=== PATIENT | female | born 1955 | race Caucasian/White ===

== ENCOUNTER 2023-04-25 14:45 | Inpatient (IN) ==
--- NOTE | 2023-04-25 15:11 | Emergency Department Note ---
Impression & Plan Cellulitis of toe of right foot, Hypertensive urgency, Abnormal EKG, Skin necrosis ED Provider Note CHIEF COMPLAINT: Right great toe pain HISTORY OF PRESENTING ILLNESS: This 67-year-old female patient presents to the emergency department with her daughters for evaluation of right great toe pain. The patient states that she was wearing flip flops and hit her right great toenail on a picnic table and it split open a little bit in December 2022. It initially looked like an ingrown toenail and she was taking care of it at home. She states that she was cleaning the area and using antibiotic ointment and hydrogen peroxide on the area. The symptoms seemed to get better initially and she did not see anyone for the symptoms. However, 2-3 days ago she started having redness, swelling, and a lot of pain in the area. Clear discharge from the area. No fevers. She rates her discomfort as 10/10. She took 2 Advil with only minimal improvement of the symptoms. Having trouble walking because of the pain. Tetanus shot is not up to date. The patient has not seen her PCP since 2004. She knows she has a history of hypertension, but has not taken any medication for her hypertension since 2004. She does not know whether she is diabetic or not because she does not check her blood sugars. She is a smoker. REVIEW OF SYSTEMS: See HPI for pertinent positives and pertinent negatives. ALLERGIES: NKDA MEDICATIONS: None PAST MEDICAL HISTORY: HTN - has not seen a PCP since 2004 and has not been on medication for her blood pressure since that time PHYSICAL EXAM: VITALS: Vitals are noted on the nurse's note and reviewed by myself. GENERAL: Non toxic, no acute distress, non-diaphoretic. SKIN: The patient has erythema to the dorsal aspect of the right great toe extending around to the plantar aspect. There is a blackened discoloration under the right great toenail extending onto the toe pad. There is surrounding white discoloration of the skin as well as one small area of yellow purulence under the skin. The appearance is consistent with cellulitis, a small pocket of pus, ulceration, and necrosis. The patient also has onychomycosis of the right great toenail. There is no exposed bone. Capillary refill <2 sec. EYES: PERRLA. EOMI. Conjunctivae without injection, sclerae without icterus. NOSE: Patent without discharge. MOUTH: Mucous membranes moist. Uvula midline. Airway patent. NECK: Supple without nuchal rigidity. HEART: Regular rate and rhythm without murmurs gallops or rubs. LUNGS: Clear to auscultation bilaterally without wheezes, rales or rhonchi. No retractions or accessory muscle use. ABDOMEN: Positive bowel sounds x 4. Normal tympanic percussion. Soft, nontender. No masses or organomegaly. Rodriguez sign negative. No guarding or rebound tenderness. No focal RLQ or LLQ tenderness. MUSCULOSKELETAL: The patient has tenderness to palpation over the right great toe. Any movement of the right great toe causes increased pain, but she is able to move the right great toe fully. No tenderness to palpation of the remainder of the toes or the remainder of the foot. Peripheral pulses are difficult to palpate on the right side. NEURO: Patient was alert and oriented. The patient has decreased sensation of the right foot especially the right great toe. DIFFERENTIAL DIAGNOSIS: Differential diagnosis includes cellulitis, abscess, diabetic ulcer, necrosis, osteomyelitis, septic arthritis, necrotizing fasciitis, sepsis, bacteremia, vascular compromise, vascular occlusion, fracture, dislocation, DVT, diabetes, hypertension, or other etiologies. ED COURSE AND MEDICAL DECISION MAKING: HISTORY FROM INDEPENDENT HISTORIAN: Additional history was obtained from the patient's daughters. MONITOR: Continuous oncologist: Order was placed for continuous oncologist. Patient was placed on the oncologist and continuous pulse ox. Patient was noted to be in normal sinus rhythm at an initial rate of 96 bpm per my interpretation. EKG: EKG was interpreted by myself as normal sinus rhythm at 93 bpm with T wave inversions in the inferior and anterior lateral leads which are new compared to her previous EKG. MEDICATIONS GIVEN: 1.5 L of normal saline solution bolus. Toradol 10 mg IV, morphine 4 mg IV, and Zofran 4 mg IV. Tetanus booster. Cefepime 2 g IV, metronidazole 500 mg IV, vancomycin 1250 mg IV. INTERPRETATION OF LABS: I interpreted the labs with full lab results as below in the lab section of this note. White blood cell count elevated at 10.95. Hemoglobin normal at 15.9. Platelet count normal at 335. Coags were normal. Glucose 236, but CMP otherwise normal. CRP elevated at 1.94, but ESR normal at 30. High-sensitivity troponin normal. Procalcitonin normal. Lactate initially elevated at 3.2, but improved to 1.0 after IV fluids. Wound culture and blood cultures are pending. INTERPRETATION OF IMAGING: Imaging studies were interpreted by myself and read by radiology as per the imaging section of this note. Chest x-ray showed mild cardiomegaly with no acute cardiopulmonary etiology. X-rays of the right foot showed no acute fracture, dislocation, or osseous abnormality. 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 The right deep femoral artery demonstrates markedly elevated velocity which is consistent with a 75 to 99% stenosis. Monophasic flow and decreased velocities beyond the right superficial femoral artery occlusion as expected. CONSULTATIONS: ED pharmacist. Dr. Henderson of orthopedics. On-call hospitalist. CRITICAL CARE: I have personally spent 45 minutes of critical care time in the direct management of this patient. This includes bedside care, interpretation of diagnostic studies, and testing, discussion with consultants, patient, and family members, and other required patient management activities. This 45 minutes is in excess of all separately billable procedures. MDM SUMMARY: I examined the patient. The patient was initially tachycardic at 111 with a blood pressure of 252/95. The patient has a cellulitic and necrotic appearing right great toe after an injury in December 2022. However, she states the redness, swelling, and pain did not start until 2 to 3 days ago. An IV lock was placed and labs were drawn. The patient's initial lactate was elevated at 3.2, but improved to 1.0 after 1.5 L of normal saline solution bolus based on actual body weight. I spoke with the ED pharmacist who recommended IV cefepime, metronidazole, and vancomycin for treatment in the ER. Blood cultures are pending. There was an area of fluctuance that was able to be expressed from the wound with pressure and a wound culture is pending. Remainder of the laboratory studies as above. X-rays of the right foot were negative for acute abnormalities. The patient's blood pressure is significantly elevated. She states she has a history of hypertension, but has not seen a family doctor and has not been on any treatment for her hypertension since 2004. The patient also has EKG changes, but a normal troponin. This will need to be evaluated further. The patient's blood pressure did improve, but was still elevated after pain medication administration. I had a meaningful discussion about this patient with Dr. Gotti who agrees with my assessment and the treatment plan. Dr. Gotti recommended deferring treatment of her blood pressure to the admitting hospitalist. The patient has no known diagnosis of diabetes, but she has not been evaluated for diabetes since 2004. Based on the patient's exam and laboratory findings, there is concern that the patient does have diabetes as well as possible diabetic neuropathy. This could be further evaluated during admission as well. I spoke with Dr. Henderson the of orthopedics who presented to the emergency department and evaluated the patient. He does not feel that there is any surgical intervention needed at this time. He recommended wound care consult as well as vascular consult. He also recommended the patient follow-up with podiatry as an outpatient for management of her nails and her feet. I advised the patient that I recommended admission. Initially the patient was hesitant about being admitted, but after all of the testing was received and after discussion with her daughters, the patient was agreeable to admission. I spoke with the on-call hospitalist who agreed to admit the patient for further inpatient management. Please refer to their dictation for further details. The patient's care was transferred in stable condition. The patient has difficult to palpate peripheral pulses on the right side with necrosis of the right great toe. Arterial ultrasound was ordered, but was still pending at the time of admission. The radiologist from [facility] contacted me about the abnormal results as above. I contacted the on-call hospitalist to assure they received the results of the ultrasound as well. A vascular consult had already been placed. DIAGNOSIS: Cellulitis and necrosis of the right great toe Hypertensive urgency Abnormal EKG Past Med/Surg History Medical History (Updated 04/25/23 @ 23:02 by Susan Rushing PA-C) Tobacco abuse HTN (hypertension) Family History Other Diabetes Social History Smoking Status: Current every day smoker Cigarettes Per Day: 1-2 ppd; Hx Alcohol Use: No Hx Substance Use: No Preferred Language: Egyptian Feels Safe at Home: Yes Allergies Allergies Allergy/AdvReac Type Severity Reaction Status Date / Time No Known Allergies Allergy Verified 04/25/23 15:32 Home Meds Home Medications Medication Instructions Recorded Confirmed ibuprofen 200 mg tablet (Advil) 200 mg PO Q6H PRN Pain 04/25/23 04/25/23 Results & Data (ED) Vital Signs Vital Signs - 24 hr 04/25/23 15:02 04/25/23 16:30 04/25/23 16:45 Temperature 36.9 C Temperature Source Temporal Artery Scan Pulse Rate 111 H 93 H Pulse Rate [Apical] 90 Pulse Rate from SpO2 Sensor 90 Respiratory Rate 19 20 25 H Respiratory Effort / Characteristics Non-Labored Spontaneous Non-Labored Spontaneous Respiratory Depth Normal Normal Blood Pressure 252/95 H Blood Pressure [Left Arm] 235/93 H Blood Pressure Mean 147 Blood Pressure Mean [Left Arm] 140 Pulse Oximetry 94 97 97 Oxygen Delivery Method Room Air Room Air Sepsis Recent Fever Within 48 Hours No Sepsis New/Unexplained Change in Mental Status N/A Sepsis Action Taken by Nursing No Action Required 04/25/23 16:50 04/25/23 17:00 04/25/23 17:00 Temperature Temperature Source Pulse Rate 89 96 H Pulse Rate [Apical] Pulse Rate from SpO2 Sensor 89 96 H Respiratory Rate 18 14 Respiratory Effort / Characteristics Respiratory Depth Blood Pressure 239/89 H Blood Pressure [Left Arm] Blood Pressure Mean 142 Blood Pressure Mean [Left Arm] Pulse Oximetry 97 96 Oxygen Delivery Method Sepsis Recent Fever Within 48 Hours Sepsis New/Unexplained Change in Mental Status Sepsis Action Taken by Nursing 04/25/23 17:02 04/25/23 17:39 04/25/23 17:40 Temperature Temperature Source Pulse Rate 91 H 88 89 Pulse Rate [Apical] Pulse Rate from SpO2 Sensor 88 89 Respiratory Rate 25 H 16 Respiratory Effort / Characteristics Respiratory Depth Blood Pressure Blood Pressure [Left Arm] Blood Pressure Mean Blood Pressure Mean [Left Arm] Pulse Oximetry 94 93 Oxygen Delivery Method Sepsis Recent Fever Within 48 Hours Sepsis New/Unexplained Change in Mental Status Sepsis Action Taken by Nursing 04/25/23 17:46 04/25/23 17:46 04/25/23 17:50 Temperature Temperature Source Pulse Rate 86 86 Pulse Rate [Apical] Pulse Rate from SpO2 Sensor 86 87 Respiratory Rate 23 20 Respiratory Effort / Characteristics Respiratory Depth Blood Pressure 212/72 H Blood Pressure [Left Arm] Blood Pressure Mean 149 Blood Pressure Mean [Left Arm] Pulse Oximetry 96 96 Oxygen Delivery Method Sepsis Recent Fever Within 48 Hours Sepsis New/Unexplained Change in Mental Status Sepsis Action Taken by Nursing 04/25/23 18:00 04/25/23 18:00 04/25/23 18:10 Temperature Temperature Source Pulse Rate 87 92 H Pulse Rate [Apical] Pulse Rate from SpO2 Sensor 88 91 H Respiratory Rate 23 23 Respiratory Effort / Characteristics Respiratory Depth Blood Pressure 228/90 H Blood Pressure [Left Arm] Blood Pressure Mean 185 Blood Pressure Mean [Left Arm] Pulse Oximetry 97 95 Oxygen Delivery Method Sepsis Recent Fever Within 48 Hours Sepsis New/Unexplained Change in Mental Status Sepsis Action Taken by Nursing 04/25/23 18:15 04/25/23 18:15 04/25/23 18:20 Temperature Temperature Source Pulse Rate 93 H 89 Pulse Rate [Apical] Pulse Rate from SpO2 Sensor 93 H 90 Respiratory Rate 20 28 H Respiratory Effort / Characteristics Respiratory Depth Blood Pressure 217/105 H Blood Pressure [Left Arm] Blood Pressure Mean 154 Blood Pressure Mean [Left Arm] Pulse Oximetry 96 95 Oxygen Delivery Method Sepsis Recent Fever Within 48 Hours Sepsis New/Unexplained Change in Mental Status Sepsis Action Taken by Nursing Laboratory Data 04/25/23 15:47 04/25/23 15:47 Lab Results 04/25/23 04/25/23 04/25/23 Range/Units 15:47 15:49 17:46 WBC 10.95 H (4.8-10.8) K/ul RBC 5.62 H (4.20-5.40) M/uL Hgb 15.9 (12.0-16.0) g/dl Hct 48.0 H (37.0-47.0) % MCV 85.4 (80.0-100.0) fL MCH 28.3 (25.0-34.0) pg MCHC 33.1 (32.0-36.0) g/dL RDW Std Deviation 44.9 (36.4-46.3) fL RDW Coeff of María 14.6 H (11.5-14.5) % Plt Count 335 (130-400) K/uL MPV 10.1 (9.4-12.4) fL Immature Gran % (Auto) 0.5 % Neut % (Auto) 66.7 % Lymph % (Auto) 18.3 % Bibb % (Auto) 11.1 % Eos % (Auto) 2.4 % Baso % (Auto) 1.0 % Neut # (Auto) 7.31 H (1.40-6.50) K/uL Lymph # (Auto) 2.00 (1.20-3.40) K/uL Bibb # (Auto) 1.21 H (0.11-0.59) K/uL Eos # (Auto) 0.26 (0.00-0.50) K/uL Baso # (Auto) 0.11 (0.00-0.20) K/uL Immature Gran # (Auto) 0.06 (0.01-0.20) K/uL ESR 30 (0-30) mm/hr PT 10.3 (9.0-12.0) Seconds INR 0.9 (0.9-1.1) APTT 30.1 (21.0-31.0) Seconds PTT Ratio 1.1 Sodium 137 (136-145) mmol/L Potassium 4.4 (3.5-5.1) mmol/L Chloride 100 (98-107) mmol/L Carbon Dioxide 30 (21-32) mmol/L Anion Gap 7 (3-11) BUN 15 (6-23) mg/dl Creatinine 0.80 (0.6-1.2) mg/dl Est Cr Clr Drug Dosing 47.8 ml/min Est GFR ( Amer) 89.7 ml/min Est GFR (Non-Af Amer) 77.4 ml/min BUN/Creatinine Ratio 18.8 (10-20) Glucose 236 H (70-99(Fasting)) mg/dl Lactate 3.2 H* 1.0 (0.4-2.0) mmol/L Uric Acid 3.1 (2.6-7.2) mg/dl Calcium 9.8 (8.6-10.3) mg/dl Total Bilirubin 0.4 (0.2-1.0) mg/dl AST 12 L (13-39) U/L ALT 11 (7-52) U/L Alkaline Phosphatase 97 (34-104) U/L Troponin I High Sens 11.6 (0-14) pg/ml C-Reactive Protein 1.94 H (0-0.5) mg/dl Total Protein 7.6 (6.0-8.3) gm/dl Albumin 4.3 (3.4-5.0) gm/dl Globulin 3.3 (2.5-4.0) gm/dl Albumin/Globulin Ratio 1.3 (0.9-2) Procalcitonin < 0.05 (0-0.5) ng/ml Administered Medications Morphine Sulfate (Morphine Sulfate 2 Mg/Ml Carp) 2 mg IV Q6H PRN PRN Reason: Severe Pain (Scale 7, 8, 9,10) Stop: 05/09/23 20:53 Last Admin: 04/25/23 21:32 Dose: 2 mg Documented By: SHIMON Discontinued Medications Diphtheria/Pertussis/Tetanus Vacc (Diphtheria/Tetanus/Pertussis Vaccine (Tdap, Age 7+Yrs) 0.5ml Syr/Vl) 0.5 ml IM .ONCE ONE Stop: 04/25/23 15:38 Last Admin: 04/25/23 18:26 Dose: Not Given Documented By: BILLY Diphtheria/Pertussis/Tetanus Vacc (Diphtheria/Tetanus/Pertussis Vaccine (Tdap, Age 7+Yrs) 0.5ml Syr/Vl) 0.5 ml IM .ONCE ONE Stop: 04/25/23 19:01 Last Admin: 04/25/23 20:27 Dose: 0.5 ml Documented By: SHIMON Hydralazine HCl (Hydralazine Hcl 20 Mg/Ml Vial) 10 mg IV NOW STA Stop: 04/25/23 18:26 Last Admin: 04/25/23 19:51 Dose: 10 mg Documented By: SHIMON Sodium Chloride (Nss) 1,000 mls @ 999 mls/hr IV .Q1H1M ONE Stop: 04/25/23 16:32 Last Infusion: 04/25/23 16:57 Dose: Infused Documented By: Admin: 04/25/23 15:56 Dose: 999 mls/hr Documented By: FRANSISCO Cefepime HCl (Maxipime) 2,000 mg in 20 mls @ 5 mls/min IV NOW STA; Protocol Stop: 04/25/23 16:13 Last Admin: 04/25/23 16:19 Dose: 5 mls/min Documented By: FRANSISCO Metronidazole (Flagyl) 500 mg in 100 mls @ 100 mls/hr IV NOW STA; Protocol Stop: 04/25/23 17:09 Last Infusion: 04/25/23 17:39 Dose: Infused Documented By: Admin: 04/25/23 16:39 Dose: 100 mls/hr Documented By: FRANSISCO Vancomycin HCl 1,250 mg/ (Sodium Chloride) 525 mls @ 200 mls/hr IV NOW ONE Stop: 04/25/23 18:47 Last Admin: 04/25/23 17:57 Dose: 200 mls/hr Documented By: BILLY Sodium Chloride (Nss) 500 mls @ 999 mls/hr IV .Q31M ONE Stop: 04/25/23 16:41 Last Infusion: 04/25/23 17:49 Dose: Infused Documented By: Admin: 04/25/23 17:16 Dose: 999 mls/hr Documented By: Ketorolac Tromethamine (Ketorolac Tromethamine 15 Mg/Ml Vial) 10 mg IV NOW ONE Stop: 04/25/23 15:35 Last Admin: 04/25/23 15:54 Dose: 10 mg Documented By: Losartan Potassium (Losartan Potassium 50 Mg Tab) 50 mg PO ONE ONE Stop: 04/25/23 18:26 Last Admin: 04/25/23 19:50 Dose: 50 mg Documented By: SHIMON Morphine Sulfate (Morphine Sulfate 4 Mg/Ml 1 Ml Carp\Vial) 4 mg IV NOW STA Stop: 04/25/23 16:40 Last Admin: 04/25/23 16:54 Dose: 4 mg Documented By: Ondansetron HCl (Ondansetron Inj 2 Mg/Ml 2 Ml Vial) 4 mg IV NOW STA Stop: 04/25/23 16:40 Last Admin: 04/25/23 16:54 Dose: 4 mg Documented By: Oxycodone HCl (Oxycodone Hcl Ir 5 Mg Tab (Immediate Release)) 5 mg PO NOW STA Stop: 04/25/23 18:26 Last Admin: 04/25/23 19:50 Dose: 5 mg Documented By: [facility] Imaging Data Radiologist's Impression: Chest X-Ray 04/25/23 15:32 SINGLE VIEW CHEST CLINICAL HISTORY: Hypertension. Unspecified infection. FINDINGS: An AP, portable, upright chest radiograph is obtained. No prior studies are available for comparison at the time of dictation. The heart is mildly enlarged noting atherosclerotic calcification of the thoracic aorta. The pulmonary vasculature is noncongested. Nonspecific interstitial thickening is likely chronic. No airspace consolidation or large pleural effusion is identified. There are scattered calcified granulomas. Scarring/atelectasis is noted at the lung bases. No airspace consolidation or large pleural effusion is identified. No pneumothorax is seen. The skeletal structures are osteopenic. The bony thorax is grossly intact. IMPRESSION: Mild cardiomegaly with no acute cardiopulmonary abnormality. ACT 112: Negative or not required by law. Electronically signed by: Koby Mcclain M.D. 04/25/2023 4:45 PM Foot X-Ray 04/25/23 15:32 XR foot RT min 3V routine HISTORY: 67 years-old Female Attn left great toe - eval infect/fxr COMPARISON: None TECHNIQUE: 3 views of the right foot FINDINGS: Demineralized appearance of the bones. Mild to moderate osteoarthritis. No acute fracture, dislocation, osseous erosion or opaque foreign body. Mild diffuse soft tissue swelling. Spurring of the calcaneus. IMPRESSION: No acute osseous abnormality. ACT 112: Negative or not required by law. The above report was generated using voice recognition software. It may contain grammatical, syntax or spelling errors. Electronically signed by: Fabrizio Herrera M.D. 04/25/2023 4:47 PM Duplex Scan Lower Extremity Artery 04/25/23 17:24 CR Exam(s): US ARTERIAL RIGHT LOWER EXTREMITY EXAM: US Duplex Right Lower Extremity Arteries CLINICAL HISTORY: Reason for exam: necrosis of right great toe, eval vascular status. TECHNIQUE: Real-time duplex ultrasound scan of the right lower extremity arteries integrating B-mode two-dimensional vascular structure, Doppler spectral analysis and color flow Doppler imaging. COMPARISON: No relevant prior studies available. FINDINGS: Right common femoral artery: The right common femoral artery is patent with abnormal monophasic flow, 116 cm/s. Right deep femoral artery: The right deep femoral artery demonstrates markedly elevated velocity of 402 cm/s. Right superficial femoral artery: The right superficial femoral artery is occluded throughout the proximal and midportion. There is distal reconstitution with monophasic flow, 53 cm/s. Right popliteal artery: The right popliteal artery demonstrates abnormal monophasic flow and decreased velocities 26 and 23 cm/s. Right calf/foot arteries: Right posterior tibial artery demonstrates an abnormal monophasic waveform and decreased velocities of 20 and 27 cm/s. The right peroneal artery demonstrates monophasic flow and decreased velocity, 16 cm/s. The right anterior tibial artery demonstrates abnormal monophasic flow and decreased velocity of 13 cm/s. The right dorsalis pedis artery demonstrates abnormal monophasic flow and decreased velocity of 12 cm/s. Soft tissues: Unremarkable. IMPRESSION: 1. The right superficial femoral artery is occluded throughout the proximal and midportion. There is distal reconstitution with monophasic flow, 53 cm/s. 2. The right deep femoral artery demonstrates markedly elevated velocity of 402 cm/s. This is consistent with 75-99% stenosis. 3. Monophasic flow and decreased velocities beyond the right superficial femoral artery occlusion, as expected. Communications: Call Doctor Above results Electronically signed by: Mikel Ram MD 04/25/23 20:05 PM Discharge Plan Visit Data Chief Complaint: Toe Injury/Pain Stated Complaint: R BIG TOE PAIN ED Provider: Lionel Gotti ED Midlevel Provider: Susan Rushing Discharge Problem: Cellulitis of toe of right foot, Hypertensive urgency, Abnormal EKG, Skin necrosis Patient Disposition: Admitted As Inpatient Condition: Good Discharge Instructions Interventions: ED Discharge Assessment Last Done: 04/25/23 20:54
[2023-04-25] MEDS ORDERED: SODIUM CHLORIDE 0.9% 1,000 ML IV ONE (15:32)
[2023-04-25] MEDS ORDERED: KETOROLAC TROMETHAMINE 15 MG/ML VIAL IV ONE (15:34)
[2023-04-25] MEDS ORDERED: DIPHTHERIA/TETANUS/PERTUSSIS Vaccine (Tdap, Age 7+yrs) 0.5mL SYR/VL IM ONE ×2 (15:37→19:00)
[2023-04-25 16:07] LABS: Basophils # (auto) 0.11 K/uL (0.00-0.20); Eosinophils # (auto) 0.26 K/uL (0.00-0.50); Eosinophils % (auto) 2.4 %; Hemoglobin 15.9 g/dl (12.0-16.0); Immature Granulocytes # (auto) 0.06 K/uL (0.01-0.20); Immature Granulocytes % (auto) 0.5 %; Lymphocytes % (auto) 18.3 %; Mean Corpuscular Hemoglobin 28.3 pg (25.0-34.0); Mean Corpuscular Hgb Conc 33.1 g/dL (32.0-36.0); Mean Corpuscular Volume 85.4 fL (80.0-100.0); Mean Platelet Volume 10.1 fL (9.4-12.4); Monocytes # (auto) 1.21 K/uL (0.11-0.59); Monocytes % (auto) 11.1 %; Neutrophils # (auto) 7.31 K/uL (1.40-6.50); Neutrophils % (auto) 66.7 %; Platelet Count 335 K/uL (130-400); RDW Coefficient of Variation 14.6 % (11.5-14.5); RDW Standard Deviation 44.9 fL (36.4-46.3); Red Blood Count 5.62 M/uL (4.20-5.40); White Blood Count 10.95 K/ul (4.8-10.8)
[2023-04-25] MEDS ORDERED: VANCOMYCIN HCL 1,250 MG in SODIUM CHLORIDE 0.9% 500 ML IV ONE (16:10)
[2023-04-25] MEDS ORDERED: metroNIDAZOLE 500 MG/100 ML BAG IV STA (16:10)
[2023-04-25] MEDS ORDERED: VANCOMYCIN CONSULT ACTIVE PRN ×2 (16:10→20:54)
[2023-04-25] MEDS ORDERED: CEFEPIME 2,000 MG/20 ML VIAL IV STA (16:10)
[2023-04-25] MEDS ORDERED: SODIUM CHLORIDE 0.9% 500 ML IV ONE (16:11)
[2023-04-25 16:29] LABS: Albumin Globulin Ratio 1.3 (0.9-2); Albumin Level 4.3 gm/dl (3.4-5.0); BUN Creatinine Ratio 18.8 (10-20); Bilirubin,Total 0.4 mg/dl (0.2-1.0); C Reactive Protein 1.94 mg/dl (0-0.5); Calcium 9.8 mg/dl (8.6-10.3); Creatinine Clr Calc Pharmacy 47.8 ml/min; Est GFR (African American) 89.7 ml/min; Est GFR (Non-African American) 77.4 ml/min; Globulin 3.3 gm/dl (2.5-4.0); Potassium 4.4 mmol/L (3.5-5.1); Total Protein 7.6 gm/dl (6.0-8.3); Uric Acid 3.1 mg/dl (2.6-7.2)
[2023-04-25 16:35] LABS: Troponin I High Sensitivity 11.6 pg/ml (0-14)
--- NOTE | 2023-04-25 16:38 | Emergency Department Note ---
ED Visit Note The patient was seen and examined with indira. I agree with the history, physical and findings. Please see the note for disposition and details. .
[2023-04-25] MEDS ORDERED: MoRPHine SULFATE 4 MG/ML 1 ML CARP\\VIAL IV STA (16:39)
[2023-04-25] MEDS ORDERED: ONDANSETRON INJ 2 MG/ML 2 ML VIAL IV STA (16:39)
[2023-04-25 16:41] LABS: INR 0.9 (0.9-1.1); Partial Thromboplastin Ratio 1.1; Partial Thromboplastin Time 30.1 Seconds (21.0-31.0); Prothrombin Time 10.3 Seconds (9.0-12.0)
--- NOTE | 2023-04-25 16:47 | XRay Report ---
SINGLE VIEW CHEST CLINICAL HISTORY: Hypertension. Unspecified infection. FINDINGS: An AP, portable, upright chest radiograph is obtained. No prior studies are available for c omparison at the time of dictation. The heart is mildly enlarged noting atherosclerotic calcification of the thoracic aorta. The pulmonary vasculature is noncongested. Nonspecific interstitial thickenin g is likely chronic. No airspace consolidation or large pleural effusion is identified. There are sca ttered calcified granulomas. Scarring/atelectasis is noted at the lung bases. No airspace consolidati on or large pleural effusion is identified. No pneumothorax is seen. The skeletal structures are oste openic. The bony thorax is grossly intact. IMPRESSION: Mild cardiomegaly with no acute cardiopulmonary abnormality. ACT 112: Negative or not required by law. Electronically signed by: Koby Mcclain M.D. 04/25/2023 4:45 PM
--- NOTE | 2023-04-25 16:48 | XRay Report ---
XR foot RT min 3V routine HISTORY: 67 years-old Female Attn left great toe - eval infect/fxr COMPARISON: None TECHNIQUE: 3 views of the right foot FINDINGS: Demineralized appearance of the bones. Mild to moderate osteoarthritis. No acute fracture, dislocatio n, osseous erosion or opaque foreign body. Mild diffuse soft tissue swelling. Spurring of the calcane us. IMPRESSION: No acute osseous abnormality. ACT 112: Negative or not required by law. The above report was generated using voice recognition software. It may contain grammatical, syntax o r spelling errors. Electronically signed by: Fabrizio Herrera M.D. 04/25/2023 4:47 PM
--- NOTE | 2023-04-25 17:36 | Orthopedic Consultation ---
Date of Consultation April 25, 2023 Assessment & Plan (1) Wound of foot: Radiographs of the toe are negative. There is no fracture dislocation or evidence of osteomyelitis. She has some cellulitis present. I do not see any evidence of bone infection. I do not feel or see a abscess in need of draining. I would recommend podiatry for her nail care. A vascular consultation could be considered due to what appears to be poor circulation which may be contributing to the wound. She is not known to be a diabetic but her blood sugars are reported to be elevated and she has not had medical care for many years. I do not see any need for operative intervention at this present time. I would recommend wound care and hopefully things can get healed up that way. She may have poor circulation. She will likely need antibiotics either as an inpatient or outpatient. I would be happy to follow-up with her in my office if she is admitted. History of Present Illness History of Present Illness Alexandra is 67. A few weeks ago she bumped her big toe. She had a cut on it. She treated it with peroxide. Things got worse a few days ago where she noted some increased redness and swelling and came to the ER. Allergies Allergy/AdvReac Type Severity Reaction Status Date / Time No Known Allergies Allergy Verified 04/25/23 15:32 Home Medications Medication Instructions Recorded Confirmed Type ibuprofen 200 mg tablet (Advil) 200 mg PO Q6H PRN Pain 04/25/23 04/25/23 History Patient History Social History Smoking Status: Current every day smoker Preferred Language: Pashto Feels Safe at Home: Yes Review of Systems Review of Systems: She smokes Physical Exam Physical Exam: Pedal pulses are nonpalpable. There is a 1-1/2 cm diameter area on the lateral distal border of the big toe where there is superficial necrosis. Blackened discoloration like a eschar. Leathery in appearance. There is no surrounding fluctuance present. Tenderness is mild. Her nail is overgrown. She can flex and extend the big toe has good range of motion of her ankle. There is no exposed bone there is mild erythema on the dorsum of the toe with positive skin wrinkles and a trace bit of erythema going onto the top of the foot. Swelling is minimal. Results & Data Vital Signs (Past 12 Hours) Vital Signs Temp Pulse Pulse Resp BP BP Pulse Ox 04/25/23 17:02 91 H 04/25/23 16:30 90 20 235/93 H 97 04/25/23 15:02 36.9 C 111 H 19 252/95 H 94 O2 Del Method 04/25/23 17:02 04/25/23 16:30 Room Air 04/25/23 15:02 Room Air Laboratory Results Her labs are noted.
--- NOTE | 2023-04-25 17:59 | History & Physical Report ---
Date of Service April 25, 2023 Assessment & Plan (1) Wound of foot: (2) Cellulitis of toe of right foot: Plan: Patient is 67 year old female with PMH HTN presented to ER with c/o right great toe pain and wound after bumping toe in 12/2022. Denies fever/chills In ER afebrile, WBC: 10.9. Lactate: 3.2-->1.0 Foot Xray: No acute osseous abnormality In ER given 1500ml NSS, cefepime, vancomycin, flagyl, Tdap Wound culture, blood culture pending Arterial Doppler pending Zosyn, vancomycin Ortho consult, evaluated patient in ER and no need surgical intervention Podiatry consult Wound consult Vascular surgery consult CBC, BMP in am (3) Hypertensive urgency: Plan: History HTN. Not on medication for 20 years In ER BPs 235/93 Denies CP, SOB, PATRICIA, dizziness Start losartan Hydralazine prn (4) Abnormal EKG: Plan: EKG: sinus rhythm, rate 96. ST depression inferior, anterior lateral leads per my interpretation. Compared to EKG 08/18/[address] depression inferior, anterior and lateral leads also HS troponin negative Denies SOB, CP EKG in am Echo (5) Hyperglycemia: Plan: Random glucose: 236 A1c in am Novolog sliding scale per protocol (6) Tobacco abuse: Plan: 1-2ppd Denies nicotine patch No intention of smoking cessation DVT Prophylaxis Lovenox SQ Full Code as per discussion with pt Does not Follows with PCP for routine care Pt was seen and care coordinated with Dr Palomares. See addendum History of Present Illness Chief Complaint: Right great toe pain Primary Care Provider: NO PCP Patient is 67 year old female with PMH HTN presented to ER with c/o right great toe pain. Patient states in 12/2022 she bumped her right great toe and her toenail chipped. She states felt also like she had ingrown toenail and tried to self remove. Admits toenails are long. She has been soaking toe and applying peroxide and triple antibiotic cream to area. Has been having pain to toe and reports some clear drainage to toe. She noticed callused area and blackened area to side of toe as well. Patient states past couple of days with increased pain to toe. Hasn't been seen by physician in nearly 20 years. States previously was on BP med but self stopped. Denies fever/chills, diaphoresis, N/V/D/C, PATRICIA, dizziness, CP, SOB, palpitations, cough, sore throat, rhinorrhea, abdominal pain, paresthesias, extremity weakness, extremity edema, rashes, urinary symptoms. Allergies Allergy/AdvReac Type Severity Reaction Status Date / Time No Known Allergies Allergy Verified 04/25/23 15:32 Home Medications Medication Instructions Recorded Confirmed Type ibuprofen 200 mg tablet (Advil) 200 mg PO Q6H PRN Pain 04/25/23 04/25/23 History Past Med/Surg History Medical History (Updated 04/25/23 @ 18:56 by Nanette Sequeira PA-C) Tobacco abuse HTN (hypertension) Family History Other Diabetes Social History Smoking Status: Current every day smoker Cigarettes Per Day: 1-2 ppd; Hx Alcohol Use: No Hx Substance Use: No Preferred Language: Telugu Feels Safe at Home: Yes Review of Systems Review of Systems: All systems reviewed & are unremarkable except as noted in HPI & below Physical Exam Physical Exam: General: no distress, WDWN Head: normocephalic, atraumatic Eyes: conjunctiva non-injected, anicteric ENT: normal inspection external ears, nose, mucous membranes moist Neck: supple, trachea midline Lungs: clear, no respiratory distress, no wheezing/rhonchi/rales CV: RRR, no murmur, no pretibial edema Abd: normal BS, soft, non-tender Ext: Right foot: Right great toe with eschar, faint erythema toe, +mild tenderness palpation lateral toe. +long toenails. no red streaking up foot. unable to palpate distal pulses.no cyanosis, no calf tenderness; remaining extremities non-tender ROM intact Neuro: A&O x 3, no focal deficits noted, normal affect Skin: warm, dry Results & Data Results & Data Vital Signs (Past 12 Hours) Vital Signs Temp Pulse Pulse Resp BP BP Pulse Ox 04/25/23 17:02 91 H 04/25/23 16:30 90 20 235/93 H 97 04/25/23 15:02 36.9 C 111 H 19 252/95 H 94 O2 Del Method 04/25/23 17:02 04/25/23 16:30 Room Air 04/25/23 15:02 Room Air Laboratory Results Short CBC 04/25/23 Range/Units 15:47 WBC 10.95 H (4.8-10.8) K/ul Hgb 15.9 (12.0-16.0) g/dl Hct 48.0 H (37.0-47.0) % Plt Count 335 (130-400) K/uL BMP 04/25/23 15:47 Sodium 137 Potassium 4.4 Chloride 100 Carbon Dioxide 30 BUN 15 Creatinine 0.80 Glucose 236 H Calcium 9.8 Liver Function 04/25/23 Range/Units 15:47 Total Bilirubin 0.4 (0.2-1.0) mg/dl AST 12 L (13-39) U/L ALT 11 (7-52) U/L Alkaline Phosphatase 97 (34-104) U/L Albumin 4.3 (3.4-5.0) gm/dl Diagnostic Findings Chest X-Ray 04/25/23 15:32 SINGLE VIEW CHEST CLINICAL HISTORY: Hypertension. Unspecified infection. FINDINGS: An AP, portable, upright chest radiograph is obtained. No prior studies are available for comparison at the time of dictation. The heart is mildly enlarged noting atherosclerotic calcification of the thoracic aorta. The pulmonary vasculature is noncongested. Nonspecific interstitial thickening is likely chronic. No airspace consolidation or large pleural effusion is identified. There are scattered calcified granulomas. Scarring/atelectasis is noted at the lung bases. No airspace consolidation or large pleural effusion is identified. No pneumothorax is seen. The skeletal structures are osteopenic. The bony thorax is grossly intact. IMPRESSION: Mild cardiomegaly with no acute cardiopulmonary abnormality. ACT 112: Negative or not required by law. Electronically signed by: Koby Mcclain M.D. 04/25/2023 4:45 PM Foot X-Ray 04/25/23 15:32 XR foot RT min 3V routine HISTORY: 67 years-old Female Attn left great toe - eval infect/fxr COMPARISON: None TECHNIQUE: 3 views of the right foot FINDINGS: Demineralized appearance of the bones. Mild to moderate osteoarthritis. No acute fracture, dislocation, osseous erosion or opaque foreign body. Mild diffuse soft tissue swelling. Spurring of the calcaneus. IMPRESSION: No acute osseous abnormality. ACT 112: Negative or not required by law. The above report was generated using voice recognition software. It may contain grammatical, syntax or spelling errors. Electronically signed by: Fabrizio Herrera M.D. 04/25/2023 4:47 PM Supervising Physician Co-Signing Physician Notes Patient is a 67-year-old female with history of hypertension, tobacco use disorder and no other significant past medical history presents with history of right great toe pain associated with some drainage resulting from trauma in December 2022. She also admits to have ingrowing toenail. She denies any fever, chills. She admits to have significant pain which worsens with ambulation. She has not been seen by physician for more than 20 years. Please review HPI for complete details of presentation. I personally reviewed blood work and imaging studies, EKG available at the time of admission. Lactic acidosis resolved with IV fluids. Blood pressure elevated while in ED but patient denies any headache, dizziness, change in vision. Arterial Doppler currently pending. On exam patient is moderately built and nourished, no apparent distress, normocephalic atraumatic, EOMI, normal breath sounds, clear to auscultation, S1-S2,+ murmur, abdomen soft, nontender, normal bowel sounds, alert, awake, oriented, grossly no focal deficits. Right great toe eschar, mild erythema, tenderness noted. Patient is admitted for management of right foot cellulitis/right great toe wound. Started on broad-spectrum IV antibiotics. Blood, wound cultures pending. Suspected peripheral artery disease. Arterial Doppler pending. Consulted vascular surgery. We will check lipid panel. Hyperglycemia noted. Will check HbA1c. Abnormal EKG with nonspecific ST-T wave changes. Will check echo and consider cardiology evaluation if needed. Hypertensive urgency likely situational in addition to uncontrolled chronic hypertension. Started on losartan. IV hydralazine as needed. Will consider starting on aspirin, Lipitor if concerns for peripheral artery disease on Doppler. Lipid panel ordered as well. I personally reviewed the record. Patient is interviewed and examined at bedside. Patient's care is coordinated with Nanette Sequeira PA-C. Please refer to the documentation above for details of patient's presentation and for discussion of other issues.
[2023-04-25] MEDS ORDERED: LOSARTAN POTASSIUM 50 MG TAB PO ONE (18:25)
[2023-04-25] MEDS ORDERED: hydrALAZINE HCL 20 MG/ML VIAL IV STA (18:25)
[2023-04-25] MEDS ORDERED: oxyCODONE HCL IR 5 MG TAB (IMMEDIATE RELEASE) PO STA (18:25)
--- NOTE | 2023-04-25 20:06 | Ultrasound Report ---
Exam(s): US ARTERIAL RIGHT LOWER EXTREMITY EXAM: US Duplex Right Lower Extremity Arteries CLINICAL HISTORY: Reason for exam: necrosis of right great toe, eval vascular status. TECHNIQUE: Real-time duplex ultrasound scan of the right lower extremity arteries integrating B-mode two-dimensional vascular structure, Doppler spectral analysis and color flow Doppler imaging. COMPARISON: No relevant prior studies available. FINDINGS: Right common femoral artery: The right common femoral artery is patent with abnormal monophasic flow, 116 cm/s. Right deep femoral artery: The right deep femoral artery demonstrates markedly elevated velocity of 402 cm/s. Right superficial femoral artery: The right superficial femoral artery is occluded throughout the proximal and midportion. There is distal reconstitution with monophasic flow, 53 cm/s. Right popliteal artery: The right popliteal artery demonstrates abnormal monophasic flow and decreased velocities 26 and 23 cm/s. Right calf/foot arteries: Right posterior tibial artery demonstrates an abnormal monophasic waveform and decreased velocities of 20 and 27 cm/s. The right peroneal artery demonstrates monophasic flow and decreased velocity, 16 cm/s. The right anterior tibial artery demonstrates abnormal monophasic flow and decreased velocity of 13 cm/s. The right dorsalis pedis artery demonstrates abnormal monophasic flow and decreased velocity of 12 cm/s. Soft tissues: Unremarkable. IMPRESSION: 1. The right superficial femoral artery is occluded throughout the proximal and midportion. There is distal reconstitution with monophasic flow, 53 cm/s. 2. The right deep femoral artery demonstrates markedly elevated velocity of 402 cm/s. This is consistent with 75-99% stenosis. 3. Monophasic flow and decreased velocities beyond the right superficial femoral artery occlusion, as expected. Communications: Call Doctor Above results Electronically signed by: Mikel Ram MD 04/25/23 20:05 PM
[2023-04-25] MEDS ORDERED: POLYETHYLENE (MIRALAX) 17 GM PACK PO PRN (20:54)
[2023-04-25] MEDS ORDERED: CARBOHYDRATES FOR HYPOGLYCEMIA PO PRN (20:54)
[2023-04-25] MEDS ORDERED: GLUCOSE 40% GEL 15 GM TUBE PO PRN (20:54)
[2023-04-25] MEDS ORDERED: DEXTROSE 50% 50 ML SYRINGE IV PRN (20:54)
[2023-04-25] MEDS ORDERED: GLUCAGON FOR INJ 1 MG VIAL SQ PRN (20:54)
[2023-04-25] MEDS ORDERED: VANCOMYCIN HCL 750 MG in SODIUM CHLORIDE 0.9% 500 ML IV SCH (20:54)
[2023-04-25] MEDS ORDERED: ONDANSETRON INJ 2 MG/ML 2 ML VIAL IV PRN (20:54)
[2023-04-25] MEDS ORDERED: GLUCOSE 10 TAB/TUBE PO PRN (20:54)
[2023-04-25] MEDS ORDERED: PIPERACILLIN/TAZOBACTAM 4.5 GM in DEXTROSE 5% MINI-B 100 ML IV ONE (21:15)
[2023-04-25] MEDS: MoRPHine SULFATE 2 MG/ML CARP IV PRN (21:32)
[2023-04-25] MEDS: INSULIN ASPART PER UNIT CHARGE SC SCH (23:36)
[2023-04-25] MEDS: ACETAMINOPHEN 500 MG TAB PO SCH (23:47)
[2023-04-25] MEDS: ENOXAPARIN INJ 40 MG/0.4 ML SYR SQ SCH (23:47)
[2023-04-26] MEDS: oxyCODONE HCL IR 5 MG TAB (IMMEDIATE RELEASE) PO PRN ×3 (01:39→19:07)
[2023-04-26 03:58] LABS: Eosinophils # (auto) 0.29 K/uL (0.00-0.50); Eosinophils % (auto) 2.8 %; Hematocrit (blood only) 42.6 % (37.0-47.0); Hemoglobin 13.9 g/dl (12.0-16.0); Immature Granulocytes # (auto) 0.05 K/uL (0.01-0.20); Immature Granulocytes % (auto) 0.5 %; Lymphocytes # (auto) 1.66 K/uL (1.20-3.40); Lymphocytes % (auto) 16.1 %; Mean Corpuscular Hemoglobin 28.1 pg (25.0-34.0); Mean Corpuscular Hgb Conc 32.6 g/dL (32.0-36.0); Mean Corpuscular Volume 86.2 fL (80.0-100.0); Monocytes # (auto) 1.36 K/uL (0.11-0.59); Monocytes % (auto) 13.2 %; Neutrophils # (auto) 6.82 K/uL (1.40-6.50); Neutrophils % (auto) 66.4 %; Platelet Count 268 K/uL (130-400); RDW Coefficient of Variation 14.8 % (11.5-14.5); RDW Standard Deviation 46.9 fL (36.4-46.3); Red Blood Count 4.94 M/uL (4.20-5.40); White Blood Count 10.28 K/ul (4.8-10.8)
[2023-04-26 04:12] LABS: BUN Creatinine Ratio 15.1 (10-20); Calcium 8.4 mg/dl (8.6-10.3); Chol HDL Ratio 3.3 (0-5); Creatinine Clr Calc Pharmacy 44.5 ml/min; Est GFR (African American) 82.2 ml/min; Est GFR (Non-African American) 70.9 ml/min; Potassium 4.3 mmol/L (3.5-5.1)
[2023-04-26] MEDS: PIPERACILLIN/TAZOBACTAM 4.5 GM in DEXTROSE 5% MINI-B 100 ML IV SCH ×4 (04:30→20:17)
[2023-04-26] MEDS: ACETAMINOPHEN 500 MG TAB PO SCH ×3 (05:48→20:12)
[2023-04-26] MEDS: MoRPHine SULFATE 2 MG/ML CARP IV PRN ×2 (06:36→12:42)
[2023-04-26 07:06] LABS: Estimated Average Glucose 140 mg/dl; Hemoglobin A1C 6.5 % (4.5-5.6)
[2023-04-26] MEDS: VANCOMYCIN HCL 1,250 MG in SODIUM CHLORIDE 0.9% 250 ML IV SCH (08:02)
[2023-04-26] MEDS ORDERED: PIPERACILLIN/TAZOBACTAM 4.5 GM/100ML D5W IV ONE (08:58)
[2023-04-26] MEDS: LOSARTAN POTASSIUM 50 MG TAB PO SCH (09:01)
[2023-04-26] MEDS: INSULIN ASPART PER UNIT CHARGE SC SCH ×4 (09:11→20:38)
--- NOTE | 2023-04-26 11:01 | Pharmacy Report ---
Pharmacy PK ABX Note - Date of Service April 26, 2023 - Assessment and Plan Assessment 67 year old F receiving vancomycin/zosyn for treatment of cellulitis. Pertinent microbiologic data includes: blood cultures, toe culture pending. Mild leukocytosis improved. No evidence of osteo. Tmax 37.6 C. Plan Vancomycin * Loading dose: 1250 mg IV x 1 * Maintenance dose: 1250 mg IV every 24 hours * Regimen is predicted to achieve target AUC/TERESO of 400-625 mg/L.hr * Random ordered for 04/27 @ 1912 Pharmacy will continue to follow and will adjust dose/frequency as necessary. Thank you. Pharmacy has transitioned to AUC monitoring for vancomycin. AUC/TERESO is the preferred PK/PD target and is associated with decreased risk of nephrotoxicity compared to traditional trough targets.
--- NOTE | 2023-04-26 11:05 | Ultrasound Report ---
US ankle/brachial index ltd HISTORY: 67 years-old Female toe wound patient presents with chronic ulcer of the right toe COMPARISON: None TECHNIQUE: Segmental pressures of the lower extremities were obtained FINDINGS: IV catheter noted within the right upper extremity, therefore the right brachial pressure was unable to be obtained. Right dorsalis pedis: 7 (0.04); posterior tibial-50 (0.31) Left: Brachial-159; dorsalis pedis-59 (0.37); posterior tibial-69 (0.43). IMPRESSION: Severely decreased ABIs, right greater than left. ACT 112: Negative or not required by law. The above report was generated using voice recognition software. It may contain grammatical, syntax o r spelling errors. Electronically signed by: Fabrizio Herrera M.D. 04/26/2023 11:04 AM
--- NOTE | 2023-04-26 13:06 | Hospitalist Progress Note ---
Date of Service April 26, 2023 Assessment & Plan (1) Cellulitis of toe of right foot: Plan Patient is 67 year old female with PMH HTN presented to ER with c/o right great toe pain and wound after bumping toe in 12/2022. Denies fever/chills at presentation. She is being managed for the following: Wound of foot: Cellulitis of toe of right foot: Increase blood lactic acid level: Resolved At admission, febrile and WBC 10.9 K with lactate 2.2. No sepsis POA. Admitting imagings: CXR with no acute findings, x-ray right foot with no acute finding. US arterial right lower extremity: Occlusions, monophasic flow and decreased velocity noted. Abnormal. [place]: Severely decreased ABIs, right greater than left. Of note, patient has not seen any doctors since 2004 per her. Patient presented with nonhealing right great toe ulcer. Patient is a started on Zosyn and vancomycin 04/25, continue same. Await blood culture and toe culture 04/25. Podiatry, vascular, wound consult in place. Await recommendations. Labs in AM. Hypertensive urgency: History of hypertension, not on medication for 20 years, Denies chest pain or shortness of breath or headache or dizziness at presentation. Started losartan and amlodipine, continue to titrate blood pressure medication. Will follow. Follow-up echo. Diabetes mellitus, new diagnosis: Admitting glucose level elevated, A1c 6.5. Patient denies prior history of diabetes. diabetic educator consult, counselled regarding lifestyle modification and need to follow-up with PCP closely for long-term monitoring of diabetes. Patient voiced understanding but does not seem to be greatly interested. Tobacco abuse: Since age 15-16, smokes 1.5 to 2 packs a day, denies nicotine patches, counseling done regarding smoking cessation, reports she would cut down on smoking but states she will not quit. DVT Prophylaxis: Lovenox SQ Full Code Does not Follows with PCP for routine care Admission and Anticipated Discharge Date Admission Date: April 25, 2023 Subjective Patient was seen and examined at bedside. Patient was sitting up in bed, on room air, NAD, reports no new acute events overnight. Patient denies any febrile illness or sore throat or cough or chills or chest pain or abdominal pain. Patient denies any pain or burning with passing urine, any issues with her bowel habits. Of note, patient is not on any home medication and has not visited any doctors since 2004 per her. Also she has been smoking since age 17 or 18, smokes 1.5 to 2 packs a day. Physical Exam Physical Exam: GENERAL: Alert and oriented x3. NAD, on RA. HEENT: No pallor, no icterus. Pupils equal, round and reactive to light. Oral mucosa moist. NECK: No JVD, no neck masses. HEART: S1 and S2 heard. Regular rate and rhythm. No murmur, no gallop. RESPIRATORY SYSTEM: Normal AP diameter. No accessory muscle use. No wheezing, no crackles. ABDOMEN: Soft, bowel sounds present, nontender, no distention. CENTRAL NERVOUS SYSTEM: No facial droop. Speech is clear. Obeys simple commands. Moves extremities. EXTREMITIES: No edema, no erythema seen. Rt great toe tip ulcer, eschar +, minimal surrounding erythema, overgrown nail, no drainage, non tender. other toes looks healthy color. Results & Data Results & Data Vital Signs (Past 12 Hours) Vital Signs Pulse Pulse Resp BP BP Pulse Ox O2 Del Method 04/26/23 11:22 81 20 153/103 H 95 Room Air 04/26/23 07:30 81 22 159/88 H 93 Room Air 04/26/23 07:14 85 04/26/23 06:00 84 24 04/26/23 05:00 97 H 24 04/26/23 04:29 95 04/26/23 04:29 150/117 H 04/26/23 03:05 81 L
--- NOTE | 2023-04-26 13:58 | Electrocardiogram Report ---
Test Reason : Blood Pressure : / mmHG Vent. Rate : 093 BPM Atrial Rate : 093 BPM P-R Int : 128 ms QRS Dur : 092 ms QT Int : 342 ms P-R-T Axes : 058 056 166 degrees QTc Int : 425 ms Normal sinus rhythm Abnormal ECG When compared with ECG of 18-AUG-2004 17:47, T wave inversion now evident in Inferior leads T wave inversion more evident in Anterolateral leads Confirmed by Hakeem Arcos ([id number]) on 04/26/2023 1:58:08 PM Referred By: REFERRED SELF Confirmed By:Primo Arcos
--- NOTE | 2023-04-26 16:53 | Podiatry Consultation ---
Date of Consultation April 26, 2023 Assessment & Plan (1) Skin necrosis: (2) Tobacco abuse: (3) Cellulitis of toe of right foot: (4) Wound of foot: Plan - Patient was examined and evaluated in the emergency department. -We discussed at length etiology and treatment of her right hallux necrosis. -With no significant surrounding infectious changes, she would benefit from local wound care rather than an urgent incision and drainage or surgical debridement. -Instead, with this fibrous eschar, she would likely benefit from Santyl collagenase ointment until she is more stable from a vascular standpoint. -For now, any surgical debridement would likely cause more harm given her lack of vascular inflow. -Will await further input from vascular surgery and wound care for any further recommendations. -Of note, we can continue to see her from an outpatient perspective for her nail care moving forward. Ideally, that can help prevent future concerns such as this. -We look forward to providing her with excellent care as long as she remains inpatient. History of Present Illness Reason for Consultation: Right hallux infection Attending Physician: Claudia Melvin MD History of Present Illness This patient is a 67-year-old female who presented to the emergency department yesterday with worsening pain and ulceration to the right great toe. She states that this initially developed after slight trauma in December and she has been taking care of it on her own since that time. She states that it has recently become more painful which prompted her to seek further treatment. She attempted self debridement which did not improve the quality of the callus. She states that she has had a callus there on and off for as long as she can remember. She also states that she has been unable to take care of her own toenails due to their lengthening and thickening. She denies any systemic signs of infection at this time though has been feeling slightly under the weather recently. She does feel better since beginning antibiotics on this admissiShe does admit to being a longstanding tobacco user which she still continues to this day. Allergies Allergy/AdvReac Type Severity Reaction Status Date / Time No Known Allergies Allergy Verified 04/25/23 15:32 Home Medications Medication Instructions Recorded Confirmed Type ibuprofen 200 mg tablet (Advil) 200 mg PO Q6H PRN Pain 04/25/23 04/25/23 History Patient History Medical History Tobacco abuse HTN (hypertension) Family History Other Diabetes Social History Smoking Status: Current every day smoker Tobacco Type: Cigarettes Cigarettes Per Day: 1-2 ppd; Hx Alcohol Use: No Hx Substance Use: No Preferred Language: Yi Communication Ability: Effective Veterans' Coordinator Required: No Beliefs That Will Affect Care: None Current Living Situation: Alone Current Living Situation Comment: mobile home by herself with a dog, family nearby Feels Safe at Home: Yes Safety Concerns: Feels Safe At This Time Assistive Devices: None Review of Systems Review of Systems: All systems reviewed & are unremarkable except as noted in HPI & below Constitutional: no fever, no chills, no body aches and no fatigue Eyes: no problem reported Ear, Nose, Mouth, Throat: no problem reported Respiratory: + cough and + wheezing Cardiovascular: no problem reported Gastrointestinal: no problem reported Genitourinary: no problem reported Musculoskeletal: no problem reported Integumentary: + skin ulcer, + wounds and + nail change s Neurologic: + loss of sensation and + paresthesia Psychiatric: no problem reported Endocrine: no problem reported Hematologic / Lymphatic: no problem reported Allergy / Immunological: no problem reported Physical Exam Physical Exam: DP/PT pulses 0/4 bilaterally. Advanced atrophic skin changes are noted to the bilateral lower extremity with thinning of the skin and no hair growth distal to the malleoli. The limbs are cool to cold proximal to distal. This right hallux ulceration does appear to be a dry eschar, consistent with possible local dry gangrene. There is no purulent drainage noted and no undermining of the edges or deep probing noted. This overlying eschar is firm and stable. No palpable underlying abscess formation is appreciated. CFT is brisk to the remaining digits otherwise. Nails 1 through 5 bilaterally are length and and thickened, consistent with underlying onychomycosis and advanced aging. Pain is out of proportion to palpation of the right hallux with otherwise sensation diminished overall. No abnormal reflexes are appreciated. Constitutional: + ill appearing; no acute distress and n o altered mental status Eyes: PERRL, conjunctivae normal, anicteric sclerae ENMT: Ears: no hearing impairment Nose: no external nose abnormality Mouth: + poor dentition Neck: trachea midline, no thyromegaly Respiratory: normal respiratory effort, + cough and + audible wheezes; no respiratory distress Cardiovascular: RRR, no murmur, no edema Vessels: + abnormal peripheral pulses, + posterior tibial pulses abnormal and + dorsalis pedis pulses abnormal Extremities: normal capillary refill; no edema Chest (Breasts): Chest: normal inspection of chest Gastrointestinal (Abdomen): normal bowel sounds, soft, nontender, no hepatosplenomegaly Inspection/Auscultation: abdomen normal to inspection Percussion/Palpation: abdomen nontender Musculoskeletal: Head/Neck/Chest: + head abnormal to inspection and normocephalic Extremities: + limited ROM of extremities, strength 5/5 throughout, + cyanosis and + clubbing Skin: + skin atrophy, + dry skin and + eschar; no ecchymosis, no erythema and no fluctulance Neurologic: moves all extremities; + abnormal sensation to monofilament and no focal motor deficits Psychiatric: A+Ox3, euthymic affect Results & Data Vital Signs (Past 12 Hours) Vital Signs Pulse Pulse Resp BP Pulse Ox O2 Del Method 04/26/23 16:42 63 18 177/71 H 93 Room Air 04/26/23 15:58 65 04/26/23 14:46 67 22 171/63 H 93 Room Air 04/26/23 11:22 81 20 153/103 H 95 Room Air 04/26/23 07:30 81 22 159/88 H 93 Room Air 04/26/23 07:14 85 04/26/23 06:00 84 24 04/26/23 05:00 97 H 24 Diagnostic Findings [place]/arterial ultrasound reveal advanced arterial insufficiency to the lower extremity. This does clinically correlate with her physical exam findings. Radiographs do not reveal any underlying bone involvement or soft tissue edema, which is again consistent with clinical exam.
[2023-04-26] MEDS ORDERED: COLLAGENASE OINT 30 GM TUBE EXT PRN (17:03)
[2023-04-26] MEDS: hydrALAZINE HCL 20 MG/ML VIAL IV PRN (17:56)
[2023-04-26] MEDS: ENOXAPARIN INJ 40 MG/0.4 ML SYR SQ SCH (20:12)
[2023-04-26] MEDS ORDERED: amLODIPine BESYLATE 5 MG TAB PO SCH (21:00)
[2023-04-27] MEDS: oxyCODONE HCL IR 5 MG TAB (IMMEDIATE RELEASE) PO PRN ×2 (02:57→10:02)
[2023-04-27] MEDS: hydrALAZINE HCL 20 MG/ML VIAL IV PRN (03:49)
[2023-04-27] MEDS: PIPERACILLIN/TAZOBACTAM 4.5 GM in DEXTROSE 5% MINI-B 100 ML IV SCH ×2 (03:57→11:12)
[2023-04-27] MEDS: MoRPHine SULFATE 2 MG/ML CARP IV PRN (04:25)
[2023-04-27] MEDS ORDERED: VANCOMYCIN LEVEL ONE (04:44)
[2023-04-27 05:19] LABS: Hematocrit (blood only) 41.4 % (37.0-47.0); Mean Corpuscular Hemoglobin 28.4 pg (25.0-34.0); Mean Corpuscular Hgb Conc 33.8 g/dL (32.0-36.0); Mean Platelet Volume 10.5 fL (9.4-12.4); Platelet Count 273 K/uL (130-400); RDW Coefficient of Variation 14.8 % (11.5-14.5); RDW Standard Deviation 45.1 fL (36.4-46.3); Red Blood Count 4.93 M/uL (4.20-5.40); White Blood Count 11.42 K/ul (4.8-10.8)
[2023-04-27 05:37] LABS: BUN Creatinine Ratio 14.7 (10-20); Calcium 8.8 mg/dl (8.6-10.3); Est GFR (African American) 96.9 ml/min; Est GFR (Non-African American) 83.6 ml/min; Magnesium 2.1 mg/dl (1.7-2.4); Phosphorus 2.6 mg/dl (2.5-4.9); Potassium 3.8 mmol/L (3.5-5.1)
[2023-04-27] MEDS: ACETAMINOPHEN 500 MG TAB PO SCH (05:52)
[2023-04-27] MEDS ORDERED: Nursing to Pharmacy Communication SCH (07:30)
[2023-04-27] MEDS ORDERED: LABETALOL HCL IV 5 MG/ML 20ML IV PRN (07:33)
[2023-04-27] MEDS: LOSARTAN POTASSIUM 50 MG TAB PO SCH (08:09)
[2023-04-27] MEDS: VANCOMYCIN HCL 1,250 MG in SODIUM CHLORIDE 0.9% 250 ML IV SCH (08:09)
--- NOTE | 2023-04-27 08:45 | Pharmacy Report ---
Pharmacy PK ABX Note - Date of Service April 27, 2023 - Assessment and Plan Assessment 67 year old F receiving vancomycin/zosyn for treatment of cellulitis. Pertinent microbiologic data includes: blood cultures, toe culture NGTD. Mild leukocytosis improved. No evidence of osteo. Plan Vancomycin * Maintenance dose: 1250 mg IV every 24 hours. Random level this morning of 7.6 indicates regimen will produce AUC/TERESO < 400. * Increase to 750 mg IV q12 hours * Regimen is predicted to achieve target AUC/TERESO of 400-625 mg/L.hr * Random ordered for 04/29 @ 9325 Pharmacy will continue to follow and will adjust dose/frequency as necessary. Thank you. Pharmacy has transitioned to AUC monitoring for vancomycin. AUC/TERESO is the preferred PK/PD target and is associated with decreased risk of nephrotoxicity compared to traditional trough targets.
[2023-04-27] MEDS: INSULIN ASPART PER UNIT CHARGE SC SCH (09:10)
[2023-04-27] MEDS ORDERED: hydroCHLOROthiazide 25 MG TAB PO SCH (09:55)
--- NOTE | 2023-04-27 12:08 | Consultation ---
Date of Consultation April 27, 2023 Assessment & Plan (1) Peripheral arterial disease: Pt with wet gangrene of R great toe and significant PAD of BLE. No rest pain. Pt discussed with Dr Amor, recommends pt undergo RLE angio with intervention on Sunday, 05/01. Procedure, risks, benefits, and alternatives discussed with pt and her daughter by myself at Dr Amor's request. Pt expresses understanding and agreement. If pt is discharged prior to then, can come in as outpt for procedure. She will need to arrive at 0600 and be NPO after midnight the night before. Advised pt and her daughter of these instructions. History of Present Illness Reason for Consultation: PAD, R toe wound Attending Physician: Claudia Melvin MD History of Present Illness 67 yo f without significant medical hx, admitted with gangrene of R great toe, seen in consultation today for PAD. Pt has not seen a physician in many years. She is a long time smoker. She states she injured her R great toe in December 2022, and there appeared to be a bruise to the area for quite a while. States she noted redness and pain about 1-2 weeks ago, which progressed after she attempted to treat an ingrown toenail at home herself. Upon questioning, pt states she does get calf cramps when ambulating. Denies Chandra, fever, chest pain, SOB, abd pain, N/V, rest pain, prior nonhealing wounds, other complaints. Arterial US of RLE demonstrates a long occlusion of her SFA with distal reconstitution, and a severe stenosis of her profunda. [place] RLE 0.3, LLE 0.4. 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 Beliefs That Will Affect Care: None Current Living Situation: Alone Current Living Situation Comment: mobile home by herself with a dog, family nearby Feels Safe at Home: Yes Safety Concerns: Feels Safe At This Time Assistive Devices: None Review of Systems Review of Systems: All systems reviewed & are unremarkable except as noted in HPI & below Physical Exam Constitutional: WD/WN, vitals as above cooperative and comfortable; not in distress Neck: trachea midline Respiratory: normal respiratory effort Auscultation: + diminished lung sounds and + wheezes Cardiovascular: Rate/Rhythm: regular rate and regular rhythm Vessels: femoral pulses present (+3), posterior tibial pulses present (nonpalpable), dorsalis pedis pulses present (nonpalpable) and radial pulses present; + abnormal peripheral pulses Extremities: + edema (R great toe); + abnormal capillary refill Gastrointestinal (Abdomen): Inspection/Auscultation: abdomen normal to inspection and normal bowel sounds Percussion/Palpation: abdomen soft; abdomen nontender Musculoskeletal: Extremities: strength 5/5 throughout Skin: + eschar (wet necrosis of R distal great toe, moderate erythema of toe and local foot) Neurologic: moves all extremities and awake; no focal motor deficits and not confused Psychiatric: A+Ox3, euthymic affect Results & Data Vital Signs (Past 12 Hours) Vital Signs Temp Pulse Pulse Resp BP BP Pulse Ox 04/27/23 11:00 79 186/64 H 04/27/23 10:00 65 156/66 H 04/27/23 09:59 65 156/66 H 04/27/23 09:10 73 191/70 H 04/27/23 08:07 36.7 C 86 16 174/69 H 93 04/27/23 07:31 04/27/23 07:28 74 04/27/23 05:55 90 18 194/69 H 04/27/23 03:40 36.6 C 72 18 218/77 H 95 O2 Del Method 04/27/23 11:00 04/27/23 10:00 04/27/23 09:59 04/27/23 09:10 04/27/23 08:07 Room Air 04/27/23 07:31 Room Air 04/27/23 07:28 04/27/23 05:55 Room Air 04/27/23 03:40 Room Air
--- NOTE | 2023-04-27 13:27 | Discharge Summary ---
Date of Service April 27, 2023 Admission HPI Per Admitting Provider Patient is 67 year old female with PMH HTN presented to ER with c/o right great toe pain. Patient states in 12/2022 she bumped her right great toe and her toenail chipped. She states felt also like she had ingrown toenail and tried to self remove. Admits toenails are long. She has been soaking toe and applying peroxide and triple antibiotic cream to area. Has been having pain to toe and reports some clear drainage to toe. She noticed callused area and blackened area to side of toe as well. Patient states past couple of days with increased pain to toe. Hasn't been seen by physician in nearly 20 years. States previously was on BP med but self stopped. Denies fever/chills, diaphoresis, N/V/D/C, [place], dizziness, CP, SOB, palpitations, cough, sore throat, rhinorrhea, abdominal pain, paresthesias, extremity weakness, extremity edema, rashes, urinary symptoms. Admission Exam Per Admitting Provider General: no distress, WDWN Head: normocephalic, atraumatic Eyes: conjunctiva non-injected, anicteric ENT: normal inspection external ears, nose, mucous membranes moist Neck: supple, trachea midline Lungs: clear, no respiratory distress, no wheezing/rhonchi/rales CV: RRR, no murmur, no pretibial edema Abd: normal BS, soft, non-tender Ext: Right foot: Right great toe with eschar, faint erythema toe, +mild tenderness palpation lateral toe. +long toenails. no red streaking up foot. unable to palpate distal pulses.no cyanosis, no calf tenderness; remaining extremities non-tender ROM intact Neuro: A&O x 3, no focal deficits noted, normal affect Skin: warm, dry Principal Diagnosis Right great toe wound/cellulitis Peripheral artery disease BLE Hypertensive urgency Discharge Exam GENERAL: Alert and oriented x3. NAD, on RA. HEENT: No pallor, no icterus. Pupils equal, round and reactive to light. Oral mucosa moist. NECK: No JVD, no neck masses. HEART: S1 and S2 heard. Regular rate and rhythm. No murmur, no gallop. RESPIRATORY SYSTEM: Normal AP diameter. No accessory muscle use. No wheezing, no crackles. ABDOMEN: Soft, bowel sounds present, nontender, no distention. CENTRAL NERVOUS SYSTEM: No facial droop. Speech is clear. Obeys simple commands. Moves extremities. EXTREMITIES: No edema, no erythema seen. Rt great toe tip ulcer, eschar +, minimal surrounding erythema, overgrown nail, no drainage, non tender. other toes looks healthy color. Discharge Data Allergies Allergy/AdvReac Type Severity Reaction Status Date / Time No Known Allergies Allergy Verified 04/25/23 15:32 Consultations 04/25/23 17:49 ED Decision to Admit Stat 04/25/23 20:54 Consult Podiatry Routine Consult Vascular Surgery Routine Procedures Performed Operation Date: 05/01/23 08:50 <No data on this case meets the specified criteria> Ordered Studies 04/25/23 17:24 US arterial duplex LE RT Stat 04/26/23 08:19 US ankle/brachial index ltd Routine Hospital Course (1) Cellulitis of toe of right foot: Plan Patient is 67 year old female with PMH HTN presented to ER with c/o right great toe pain and wound after bumping toe in 12/2022. Denies fever/chills at presentation. She was managed for the following: Wound of foot: Cellulitis of toe of right foot: Increase blood lactic acid level: Resolved At admission, febrile and WBC 10.9 K with lactate 2.2. No sepsis POA. Admitting imagings: CXR with no acute findings, x-ray right foot with no acute finding. US arterial right lower extremity: Occlusions, monophasic flow and decreased velocity noted. Abnormal. [place]: Severely decreased ABIs, right greater than left. Of note, patient has not seen any doctors since 2004 per her. Patient presented with nonhealing right great toe ulcer. Patient is a started on Zosyn and vancomycin 04/25, continue same. Await blood culture and toe culture 04/25. Podiatry, vascular, wound consult in place. Await recommendations. Labs in AM. Hypertensive urgency: History of hypertension, not on medication for 20 years, Denies chest pain or shortness of breath or headache or dizziness at presentation. Started losartan and amlodipine, continue to titrate blood pressure medication. Will follow. Follow-up echo. Diabetes mellitus, new diagnosis: Admitting glucose level elevated, A1c 6.5. Patient denies prior history of diabetes. cosmetology educator consult, counselled regarding lifestyle modification and need to follow-up with PCP closely for long-term monitoring of diabetes. Patient voiced understanding but does not seem to be greatly interested. Tobacco abuse: Since age 15-18, smokes 1.5 to 2 packs a day, denies nicotine patches, counseling done regarding smoking cessation, reports she would cut down on smoking but states she will not quit. DVT Prophylaxis: Lovenox SQ Full Code Does not Follows with PCP for routine care As above as of yesterday. Today at bedside, patient insisted on going home. Patient advised to stay as she has very high blood pressure and her blood pressure medications are being uptitrated and she will need to stay until her blood pressure becomes stable. She was made aware that it would be unsafe for her to go home with this high of blood pressure as it can lead to heart attack o r stroke including , she voiced understanding and wanted to leave anyway. Communicated with RN to have her sign AMA papers before leaving. Very important medications including antibiotics [cultures not finalized yet] for her RLE great toe wound and blood pressure medications [it still needs titration] are being sent to her pharmacy and patient advised to pick the medications up. Patient ad vised to establish with PCP and follow-up within a week time, patient is going to follow-up with vascular surgery as an outpatient that she stated to me. Also for her new diagnosis of diabetes, she was advised to follow-up with her PCP office for close monitoring. Also she was advised on lifestyle modifications. Home Health Attestation I certify that this patient is under my care and that I, or a physicians client services assistant working with me, had a face to-face encounter that meets the home health [id number] encounter requirements with this patient. The encounter with the patient was in whole, or in part, for the following medical condition, which is the primary reason for home health care (list medical condition): I certify that, based on my findings, the following services are medically necessary home health services: My clinical findings support the need for the above services because: Further, I certify that my clinical findings support that this patient is homebound (i.e. absences from home require considerable and taxing effort and are for medical reasons or sikh services or infrequently or of short duration when for other reasons) because: Certification for Home Health Services: Based on the above findings, I certify that this patient is confined to the home and needs intermittent snf care, physical therapy and/or speech therapy or continues to need occupational therapy. The patient is under my care, and I have initiated the establishment of the plan of care. This patient will be followed by a physician who will periodically review the plan of care. Total Time Total Time Spent Total Time Spent (In Minutes): 45 Discharge Plan Discharge Items Patient Disposition: Against Medical Advice Reason For Visit: TOE WOUND Condition on Discharge: Good Activity: Resume your previous activity Non-emergency contact: Primary Care Provider Follow-up/Referrals: Janna Soto MD [Physician] - PCP,NO [Primary Care Provider] - Pending Studies at Discharge: Yes Stand-Alone Forms: [employer], Smoking Cessation Medications and DC Order Prescriptions: New amlodipine [Norvasc] 5 mg Tablet 5 mg PO HS Qty: 30 0RF losartan 50 mg Tablet 50 mg PO QAM Qty: 30 0RF hydrochlorothiazide 25 mg Tablet 12.5 mg PO QAM Qty: 15 0RF cefdinir 300 mg capsule 300 mg PO BID 8 Days Qty: 16 0RF Probiotic 3 billion cell capsule 3,000 mmu cells PO DAILY 14 Days Qty: 14 0RF Rx Instructions: administer with a meal doxycycline hyclate 100 mg tablet 100 mg PO BID 8 Days Qty: 16 0RF Continued ibuprofen [Advil] 200 mg Tablet 200 mg PO Q6H PRN (Reason: Pain) Discharge Orders: Left Against Medical Advice (Routine); Ordered 04/27/23 Ordered By: Claudia Melvin Admission Data Admit Date/Time: 04/25/23 18:36 Attending Provider: Claudia Melvin Admit Provider: Charles Palomares Primary Care Provider: PCP,NO Other Providers: Mikel Brown; Paul Amor; Charles Palomares
--- NOTE | 2023-04-27 18:03 | Electrocardiogram Report ---
Test Reason : Blood Pressure : / mmHG Vent. Rate : 086 BPM Atrial Rate : 086 BPM P-R Int : 124 ms QRS Dur : 092 ms QT Int : 386 ms P-R-T Axes : 042 054 071 degrees QTc Int : 461 ms Sinus rhythm with sinus arrhythmia with occasional Premature ventricular complexes Left ventricular hypertrophy with repolarization abnormality Abnormal ECG When compared with ECG of 25-APR-2023 16:10, Premature ventricular complexes are now Present Confirmed by Hakeem Arcos ([id number]) on 04/27/2023 6:02:44 PM Referred By: REFERRED SELF Confirmed By:Primo Arcos
[2023-04-27] MEDS ORDERED: VANCOMYCIN HCL 750 MG in SODIUM CHLORIDE 0.9% 250 ML IV SCH (20:00)
== END 2023-04-27 13:52 | disposition left against medical advice (07) | DRG 603 ==
LOC: ED 14:45 → EDINP 18:36 → SUATTDRO 18:36 → 2W 20:54

== ENCOUNTER 2023-05-01 05:51 | Inpatient (IN) ==
[2023-05-01] MEDS ORDERED: SODIUM CHLORIDE 0.9% 1,000 ML IV SCH (06:00)
[2023-05-01] MEDS ORDERED: CEFAZOLIN 2,000 MG/15 ML SYR IV SCH (06:00)
[2023-05-01 07:03] LABS: Creatinine Clr Calc Pharmacy 56.2 ml/min; Est GFR (African American) 95.4 ml/min; Est GFR (Non-African American) 82.3 ml/min
[2023-05-01] MEDS ORDERED: oxyCODONE/ACETAMINOPHEN 5mg/325mg TAB PO STA (07:22)
[2023-05-01] MEDS ORDERED: LOSARTAN POTASSIUM 50 MG TAB PO STA (07:22)
[2023-05-01] MEDS ORDERED: hydroCHLOROthiazide 25 MG TAB PO STA ×2 (07:22→07:24)
--- NOTE | 2023-05-01 07:35 | History & Physical Report ---
Date of Service May 01, 2023 History of Present Illness Primary Care Provider: NO PCP April 27, 2023 Assessment & Plan (1) Peripheral arterial disease: Pt with wet gangrene of R great toe and significant PAD of BLE. No rest pain. Pt discussed with Dr Amor, recommends pt undergo RLE angio with intervention on Sunday, 05/01. Procedure, risks, benefits, and alternatives discussed with pt and her daughter by myself at Dr Amor's request. Pt expresses understanding and agreement. If pt is discharged prior to then, can come in as outpt for procedure. She will need to arrive at 0600 and be NPO after midnight the night before. Advised pt and her daughter of these instructions. History of Present Illness Reason for Consultation: PAD, R toe wound Attending Physician: Claudia Melvin MD History of Present Illness 67 yo f without significant medical hx, admitted with gangrene of R great toe, seen in consultation today for PAD. Pt has not seen a physician in many years. She is a long time smoker. She states she injured her R great toe in December 2022, and there appeared to be a bruise to the area for quite a while. States she noted redness and pain about 1-2 weeks ago, which progressed after she attempted to treat an ingrown toenail at home herself. Upon questioning, pt states she does get calf cramps when ambulating. Denies Chandra, fever, chest pain, SOB, abd pain, N/V, rest pain, prior nonhealing wounds, other complaints. Arterial US of RLE demonstrates a long occlusion of her SFA with distal reconstitution, and a severe stenosis of her profunda. [place] RLE 0.3, LLE 0.4. Allergies Allergy/AdvReac Type Severity Reaction Status Date / Time No Known Allergies Allergy Verified 04/25/23 15:32 Home Medications Medication Instructions Recorded Confirmed Type ibuprofen 200 mg tablet (Advil) 200 mg PO Q6H PRN Pain 04/25/23 04/25/23 History Patient History Medical History Tobacco abuse HTN (hypertension) Family History Other Diabetes Social History Smoking Status: Current every day smoker Tobacco Type: Cigarettes Cigarettes Per Day: 1-2 ppd; Hx Alcohol Use: No Hx Substance Use: No Preferred Language: Liberian Communication Ability: Effective Float Operator Required: No Beliefs That Will Affect Care: None Current Living Situation: Alone Current Living Situation Comment: mobile home by herself with a dog, family nearby Feels Safe at Home: Yes Safety Concerns: Feels Safe At This Time Assistive Devices: None Review of Systems Review of Systems: All systems reviewed & are unremarkable except as noted in HPI & below Physical Exam Constitutional: WD/WN, vitals as above cooperative and comfortable; not in distress Neck: trachea midline Respiratory: normal respiratory effort Auscultation: + diminished lung sounds and + wheezes Cardiovascular: Rate/Rhythm: regular rate and regular rhythm Vessels: femoral pulses present (+3), posterior tibial pulses present (nonpalpable), dorsalis pedis pulses present (nonpalpable) and radial pulses present; + abnormal peripheral pulses Extremities: + edema (R great toe); + abnormal capillary refill Gastrointestinal (Abdomen): Inspection/Auscultation: abdomen normal to inspection and normal bowel sounds Percussion/Palpation: abdomen soft; abdomen nontender Musculoskeletal: Extremities: strength 5/5 throughout Skin: + eschar (wet necrosis of R distal great toe, moderate erythema of toe and local foot) Neurologic: moves all extremities and awake; no focal motor deficits and not confused Psychiatric: A+Ox3, euthymic affect Results & Data Vital Signs (Past 12 Hours) Vital Signs Temp Pulse Pulse Resp BP BP Pulse Ox 04/27/23 11:00 79 186/64 H 04/27/23 10:00 65 156/66 H 04/27/23 09:59 65 156/66 H 04/27/23 09:10 73 191/70 H 04/27/23 08:07 36.7 C 86 16 174/69 H 93 04/27/23 07:31 04/27/23 07:28 74 04/27/23 05:55 90 18 194/69 H 04/27/23 03:40 36.6 C 72 18 218/77 H 95 O2 Del Method 04/27/23 11:00 04/27/23 10:00 04/27/23 09:59 04/27/23 09:10 04/27/23 08:07 Room Air 04/27/23 07:31 Room Air 04/27/23 07:28 04/27/23 05:55 Room Air 04/27/23 03:40 Room Air Signed By: <Electronically signed by Monika Shah PA-C> 04/27/23 1208 <Electronically signed by Paul Amor MD> 04/30/23 1228 Created: 04/27/23 1157 The status of this report is Signed. Draft = Not yet reviewed or approved by Medical Physician. Signed = Reviewed and approved by Medical Physician. Allergies Allergy/AdvReac Type Severity Reaction Status Date / Time No Known Allergies Allergy Verified 05/01/23 06:38 Home Medications Medication Instructions Recorded Confirmed Type ibuprofen 200 mg tablet (Advil) 200 mg PO Q6H PRN Pain 04/25/23 04/25/23 History amlodipine 5 mg tablet (Norvasc) 5 mg PO HS #30 tabs 04/27/23 Rx cefdinir 300 mg capsule 300 mg PO BID 8 days #16 caps 04/27/23 Rx doxycycline hyclate 100 mg tablet 100 mg PO BID 8 days #16 tabs 04/27/23 Rx hydrochlorothiazide 25 mg tablet 12.5 mg (1/2 x 25 mg) PO QAM #15 04/27/23 Rx tabs lactobacillus combination no.4 3 3,000 mmu cells PO DAILY 2 weeks 04/27/23 Rx billion cell capsule (Probiotic) #14 caps losartan 50 mg tablet 50 mg PO QAM #30 tabs 04/27/23 Rx acetaminophen 325 mg tablet 650 mg PO Q6 PRN Pain 05/01/23 05/01/23 History (Tylenol) Past Med/Surg History Medical History Tobacco abuse HTN (hypertension) Family History Other Diabetes Social History Smoking Status: Current every day smoker Tobacco Type: Cigarettes Cigarettes Per Day: 10; Second Hand Exposure: Yes; Do You Dip or Chew Tobacco: No; Hx Alcohol Use: No Hx Substance Use: No Preferred Language: Liberian Communication Ability: Effective Float Operator Required: No Beliefs That Will Affect Care: None Current Living Situation: Alone Current Living Situation Comment: mobile home by herself with a dog, family nearby Other Information That Helps Us Care for You: No Feels Safe at Home: Yes Safety Concerns: Feels Safe At This Time Assistive Devices: None Results & Data Vital Signs (Past 12 Hours) Vital Signs Temp Pulse Resp BP BP Pulse Ox O2 Del Method 05/01/23 06:43 36.7 C 83 20 227/76 H 248/100 H 99 Room Air
--- NOTE | 2023-05-01 07:36 | History & Physical Bridge Note ---
Date of Service May 01, 2023 History & Physical Bridge Note Patient for arteriography and possible intervention today. I have discussed the risks options and benefits of the procedure with the patient. The patient understands the risks options and benefits and agrees to the procedure. I have examined the patient, reviewed the History & Physical and in the interval since the performance of the History & Physical I have noted the following changes of clinical significance: no changes noted
[2023-05-01] MEDS ORDERED: LIDOCAINE 1% LOCAL 20 ML VIAL ONE ×2 (10:35→14:18)
--- NOTE | 2023-05-01 10:46 | Pre Anesthesia Assessment ---
Date of Service May 01, 2023 Pre Sedation Assessment Vital Signs Temp Pulse Resp BP BP Pulse Ox O2 Del Method 05/01/23 09:30 72 177/90 H 05/01/23 08:30 77 20 196/75 H 94 Room Air 05/01/23 07:39 82 183/82 H 05/01/23 07:10 80 209/81 H 05/01/23 06:43 36.7 C 83 20 227/76 H 248/100 H 99 Room Air Cardiovascular RRR, no murmur, no edema Respiratory normal respiratory effort, lungs clear to auscultation Pre-Sedation Airway Assessment Smoking Status: Current every day smoker Hx Sleep Apnea: No Short, Thick Neck: No Thyromental Distance: > or= 3.5 Finger Breadths Oral Cavity: + Dentures Mallampati Class: III ASA: ASA3 NPO Status Date of Last Intake of Fluids: 04/30/23 Time of Last Intake of Fluids: 22:00 Date of Last Intake of Solid Food: 04/30/23 Time of Last Intake of Solid Foods: 21:00 Procedure Planning Contraindications for Sedation: none Current Medications Reviewed: Yes Notes The planned sedation has been discussed with the patient. Informed Consent was obtained. I have identified the patient, determined the appropriateness of sedation and have assessed the patient immediately prior to the procedure. All medicine(s) and interventions are by my order.
[2023-05-01] MEDS ORDERED: MIDAZOLAM HCL 1 MG/ML 2ML VIAL ONE ×3 (10:51→14:24)
[2023-05-01] MEDS ORDERED: fentaNYL citrate PF 100 MCG/2 ML VIAL ONE ×3 (10:52→14:24)
[2023-05-01] MEDS ORDERED: HEPARIN SOD (PORCINE) 1000 UNIT/ML ONE ×3 (10:53→16:51)
[2023-05-01] MEDS ORDERED: hydrALAZINE HCL 20 MG/ML VIAL ONE (11:03)
[2023-05-01] MEDS ORDERED: HEPARIN 25000 UNIT/500 ML D5W IV ONE (12:59)
[2023-05-01] MEDS ORDERED: Nursing to Pharmacy Communication SCH (13:00)
[2023-05-01] MEDS ORDERED: ALTEPLASE, RECOMBINANT 20 MG in 0.9 % SODIUM CHLORIDE 80 ML INTRVAS ONE (13:01)
[2023-05-01] MEDS ORDERED: ALTEPLASE IV STA (13:23)
[2023-05-01] MEDS ORDERED: RECOMBINANT IV STA (13:23)
[2023-05-01] MEDS ORDERED: SODIUM CHLORIDE 0.9% IV STA (13:23)
[2023-05-01] MEDS ORDERED: HEPARIN SODIUM/DEXTROSE 25,000 UNIT/500 ML BAG IV SCH ×2 (13:30→13:45)
[2023-05-01] MEDS ORDERED: ALTEPLASE, RECOMBINANT 10 MG in SYRINGE 0 ML INSTIL ONE (13:30)
--- NOTE | 2023-05-01 13:38 | Operative Report ---
Post Operative Report Pre & Post Diagnosis Operation Date: 05/01/23 08:50 Preoperative Diagnosis: Right lower extremity critical limb ischemia Right great toe gangrene Postoperative Diagnosis: Right lower extremity critical limb ischemia Right great toe gangrene Right superficial femoral artery/popliteal artery occlusion with above-knee popliteal artery reconstitution I identified the patient and participated in the time-out.: Yes Procedure Operation Date: 05/01/23 08:50 1)Ultrasound guided access of left common femoral artery 2)Right lower extremity selective angiogram 3)Balloon angioplasty of right superficial femoral/popliteal artery with 4x80mm, [id number] [place] balloons 4)Stenting of right above-knee popliteal artery with [id number] Viabahn stent 5)Stenting of right superficial femoral artery with [id number], 6x50mm Viabahn stents 6)In-stent balloon angioplasty of superficial femoral/popliteal artery with [id number], 6x40mm [place] balloons 7) Right lower extremity completion angiogram 8) tPA lysis from right common femoral artery to peroneal artery through [id number] [place] catheter Surgeon Paul Amor MD Interpretive Naturalist Connie Pierce MD Estimated Blood Loss 10 Findings See Below 1) Long segment occlusion of right superficial femoral artery with above-knee popliteal artery reconstitution. Right AT and PT were the main runoff vessels to the foot. 2) Multiple areas of common femoral artery, superficial femoral/popliteal artery and tibial artery vessel thrombus. Fluids 700cc crystalloid Specimens None Drains Lysis catheter from right SFA to peroneal artery (through left common femoral artery sheath) Anesthesia Type RN Sedation Complications None immediately evident Disposition Accompanied Patient To Recovery: Yes Disposition: Surgical ICU Indications Right lower extremity critical limb ischemia Long-segment occlusion of right superficial femoral/proximal popliteal artery Right great toe gangrene Description of Procedure The patient was brought to the operating room and placed in supine position. The abdomen and lower extremities were prepped and draped in sterile fashion. The left common femoral artery was punctured percutaneously under direct ultrasound visualization and a micropuncture sheath was introduced using a modified Seldinger technique. A short 5F sheath was initially placed. A rim catheter was then used to go up and over the aortic bifurcation with a floppy angled G lidewire. The rim catheter was exchanged for an 0.035" [place] catheter. A selective right lower extremity angiogram was performed. There was a long- segment occlusion of the right superficial femoral artery with reconstitution of the above knee popliteal artery. AT and PT were the main runoff vessels to the foot. The wire was exchanged for a stiff angled Glidewire and we were able to cross the occlusion and get back into the true lumen. She was given 3,000 units of IV heparin. Our short 5F sheath was exchanged for a 6F x 45cm Destination sheath. We then performed balloon angioplasty of the superficial femoral artery with a [id number] [place] balloon. We were unable to pass the balloon down to the popliteal artery. We then performed balloon angioplasty of the popliteal artery with a 4x80mm [place] balloon. We then ballooned the entire superficial femoral and popliteal artery again with the 4x80mm [place] balloon. We stented the right above-knee popliteal artery with a [id number] Viabahn stent. We then stented the right superficial femoral artery with a [id number] Viabahn stent, followed by a more proximal 6x50mm stent after confirming the takeoff of the profunda artery. We performed in-stent balloon angioplasty throughout the superficial femoral and above-knee popliteal artery with a [id number] [place] balloon and then ballooned the more proximal superficial femoral artery and common femoral artery with a 6x40mm [place] balloon. We then performed a completion angiogram of the right lower extremity and the patient had significant thrombus from the right common femoral artery down to the tibials with intermittent flow visualized inside the stents and in the tibial vessels. An additional 3,000 units of IV heparin were given. We placed a [id number] [place] lysis catheter to infuse tPA from the right common femoral artery down to the right peroneal artery. The catheter flushed easily and was connected to a continuous tPA infusion at 2mg/hr. The sheath flushed easily and was connected to a continuous heparin drip infusion at 400u/hr. The left groin common femoral artery sheath and catheter were placed inside a sterile towel and secured to the thigh using Tegaderm dressings. Fluoroscopy time was 28.3 minutes, radiation dose was 125mGy and 150cc of contrast were used throughout the case. Patient had a left PT signal at the end of the case. There were no signals on the right foot at the end of the case. Upon arrival to the ICU, patient had awaken more from anesthesia and was unable to move her right foot. She also had significant sensory deficits of the right foot. Denied pain o f the right foot. The decision was made to return to the operating room for thrombectomy and possible femoral to tibial bypass. Please see separate report. Dr. Amor was present and scrubbed for the entire procedure. I attest to the content of the Intraoperative Record and any orders documented therein. Any exceptions are noted below.
[2023-05-01] MEDS ORDERED: VISIPAQUE IV PRN (13:40)
--- NOTE | 2023-05-01 14:15 | Communication Note ---
Date of Service: May 01, 2023 Patient not able to move foot. Will need operative intervention now. This was discussed with patient and son. I have discussed the risks options and benefits of the procedure with the patient and son. They understand the risks options and benefits and agrees to the procedure.
--- NOTE | 2023-05-01 14:17 | Anesthesiology Consultation ---
Date of Service May 01, 2023 Assessment & Plan (1) Encounter for pre-operative examination: Chart Review Chart Review: Patient NOT seen in Pre Admission Testing emergent Consults Requested none History Surgery Operation Date: 05/01/23 08:50 Proposed Procedures p Right Lower Extremity Angiogram with Intervention - Paul Amor MD Operation Date: 05/01/23 11:35 Proposed Procedures p Right Femoral Popliteal Bypass Graft - Paul Amro MD Operation Date: 05/02/23 14:00 Proposed Procedures p Recheck of TPA - Paul Amor MD Height/Weight Height: 4 ft 11 in Weight: 55.8 kg Allergies Allergy/AdvReac Type Severity Reaction Status Date / Time No Known Allergies Allergy Verified 05/01/23 06:38 Medications Home Medications Medication Instructions Recorded Confirmed Last Taken ibuprofen 200 mg tablet (Advil) 200 mg PO Q6H PRN Pain 04/25/23 05/01/23 04/25/23 amlodipine 5 mg tablet (Norvasc) 5 mg PO HS #30 tabs 04/27/23 05/01/23 04/30/23 22:30 cefdinir 300 mg capsule 300 mg PO BID 8 days #16 caps 04/27/23 05/01/23 04/30/23 22:30 doxycycline hyclate 100 mg tablet 100 mg PO BID 8 days #16 tabs 04/27/23 05/01/23 04/30/23 22:30 hydrochlorothiazide 25 mg tablet 12.5 mg (1/2 x 25 mg) PO QAM #15 04/27/23 05/01/23 04/30/23 10:00 tabs lactobacillus combination no.4 3 3,000 mmu cells PO DAILY 2 weeks 04/27/23 05/01/23 04/30/23 10:00 billion cell capsule (Probiotic) #14 caps losartan 50 mg tablet 50 mg PO QAM #30 tabs 04/27/23 05/01/23 04/30/23 10:00 acetaminophen 325 mg tablet 650 mg PO Q6 PRN Pain 05/01/23 05/01/23 05/01/23 05:30 (Tylenol) Active Medications Generic Name Dose Route Start Last Admin Trade Name Freq PRN Reason Stop Dose Admin Sodium Chloride 1,000 mls @ 100 mls/hr 05/01/23 06:00 05/01/23 06:30 Nss IV 05/01/23 15:59 100 mls/hr .Q10H TEDDY Administration Cefazolin Sodium 2,000 mg in 15 mls @ 3.75 mls/min 05/01/23 06:00 05/01/23 10:40 Ancef 2000mg IV 05/01/23 18:00 3.75 mls/min PREOP TEDDY Administration Protocol Iodixanol 150 ml 05/01/23 13:40 05/01/23 13:41 Visipaque IV 05/05/23 13:39 150 ml UD PRN Administration Interaction Checking NPO Date Last Intake of Fluids: 04/30/23 Time Last Intake of Fluids: 22:30 Last Intake of Fluids Comment: sip with tylenol at 529 Date Last Intake of Solids: 04/30/23 Last Intake of Solids Comment: 2199 Past Medical History Medical History Tobacco abuse HTN (hypertension) Past Family History Family History Other Diabetes Social History Smoking Status: Current every day smoker Smoking cigarettes per day: 10 Do You Dip or Chew Tobacco: No Hx Alcohol Use: No Hx Substance Use: No Physical Exam Vital Signs Last Vital Signs Temp 98.1 F 05/01/23 06:43 Pulse 74 05/01/23 13:41 Resp 18 05/01/23 13:41 BP 158/87 H 05/01/23 13:41 Pulse Ox 97 05/01/23 13:41 O2 Del Method Oxymask 05/01/23 13:41 O2 Flow Rate 4 05/01/23 13:41 Testing Laboratory Results 05/01/23 06:29
[2023-05-01] MEDS ORDERED: HEPARIN (PORCINE) 1000 UNIT/ML 10 ML (CATH LAB USE ONLY) ONE (14:18)
[2023-05-01] MEDS ORDERED: BUPIVACAINE/EPINEPHRINE 0.5% MPF 1:200,000 30 ML VIAL ONE (14:18)
[2023-05-01] MEDS ORDERED: PAPAVERINE HCL INJ 30 MG/ML 2 ML VIAL ONE (14:18)
[2023-05-01] MEDS ORDERED: ceFAZolin 330 MG/ML 1 GM VIAL ONE ×2 (14:19→15:05)
[2023-05-01] MEDS ORDERED: GELATIN SPONGE SZ 100 ONE (14:19)
[2023-05-01] MEDS ORDERED: THROMBIN FOR SOLN 20000 UNIT KIT ONE (14:19)
[2023-05-01] MEDS ORDERED: ROCURONIUM BROMIDE 10 MG/ML 5 ML VIAL IV ONE ×2 (14:24→16:14)
[2023-05-01] MEDS ORDERED: DEXAMETHASONE SOD INJ 4 MG/ML VIAL ONE (14:24)
[2023-05-01] MEDS ORDERED: LIDOCAINE 2% 2 ML VIAL/AMP(20MG/ML) INFIL ONE (14:24)
[2023-05-01] MEDS ORDERED: PROPOFOL IV EMULSION 10 MG/ML 20 ML VIAL IV ONE (14:24)
[2023-05-01] MEDS ORDERED: ONDANSETRON INJ 2 MG/ML 2 ML VIAL ONE (14:24)
[2023-05-01] MEDS ORDERED: VASOPRESSIN 20 UNIT/ML VIAL ONE (15:29)
[2023-05-01] MEDS ORDERED: ePHEDrine sulfate 50 MG/ML AMP ONE (15:29)
[2023-05-01] MEDS ORDERED: PHENYLEPHRINE HCL 10 MG/ML VIAL ONE (15:29)
--- NOTE | 2023-05-01 15:30 | Critical Care Consultation ---
Date of Consultation May 01, 2023 History of Present Illness Reason for Consultation: Ischemic limb Attending Physician: Paul Amor MD History of Present Illness 67-year-old female with a past medical history of hypertension, peripheral artery disease, tobacco abuse and diabetes mellitus who presented as an elective procedure for chronic right lower extremity ischemia. She underwent balloon angioplasty of the right superficial femoral/popliteal artery, stenting of the popliteal artery, stenting of the superficial femoral artery, balloon angioplasty of the superficial femoral-popliteal artery, right lower extremity angiogram and tPA lysis of the right common femoral artery to peroneal artery. Patient was complaining of inability to move her right lower extremity and was taken back to the OR by the vascular surgical team. Allergies Allergy/AdvReac Type Severity Reaction Status Date / Time No Known Allergies Allergy Verified 05/01/23 06:38 Home Medications Medication Instructions Recorded Confirmed Type ibuprofen 200 mg tablet (Advil) 200 mg PO Q6H PRN Pain 04/25/23 05/01/23 History amlodipine 5 mg tablet (Norvasc) 5 mg PO HS #30 tabs 04/27/23 05/01/23 Rx cefdinir 300 mg capsule 300 mg PO BID 8 days #16 caps 04/27/23 05/01/23 Rx doxycycline hyclate 100 mg tablet 100 mg PO BID 8 days #16 tabs 04/27/23 05/01/23 Rx hydrochlorothiazide 25 mg tablet 12.5 mg (1/2 x 25 mg) PO QAM #15 04/27/23 05/01/23 Rx tabs lactobacillus combination no.4 3 3,000 mmu cells PO DAILY 2 weeks 04/27/23 05/01/23 Rx billion cell capsule (Probiotic) #14 caps losartan 50 mg tablet 50 mg PO QAM #30 tabs 04/27/23 05/01/23 Rx acetaminophen 325 mg tablet 650 mg PO Q6 PRN Pain 05/01/23 05/01/23 History (Tylenol) Patient History Medical History Tobacco abuse HTN (hypertension) Family History Other Diabetes Social History Smoking Status: Current every day smoker Tobacco Type: Cigarettes Cigarettes Per Day: 10; Second Hand Exposure: Yes; Do You Dip or Chew Tobacco: No; Hx Alcohol Use: No Hx Substance Use: No Preferred Language: Sri Lankan Communication Ability: Effective Retail Manager In Training Required: No Beliefs That Will Affect Care: None Current Living Situation: Alone Current Living Situation Comment: mobile home by herself with a dog, family nearby Other Information That Helps Us Care for You: No Feels Safe at Home: Yes Safety Concerns: Feels Safe At This Time Assistive Devices: None Review of Systems Review of Systems: All systems reviewed & are unremarkable except as noted in HPI & below Results & Data Results & Data Vital Signs (Past 12 Hours) Vital Signs Temp Pulse Pulse Resp BP BP Pulse Ox 05/01/23 14:35 70 18 165/57 H 92 05/01/23 14:30 79 18 154/69 H 92 05/01/23 14:25 77 16 152/55 H 93 05/01/23 14:20 36.5 C 75 18 147/87 H 92 05/01/23 14:15 70 16 134/48 L 93 05/01/23 14:10 73 16 157/65 H 92 05/01/23 14:05 72 16 155/52 H 91 05/01/23 14:00 75 18 152/50 H 90 05/01/23 13:41 74 18 158/87 H 97 05/01/23 13:20 74 18 190/80 H 97 05/01/23 13:15 74 18 180/82 H 97 05/01/23 13:10 74 18 187/60 H 97 05/01/23 13:05 74 18 182/68 H 97 05/01/23 13:00 74 18 179/62 H 97 05/01/23 12:55 74 18 185/62 H 97 05/01/23 12:50 74 18 150/94 H 97 05/01/23 12:45 74 18 161/67 H 97 05/01/23 12:40 74 18 190/75 H 97 05/01/23 12:35 76 18 160/83 H 97 05/01/23 12:30 64 18 177/70 H 97 05/01/23 12:25 64 18 177/68 H 97 05/01/23 12:20 64 18 166/68 H 97 05/01/23 12:15 66 18 178/68 H 97 05/01/23 12:10 70 18 190/86 H 97 05/01/23 12:05 72 18 170/70 H 97 05/01/23 12:00 80 18 185/75 H 97 05/01/23 11:55 88 18 187/82 H 97 05/01/23 11:50 78 18 198/82 H 97 05/01/23 11:45 88 18 182/70 H 97 05/01/23 11:40 88 18 191/72 H 97 05/01/23 11:35 88 18 192/76 H 97 05/01/23 11:30 88 18 198/66 H 97 05/01/23 11:25 88 18 180/90 H 97 05/01/23 11:20 88 18 178/69 H 97 05/01/23 11:15 88 18 187/64 H 97 05/01/23 11:10 88 18 227/82 H 97 05/01/23 11:05 88 18 200/88 H 97 05/01/23 11:00 88 18 235/90 H 97 05/01/23 10:55 88 18 231/90 H 97 05/01/23 10:50 88 18 232/90 H 97 05/01/23 10:45 88 18 230/90 H 97 05/01/23 09:30 72 177/90 H 05/01/23 08:30 77 20 196/75 H 94 05/01/23 07:39 82 183/82 H 05/01/23 07:10 80 209/81 H 05/01/23 06:43 36.7 C 83 20 227/76 H 248/100 H 99 O2 Del Method O2 Flow Rate 05/01/23 14:35 Room Air 05/01/23 14:30 Room Air 05/01/23 14:25 Room Air 05/01/23 14:20 Room Air 05/01/23 14:15 Room Air 05/01/23 14:10 Room Air 05/01/23 14:05 Room Air 05/01/23 14:00 Room Air 05/01/23 13:41 Oxymask 4 05/01/23 13:20 Oxymask 4 05/01/23 13:15 Oxymask 4 05/01/23 13:10 Oxymask 4 05/01/23 13:05 Oxymask 4 05/01/23 13:00 Oxymask 4 05/01/23 12:55 Oxymask 4 05/01/23 12:50 Oxymask 4 05/01/23 12:45 Oxymask 4 05/01/23 12:40 Oxymask 4 05/01/23 12:35 Oxymask 4 05/01/23 12:30 Oxymask 4 05/01/23 12:25 Oxymask 4 05/01/23 12:20 Oxymask 4 05/01/23 12:15 Oxymask 4 05/01/23 12:10 Oxymask 4 05/01/23 12:05 Oxymask 4 05/01/23 12:00 Oxymask 4 05/01/23 11:55 Oxymask 4 05/01/23 11:50 Oxymask 4 05/01/23 11:45 Oxymask 4 05/01/23 11:40 Oxymask 4 05/01/23 11:35 Oxymask 4 05/01/23 11:30 Oxymask 4 05/01/23 11:25 Oxymask 4 05/01/23 11:20 Oxymask 4 05/01/23 11:15 Oxymask 4 05/01/23 11:10 Oxymask 4 05/01/23 11:05 Oxymask 4 05/01/23 11:00 Oxymask 4 05/01/23 10:55 Oxymask 4 05/01/23 10:50 Oxymask 4 05/01/23 10:45 Oxymask 4 05/01/23 09:30 05/01/23 08:30 Room Air 05/01/23 07:39 05/01/23 07:10 05/01/23 06:43 Room Air Coding
[2023-05-01] MEDS ORDERED: SURGICEL ABSORB HEMOSTAT 2IN X 14IN TOP ONE (15:39)
[2023-05-01] MEDS ORDERED: ceFAZolin 2000MG 2,000 MG/15 ML SYR IV ONE (15:40)
[2023-05-01 16:25] LABS: Appearance Urine Clear (Clear); Bilirubin Urine Negative (Negative); Blood Urine Negative (Negative); Color Urine Yellow; Glucose Urine UA Negative (Negative); Ketones Urine Negative (Negative); Leukocyte Esterase Urine Negative (Negative); Nitrite Urine Negative (Negative); Protein Urine Negative (Negative); Specific Gravity Urine 1.018 (1.000-1.030); Urobilinogen Urine Negative (Negative); pH Urine 6.5 (4.5-7.5)
[2023-05-01] MEDS ORDERED: VISIPAQUE IV ONE (16:41)
[2023-05-01] MEDS ORDERED: SUGAMMADEX SODIUM 200 MG/2 ML VIAL IV ONE (16:44)
--- NOTE | 2023-05-01 18:09 | Communication Note ---
Date of Service: May 01, 2023 ICU consult was placed by vascular surgery for postop monitoring. When I went to see the patient, she was being taken back to the OR for revision of her prior vascular procedure. Patient was not seen at the time of this note. ICU will follow-up after she is back from the OR. Coding Level of Care Code None
[2023-05-01] MEDS ORDERED: FLOSEAL HEMOSTATIC MATRIX 5ML TOP ONE (19:00)
[2023-05-01] MEDS ORDERED: LABETALOL HCL IV 5 MG/ML 20ML IV ONE (19:34)
--- NOTE | 2023-05-01 19:36 | Post Operative Brief Note ---
Immediate Post Op Note v1 Date of Surgery May 01, 2023 Pre & Post Diagnosis Preoperative Diagnosis: Acute on chronic limb ischemia, right lower extremity Postoperative Diagnosis: Unchanged I identified the patient and participated in the time-out.: Yes Procedure Right lower extremity angiogram Right femoral artery endarterectomy with bovine pericardial patch Right lower extremity open thrombectomy with #3, #4 Ed[place] catheters through femoral and below-knee popliteal artery cutdowns and with #2 and #3 Edna catheters through posterior tibial and dorsalis pedis artery cutdowns. Surgeon Paul Amor MD Extruding Press Adjuster Connie Pierce MD Estimated Blood Loss 100 Findings See Below Patient with anterior tibial (AT) artery as single vessel runoff to mid-calf with no flow to the foot. After open thrombectomy, patient had AT artery flow to the level of the ankle, proximal dorsum of the foot. There was also filling of some PT collaterals. Fluids please see anesthesia record Drains Muro Catheter (from inpatient floor, clear yellow urine noted, anesthesia to monitor urine output during surgery) Anesthesia Type General Complications None Disposition Accompanied Patient To Recovery: Yes Disposition: Surgical ICU
--- NOTE | 2023-05-01 19:48 | Operative Report ---
Post Operative Report Pre & Post Diagnosis Preoperative Diagnosis: Acute on chronic limb ischemia, right lower extremity Postoperative Diagnosis: Unchanged I identified the patient and participated in the time-out.: Yes Procedure 1. Right common femoral artery (FIRE EQUIPMENT INSPECTOR) cutdown and open thrombectomy of FIRE EQUIPMENT INSPECTOR, superficial femoral, profunda, popliteal arteries with #4 and #5 Edna catheters 2. Right common femoral/superficial femoral artery endarterectomy with bovine pericardial patch 3. Right lower extremity diagnostic angiogram 4. Right below-the knee popliteal artery cutdown and open thrombectomy of popliteal, anterior tibial, tibioperoneal trunk with #2 and #3 Edna catheters 5. Right posterior tibial artery and dorsalis pedis artery cutdowns and open thrombectomy with #2 and #3 Edna catheters 6. Removal of left common femoral artery 6F destination sheath (previously placed for lysis catheter -see separate op report) Surgeon Paul Amor MD Sign Manufacturer Connie Pierce MD Estimated Blood Loss 100 Findings See Below After open embolectomy from femoral cutdown, patient had single vessel flow from anterior tibial artery to the leg just above the ankle. After embolectomy from popliteal artery, dorsalis pedis and posterior tibial artery cutdowns, patient had flow from anterior tibial artery to the level of the ankle/just proximal dorsal part of the foot as well as posterior tibial artery collaterals. Fluids 1L crystalloid Specimens None Drains None Anesthesia Type General Complications None immediately evident. Disposition Accompanied Patient To Recovery: Yes Disposition: Surgical ICU Indications Right lower extremity acute on chronic limb ischemia Motor and sensory loss of right foot after Description of Procedure The patient was brought back to the operating room after she was found to have motor and sensory loss of the right foot (please see prior operative report). She was placed in supine position and the lysis catheter was removed from the left common femoral artery. We kept the sheath in place as the tPA infusion had just been turned off and she was also on a heparin drip infusion. The right lower extremity was prepped and draped in the usual sterile fashion. A longitudinal skin incision was made over the femoral pulse with a #10 blade and extended about 1/3 above the inguinal ligament and 2/3 below it. Using a combination of electrocautery and blunt dissection, the femoral fascia jignesh was opened along the medial margin of the sartorius muscle and the incision extended proximally to the level of the inguinal ligament. The sartorius muscle was retracted laterally and the underlying femoral sheath was exposed. Electrocautery was used to control any crossing bleeding veins. Care was taken to preserve the femoral vein and nerve. The profunda artery origin was identified and vessel loops were used to obtain circumferential control of the common femoral (FIRE EQUIPMENT INSPECTOR), superficial femoral (SFA) and profunda arteries. The patient was given 5,000 units of IV heparin. Heparin was redosed throughout the case to maintain the patient therapeutic. The FIRE EQUIPMENT INSPECTOR and profunda arteries were clamped. A longitudinal arteriotomy was made in the FIRE EQUIPMENT INSPECTOR and a significant amount of plaque was removed. The patient had excellent proximal inflow after this. A #5 Edna catheter was passed down the SFA down to the popliteal artery and there was some return of fresh thrombus. The Edna catheter was also passed proximally into the external iliac artery. The arteriotomy was repaired with a bovine pericardial patch using a 6-0 Prolene running suture. An interrupted 6-0 prolene stitch was used to repair an arterial defect on the lateral aspect, to prevent narrowing of the patch. There was backbleeding and a strong palpable pulse before the last stitch was placed. A single 6-0 prolene U-stitch was pre- placed over the top of the patch. A micropuncture needle was used and a modified Seldinger technique to perform an angiogram of the right lower extremity. This showed that the FIRE EQUIPMENT INSPECTOR, SFA and popliteal arteries were open, the stents were patent and there was single vessel runoff of the anterior tibial (AT) artery to just above the ankle. The decision was made to make a below-knee popliteal artery cutdown. The leg was externally rotated and flexed at the knee. A supporting roll was placed under the leg above the knee. An incision was made 2cm behind the posterior border of the tibia just below the knee joint and extended distally about 7cm. The incision was deepened through the subcutaneous tissue, taking care to avoid injury to the saphenous vein. The deep fascia was incised, exposing the fibers of the medial head of the gastrocnemius muscle. Posterior retraction of the gastrocnemius muscle exposed the distal popliteal vessels. The fibers of the soleus muscle were partially divided to expose the origin of the anterior tibial (AT) artery and to better visualize the tibioperoneal (TP) trunk. A 1-2cm transverse arteriotomy was made on the below-knee popliteal artery above the bifurcation of AT and TP trunk. #2 and #3 Edna catheters were passed down to the TP trunk and AT arteries with some return of fresh thrombus. We were still unable to find Doppler signals distally below the ankle. We could only find an AT signal above the ankle. At this point, we decided to do a posterior tibial (PT) artery cutdown. The PT was exposed in the distal third of the calf through a vertical incision medial to the calcaneus tendon. The neurovascular bundle was exposed by incising the crural fascia and a fascial layer the deep and superficial posterior muscle compartments. The PT was found just anterior to the tibial nerve. The PT had significant thrombus and was also very redundant. Initially, we performed an arteriotomy and passed a #2 and #3 Edna catheter both antegrade and retrograde, with some return of clot. The PT artery was heavily calcified and given that it was redundant and the wall appeared unhealthy, we resected part of the redundant vessel. We again performed open thrombectomy with #2 and #3 Edna catheters proximally and distally. We then performed an end-to-end repair of the PT artery using a running 6-0 Prolene suture. We additionally exposed the dorsalis pedis (DP) artery at this point. A vertical incision was made on the dorsal foot just lateral to the location of the DP artery. The dorsal branch of the superficial peroneal nerve was retracted laterally. The neurovascular bundle was exposed by retracting the extensor hallucis longus and brevis muscles apart. An arteriotomy was again performed and #2 and #3 Edna catheters passed proximally into the AT with some return of fresh clot. A repeat right lower extremity angiogram was performed from the common femoral artery and it showed single vessel runoff of the AT artery to the level of the ankle/to the proximal dorsum of the foot. There were also some collaterals to the PT artery visualized. At this point, we pulled the micropuncture sheath from the femoral patch and closed our pre-placed suture. We obtained hemostasis of all four cutdown sites. The groin was copiously irrigated with antibiotic irrigation and was hemostatic. The femoral sheath was re- approximated with interrupted 2-0 Vicryl sutures. The overlying soft tissue was closed with running 3-0 Vicryl in multiple layers. The below-knee popliteal, PT and DP exposures were approximated with interrupted 2-0 Vicryl sutures. The skin overlying all cutdown sites was closed with augustin. Dry, sterile dressings were placed over the right lower extremity incisions. The left groin sheath was removed and manual pressure was held for about 20 minutes. All sponge and needle counts were correct at the end of the case. The patient tolerated the procedure well. She was extubated in the operating room and taken back to the ICU in stable condition. She had an AT signal on the right foot in the ICU. Dr. Amor was present and participated in all critical portions of the case. I attest to the content of the Intraoperative Record and any orders documented therein. Any exceptions are noted below.
[2023-05-01] MEDS ORDERED: D5W AND 1/2NSS 1,000 ML IV SCH (20:54)
--- NOTE | 2023-05-01 21:15 | Anesthesiology Progress Note ---
Date of Service May 01, 2023 Anesthesia Post Procedure Vital Signs Vital Signs: Temp Pulse Pulse Resp BP BP BP 05/01/23 20:20 36.9 C 66 24 163/61 H 05/01/23 20:15 36.7 C 54 L 22 149/48 H 05/01/23 20:05 36.3 C L 55 L 20 141/48 H 05/01/23 15:00 05/01/23 14:35 70 18 165/57 H 05/01/23 14:30 79 18 154/69 H 05/01/23 14:25 77 16 152/55 H 05/01/23 14:20 36.5 C 75 18 147/87 H 05/01/23 14:15 70 16 134/48 L 05/01/23 14:10 73 16 157/65 H 05/01/23 14:05 72 16 155/52 H 05/01/23 14:00 75 18 152/50 H 05/01/23 13:41 74 18 158/87 H 05/01/23 13:20 74 18 190/80 H 05/01/23 13:15 74 18 180/82 H 05/01/23 13:10 74 18 187/60 H 05/01/23 13:05 74 18 182/68 H 05/01/23 13:00 74 18 179/62 H 05/01/23 12:55 74 18 185/62 H 05/01/23 12:50 74 18 150/94 H 05/01/23 12:45 74 18 161/67 H 05/01/23 12:40 74 18 190/75 H 05/01/23 12:35 76 18 160/83 H 05/01/23 12:30 64 18 177/70 H 05/01/23 12:25 64 18 177/68 H 05/01/23 12:20 64 18 166/68 H 05/01/23 12:15 66 18 178/68 H 05/01/23 12:10 70 18 190/86 H 05/01/23 12:05 72 18 170/70 H 05/01/23 12:00 80 18 185/75 H 05/01/23 11:55 88 18 187/82 H 05/01/23 11:50 78 18 198/82 H 05/01/23 11:45 88 18 182/70 H 05/01/23 11:40 88 18 191/72 H 05/01/23 11:35 88 18 192/76 H 05/01/23 11:30 88 18 198/66 H 05/01/23 11:25 88 18 180/90 H 05/01/23 11:20 88 18 178/69 H 05/01/23 11:15 88 18 187/64 H 05/01/23 11:10 88 18 227/82 H 05/01/23 11:05 88 18 200/88 H 05/01/23 11:00 88 18 235/90 H 05/01/23 10:55 88 18 231/90 H 05/01/23 10:50 88 18 232/90 H 05/01/23 10:45 88 18 230/90 H 05/01/23 09:30 72 177/90 H 05/01/23 08:30 77 20 196/75 H 05/01/23 07:39 82 183/82 H 05/01/23 07:10 80 209/81 H 05/01/23 06:43 36.7 C 83 20 227/76 H 248/100 H Pulse Ox O2 Del Method O2 Flow Rate 05/01/23 20:20 94 Room Air 05/01/23 20:15 96 Oxymask 3 05/01/23 20:05 97 Oxymask 6 05/01/23 15:00 Room Air 05/01/23 14:35 92 Room Air 05/01/23 14:30 92 Room Air 05/01/23 14:25 93 Room Air 05/01/23 14:20 92 Room Air 05/01/23 14:15 93 Room Air 05/01/23 14:10 92 Room Air 05/01/23 14:05 91 Room Air 05/01/23 14:00 90 Room Air 05/01/23 13:41 97 Oxymask 4 05/01/23 13:20 97 Oxymask 4 05/01/23 13:15 97 Oxymask 4 05/01/23 13:10 97 Oxymask 4 05/01/23 13:05 97 Oxymask 4 05/01/23 13:00 97 Oxymask 4 05/01/23 12:55 97 Oxymask 4 05/01/23 12:50 97 Oxymask 4 05/01/23 12:45 97 Oxymask 4 05/01/23 12:40 97 Oxymask 4 05/01/23 12:35 97 Oxymask 4 05/01/23 12:30 97 Oxymask 4 05/01/23 12:25 97 Oxymask 4 05/01/23 12:20 97 Oxymask 4 05/01/23 12:15 97 Oxymask 4 05/01/23 12:10 97 Oxymask 4 05/01/23 12:05 97 Oxymask 4 05/01/23 12:00 97 Oxymask 4 05/01/23 11:55 97 Oxymask 4 05/01/23 11:50 97 Oxymask 4 05/01/23 11:45 97 Oxymask 4 05/01/23 11:40 97 Oxymask 4 05/01/23 11:35 97 Oxymask 4 05/01/23 11:30 97 Oxymask 4 05/01/23 11:25 97 Oxymask 4 05/01/23 11:20 97 Oxymask 4 05/01/23 11:15 97 Oxymask 4 05/01/23 11:10 97 Oxymask 4 05/01/23 11:05 97 Oxymask 4 05/01/23 11:00 97 Oxymask 4 05/01/23 10:55 97 Oxymask 4 05/01/23 10:50 97 Oxymask 4 05/01/23 10:45 97 Oxymask 4 05/01/23 09:30 05/01/23 08:30 94 Room Air 05/01/23 07:39 05/01/23 07:10 05/01/23 06:43 99 Room Air Pain Intensity Right Foot: Pain Intensity: 10 Transfer of Care Handoff Completed per policy Notes Mental Status: alert / awake / arousable and participated in evaluation Patient Amnestic to Procedure: Yes Nausea / Vomiting: adequately controlled Pain: adequately controlled Airway Patency, RR, SpO2: stable & adequate BP & HR: stable & adequate Hydration State: stable & adequate Anesthetic Complications: no major complications apparent
[2023-05-01] MEDS: MoRPHine SULFATE 4 MG/ML 1 ML CARP\\VIAL IV PRN ×2 (21:25→23:54)
[2023-05-01] MEDS: DOXYCYCLINE HYCLATE 100 MG CAP PO SCH (21:27)
[2023-05-01] MEDS: amLODIPine BESYLATE 5 MG TAB PO SCH (21:28)
[2023-05-01] MEDS: CEFDINIR 300 MG CAP PO SCH (21:28)
[2023-05-01] MEDS ORDERED: PIPERACILLIN/TAZOBACTAM 4.5 GM in DEXTROSE 5% MINI-B 100 ML IV SCH (21:30)
--- NOTE | 2023-05-01 21:45 | Critical Care Consultation ---
Date of Consultation May 01, 2023 Assessment & Plan (1) Ischemia of right lower extremity: Impression: 67-year-old female with gangrene of the right lower extremity and delayed wound healing due to peripheral artery disease initially presented to the ICU following balloon angioplasty of right femoral/popliteal artery with stenting, and was taken back to the OR after developing worsening ischemia/loss of sensation to the right foot. Underwent right lower extremity open thrombectomy with cutdowns through femoral and below-knee popliteal artery. Now presents to the ICU post Neuro - [facility] ICU: Negative Cardiac - PAD/critical ischemia right lower extremitystatus post open embolectomy from femoral cutdown and below the knee popliteal cutdown. Management per vascular surgery -Heparin drip -Frequent Doppler of lower extremity pulses -Morphine as needed for pain -Monitor in ICU HTNcontinue home medications Respiratory - No history of pulmonary disease. Currently maintaining oxygen saturation on 2 L nasal cannula. Patient does have history of tobacco abuse and refused smoking cessation on last admission. Continuous monitoring on pulse ox GI - Heart healthy diet RENAL/LYTES - Creatinine within normal limits, monitor routine BMPs and replete electrolytes as indicated - Strict I's and O's ENDO - Prediabetesnew diagnosis the hemoglobin A1c 6.5 currently diet controlled. ICU hyperglycemic protocol HEME - H&H stable. EBL reported to be at 100 mL. Monitor routine CBC ID - Right lower extremity gangreneno evidence of systemic infection. Currently afebrile. Wound cultures no growth to date from 04/26 -Continue cefdinir and doxycycline p.o. LINES/IV ACCESS - Peripheral IV DVT PROPHYLAXIS - SCDs, heparin drip Thank you for allowing us to participate in the care of this patient. Please refer to my attending physician's documentation for any further recommendations. (2) Peripheral arterial disease: (3) HTN (hypertension): (4) Prediabetes: (5) Tobacco abuse: History of Present Illness Attending Physician: Paul Amor MD History of Present Illness 67-year-old female with past medical history of HTN, tobacco abuse presented to the ICU earlier this afternoon following elective balloon angioplasty and stenting of femoral and popliteal artery following development of right great toe gangrene due to femoral and popliteal artery occlusion. Following procedure patient developed right lower extremity ischemia and went back to the OR emergently for right femoral artery cutdown and open thrombectomy, femoral endar terectomy, right popliteal artery cutdown and open thrombectomy, and removal of left common femoral artery sheath. Postprocedure, patient was noted to have flow to anterior tibial artery to the level of the ankle/just proximal dorsal part of the foot as well as posterior tibial artery collaterals. On arrival to the ICU the patient is alert and oriented. Both lower extremities noted to be cool to touch. She does have sensation bilaterally in her feet, however is not currently able to wiggle her toes. She denies headache, dizziness, syncope, chest pain or palpitations, sore throat, shortness of breath, abdominal pain, nausea vomiting or diarrhea. Patient to remain in ICU for for now for further management and monitoring following vascular procedure. Allergies Allergy/AdvReac Type Severity Reaction Status Date / Time No Known Allergies Allergy Verified 05/01/23 06:38 Home Medications Medication Instructions Recorded Confirmed Type ibuprofen 200 mg tablet (Advil) 200 mg PO Q6H PRN Pain 04/25/23 05/01/23 History amlodipine 5 mg tablet (Norvasc) 5 mg PO HS #30 tabs 04/27/23 05/01/23 Rx cefdinir 300 mg capsule 300 mg PO BID 8 days #16 caps 04/27/23 05/01/23 Rx doxycycline hyclate 100 mg tablet 100 mg PO BID 8 days #16 tabs 04/27/23 05/01/23 Rx hydrochlorothiazide 25 mg tablet 12.5 mg (1/2 x 25 mg) PO QAM #15 04/27/23 05/01/23 Rx tabs lactobacillus combination no.4 3 3,000 mmu cells PO DAILY 2 weeks 04/27/23 05/01/23 Rx billion cell capsule (Probiotic) #14 caps losartan 50 mg tablet 50 mg PO QAM #30 tabs 04/27/23 05/01/23 Rx acetaminophen 325 mg tablet 650 mg PO Q6 PRN Pain 05/01/23 05/01/23 History (Tylenol) Patient History Medical History Tobacco abuse HTN (hypertension) Family History Other Diabetes Social History Smoking Status: Current every day smoker Tobacco Type: Cigarettes Cigarettes Per Day: 10; Second Hand Exposure: Yes; Do You Dip or Chew Tobacco: No; Hx Alcohol Use: No Hx Substance Use: No Preferred Language: Macedonian Communication Ability: 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 Beliefs That Will Affect Care: None Current Living Situation: Alone Current Living Situation Comment: mobile home by herself with a dog, family nearby Other Information That Helps Us Care for You: No Feels Safe at Home: Yes Safety Concerns: Feels Safe At This Time Assistive Devices: None Review of Systems Review of Systems: All systems reviewed & are unremarkable except as noted in HPI & below Physical Exam Constitutional: cooperative and comfortable Eyes: PERRL, conjunctivae normal, anicteric sclerae ENMT: external ear and nose normal, oropharynx normal Neck: trachea midline, no thyromegaly Respiratory: normal respiratory effort, lungs clear to auscultation Cardiovascular: RRR, no murmur, no edema Heart Sounds: normal S1 and normal S2; no murmur Extremities: no edema Gastrointestinal (Abdomen): normal bowel sounds, soft, nontender, no hepatosplenomegaly Musculoskeletal: Limited range of motion bilaterally in the lower extremities Skin: no rashes, warm and dry Neurologic: PERRL, EOMI, accommodation nl, no face palsy, no dysarthria Psychiatric: A+Ox3, euthymic affect Results & Data Results & Data Vital Signs (Past 12 Hours) Vital Signs Temp Pulse Pulse Resp BP BP BP 05/01/23 20:20 36.9 C 66 24 163/61 H 05/01/23 20:15 36.7 C 54 L 22 149/48 H 05/01/23 20:05 36.3 C L 55 L 20 141/48 H 05/01/23 15:00 05/01/23 14:35 70 18 165/57 H 05/01/23 14:30 79 18 154/69 H 05/01/23 14:25 77 16 152/55 H 05/01/23 14:20 36.5 C 75 18 147/87 H 05/01/23 14:15 70 16 134/48 L 05/01/23 14:10 73 16 157/65 H 05/01/23 14:05 72 16 155/52 H 05/01/23 14:00 75 18 152/50 H 05/01/23 13:41 74 18 158/87 H 05/01/23 13:20 74 18 190/80 H 05/01/23 13:15 74 18 180/82 H 05/01/23 13:10 74 18 187/60 H 05/01/23 13:05 74 18 182/68 H 05/01/23 13:00 74 18 179/62 H 05/01/23 12:55 74 18 185/62 H 05/01/23 12:50 74 18 150/94 H 05/01/23 12:45 74 18 161/67 H 05/01/23 12:40 74 18 190/75 H 05/01/23 12:35 76 18 160/83 H 05/01/23 12:30 64 18 177/70 H 05/01/23 12:25 64 18 177/68 H 05/01/23 12:20 64 18 166/68 H 05/01/23 12:15 66 18 178/68 H 05/01/23 12:10 70 18 190/86 H 05/01/23 12:05 72 18 170/70 H 05/01/23 12:00 80 18 185/75 H 05/01/23 11:55 88 18 187/82 H 05/01/23 11:50 78 18 198/82 H 05/01/23 11:45 88 18 182/70 H 05/01/23 11:40 88 18 191/72 H 05/01/23 11:35 88 18 192/76 H 05/01/23 11:30 88 18 198/66 H 05/01/23 11:25 88 18 180/90 H 05/01/23 11:20 88 18 178/69 H 05/01/23 11:15 88 18 187/64 H 05/01/23 11:10 88 18 227/82 H 05/01/23 11:05 88 18 200/88 H 05/01/23 11:00 88 18 235/90 H 05/01/23 10:55 88 18 231/90 H 05/01/23 10:50 88 18 232/90 H 05/01/23 10:45 88 18 230/90 H 05/01/23 09:30 72 177/90 H Pulse Ox O2 Del Method O2 Flow Rate 05/01/23 20:20 94 Room Air 05/01/23 20:15 96 Oxymask 3 05/01/23 20:05 97 Oxymask 6 05/01/23 15:00 Room Air 05/01/23 14:35 92 Room Air 05/01/23 14:30 92 Room Air 05/01/23 14:25 93 Room Air 05/01/23 14:20 92 Room Air 05/01/23 14:15 93 Room Air 05/01/23 14:10 92 Room Air 05/01/23 14:05 91 Room Air 05/01/23 14:00 90 Room Air 05/01/23 13:41 97 Oxymask 4 05/01/23 13:20 97 Oxymask 4 05/01/23 13:15 97 Oxymask 4 05/01/23 13:10 97 Oxymask 4 05/01/23 13:05 97 Oxymask 4 05/01/23 13:00 97 Oxymask 4 05/01/23 12:55 97 Oxymask 4 05/01/23 12:50 97 Oxymask 4 05/01/23 12:45 97 Oxymask 4 05/01/23 12:40 97 Oxymask 4 05/01/23 12:35 97 Oxymask 4 05/01/23 12:30 97 Oxymask 4 05/01/23 12:25 97 Oxymask 4 05/01/23 12:20 97 Oxymask 4 05/01/23 12:15 97 Oxymask 4 05/01/23 12:10 97 Oxymask 4 05/01/23 12:05 97 Oxymask 4 05/01/23 12:00 97 Oxymask 4 05/01/23 11:55 97 Oxymask 4 05/01/23 11:50 97 Oxymask 4 05/01/23 11:45 97 Oxymask 4 05/01/23 11:40 97 Oxymask 4 05/01/23 11:35 97 Oxymask 4 05/01/23 11:30 97 Oxymask 4 05/01/23 11:25 97 Oxymask 4 05/01/23 11:20 97 Oxymask 4 05/01/23 11:15 97 Oxymask 4 05/01/23 11:10 97 Oxymask 4 05/01/23 11:05 97 Oxymask 4 05/01/23 11:00 97 Oxymask 4 05/01/23 10:55 97 Oxymask 4 05/01/23 10:50 97 Oxymask 4 05/01/23 10:45 97 Oxymask 4 05/01/23 09:30 Coding Level of Care Code 41704 IN/OBS CONSULT LVL 3,45M Diagnoses Ischemia of right lower extremity I99.8 Peripheral arterial disease I73.9 HTN (hypertension) I10 Prediabetes R73.03 Tobacco abuse Z72.0 Time Spent (min) 48
[2023-05-01] MEDS: PLASMA-LYTE A 1,000 ML IV SCH (21:51)
[2023-05-01 22:13] LABS: Basophils # (auto) 0.13 K/uL (0.00-0.20); Basophils % (auto) 0.7 %; Eosinophils # (auto) 0.01 K/uL (0.00-0.50); Eosinophils % (auto) 0.1 %; Hematocrit (blood only) 36.3 % (37.0-47.0); Hemoglobin 12.1 g/dl (12.0-16.0); Immature Granulocytes # (auto) 0.18 K/uL (0.01-0.20); Lymphocytes # (auto) 0.92 K/uL (1.20-3.40); Lymphocytes % (auto) 5.1 %; Mean Corpuscular Hemoglobin 28.3 pg (25.0-34.0); Mean Corpuscular Hgb Conc 33.3 g/dL (32.0-36.0); Mean Corpuscular Volume 84.8 fL (80.0-100.0); Mean Platelet Volume 10.4 fL (9.4-12.4); Monocytes # (auto) 1.04 K/uL (0.11-0.59); Monocytes % (auto) 5.8 %; Neutrophils # (auto) 15.74 K/uL (1.40-6.50); Neutrophils % (auto) 87.3 %; Platelet Count 279 K/uL (130-400); RDW Coefficient of Variation 14.9 % (11.5-14.5); RDW Standard Deviation 45.6 fL (36.4-46.3); Red Blood Count 4.28 M/uL (4.20-5.40); White Blood Count 18.02 K/ul (4.8-10.8)
[2023-05-01 22:17] LABS: BUN Creatinine Ratio 19.6 (10-20); Calcium 8.4 mg/dl (8.6-10.3); Creatinine Clr Calc Pharmacy 41.9 ml/min; Est GFR (African American) 66.8 ml/min; Est GFR (Non-African American) 57.7 ml/min; Potassium 3.9 mmol/L (3.5-5.1)
[2023-05-01] MEDS: ceFAZolin 2000MG 2,000 MG/15 ML SYR IV SCH (22:33)
[2023-05-02] MEDS: HEPARIN SODIUM/DEXTROSE 25,000 UNITS/500 ML BAG IV SCH
[2023-05-02] MEDS ORDERED: Heparin IV Adult Wt-Based Standard *NO* INITIAL Bolus Protocol IV SCH
[2023-05-02 00:14] LABS: INR 1.1 (0.9-1.1); Partial Thromboplastin Ratio > 4.9; Prothrombin Time 11.5 Seconds (9.0-12.0)
[2023-05-02 00:18] LABS: Partial Thromboplastin Time > 139 Seconds (21-31)
[2023-05-02] MEDS ORDERED: SODIUM CHLORIDE 0.9% IV SCH (01:00)
[2023-05-02] MEDS ORDERED: RECOMBINANT IV SCH (01:00)
[2023-05-02] MEDS ORDERED: ALTEPLASE IV SCH (01:00)
[2023-05-02] MEDS: MoRPHine SULFATE 4 MG/ML 1 ML CARP\\VIAL IV PRN ×4 (02:19→17:16)
[2023-05-02 02:31] LABS: Basophils # (auto) 0.07 K/uL (0.00-0.20); Basophils % (auto) 0.4 %; Hematocrit (blood only) 35.7 % (37.0-47.0); Hemoglobin 11.5 g/dl (12.0-16.0); Immature Granulocytes # (auto) 0.15 K/uL (0.01-0.20); Immature Granulocytes % (auto) 0.8 %; Lymphocytes # (auto) 1.14 K/uL (1.20-3.40); Lymphocytes % (auto) 6.4 %; Mean Corpuscular Hgb Conc 32.2 g/dL (32.0-36.0); Mean Corpuscular Volume 87.1 fL (80.0-100.0); Mean Platelet Volume 10.1 fL (9.4-12.4); Monocytes # (auto) 2.02 K/uL (0.11-0.59); Monocytes % (auto) 11.3 %; Neutrophils # (auto) 14.47 K/uL (1.40-6.50); Neutrophils % (auto) 81.1 %; Platelet Count 269 K/uL (130-400); RDW Coefficient of Variation 15.2 % (11.5-14.5); RDW Standard Deviation 48.7 fL (36.4-46.3); White Blood Count 17.85 K/ul (4.8-10.8)
[2023-05-02 02:48] LABS: BUN Creatinine Ratio 20.2 (10-20); Calcium 8.4 mg/dl (8.6-10.3); Creatinine Clr Calc Pharmacy 45.4 ml/min; Est GFR (African American) 73.8 ml/min; Est GFR (Non-African American) 63.7 ml/min; Potassium 3.6 mmol/L (3.5-5.1)
[2023-05-02 03:44] LABS: Partial Thromboplastin Ratio > 4.9
[2023-05-02 03:45] LABS: Partial Thromboplastin Time > 139 Seconds (21-31)
[2023-05-02 06:04] LABS: ANTI-Xa, UFH(UnfractionatedHep 0.24 IU/ML (0.3-0.7)
[2023-05-02] MEDS: ceFAZolin 2000MG 2,000 MG/15 ML SYR IV SCH (06:10)
[2023-05-02] MEDS: PLASMA-LYTE A 1,000 ML IV SCH ×2 (06:10→14:28)
[2023-05-02] MEDS ORDERED: POTASSIUM CHLORIDE CRTAB 20 MEQ TABCR PO STA (06:38)
[2023-05-02] MEDS: DOXYCYCLINE HYCLATE 100 MG CAP PO SCH ×2 (08:38→19:31)
[2023-05-02] MEDS: CEFDINIR 300 MG CAP PO SCH (08:38)
[2023-05-02] MEDS: ADVANCED PROBIOTIC 1250 MG CAPSULE PO SCH (08:39)
[2023-05-02] MEDS: hydroCHLOROthiazide 25 MG TAB PO SCH (08:39)
[2023-05-02] MEDS: LOSARTAN POTASSIUM 50 MG TAB PO SCH (08:39)
[2023-05-02] MEDS: oxyCODONE/ACETAMINOPHEN 5mg/325mg TAB PO PRN ×2 (08:42→15:25)
[2023-05-02 09:18] LABS: ANTI-Xa, UFH(UnfractionatedHep > 1.50 IU/ml (0.3-0.7)
--- NOTE | 2023-05-02 11:10 | Neurology Consultation ---
Date of Consultation May 02, 2023 Assessment & Plan (1) Flaccid paralysis of legs: (2) Peripheral arterial disease: Plan Acute onset flaccid paralysis of both lower extremities following second revascularization surgery of the right lower extremity to address peripheral vas cular disease. My immediate concern is for a lower spinal cord ischemic infarct which can present with flaccid weakness, before evolution of upper motor neuron findings on examination. Another possibility is bilateral acute femoral and sciatic neuropathies due to progressive ischemic injury. It is notable that only the right lower extremity was recently addressed surgically. Another consideration is postsurgical Guillain-Ryan syndrome although I think this diagnosis is probably less likely. Her examination does not appear to be consistent with a stroke involving the cerebrum or brainstem. I discussed her case with Dr. Ortiz and Dr. Amor. Would recommend CT of the abdomen, pelvis, and lumbar spine with and without contrast. Continue with heparin drip. Follow-up with results of above CT examination. Would also recommend transfer to a tertiary center given the acuity and severity of her bilateral lower extremity weakness in the context of her critical illness. (MRI of the thoracic, lumbar spine, and pelvis when able.) History of Present Illness Reason for Consultation: Lower extremity paralysis Requesting Physician: Zuleyma Attending Physician: Paul Amor MD History of Present Illness The patient is a 67-year-old female with a history of peripheral arterial disease, coronary artery disease, prediabetes, hypertension, tobacco abuse who h ad presented to the emergency department on April 25, 2023 with right great toe pain and numbness of the right foot concerning for cellulitis and necrosis. She was seen by orthopedics, x-rays were negative for osteomyelitis. She was seen by vascular surgery on April 27 and diagnosed with gangrene of the right great toe with significant peripheral arterial disease affecting both lower extremities. She had no motor deficits on examination at that time. Patient underwent a right lower extremity angiogram and balloon angioplasty of the right superficial femoral/popliteal artery with stent placement and tPA lysis from the right common femoral artery to the peroneal artery on May 01, 2023. Patient was unable to move her foot after this procedure. She underwent a repeat surgery for acute on chronic limb ischemia of the right lower extremity on May 01 including right common femoral artery cutdown and open thrombectomy, right common femoral/superficial femoral artery endarterectomy with Bovie and patch, right below the knee popliteal artery cutdown and open thrombectomy and right posterior tibial artery and dorsalis pedis artery cutdown and open thrombectomy. Patient now appears to have a flaccid paralysis of both lower extremities affecting proximal and distal musculature. She reports relatively intact sensation. She endorses some postsurgical pain affecting the right lower extremity. She denies significant low back pain or sciatica. She has a Muro catheter in place. She denies any numbness or pain along the spine or trunk. She denies any motor or sensory symptoms affecting the upper extremities. Allergies Allergy/AdvReac Type Severity Reaction Status Date / Time No Known Allergies Allergy Verified 05/01/23 06:38 Home Medications Medication Instructions Recorded Confirmed Type ibuprofen 200 mg tablet (Advil) 200 mg PO Q6H PRN Pain 04/25/23 05/01/23 History amlodipine 5 mg tablet (Norvasc) 5 mg PO HS #30 tabs 04/27/23 05/01/23 Rx cefdinir 300 mg capsule 300 mg PO BID 8 days #16 caps 04/27/23 05/01/23 Rx doxycycline hyclate 100 mg tablet 100 mg PO BID 8 days #16 tabs 04/27/23 05/01/23 Rx hydrochlorothiazide 25 mg tablet 12.5 mg (1/2 x 25 mg) PO QAM #15 04/27/23 05/01/23 Rx tabs lactobacillus combination no.4 3 3,000 mmu cells PO DAILY 2 weeks 04/27/23 05/01/23 Rx billion cell capsule (Probiotic) #14 caps losartan 50 mg tablet 50 mg PO QAM #30 tabs 04/27/23 05/01/23 Rx acetaminophen 325 mg tablet 650 mg PO Q6 PRN Pain 05/01/23 05/01/23 History (Tylenol) Patient History Medical History Tobacco abuse HTN (hypertension) Family History Other Diabetes Social History Smoking Status: Current every day smoker Tobacco Type: Cigarettes Cigarettes Per Day: 10; Second Hand Exposure: Yes; Do You Dip or Chew Tobacco: No; Hx Alcohol Use: No Hx Substance Use: No Preferred Language: Wolof Communication Ability: Effective Patrol Mother Required: No Beliefs That Will Affect Care: None Current Living Situation: Alone Current Living Situation Comment: mobile home by herself with a dog, family nearby Other Information That Helps Us Care for You: No Feels Safe at Home: Yes Safety Concerns: Feels Safe At This Time Assistive Devices: None Review of Systems Constitutional: no fever and no chills Eyes: no blind spots and no diplopia Ear, Nose, Mouth, Throat: no hearing loss Respiratory: no cough and no dyspnea Cardiovascular: no chest pain and no palpitations Gastrointestinal: no nausea and no vomiting Genitourinary: no dysuria and no urinary incontinence (has Muro) Musculoskeletal: + back pain (mild); no neck pain and no myalgia Integumentary: as per Subjective / HPI, + wounds (right great toe) and + change in skin color; no rash Neurologic: as per Subjective / HPI, + localized weakness and + loss of s ensation Psychiatric: no depression and no anxiety Hematologic / Lymphatic: no easy bleeding and no easy bruising Exam (Neuro) Constitutional: well developed; no acute distress Eyes: normal visual portillo by confrontation, PERRL and EOM intact bilaterally; no nystagmus Neurologic: Oriented to:: Person, Place and Time Memory: Short Term Intact and Remote Intact Attention: Span Intact and Concentration Intact Speech Fluency: negative Dysarthria or Dysfluency Speech Aphasia: negative Aphasia Fund of Knowledge: Current Events, Past History and Vocabulary Cranial Nerves: Normal II, III, IV, , V, VII, VIII, IX, X, XI and XII Motor Strength: Normal Upper Extremities; negative Normal Lower Extremities Motor Tone: Normal Upper Extremities Flaccidity: Legs (bilateral) Muscle Bulk/Involuntary Movements: No Involuntary Movements; negative Muscle Atrophy Sensation: Pain/Temperature Intact; negative Light Touch Intact (right foot) or Proprioception Intact (right foot) Coordination: Heel-Adame Abnormal (bilateral due to flaccid weakness); negative Dysdiadochokinesia or Finger-Nose Abnormal Deep Tendon Reflexes: Rt Triceps: 2+, Lt Triceps: 2+, Rt Biceps: 2+, Lt Biceps: 2+, Rt Brachioradialis: 2+, Lt Brachioradialis: 2+, Rt Patellar: 0, Lt Patellar: 0, Rt Ankle: 0 and Lt Ankle: 0 Special Tests: negative Babinski Present Details: Both lower extremities are cool to the touch, right greater than left, right foot has a dusky appearance. She has flaccid weakness of both lower extremities distally and proximally, 0 out of 5 hip flexors, extensors, abductors, add uctors, quadriceps, hamstrings, foot and ankle dorsal and plantar flexors, inverters, everters, and the toes. Results & Data Vital Signs (Past 12 Hours) Vital Signs Temp Pulse Pulse Resp BP BP Pulse Ox 05/02/23 06:00 69 19 139/52 L 92 05/02/23 05:00 84 19 140/47 L 95 05/02/23 04:00 76 20 152/48 H 96 05/02/23 03:00 37.1 C 72 21 152/48 H 96 05/02/23 03:00 64 23 160/62 H 96 05/02/23 02:00 66 20 161/56 H 95 05/02/23 01:00 36.6 C 66 17 141/51 H 95 05/02/23 00:03 36.4 C L 69 20 129/50 L 94 05/02/23 00:00 56 L 05/01/23 23:00 36.9 C 59 L 20 132/49 L 97 O2 Del Method O2 Flow Rate 05/02/23 06:00 Room Air 05/02/23 05:00 Room Air 05/02/23 04:00 Room Air 05/02/23 03:00 Room Air 05/02/23 03:00 Room Air 05/02/23 02:00 Room Air 05/02/23 01:00 Room Air 05/02/23 00:03 Room Air 05/02/23 00:00 05/01/23 23:00 Nasal Cannula 2 Laboratory Results WBC 17.85, hemoglobin 11.5, hematocrit 35.7, platelet count 269, sodium 137, potassium 3.6, BUN 19, creatinine 0.94, glucose 178, calcium 8.4. Hemoglobin A1c from April 26, 2023 was 6.5. A lipid panel from April 26 was reviewed. Triglycerides 136, cholesterol 156, LDL 82, HDL 47. An ESR from April 25, 2023 was 30. A CRP at that time was 1.94. Diagnostic Findings Ankle-brachial index, lower extremity ultrasound completed April 26, 2023 revealed severely decreased ABIs, right greater than left. A right lower extremity arterial duplex completed April 25, 2023 revealed right superficial femoral artery occlusion throughout the proximal and midportion with distal reconstitution with monophasic flow. The deep femoral artery revealed markedly elevated velocity consistent with 75 to 99% stenosis. An echocardiogram completed April 26, 2023 revealed normal left ventricular systolic function, EF 54%, moderate concentric LVH, grade 2 diastolic dysfunction, no regional wall motion abnormalities, aortic valve stenosis, left atrial size normal, no ASD. Coding Level of Care Code 09165 INT INP/OBS CARE 75MIN Diagnoses Flaccid paralysis of legs G82.20 Peripheral arterial disease I73.9 Time Spent (min) 80
--- NOTE | 2023-05-02 11:23 | Surgery Progress Note ---
Date of Service May 02, 2023 Assessment & Plan (1) Ischemia of right lower extremity: Plan: At this point she is stable from a revascularization standpoint. She still has decreased flow in both lower extremities however she does have Doppler signals in both feet. (2) Paralysis: Plan: Patient has developed bilateral lower extremity paralysis in the feet and weakness in lower extremities since surgery. Will consult neurology for further input. Admission and Anticipated Discharge Date Admission Date: May 01, 2023 Subjective Patient is awake and alert. She is not complaining of pain in her lower extremities other than the groin but she is complaining of inability to move both feet. She also complains of weakness in both lower extremities. She does claim that her right great toe does feel somewhat better. Physical Exam Constitutional: WD/WN, vitals as above Respiratory: normal respiratory effort and + respiratory distress Auscultation: lungs clear to auscultation bilaterally Cardiovascular: Rate/Rhythm: regular rate and regular rhythm Extremities: normal capillary refill (Capillary refill is decreased on the right.) She does have dopplerable pedal pulses. Skin: + incision (Dressings are all intact) Neurologic: CN's II-XI intact bilaterally and normal sensation to monofilament; + does not move all extremities (Inability to move both feet.) Psychiatric: Orientation: alert and oriented x 3 Results & Data Vital Signs (Past 12 Hours) Vital Signs Temp Pulse Pulse Resp BP BP Pulse Ox 05/02/23 06:00 69 19 139/52 L 92 05/02/23 05:00 84 19 140/47 L 95 05/02/23 04:00 76 20 152/48 H 96 05/02/23 03:00 37.1 C 72 21 152/48 H 96 05/02/23 03:00 64 23 160/62 H 96 05/02/23 02:00 66 20 161/56 H 95 05/02/23 01:00 36.6 C 66 17 141/51 H 95 05/02/23 00:03 36.4 C L 69 20 129/50 L 94 05/02/23 00:00 56 L O2 Del Method 05/02/23 06:00 Room Air 05/02/23 05:00 Room Air 05/02/23 04:00 Room Air 05/02/23 03:00 Room Air 05/02/23 03:00 Room Air 05/02/23 02:00 Room Air 05/02/23 01:00 Room Air 05/02/23 00:03 Room Air 05/02/23 00:00
[2023-05-02] MEDS ORDERED: OPTIRAY 320 125ml IV ONE (11:42)
--- NOTE | 2023-05-02 12:13 | CT Scan Report ---
CT lumbar spine wo/w con CLINICAL HISTORY: ischemia to spine? TECHNIQUE: Multidetector row helical CT of the lumbar spine was performed without and with administra tion of intravenous contrast. Coronal and sagittal reformations were obtained. Automated dose lowerin g techniques and/or adjustment according to patient size were utilized for this exam. Comparison: None available at the time of this dictation. FINDINGS: For counting purposes, the last complete intervertebral disc space is considered L5-S1. No acute fractures are identified. Vertebral body heights and disk spaces are well maintained. Verteb ral body alignment is within normal limits. Atherosclerotic changes are seen in the aorta. Soft tissu e swelling is partially seen in the dependent portion of the buttocks, no drainable fluid collection is seen. IMPRESSION: No acute abnormalities and in particular no evidence of drainable fluid collection or bony erosion. ACT 112: Negative or not required by law. Electronically signed by: Marino Muir M.D. 05/02/2023 12:11 PM
--- NOTE | 2023-05-02 12:27 | CT Scan Report ---
CT OF THE CHEST COMBO CLINICAL HISTORY: Spinal ischemia. COMPARISON STUDY: Chest x-ray dated 04/25/2023. TECHNIQUE: Before and following the IV administration of 115 cc of Optiray 320, CT scan of the chest was performed from the thoracic inlet to the upper abdomen. Images are reviewed in the axial, sagitta l, and coronal planes. IV contrast was administered without complication. A dose lowering technique was utilized adhering to the principles of ALARA. FINDINGS: Thyroid: Mildly enlarged and heterogeneous. Thoracic aorta: No intramural hematoma is seen on the unenhanced series. There is advanced atheroscle rotic calcification of the thoracic aorta, which is normal in caliber and demonstrates standard 3-ves dilshad arch anatomy. No dissection is clearly seen within thoracic aorta. The arch vessels are patent no ting advanced atherosclerotic plaque and irregularity. Pulmonary vasculature: The pulmonary trunk is mildly dilated, measuring over 3 cm diameter. This sugg ests pulmonary artery hypertension. There are no central filling defects identified in the pulmonary vessels to suggest pulmonary embolus. Note that this examination was not protocoled to assess for pul monary emboli. Heart: The heart is enlarged and without pericardial effusion. There is diminished attenuation of the cardiac blood pool is compared to the myocardium suggesting anemia. The coronary arteries are densel y calcified. Lungs and pleural spaces: There is [id number] emphysematous change. There is no lobar consolida tion. Foci of probable scarring are seen throughout both lungs. Trace pleural effusions are observed. Minimal secretions are noted in the trachea. There are scattered calcified granulomas. There is a 1. 1 x 1.4 x 1.0 cm irregular pulmonary nodule in the anterior left upper lobe seen on image #58. This m ay contain a tiny focus of cavitation. 3 over the right upper lobe pulmonary nodule is seen on image #79, and a 4 mm right middle lobe nodule is seen on image #108. Mediastinum: There is no mediastinal lymphadenopathy. Tennille: Clear. Axillae: There is no axillary lymphadenopathy. Upper abdomen: Dissection is partially visualized involving the upper abdominal aorta on image #203. Partially visualized upper abdominal viscera is otherwise within normal limits. Skeletal structures: The skeletal structures are osteopenic. No lytic or blastic bony lesions are see n. IMPRESSION: 1. Cardiomegaly and emphysema. 2. Trace pleural effusions. 3. There is no lobar consolidation. 4. A 1.4 cm irregular pulmonary nodule is seen in the anterior left upper lobe. This is pathologicall y indeterminant, and although this could potentially be inflammatory the appearance is more suspiciou s for a pulmonary neoplasm. Follow-up in 4-6 weeks with a repeat chest CT or possibly PET/CT is recom mended for reassessment. 5. There are at least 2 additional subcentimeter pulmonary nodules as above. The skull to be reassess ed at follow-up. 6. Advanced atherosclerotic plaque with no dissection clearly identified in the thoracic aorta. Disse ction is identified in the partially visualized upper abdominal aorta. See abdominal CT angiogram rep ort for detailed findings. 7. Additional findings as above. ACT 112: Negative or not required by law. Electronically signed by: Koby Mcclain M.D. 05/02/2023 12:26 PM
--- NOTE | 2023-05-02 12:34 | CT Scan Report ---
CT angio abdomen pelvis w con CT DOSE: 2896.61 mGy.cm CLINICAL HISTORY: ischemia to lumbral-sacral region . Lower abdominal pain. TECHNIQUE: Multiaxial CT images of the abdomen and pelvis were performed following the intravenous ad ministration of 115 cc of Optiray 320 to evaluate the major arterial structures. 3-D/maximum intensit y projection images in the sagittal and coronal planes were also obtained. A dose lowering technique was utilized adhering to the principles of ALARA. COMPARISON STUDY: None. FINDINGS: The lung bases will be reported on the same day chest CTA. No pneumoperitoneum. No pneumato sis. No portal venous gas identified. No acute fractures identified. Skin augustin with underlying sub cutaneous gas and fat stranding within the right inguinal region suggestive of recent intervention pa rtially visualized right superficial femoral arterial graft. There appears to be a focal short segmen t dissection within the right common femoral artery best seen on image 279 which demonstrates up to 5 0% focal narrowing. Moderate to severe atherosclerotic plaque within the iliac artery resulting in mu ltifocal mild narrowing of the bilateral common iliac arteries. There are focal dissections within th e bilateral internal iliac arteries resulting in mild multifocal stenoses. There is a right external iliac artery is patent. There is diffuse atherosclerotic plaque within the left external iliac artery resulting in up to 80% focal narrowing on image 264. There is severe stenosis throughout the visuali zed proximal left superficial femoral artery of up to 90% best seen on image 341. A long segment diss ection throughout the majority of the abdominal aorta resulting in mild stenosis at the mid abdominal aorta. The junction of the descending thoracic/abdominal aorta demonstrates mild aneurysmal dilatati on of 3.2 cm. The celiac and superior mesenteric arteries are widely patent. The origin of the inferi or mesenteric artery is likely occluded. However, there is immediate reconstitution of flow into the proximal inferior mesenteric artery due to collaterals from the superior mesenteric artery. The mid t o distal inferior mesenteric artery appears patent. Severe right and moderate left renal artery steno sis at the origins due to the calcified plaque. No evidence for retroperitoneal hematoma. Vicarious excretion of contrast seen within the gallbladder . The liver, spleen, adrenal glands, and pancreas are unremarkable. No hydronephrosis. A few hypodens e lesions within the kidneys favor cysts. No retroperitoneal lymphadenopathy. The bladder is decompre ssed by Muro catheter. This likely accounts for the gas within the bladder lumen. The uterus and adn exa are unremarkable. Irregular thickening and mucosal hyperenhancement seen within the rectosigmoid junction measure approximately 7.3 cm in length. This is suspicious for a colonic mass. No pelvic lym phadenopathy or pelvic free fluid. Colonic diverticulosis. No evidence for acute diverticulitis. No e vidence for bowel obstruction. Normal appendix. IMPRESSION: 1. Long segment dissection seen throughout the majority of the abdominal aorta resulting in mild sten osis at the mid abdominal aorta. 2. Additional short segment dissections seen within the right common femoral artery and bilateral int ernal iliac arteries as described above. 3. Multifocal stenoses as described above including focal occlusion at the origin of the inferior mes enteric artery. However, this demonstrates immediate reconstitution due to the collateral from the leary perior mesenteric artery. 4. Bilateral proximal renal artery stenosis. 5. Irregular thickening and mucosal hyperenhancement within the rectosigmoid junction measuring appro ximate 7.3 cm in length. This is highly suspicious for a colonic mass. A nonspecific colitis could al so have a similar appearance but is considered less likely. Follow-up endoscopy recommended for [facility] evaluation. 6. Additional findings as described above. ACT 112: Negative or not required by law. Electronically signed by: Roman Rios M.D. 05/02/2023 12:32 PM
[2023-05-02 12:53] LABS: ANTI-Xa, UFH(UnfractionatedHep 0.43 IU/ml (0.3-0.7)
--- NOTE | 2023-05-02 14:00 | Critical Care Progress Note ---
Date of Service May 02, 2023 Assessment & Plan (1) Ischemia of right lower extremity: Plan: Impression: 67-year-old female with gangrene of the right lower extremity and delayed wound healing due to peripheral artery disease initially presented to the ICU following balloon angioplasty of right femoral/popliteal artery with stenting, and was taken back to the OR after developing worsening ischemia/loss of sensation to the right foot. Underwent right lower extremity open thrombectomy with cutdowns through femoral and below-knee popliteal artery. Neuro - Flaccid paralysis in the lower extremities bilaterally. Unclear etiology. CT chest, abdomen and lumbar spine noted. No overt signs of ischemia. Discussed with vascular surgery and neurology. Cardiac - PAD/critical ischemia right lower extremitystatus post open embolectomy from femoral cutdown and below the knee popliteal cutdown. Management per vascular surgery -Heparin drip -Frequent Doppler of lower extremity pulses -Morphine as needed for pain -Monitor in ICU -Abdominal aortic dissection noted. Vascular surgery informed and will evaluate the patient. Hemodynamically stable. -Possible transfer to tertiary center for higher level of care for vascular surgery. HTNcontinue home medications Respiratory - No history of pulmonary disease. Currently maintaining oxygen saturation on 2 L nasal cannula. Patient does have history of tobacco abuse and refused smoking cessation on last admission. Continuous monitoring on pulse ox GI - Heart healthy diet RENAL/LYTES - Creatinine within normal limits, monitor routine BMPs and replete electrolytes as indicated - Strict I's and O's ENDO - Prediabetesnew diagnosis the hemoglobin A1c 6.5 currently diet controlled. ICU hyperglycemic protocol HEME - H&H stable. EBL reported to be at 100 mL. Monitor routine CBC ID - Right lower extremity gangreneno evidence of systemic infection. Currently afebrile. Wound cultures no growth to date from 04/26 -Continue cefdinir and doxycycline p.o. LINES/IV ACCESS - Peripheral IV DVT PROPHYLAXIS - SCDs, heparin drip (2) Peripheral arterial disease: (3) HTN (hypertension): (4) Prediabetes: (5) Tobacco abuse: (6) Paralysis of both lower limbs: Admission and Anticipated Discharge Date Admission Date: May 01, 2023 Subjective Patient seen and examined. She denies any complaints. She has had flaccid paralysis of the lower extremities bilaterally since yesterday. Discussed with neurology and vascular surgery. Patient is hungry and noting that she would like a diet started. She denies any pain. She is irritable. Review of Systems Review of Systems: All systems reviewed & are unremarkable except as noted in HPI & below Results & Data Results & Data Vital Signs (Past 12 Hours) Vital Signs Temp Pulse Pulse Resp BP BP Pulse Ox 05/02/23 12:02 150/49 H 05/02/23 12:02 88 21 86 L 05/02/23 12:00 82 18 98 05/02/23 11:00 171/87 H 05/02/23 11:00 73 17 95 05/02/23 10:00 145/41 H 05/02/23 10:00 75 19 94 05/02/23 09:00 135/55 L 05/02/23 09:00 73 22 95 05/02/23 09:00 92 H 05/02/23 08:35 65 21 94 05/02/23 08:35 140/53 L 05/02/23 08:33 134/61 05/02/23 08:33 77 05/02/23 08:25 156/45 H 05/02/23 08:25 80 26 H 96 05/02/23 08:00 71 18 94 05/02/23 07:00 138/44 L 05/02/23 07:00 63 20 91 05/02/23 07:00 93 H 24 05/02/23 06:00 69 19 139/52 L 92 05/02/23 05:00 84 19 140/47 L 95 05/02/23 04:00 76 20 152/48 H 96 05/02/23 03:00 37.1 C 72 21 152/48 H 96 05/02/23 03:00 64 23 160/62 H 96 05/02/23 02:00 66 20 161/56 H 95 O2 Del Method 05/02/23 12:02 05/02/23 12:02 05/02/23 12:00 05/02/23 11:00 05/02/23 11:00 05/02/23 10:00 05/02/23 10:00 05/02/23 09:00 05/02/23 09:00 05/02/23 09:00 05/02/23 08:35 05/02/23 08:35 05/02/23 08:33 05/02/23 08:33 05/02/23 08:25 05/02/23 08:25 05/02/23 08:00 05/02/23 07:00 05/02/23 07:00 05/02/23 07:00 05/02/23 06:00 Room Air 05/02/23 05:00 Room Air 05/02/23 04:00 Room Air 05/02/23 03:00 Room Air 05/02/23 03:00 Room Air 05/02/23 02:00 Room Air Coding Level of Care Code 57377 SUB INP/OBS CARE 3/50MIN Diagnoses Ischemia of right lower extremity I99.8 Peripheral arterial disease I73.9 HTN (hypertension) I10 Prediabetes R73.03 Tobacco abuse Z72.0 Paralysis of both lower limbs G82.20
--- NOTE | 2023-05-02 14:25 | Communication Note ---
Date of Service: May 02, 2023 CTA showed an abdominal aortic dissection which appears to start at T10 -T12 area and extends to the iliacs. This may be the cause of her paralysis due to spinal cord ischemia. Neuro recommended transfer to tertiary care center for evaluation. Discussed with family. If there is something a tertiary care center can add to her care we can transfer there.
[2023-05-02] MEDS: amLODIPine BESYLATE 5 MG TAB PO SCH (19:31)
[2023-05-03] MEDS: MoRPHine SULFATE 4 MG/ML 1 ML CARP\\VIAL IV PRN ×4 (00:32→18:39)
[2023-05-03] MEDS: ACETAMINOPHEN 325 MG TAB PO PRN (02:05)
[2023-05-03 04:19] LABS: ANTI-Xa, UFH(UnfractionatedHep 0.27 IU/ml (0.3-0.7)
[2023-05-03] MEDS: HEPARIN SODIUM/DEXTROSE 25,000 UNITS/500 ML BAG IV SCH (06:18)
[2023-05-03] MEDS: oxyCODONE/ACETAMINOPHEN 5mg/325mg TAB PO PRN ×2 (07:31→19:54)
--- NOTE | 2023-05-03 08:41 | Critical Care Progress Note ---
Date of Service May 03, 2023 Assessment & Plan (1) Ischemia of right lower extremity: Plan: Impression: 67-year-old female with gangrene of the right lower extremity and delayed wound healing due to peripheral artery disease initially presented to the ICU following balloon angioplasty of right femoral/popliteal artery with stenting, and was taken back to the OR after developing worsening ischemia/loss of sensation to the right foot. Underwent right lower extremity open thrombectomy with cutdowns through femoral and below-knee popliteal artery. Neuro - Flaccid paralysis in the lower extremities bilaterally. 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 CT chest, abdomen and lumbar spine noted. Discussed with vascular surgery and neurology. Cardiac - PAD/critical ischemia right lower extremitystatus post open embolectomy from femoral cutdown and below the knee popliteal cutdown. Management per vascular surgery -Heparin drip -Frequent Doppler of lower extremity pulses -Morphine as needed for pain -Abdominal aortic dissection noted. Vascular surgery informed and will evaluate the patient. Hemodynamically stable. -Patient not felt to require transfer for higher level of care at this point. HTNcontinue home medications Respiratory - No history of pulmonary disease. Currently maintaining oxygen saturation on 2 L nasal cannula. Patient does have history of tobacco abuse and refused smoking cessation on last admission. Continuous monitoring on pulse ox. Bronchospastic on exam today. Declines inhalers. TOLU Pulmonary nodule noted likely requiring follow-up imaging in 6 weeks in the outpatient setting. GI - Heart healthy diet Suspicious 7.3 cm irregular thickening and mucosal hyperenhancement within the rectosigmoid junction suspicious for colonic mass. Will require further workup as she has never undergone colonoscopy in the past. RENAL/LYTES - Creatinine within normal limits, monitor routine BMPs and replete electrolytes as indicated - Strict I's and O's ENDO - Prediabetesnew diagnosis the hemoglobin A1c 6.5 currently diet controlled. ICU hyperglycemic protocol HEME - H&H stable. EBL reported to be at 100 mL. Monitor routine CBC ID - Right lower extremity gangreneno evidence of systemic infection. Currently afebrile. Wound cultures no growth to date from 04/26 -Continue cefdinir and doxycycline p.o. LINES/IV ACCESS - Peripheral IV DVT PROPHYLAXIS - SCDs, heparin drip Thank you for allowing us to participate in the care of this patient. Patient stable for downgrade from the ICU at this point. (2) Peripheral arterial disease: (3) HTN (hypertension): (4) Prediabetes: (5) Tobacco abuse: (6) Paralysis of both lower limbs: Admission and Anticipated Discharge Date Admission Date: May 01, 2023 Subjective Patient seen and evaluated at bedside. She reports discomfort at the surgical incision sites. She is reports still no movement of the lower extremities bilaterally. She states that she continues to smoke. She did have some trouble with wheezing last night, but denies the need for any inhalers at this time. Review of Systems Review of Systems: A complete 10 point review of systems was reviewed with the patient with pertinent positives and negatives as per history of present illness. All else were negative. Physical Exam Physical Exam: VITAL SIGNS - Vital signs and nursing notes were reviewed. GENERAL - 67-year-old female appearing her stated age who is in no acute distress. Communicates well with provider and answers questions appropriately. SKIN - RLE dressings clean, dry, and intact. LUNGS - Expiratory wheezing noted in the upper lung portillo. CARDIAC - RRR with S1/S2. No murmur, rubs, or gallops appreciated. ABDOMEN - Abdominal contour obese without pulsations or visible masses. BS normoactive all four quadrants. No tenderness, palpable masses, hepatosplenomegaly, or ascites noted. EXTREMITIES - No ROM of the lower extremities. Sensation intact. NEUROLOGIC - Cranial nerves II through XII grossly intact. PSYCH - A&Ox3 and cooperates fully with examiner. Pt is very pleasant and interacts well with examiner. Results & Data Results & Data Vital Signs (Past 12 Hours) Vital Signs Temp Pulse Resp BP Pulse Ox O2 Del Method O2 Flow Rate 05/03/23 06:00 37.6 C H 67 21 147/58 H 94 Nasal Cannula 2 05/03/23 05:00 82 20 150/65 H 93 Nasal Cannula 2 05/03/23 04:00 37.3 C 68 19 135/83 94 Nasal Cannula 2 05/03/23 03:00 37.7 C H 84 18 147/63 H 94 Nasal Cannula 2 05/03/23 02:02 38 C H 75 19 173/83 H 94 Nasal Cannula 2 05/03/23 01:00 37.7 C H 87 18 174/59 H 93 Nasal Cannula 2 05/03/23 00:00 37.3 C 85 24 156/53 H 90 Room Air 05/02/23 23:41 83 05/02/23 23:00 87 18 92 05/02/23 22:58 36.8 C 85 19 156/49 H 91 05/02/23 22:00 36.9 C 86 20 173/70 H 91 05/02/23 21:00 37.3 C 83 19 139/51 L 91 Room Air Coding Level of Care Code 75669 SUB INP/OBS CARE 2/35MIN Diagnoses Ischemia of right lower extremity I99.8 Peripheral arterial disease I73.9 HTN (hypertension) I10 Prediabetes R73.03 Tobacco abuse Z72.0 Paralysis of both lower limbs G82.20
[2023-05-03] MEDS: ADVANCED PROBIOTIC 1250 MG CAPSULE PO SCH (09:14)
[2023-05-03] MEDS: LOSARTAN POTASSIUM 50 MG TAB PO SCH (09:14)
[2023-05-03] MEDS: DOXYCYCLINE HYCLATE 100 MG CAP PO SCH ×2 (09:15→20:01)
[2023-05-03] MEDS: hydroCHLOROthiazide 25 MG TAB PO SCH (09:15)
--- NOTE | 2023-05-03 10:30 | Neurology Progress Note ---
Date of Service May 03, 2023 Assessment & Plan (1) Flaccid paralysis of legs: (2) Spinal cord infarction: Plan Probable lower spinal cord infarct in the context of a long segment abdominal aortic dissection with additional short segment dissections within the right common femoral artery and bilateral internal iliac arteries. Patient continues to exhibit profound flaccid paralysis of both lower limbs. Sensory function is relatively preserved. Prognosis for recovery of neurologic function seems very poor. She will need ongoing vascular monitoring of her aortic dissection. PT/OT evaluations. Continue supportive medical care. Consider obtaining an MRI of the thoracic spine to further assess for probable spinal cord infarct when able. No further immediate neurologic recommendations. Admission and Anticipated Discharge Date Admission Date: May 01, 2023 Subjective Follow-up regarding flaccid paralysis of the legs The patient continues to report inability to move either lower extremity, she reports that her sensation or feeling for the lower limbs seems to be intact. She denies significant pain. CTA of the abdomen and pelvis completed yesterday revealed a long segment dissection seen throughout the majority of abdominal aorta with additional short segment dissections within the right common femoral artery and bilateral internal iliac arteries. CT of the lumbar spine revealed no significant abnormality of the spinal column. I did independently review these images. Patient has been informed of her diagnosis of aortic dissection likely resulting in ischemic damage to the spinal cord. Additional counseling given to the patient regarding the nature of her neurologic injury and likelihood of significant residual weakness of the lower limbs. I have discussed her case with Dr. Hanna and Dr. Amor as well. Her case had been discussed with as well, for possible transfer. However, it was felt that nothing further could be done to address her condition. She has otherwise been hemodynamically stable and has remained in the ICU for ongoing monitoring of her status. Review of Systems Constitutional: no fever and no chills Eyes: no blind spots and no diplopia Neurologic: as per Subjective / HPI Results & Data Vital Signs (Past 12 Hours) Vital Signs Temp Pulse Resp BP Pulse Ox O2 Del Method O2 Flow Rate 05/03/23 06:00 37.6 C H 67 21 147/58 H 94 Nasal Cannula 2 05/03/23 05:00 82 20 150/65 H 93 Nasal Cannula 2 05/03/23 04:00 37.3 C 68 19 135/83 94 Nasal Cannula 2 05/03/23 03:00 37.7 C H 84 18 147/63 H 94 Nasal Cannula 2 05/03/23 02:02 38 C H 75 19 173/83 H 94 Nasal Cannula 2 05/03/23 01:00 37.7 C H 87 18 174/59 H 93 Nasal Cannula 2 05/03/23 00:00 37.3 C 85 24 156/53 H 90 Room Air 05/02/23 23:41 83 05/02/23 23:00 87 18 92 05/02/23 22:58 36.8 C 85 19 156/49 H 91 Exam (Neuro) Neurologic: Oriented to:: Person, Place and Time Memory: Short Term Intact and Remote Intact Attention: Span Intact and Concentration Intact Speech Fluency: negative Dysarthria or Dysfluency Speech Aphasia: negative Aphasia Fund of Knowledge: Current Events, Past History and Vocabulary Cranial Nerves: Normal II, III, IV, , V, VII, VIII, IX, X, XI and XII Motor Strength: Normal Upper Extremities; negative Normal Lower Extremities Flaccidity: Legs Muscle Bulk/Involuntary Movements: No Involuntary Movements; negative Muscle Atrophy Sensation: Light Touch Intact, Pain/Temperature Intact, Vibration Intact and Proprioception Intact Coordination: negative Dysdiadochokinesia or Finger-Nose Abnormal Deep Tendon Reflexes: Rt Triceps: 2+, Lt Triceps: 2+, Rt Biceps: 2+, Lt Biceps: 2+, Rt Brachioradialis: 1+, Lt Brachioradialis: 1+, Rt Patellar: 0, Lt Patellar: 0, Rt Ankle: 0 and Lt Ankle: 0 Details: Patient continues to exhibit flaccid weakness for both lower limbs, there is perhaps trace movement of the toes to command. Sensory function seems relatively intact although there is a mild proprioceptive deficit for the right foot, notably the right great toe. Coding Level of Care Code 47812 SUB INP/OBS CARE 3/50MIN Diagnoses Flaccid paralysis of legs G82.20 Spinal cord infarction G95.11 Time Spent (min) 60
[2023-05-03 11:21] LABS: ANTI-Xa, UFH(UnfractionatedHep 0.34 IU/ml (0.3-0.7)
[2023-05-03] MEDS: amLODIPine BESYLATE 5 MG TAB PO SCH (14:14)
--- NOTE | 2023-05-03 16:28 | Surgery Progress Note ---
Date of Service May 03, 2023 Assessment & Plan (1) Spinal cord infarction: Plan: She apparently has symptoms of a spinal cord infarct post dissection of abdominal aorta. She will start PT OT at this point. Will obtain an MRI of the spine in the near future. (2) Ischemia of right lower extremity: Plan: Both lower extremities are viable at this point. Will continue to treat conservatively. We would recommend placing her on oral anticoagulation. Admission and Anticipated Discharge Date Admission Date: May 01, 2023 Subjective This patient today is awake and alert. She is in good spirits however she still cannot move either lower extremity. She denies any pain in the lower extremities. She still says she could feel but she cannot move them. Physical Exam Constitutional: WD/WN, vitals as above Respiratory: normal respiratory effort; no respiratory distress Cardiovascular: Rate/Rhythm: regular rate and regular rhythm Extremities: + abnormal capillary refill (Slightly decreased in both lower extremities) She does have Doppler flow in both lower extremities. Gastrointestinal (Abdomen): Percussion/Palpation: abdomen soft; abdomen nontender Neurologic: Flaccid paralysis of both lower extremities still present Psychiatric: Orientation: alert and oriented x 3 Results & Data Vital Signs (Past 12 Hours) Vital Signs Temp Pulse Resp BP Pulse Ox O2 Del Method O2 Flow Rate 05/03/23 15:00 176/83 H 05/03/23 15:00 74 24 05/03/23 14:00 190/61 H 05/03/23 14:00 84 22 05/03/23 13:49 197/64 H 05/03/23 13:49 88 23 05/03/23 13:00 89 23 94 05/03/23 12:00 81 23 93 05/03/23 11:39 206/90 H 05/03/23 11:00 185/69 H 05/03/23 11:00 83 27 H 05/03/23 10:00 176/57 H 05/03/23 10:00 79 21 90 05/03/23 09:00 184/80 H 05/03/23 09:00 83 24 92 05/03/23 08:00 73 23 92 05/03/23 08:00 155/61 H 05/03/23 08:00 Room Air 05/03/23 08:00 67 05/03/23 07:00 154/62 H 05/03/23 07:00 69 22 94 Room Air 05/03/23 06:00 37.6 C H 67 21 147/58 H 94 Nasal Cannula 2 05/03/23 05:00 82 20 150/65 H 93 Nasal Cannula 2
[2023-05-04] MEDS: MoRPHine SULFATE 4 MG/ML 1 ML CARP\\VIAL IV PRN ×5 (02:51→23:17)
[2023-05-04] MEDS ORDERED: LABETALOL HCL IV 5 MG/ML 20ML IV STA (05:22)
[2023-05-04 05:52] LABS: Basophils # (auto) 0.09 K/uL (0.00-0.20); Basophils % (auto) 0.7 %; Eosinophils # (auto) 0.25 K/uL (0.00-0.50); Eosinophils % (auto) 2.1 %; Hematocrit (blood only) 29.4 % (37.0-47.0); Hemoglobin 9.8 g/dl (12.0-16.0); Immature Granulocytes % (auto) 1.6 %; Lymphocytes # (auto) 1.88 K/uL (1.20-3.40); Lymphocytes % (auto) 15.4 %; Mean Corpuscular Hemoglobin 28.1 pg (25.0-34.0); Mean Corpuscular Hgb Conc 33.3 g/dL (32.0-36.0); Mean Corpuscular Volume 84.2 fL (80.0-100.0); Mean Platelet Volume 10.4 fL (9.4-12.4); Monocytes % (auto) 14.8 %; Neutrophils # (auto) 7.96 K/uL (1.40-6.50); Neutrophils % (auto) 65.4 %; Platelet Count 222 K/uL (130-400); RDW Coefficient of Variation 15.1 % (11.5-14.5); RDW Standard Deviation 46.3 fL (36.4-46.3); Red Blood Count 3.49 M/uL (4.20-5.40); White Blood Count 12.18 K/ul (4.8-10.8)
[2023-05-04] MEDS: HEPARIN SODIUM/DEXTROSE 25,000 UNITS/500 ML BAG IV SCH (07:15)
[2023-05-04] MEDS: DOXYCYCLINE HYCLATE 100 MG CAP PO SCH ×2 (08:50→20:53)
[2023-05-04] MEDS: ADVANCED PROBIOTIC 1250 MG CAPSULE PO SCH (08:50)
[2023-05-04] MEDS: oxyCODONE/ACETAMINOPHEN 5mg/325mg TAB PO PRN ×2 (08:52→18:06)
[2023-05-04] MEDS ORDERED: hydroCHLOROthiazide 25 MG TAB PO SCH ×2 (09:00)
[2023-05-04] MEDS ORDERED: LOSARTAN POTASSIUM 50 MG TAB PO SCH (09:00)
--- NOTE | 2023-05-04 09:04 | Consultation ---
Date of Consultation May 04, 2023 Assessment & Plan (1) Paralysis of both lower limbs: 67-year-old female with past med significant for hypertension, tobacco abuse was initially admitted on April 25 for right foot infection was treated with IV antibiotics and Lower extremity arterial ultrasound showed severe peripheral vascular disease but patient signed out AMA on April 27, 2023. During that hospitalization also found to have high blood pressure. Patient seems not following with doctors for several years. She was discharged on blood pressure medications amlodipine ,losartan, hydrochlorothiazide and antibiotics cefdinir. Patient followed-up with vascular surgery and because of delayed wound healing in the right lower extremity patient had balloon angioplasty of right femoral/popliteal artery with stenting and was again emergently taken back to the OR after developing worsening ischemia and loss of sensation right foot and underwent right lower extremity open thrombectomy with cutdowns through femoral and below-knee popliteal artery. But patient developed bilateral lower extremity weakness and neurology was consulted. Neurology thought most likely spinal cord ischemic infarct; CTA of abdomen pelvis and lumbar spine done which showed long segment dissection seen throughout the majority of the abdominal aorta resulting in mild stenosis in the mid abdominal aorta. Additional short segment dissection seen within the right common femoral artery and bilateral int ernal iliac arteries. Bilateral proximal renal artery stenosis seen. Also suspicious colonic mass 7. 3 cm in length seen at rectosigmoid junction. Plan to get MRIs spine when able. Patient currently on IV heparin. Last night Patient blood pressure was running high so we will call for consultation and improved with IV labetalol. Paralysis of both lower EXTR limbs Possible splenic infarction Abdominal aortic dissection seen on the CAT scan Plan for MRI spine when stable Currently on IV heparin Neurology on board PT OT Close monitor Hypertension Continue home medications of amlodipine , losartan and hydrochlorothiazide Placed on IV labetalol as needed Close monitor. Needs follow-up after discharge Peripheral vascular disease S/p open thrombectomy with cutdowns through femoral and below knee popliteal artery of the right lower extremity Management as per vascular surgery Tobacco abuse Needs counseling Colonic mass Needs workup when patient is stable DVT prophylaxis On IV heparin History of Present Illness Reason for Consultation: Ischemia of right lower extremity s/p procedure. Hypertension Attending Physician: Paul Amor MD History of Present Illness 67-year-old female with past med significant for hypertension, tobacco abuse was initially admitted on April 25 for right foot infection was treated with IV antibiotics and Lower extremity arterial ultrasound showed severe peripheral vascular disease but patient signed out AMA on April 27, 2023. During that hospitalization also found to have high blood pressure. Patient seems not following with doctors for several years. She was discharged on blood pressure medications amlodipine ,losartan, hydrochlorothiazide and antibiotics cefdinir. Patient followed-up with vascular surgery and because of delayed wo und healing in the right lower extremity patient had balloon angioplasty of right femoral/popliteal artery with stenting and was again emergently taken back to the OR after developing worsening ischemia and loss of sensation right foot and underwent right lower extremity open thrombectomy with cutdowns through femoral and below-knee popliteal artery. But patient developed bilateral lower extremity weakness and neurology was consulted. Neurology thought most likely spinal cord ischemic infarct; CTA of abdomen pelvis and lumbar spine done which showed long segment dissection seen throughout the majority of the abdominal aorta resulting in mild stenosis in the mid abdominal aorta. Additional short segment dissection seen within the right common femoral artery and bilateral internal iliac arteries. Bilateral proximal renal artery stenosis seen. Also suspicious colonic mass 7. 3 cm in length seen at rectosigmoid junction. Plan to get MRIs spine when able. Patient currently on IV heparin. Last night Patient blood pressure was running high so we will call for consultation and improved with IV labetalol. Patient resting comfortably. Denies any chest pain or shortness of breath. No headache. No blurred visions or double visions. No runny nose. Has chronic cough. No nausea. No abdominal pain. Normal bowel movements. States she cannot move her legs. But sensations are intact. Past medical history. As mentioned above Past surgical history. As mentioned above Social history. Smokes 1 to 2 packs a day. No alcohol use. No drug use. As per records Family history significant for diabetes Allergies Allergy/AdvReac Type Severity Reaction Status Date / Time No Known Allergies Allergy Verified 05/01/23 06:38 Home Medications Medication Instructions Recorded Confirmed Type ibuprofen 200 mg tablet (Advil) 200 mg PO Q6H PRN Pain 04/25/23 05/01/23 History amlodipine 5 mg tablet (Norvasc) 5 mg PO HS #30 tabs 04/27/23 05/01/23 Rx cefdinir 300 mg capsule 300 mg PO BID 8 days #16 caps 04/27/23 05/01/23 Rx doxycycline hyclate 100 mg tablet 100 mg PO BID 8 days #16 tabs 04/27/23 05/01/23 Rx hydrochlorothiazide 25 mg tablet 12.5 mg (1/2 x 25 mg) PO QAM #15 04/27/23 05/01/23 Rx tabs lactobacillus combination no.4 3 3,000 mmu cells PO DAILY 2 weeks 04/27/23 05/01/23 Rx billion cell capsule (Probiotic) #14 caps losartan 50 mg tablet 50 mg PO QAM #30 tabs 04/27/23 05/01/23 Rx acetaminophen 325 mg tablet 650 mg PO Q6 PRN Pain 05/01/23 05/01/23 History (Tylenol) Patient History Medical History (Updated 05/03/23 @ 10:23 by Trace Lowe MD) Paralysis of both lower limbs Tobacco abuse HTN (hypertension) Family History Other Diabetes Social History Smoking Status: Current every day smoker Tobacco Type: Cigarettes Cigarettes Per Day: 10; Second Hand Exposure: Yes; Do You Dip or Chew Tobacco: No; Hx Alcohol Use: No Hx Substance Use: No Preferred Language: Andorran Communication Ability: Effective Photo Checker Required: No Beliefs That Will Affect Care: None Current Living Situation: Alone Current Living Situation Comment: mobile home by herself with a dog, family nearby Other Information That Helps Us Care for You: No Feels Safe at Home: Yes Safety Concerns: Feels Safe At This Time Assistive Devices: None Review of Systems Review of Systems: All systems reviewed & are unremarkable except as noted in HPI & below Physical Exam Physical Exam: General- Not in distress Head- atraumatic ENT- oropharynx clear Neck- supple, no JVD. Lungs- clear to auscultation, n wheezing or crackles. Heart- regular rhythm; no murmur, no gallop. Abdomen- normal bowel sounds, soft, nontender, no distension. Extremities- Right lower extremity dressing seen. no drainage seen. Neuro- alert, oriented x 3; no facial palsy; no dysarthria; b/l lower extremity flaccid paralysis. sensations intact. Results & Data Vital Signs (Past 12 Hours) Vital Signs Temp Pulse Pulse Pulse Resp BP BP 05/04/23 05:51 67 154/66 H 05/04/23 05:36 79 204/65 H 05/04/23 05:31 79 05/04/23 03:42 05/04/23 03:16 05/04/23 03:00 36.8 C 73 18 05/04/23 00:40 05/03/23 22:56 37.0 C 98 H 18 05/03/23 21:51 69 05/03/23 20:56 87 175/54 H 05/03/23 20:20 37.1 C 89 18 05/03/23 19:36 88 BP Pulse Ox O2 Del Method 05/04/23 05:51 05/04/23 05:36 05/04/23 05:31 204/65 H 05/04/23 03:42 197/62 H 05/04/23 03:16 197/43 H 05/04/23 03:00 202/64 H 94 Room Air 05/04/23 00:40 Room Air 05/03/23 22:56 163/56 H 94 Room Air 05/03/23 21:51 05/03/23 20:56 05/03/23 20:20 192/45 H 92 Room Air 05/03/23 19:36
--- NOTE | 2023-05-04 10:21 | Surgery Progress Note ---
Date of Service May 04, 2023 Assessment & Plan (1) Spinal cord infarction: Plan: She has symptoms of a spinal cord infarct post dissection of abdominal aorta. She will continue PT/OT, with expectation that she will need rehab and/or home services at d/c. Will obtain an MRI of the spine in the near future. (2) Ischemia of right lower extremity: Plan: Both lower extremities are viable at this point. Will continue to treat conservatively. We would recommend placing her on oral anticoagulation. Admission and Anticipated Discharge Date Admission Date: May 01, 2023 Subjective 67 yo f POD #3 after RLE revasc surgery, seen in f/u today. Found to have aorti c dissection and spinal cord infarct POD #1. Pt states no pain other than in incisions. States she can feel her legs and feet, but still cannot move them. Review of Systems Review of Systems: All systems reviewed & are unremarkable except as noted in HPI & below Physical Exam Constitutional: WD/WN, vitals as above Respiratory: normal respiratory effort, lungs clear to auscultation normal respiratory effort; no respiratory distress Auscultation: lungs clear to auscultation bilaterally Cardiovascular: RRR, no murmur, no edema Rate/Rhythm: regular rate and regular rhythm Extremities: + abnormal capillary refill (Slightly decreased in both lower extremities) Gastrointestinal (Abdomen): Percussion/Palpation: abdomen soft; abdomen nontender Skin: + incision (C/D/I with augustin, minimal serous/bloody drainage from ankle incision. ) Neurologic: CN's II-XI intact bilaterally and normal sensation to monofilament; + does not move all extremities (Inability to move both feet.) Psychiatric: Orientation: alert and oriented x 3 Results & Data Vital Signs (Past 12 Hours) Vital Signs Temp Pulse Pulse Pulse Resp BP BP 05/04/23 08:03 37.1 C 70 18 159/50 H 05/04/23 07:24 05/04/23 07:20 63 05/04/23 05:51 67 154/66 H 05/04/23 05:36 79 204/65 H 05/04/23 05:31 79 204/65 H 05/04/23 03:42 197/62 H 05/04/23 03:16 197/43 H 05/04/23 03:00 36.8 C 73 18 202/64 H 05/04/23 00:40 05/03/23 22:56 37.0 C 98 H 18 163/56 H Pulse Ox O2 Del Method 05/04/23 08:03 91 Room Air 05/04/23 07:24 Room Air 05/04/23 07:20 05/04/23 05:51 05/04/23 05:36 05/04/23 05:31 05/04/23 03:42 05/04/23 03:16 05/04/23 03:00 94 Room Air 05/04/23 00:40 Room Air 05/03/23 22:56 94 Room Air
[2023-05-04] MEDS: LABETALOL HCL IV 5 MG/ML 20ML IV PRN ×3 (12:21→20:20)
[2023-05-04 13:03] LABS: ANTI-Xa, UFH(UnfractionatedHep 0.15 IU/ml (0.3-0.7)
--- NOTE | 2023-05-04 13:43 | Communication Note ---
Date of Service: May 04, 2023 Hospitalist consulted for hypertension Medication adjustment made; Coreg 6.25 twice daily added. Increase the dose of losartan to 100 mg once daily Continue on amlodipine 5 mg, hydrochlorothiazide 12.5 Can titrate amlodipine to 10 mg and hydrochlorothiazide to 25 mg if blood pressure continues to be elevated Labetalol as needed if SBP is greater than 160 mm Hg. Monitor blood pressure. Rest per primary.
[2023-05-04] MEDS ORDERED: POTASSIUM CHLORIDE CRTAB 20 MEQ TABCR PO STA (13:54)
[2023-05-04] MEDS: MAGNESIUM SULFATE / D5W 1 GM/100 ML BAG IV SCH ×2 (14:33→16:35)
[2023-05-04] MEDS ORDERED: HEPARIN SOD (PORCINE) 1000 UNIT/ML IV ONE (15:15)
[2023-05-04] MEDS ORDERED: carvediloL 6.25 MG TAB PO SCH (17:00)
--- NOTE | 2023-05-04 19:13 | Communication Note ---
Date of Service: May 04, 2023 Informed by RN that patient's blood pressure is still elevated after labetalol 10mg iv. Coreg increased to 12.5 mg twice daily, hctz increased to 25mg. Also, informed by RN that patient's son Brain wanted to speak with a physician. I asked RN to contact the primary attending. I also spoke with Trace on the phone. He wanted the images to be sent to [facility]. I asked the radiology department to transfer the images upon his request. He also wanted medical records. I spoke with charge nurse. I was informed that it has to be done through HIM department and wont be possible currently. I asked him follow up tomorrow.
[2023-05-04] MEDS: carvediloL 12.5 MG TAB PO SCH (19:52)
[2023-05-04] MEDS: amLODIPine BESYLATE 5 MG TAB PO SCH (20:52)
[2023-05-04 22:01] LABS: ANTI-Xa, UFH(UnfractionatedHep 0.23 IU/ml (0.3-0.7)
[2023-05-05] MEDS: HEPARIN SODIUM/DEXTROSE 25,000 UNITS/500 ML BAG IV SCH ×2 (00:25→19:04)
[2023-05-05] MEDS: oxyCODONE/ACETAMINOPHEN 5mg/325mg TAB PO PRN ×5 (00:54→20:38)
[2023-05-05] MEDS: MoRPHine SULFATE 4 MG/ML 1 ML CARP\\VIAL IV PRN (04:06)
[2023-05-05 04:54] LABS: ANTI-Xa, UFH(UnfractionatedHep 0.21 IU/ml (0.3-0.7)
[2023-05-05] MEDS: DOXYCYCLINE HYCLATE 100 MG CAP PO SCH ×2 (08:48→19:44)
[2023-05-05] MEDS: ADVANCED PROBIOTIC 1250 MG CAPSULE PO SCH (08:48)
[2023-05-05] MEDS: LOSARTAN POTASSIUM 50 MG TAB PO SCH (08:49)
[2023-05-05] MEDS: carvediloL 12.5 MG TAB PO SCH ×2 (08:49→16:07)
[2023-05-05] MEDS ORDERED: hydroCHLOROthiazide 25 MG TAB PO SCH (09:00)
[2023-05-05 11:38] LABS: ANTI-Xa, UFH(UnfractionatedHep 0.24 IU/ml (0.3-0.7)
--- NOTE | 2023-05-05 12:06 | Hospitalist Progress Note ---
Date of Service May 05, 2023 Assessment & Plan (1) Hypertensive urgency: Plan: Patient is a 67-year-old female with history of hypertension and peripheral vascular disease admitted to the hospital for right lower extremity critical limb ischemia and right great toe gangrene. She underwent vascular surgery on May 01. See operative report for further information. On the same day, patient underwent another vascular surgery. See operative report for further information. Patient was then admitted to ICU in postoperative for close monitoring. Neurology was consulted due to acute onset flaccid paralysis of both lower extremity. 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 Patient was then transferred to telemetry floors. Hospitalist service is consulted for management of hypertension. Patient currently on amlodipine 5 mg at bedtime, Coreg 12.5 mg twice daily, hydrochlorothiazide 25 mg once daily, losartan 100 mg once a day. Noted to have isolated systolic blood pressure. She is also on labetalol 10 mg as needed every 4 hours CTA abdomen shows bilateral renal artery stenosis. Will change amlodipine to nifedipine 90 mg once a day. Continue Coreg, hydrochlorothiazide and losartan Obtain BMP tomorrow a.m. Blood pressure is still on not under control on current regimen; will recommend cardiology consultation for management of resistant hypertension Abnormal CT abdomen/pelvis finding: Irregular thickening and mucosal hyperenhancement within rectosigmoid junction measuring 7.3 cm. Suspicious for colonic mass Will require further workup as per GI. Will let primary decide the timing of the evaluation. Discussed with patient's son Obey over the phone regarding the CT abdomen/pelvis finding. she will need further workup once acute issues have resolved with evaluation by GI. Pulmonary nodule: 1.4 cm irregular pulmonary nodule seen in anterior left upper lobe. Will need follow-up CT in 4 to 6 weeks. Updated son Obey about the finding. Type 2 diabetes mellitus: HbA1c of 6.5% Diet controlled for now Can consider oral hypoglycemic agents if patient is willing to try. Right lower extremity ischemia/right great toe gangrene Status post surgery by vascular surgery On heparin drip. Management per primary Abdominal aortic dissection Bilateral lower extremity weakness Blood pressure management as above Rest per primary Discussed with patient's primary attending (Dr. Amor) over the phone. Patient and patient family want to speak with him and have few questions. I provided phone numbers for Jim(renate) to him. I updated Obye over the phone. Answered questions/queries. Time spent evaluating patient, direct bedside care, chart review, placing orders , interpretation of diagnostic studies, discussion with consultants, patient, and family members, as well as other required patient management activities is 75 minutes Please note the above document was generated using voice recognition software. It may contain grammatical, syntax or spelling errors. Any formal questions or concerns about the content, text or information contained within the body of this dictation should be directly addressed to the provider for clarification Admission and Anticipated Discharge Date Admission Date: May 01, 2023 Subjective Patient seen and examined at bedside. She is sitting up on the bed; not in any distress. Patient reports that she is unable to move her bilateral lower extremity Review of Systems Review of Systems: All systems reviewed & are unremarkable except as noted in Subjective Physical Exam Physical Exam: Constitutional: Awake alert oriented x 3; not in distress. Respiratory: normal respiratory effort, lungs clear to auscultation, no wheeze, rales, rhonchi. Normal insp/exp effort, no accessory muscle use Cardiovascular: RRR, no murmur, no edema Vessels: no JVD or carotid bruit Chest: normal inspection of chest Abdomen: Soft, nontender. Musculoskeletal: no cyanosis or clubbing, extremities motor strength 5/5 Skin: no rashes, warm and dry normal turgor Neurologic: PERRL, EOMI, accommodation nl, no face palsy, no dysarthria CN's II-XI intact Flaccid weakness of both lower extremity Sensation intact Psychiatric: A+Ox3, euthymic affect Results & Data Results & Data Vital Signs (Past 12 Hours) Vital Signs Temp Pulse Pulse Resp BP Pulse Ox O2 Del Method 05/05/23 08:00 56 L 05/05/23 08:00 36.7 C 79 18 189/61 H 91 Room Air 05/05/23 02:36 36.9 C 61 20 172/50 H 93 Room Air Laboratory Results Laboratory Results WBC 12.18 K/ul (4.8-10.8) H 05/04/23 05:22 RBC 3.49 M/uL (4.20-5.40) L 05/04/23 05:22 Hgb 9.8 g/dl (12.0-16.0) L 05/04/23 05:22 Hct 29.4 % (37.0-47.0) L 05/04/23 05:22 MCV 84.2 fL (80.0-100.0) 05/04/23 05:22 MCH 28.1 pg (25.0-34.0) 05/04/23 05:22 MCHC 33.3 g/dL (32.0-36.0) 05/04/23 05:22 RDW Std Deviation 46.3 fL (36.4-46.3) 05/04/23 05:22 RDW Coeff of María 15.1 % (11.5-14.5) H 05/04/23 05:22 Plt Count 222 K/uL (130-400) 05/04/23 05:22 MPV 10.4 fL (9.4-12.4) 05/04/23 05:22 Immature Gran % (Auto) 1.6 % 05/04/23 05:22 Neut % (Auto) 65.4 % 05/04/23 05:22 Lymph % (Auto) 15.4 % 05/04/23 05:22 Grand % (Auto) 14.8 % 05/04/23 05:22 Eos % (Auto) 2.1 % 05/04/23 05:22 Baso % (Auto) 0.7 % 05/04/23 05:22 Neut # (Auto) 7.96 K/uL (1.40-6.50) H 05/04/23 05:22 Lymph # (Auto) 1.88 K/uL (1.20-3.40) 05/04/23 05:22 Grand # (Auto) 1.80 K/uL (0.11-0.59) H 05/04/23 05:22 Eos # (Auto) 0.25 K/uL (0.00-0.50) 05/04/23 05:22 Baso # (Auto) 0.09 K/uL (0.00-0.20) 05/04/23 05:22 Immature Gran # (Auto) 0.20 K/uL (0.01-0.20) 05/04/23 05:22 PT 11.5 Seconds (9.0-12.0) 05/01/23 23:25 INR 1.1 (0.9-1.1) 05/01/23 23:25 APTT > 139 Seconds (21-31) H* 05/02/23 02:00 PTT Ratio > 4.9 05/02/23 02:00 Heparin Anti-Xa, Unfract 0.24 IU/ml (0.3-0.7) L 05/05/23 10:57 Sodium 137 mmol/L (136-145) 05/02/23 02:00 Potassium 3.6 mmol/L (3.5-5.1) 05/02/23 02:00 Chloride 102 mmol/L (98-107) 05/02/23 02:00 Carbon Dioxide 25 mmol/L (21-32) 05/02/23 02:00 Anion Gap 10 (3-11) 05/02/23 02:00 BUN 19 mg/dl (6-23) 05/02/23 02:00 Creatinine 0.94 mg/dl (0.6-1.2) 05/02/23 02:00 Est Cr Clr Drug Dosing 45.4 ml/min 05/02/23 02:00 Est GFR ( Amer) 73.8 ml/min 05/02/23 02:00 Est GFR (Non-Af Amer) 63.7 ml/min 05/02/23 02:00 BUN/Creatinine Ratio 20.2 (10-20) H 05/02/23 02:00 Glucose 178 mg/dl (70-99(Fasting)) H 05/02/23 02:00 POC Glucose 138 mg/dl (70-99) H 05/02/23 20:25 Calcium 8.4 mg/dl (8.6-10.3) L 05/02/23 02:00 Urine Color Yellow 05/01/23 14:30 Urine Appearance Clear (Clear) 05/01/23 14:30 Urine pH 6.5 (4.5-7.5) 05/01/23 14:30 Ur Specific Dixie 1.018 (1.000-1.030) 05/01/23 14:30 Urine Protein Negative (Negative) 05/01/23 14:30 Urine Glucose (UA) Negative (Negative) 05/01/23 14:30 Urine Ketones Negative (Negative) 05/01/23 14:30 Urine Blood Negative (Negative) 05/01/23 14:30 Urine Nitrite Negative (Negative) 05/01/23 14:30 Urine Bilirubin Negative (Negative) 05/01/23 14:30 Urine Urobilinogen Negative (Negative) 05/01/23 14:30 Ur Leukocyte Esterase Negative (Negative) 05/01/23 14:30 Nasal Screen MRSA (PCR) Negative (Negative) 05/01/23 14:30 Impressions Abdomen/Pelvis CTA 05/02/23 11:13 CT angio abdomen pelvis w con CT DOSE: 2896.61 mGy.cm CLINICAL HISTORY: ischemia to lumbral-sacral region . Lower abdominal pain. TECHNIQUE: Multiaxial CT images of the abdomen and pelvis were performed following the intravenous administration of 115 cc of Optiray 320 to evaluate the major arterial structures. 3-D/maximum intensity projection images in the sagittal and coronal planes were also obtained. A dose lowering technique was utilized adhering to the principles of ALARA. COMPARISON STUDY: None. FINDINGS: The lung bases will be reported on the same day chest CTA. No pneumoperitoneum. No pneumatosis. No portal venous gas identified. No acute fractures identified. Skin augustin with underlying subcutaneous gas and fat stranding within the right inguinal region suggestive of recent intervention partially visualized right superficial femoral arterial graft. There appears to be a focal short segment dissection within the right common femoral artery best seen on image 279 which demonstrates up to 50% focal narrowing. Moderate to severe atherosclerotic plaque within the iliac artery resulting in multifocal mild narrowing of the bilateral common iliac arteries. There are focal dissections within the bilateral internal iliac arteries resulting in mild multifocal stenoses. There is a right external iliac artery is patent. There is diffuse atherosclerotic plaque within the left external iliac artery resulting in up to 80% focal narrowing on image 264. There is severe stenosis throughout the visualized proximal left superficial femoral artery of up to 90% best seen on image 341. A long segment dissection throughout the majority of the abdominal aorta resulting in mild stenosis at the mid abdominal aorta. 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 The celiac and superior mesenteric arteries are widely patent. The origin of the inferior mesenteric artery is likely occluded. However, there is immediate reconstitution of flow into the proximal inferior mesenteric artery due to collaterals from the superior mesenteric artery. The mid to distal inferior mesenteric artery appears patent. Severe right and moderate left renal artery stenosis at the origins due to the calcified plaque. No evidence for retroperitoneal hematoma. Vicarious excretion of contrast seen within the gallbladder. The liver, spleen, adrenal glands, and pancreas are unremarkable. No hydronephrosis. A few hypodense lesions within the kidneys favor cysts. No retroperitoneal lymphadenopathy. The bladder is decompressed by Muro catheter. This likely accounts for the gas within the bladder lumen. The uterus and adnexa are unremarkable. Irregular thickening and mucosal hyperenhancement seen within the rectosigmoid junction measure approximately 7.3 cm in length. This is suspicious for a colonic mass. No pelvic lymphadenopathy or pelvic free fluid. Colonic diverticulosis. No evidence for acute diverticulitis. No evidence for bowel obstruction. Normal appendix. IMPRESSION: 1. Long segment dissection seen throughout the majority of the abdominal aorta resulting in mild stenosis at the mid abdominal aorta. 2. Additional short segment dissections seen within the right common femoral artery and bilateral internal iliac arteries as described above. 3. Multifocal stenoses as described above including focal occlusion at the origin of the inferior mesenteric artery. However, this demonstrates immediate reconstitution due to the collateral from the superior mesenteric artery. 4. Bilateral proximal renal artery stenosis. 5. Irregular thickening and mucosal hyperenhancement within the rectosigmoid junction measuring approximate 7.3 cm in length. This is highly suspicious for a colonic mass. A nonspecific colitis could also have a similar appearance but is considered less likely. Follow-up endoscopy recommended for further evaluation. 6. Additional findings as described above. ACT 112: Negative or not required by law. Electronically signed by: Roman Rios M.D. 05/02/2023 12:[address] 05/02/23 11:13 CT lumbar spine wo/w con CLINICAL HISTORY: ischemia to spine? TECHNIQUE: Multidetector row helical CT of the lumbar spine was performed without and with administration of intravenous contrast. Coronal and sagittal reformations were obtained. Automated dose lowering techniques and/or adjustment according to patient size were utilized for this exam. Comparison: None available at the time of this dictation. FINDINGS: For counting purposes, the last complete intervertebral disc space is considered L5-S1. No acute fractures are identified. Vertebral body heights and disk spaces are well maintained. Vertebral body alignment is within normal limits. Atherosclerotic changes are seen in the aorta. Soft tissue swelling is partially seen in the dependent portion of the buttocks, no drainable fluid collection is seen. IMPRESSION: No acute abnormalities and in particular no evidence of drainable fluid collection or bony erosion. ACT 112: Negative or not required by law. Electronically signed by: Marino Muir M.D. 05/02/2023 12:[address] 05/02/23 11:32 CT OF THE CHEST COMBO CLINICAL HISTORY: Spinal ischemia. COMPARISON STUDY: Chest x-ray dated 04/25/2023. TECHNIQUE: Before and following the IV administration of 115 cc of Optiray 320, CT scan of the chest was performed from the thoracic inlet to the upper abdomen. Images are reviewed in the axial, sagittal, and coronal planes. IV contrast was administered without complication. A dose lowering technique was utilized adhering to the principles of ALARA. FINDINGS: Thyroid: Mildly enlarged and heterogeneous. Thoracic aorta: No intramural hematoma is seen on the unenhanced series. There is advanced atherosclerotic calcification of the thoracic aorta, which is normal in caliber and demonstrates standard 3-vessel arch anatomy. No dissection is clearly seen within thoracic aorta. The arch vessels are patent noting advanced atherosclerotic plaque and irregularity. Pulmonary vasculature: The pulmonary trunk is mildly dilated, measuring over 3 cm diameter. This suggests pulmonary artery hypertension. There are no central filling defects identified in the pulmonary vessels to suggest pulmonary embolus. Note that this examination was not protocoled to assess for pulmonary emboli. Heart: The heart is enlarged and without pericardial effusion. There is diminished attenuation of the cardiac blood pool is compared to the myocardium suggesting anemia. The coronary arteries are densely calcified. Lungs and pleural spaces: There is [id number] emphysematous change. There is no lobar consolidation. Foci of probable scarring are seen throughout both lungs. Trace pleural effusions are observed. Minimal secretions are noted in the trachea. There are scattered calcified granulomas. There is a 1.1 x 1.4 x 1.0 cm irregular pulmonary nodule in the anterior left upper lobe seen on image #58. This may contain a tiny focus of cavitation. 3 over the right upper lobe pulmonary nodule is seen on image #79, and a 4 mm right middle lobe nodule is seen on image #108. Mediastinum: There is no mediastinal lymphadenopathy. [place]: Clear. Axillae: There is no axillary lymphadenopathy. Upper abdomen: Dissection is partially visualized involving the upper abdominal aorta on image #203. Partially visualized upper abdominal viscera is otherwise within normal limits. Skeletal structures: The skeletal structures are osteopenic. No lytic or blastic bony lesions are seen. IMPRESSION: 1. Cardiomegaly and emphysema. 2. Trace pleural effusions. 3. There is no lobar consolidation. 4. A 1.4 cm irregular pulmonary nodule is seen in the anterior left upper lobe. This is pathologically indeterminant, and although this could potentially be inflammatory the appearance is more suspicious for a pulmonary neoplasm. Follow- up in 4-6 weeks with a repeat chest CT or possibly PET/CT is recommended for reassessment. 5. There are at least 2 additional subcentimeter pulmonary nodules as above. The skull to be reassessed at follow-up. 6. Advanced atherosclerotic plaque with no dissection clearly identified in the thoracic aorta. Dissection is identified in the partially visualized upper abdominal aorta. See abdominal CT angiogram report for detailed findings. 7. Additional findings as above. ACT 112: Negative or not required by law. Electronically signed by: Koby Mcclain M.D. 05/02/2023 12:26 PM
[2023-05-05] MEDS ORDERED: MAGNESIUM HYDROXIDE SUSP 30 ML UDC PO ONE (12:39)
[2023-05-05] MEDS: POLYETHYLENE (MIRALAX) 17 GM PACK PO PRN (13:05)
[2023-05-05 18:54] LABS: ANTI-Xa, UFH(UnfractionatedHep 0.25 IU/ml (0.3-0.7)
[2023-05-05] MEDS ORDERED: hydrALAZINE HCL 20 MG/ML VIAL IV STA ×2 (19:29)
[2023-05-05] MEDS: ACETAMINOPHEN 325 MG TAB PO PRN (19:42)
[2023-05-05] MEDS: NIFEdipine EXTENDED REL 30 MG TABCR PO SCH (19:43)
[2023-05-06] MEDS ORDERED: hydrALAZINE HCL 20 MG/ML VIAL IV STA (00:21)
[2023-05-06] MEDS: MoRPHine SULFATE 4 MG/ML 1 ML CARP\\VIAL IV PRN ×3 (00:53→15:43)
[2023-05-06] MEDS ORDERED: LABETALOL HCL IV 5 MG/ML 20ML IV STA (04:09)
[2023-05-06] MEDS: ONDANSETRON INJ 2 MG/ML 2 ML VIAL IV PRN ×3 (04:17→20:31)
[2023-05-06] MEDS: oxyCODONE/ACETAMINOPHEN 5mg/325mg TAB PO PRN ×2 (07:06→13:17)
[2023-05-06 07:30] LABS: Calcium 9.4 mg/dl (8.6-10.3); Creatinine Clr Calc Pharmacy 72.7 ml/min; Est GFR (African American) 110.9 ml/min; Est GFR (Non-African American) 95.7 ml/min; Potassium 3.9 mmol/L (3.5-5.1)
[2023-05-06 07:59] LABS: ANTI-Xa, UFH(UnfractionatedHep 0.29 IU/ml (0.3-0.7)
[2023-05-06] MEDS: carvediloL 12.5 MG TAB PO SCH ×2 (08:01→17:05)
[2023-05-06] MEDS: LOSARTAN POTASSIUM 50 MG TAB PO SCH (08:01)
[2023-05-06] MEDS: ADVANCED PROBIOTIC 1250 MG CAPSULE PO SCH (08:01)
[2023-05-06] MEDS: POLYETHYLENE (MIRALAX) 17 GM PACK PO PRN ×2 (08:06→13:17)
[2023-05-06] MEDS: ATORVASTATIN 40 MG TAB PO SCH (08:30)
--- NOTE | 2023-05-06 09:59 | Hospitalist Progress Note ---
Date of Service May 06, 2023 Assessment & Plan (1) Hypertensive urgency: Plan: Patient is a 67-year-old female with history of hypertension and peripheral vascular disease admitted to the hospital for right lower extremity critical limb ischemia and right great toe gangrene. She underwent vascular surgery on May 01. See operative report for further information. On the same day, patient underwent another vascular surgery. See operative report for further information. Patient was then admitted to ICU in postoperative for close monitoring. Neurology was consulted due to acute onset flaccid paralysis of both lower extremity. 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 Patient was then transferred to telemetry floors. Hospitalist service is consulted for management of hypertension. Patient currently on nifedipine 90 mg at bedtime, Coreg 12.5 mg twice daily, hydrochlorothiazide 25 mg once daily, losartan 100 mg once a day. Noted to have isolated systolic blood pressure. She is also on labetalol 10 mg as needed every 4 hours CTA abdomen shows bilateral renal artery stenosis. BMP reviewed; sodium is 131. Will discontinue hydrochlorothiazide. Continue on Coreg, losartan and nifedipine. Cardiology consultation for management of resistant hypertension Abnormal CT abdomen/pelvis finding: Irregular thickening and mucosal hyperenhancement within rectosigmoid junction measuring 7.3 cm. Suspicious for colonic mass Will require further workup as per GI. Will let primary decide the timing of the evaluation. Discussed with patient's son Obey over the phone regarding the CT abdomen/pelvis finding on May 05, 2023. she will need further workup once acute issues have resolved with evaluation by GI. Discussed with patient as well at bedside on May 06, 2023. Pulmonary nodule: 1.4 cm irregular pulmonary nodule seen in anterior left upper lobe. Will need follow-up CT in 4 to 6 weeks. Updated son Obey about the finding. Type 2 diabetes mellitus: HbA1c of 6.5% Diet controlled for now Can consider oral hypoglycemic agents if patient is willing to try. Right lower extremity ischemia/right great toe gangrene Status post surgery by vascular surgery On heparin drip. Management per primary Abdominal aortic dissection Bilateral lower extremity weakness Blood pressure management as above Rest per primary Please note the above document was generated using voice recognition software. It may contain grammatical, syntax or spelling errors. Any formal questions or c oncerns about the content, text or information contained within the body of this dictation should be directly addressed to the provider for clarification Admission and Anticipated Discharge Date Admission Date: May 01, 2023 Subjective Patient seen and examined at bedside. She is sitting up on the bed; not in distress. Her blood pressure continues to be high despite up titration of the medication. She denies chest pain or shortness of breath. Review of Systems Review of Systems: All systems reviewed & are unremarkable except as noted in Subjective Physical Exam Physical Exam: Constitutional: Awake alert oriented x 3; not in distress. Respiratory: normal respiratory effort, lungs clear to auscultation, no wheeze, rales, rhonchi. Normal insp/exp effort, no accessory muscle use Cardiovascular: RRR, no murmur, no edema Vessels: no JVD or carotid bruit Chest: normal inspection of chest Abdomen: Soft, nontender. Musculoskeletal: no cyanosis or clubbing, extremities motor strength 5/5 Skin: no rashes, warm and dry normal turgor Neurologic: PERRL, EOMI, accommodation nl, no face palsy, no dysarthria CN's II-XI intact Flaccid weakness of both lower extremity. Sensation intact Psychiatric: A+Ox3, euthymic affect Results & Data Results & Data Vital Signs (Past 12 Hours) Vital Signs Temp Pulse Pulse Pulse Resp BP BP 05/06/23 08:00 05/06/23 08:00 68 05/06/23 07:48 36.8 C 72 18 178/66 H 05/06/23 04:54 63 176/81 H 05/06/23 04:19 67 211/67 H 05/06/23 04:00 36.5 C 67 18 211/67 H 05/06/23 01:42 62 159/63 H 05/06/23 00:00 36.6 C 70 16 185/49 H 05/05/23 23:00 55 L Pulse Ox O2 Del Method 05/06/23 08:00 Room Air 05/06/23 08:00 05/06/23 07:48 91 Room Air 05/06/23 04:54 05/06/23 04:19 05/06/23 04:00 95 Room Air 05/06/23 01:42 05/06/23 00:00 90 Room Air 05/05/23 23:00 Laboratory Results Laboratory Results WBC 12.18 K/ul (4.8-10.8) H 05/04/23 05:22 RBC 3.49 M/uL (4.20-5.40) L 05/04/23 05:22 Hgb 9.8 g/dl (12.0-16.0) L 05/04/23 05:22 Hct 29.4 % (37.0-47.0) L 05/04/23 05:22 MCV 84.2 fL (80.0-100.0) 05/04/23 05:22 MCH 28.1 pg (25.0-34.0) 05/04/23 05:22 MCHC 33.3 g/dL (32.0-36.0) 05/04/23 05:22 RDW Std Deviation 46.3 fL (36.4-46.3) 05/04/23 05:22 RDW Coeff of María 15.1 % (11.5-14.5) H 05/04/23 05:22 Plt Count 222 K/uL (130-400) 05/04/23 05:22 MPV 10.4 fL (9.4-12.4) 05/04/23 05:22 Immature Gran % (Auto) 1.6 % 05/04/23 05:22 Neut % (Auto) 65.4 % 05/04/23 05:22 Lymph % (Auto) 15.4 % 05/04/23 05:22 [place] % (Auto) 14.8 % 05/04/23 05:22 Eos % (Auto) 2.1 % 05/04/23 05:22 Baso % (Auto) 0.7 % 05/04/23 05:22 Neut # (Auto) 7.96 K/uL (1.40-6.50) H 05/04/23 05:22 Lymph # (Auto) 1.88 K/uL (1.20-3.40) 05/04/23 05:22 [place] # (Auto) 1.80 K/uL (0.11-0.59) H 05/04/23 05:22 Eos # (Auto) 0.25 K/uL (0.00-0.50) 05/04/23 05:22 Baso # (Auto) 0.09 K/uL (0.00-0.20) 05/04/23 05:22 Immature Gran # (Auto) 0.20 K/uL (0.01-0.20) 05/04/23 05:22 PT 11.5 Seconds (9.0-12.0) 05/01/23 23:25 INR 1.1 (0.9-1.1) 05/01/23 23:25 APTT > 139 Seconds (21-31) H* 05/02/23 02:00 PTT Ratio > 4.9 05/02/23 02:00 Heparin Anti-Xa, Unfract 0.29 IU/ml (0.3-0.7) L 05/06/23 06:01 Sodium 131 mmol/L (136-145) L 05/06/23 06:01 Potassium 3.9 mmol/L (3.5-5.1) 05/06/23 06:01 Chloride 93 mmol/L (98-107) L 05/06/23 06:01 Carbon Dioxide 29 mmol/L (21-32) 05/06/23 06:01 Anion Gap 9 (3-11) 05/06/23 06:01 BUN 18 mg/dl (6-23) 05/06/23 06:01 Creatinine 0.60 mg/dl (0.6-1.2) 05/06/23 06:01 Est Cr Clr Drug Dosing 72.7 ml/min 05/06/23 06:01 Est GFR ( Amer) 110.9 ml/min 05/06/23 06:01 Est GFR (Non-Af Amer) 95.7 ml/min 05/06/23 06:01 BUN/Creatinine Ratio 30.0 (10-20) H 05/06/23 06:01 Glucose 144 mg/dl (70-99(Fasting)) H 05/06/23 06:01 POC Glucose 138 mg/dl (70-99) H 05/02/23 20:25 Calcium 9.4 mg/dl (8.6-10.3) 05/06/23 06:01 Urine Color Yellow 05/01/23 14:30 Urine Appearance Clear (Clear) 05/01/23 14:30 Urine pH 6.5 (4.5-7.5) 05/01/23 14:30 Ur Specific [place] 1.018 (1.000-1.030) 05/01/23 14:30 Urine Protein Negative (Negative) 05/01/23 14:30 Urine Glucose (UA) Negative (Negative) 05/01/23 14:30 Urine Ketones Negative (Negative) 05/01/23 14:30 Urine Blood Negative (Negative) 05/01/23 14:30 Urine Nitrite Negative (Negative) 05/01/23 14:30 Urine Bilirubin Negative (Negative) 05/01/23 14:30 Urine Urobilinogen Negative (Negative) 05/01/23 14:30 Ur Leukocyte Esterase Negative (Negative) 05/01/23 14:30 Nasal Screen MRSA (PCR) Negative (Negative) 05/01/23 14:30 Impressions Abdomen/Pelvis CTA 05/02/23 11:13 CT angio abdomen pelvis w con CT DOSE: 2896.61 mGy.cm CLINICAL HISTORY: ischemia to lumbral-sacral region . Lower abdominal pain. TECHNIQUE: Multiaxial CT images of the abdomen and pelvis were performed following the intravenous administration of 115 cc of Optiray 320 to evaluate the major arterial structures. 3-D/maximum intensity projection images in the sagittal and coronal planes were also obtained. A dose lowering technique was utilized adhering to the principles of ALARA. COMPARISON STUDY: None. FINDINGS: The lung bases will be reported on the same day chest CTA. No pneumoperitoneum. No pneumatosis. No portal venous gas identified. No acute fractures identified. Skin augustin with underlying subcutaneous gas and fat stranding within the right inguinal region suggestive of recent intervention partially visualized right superficial femoral arterial graft. There appears to be a focal short segment dissection within the right common femoral artery best seen on image 279 which demonstrates up to 50% focal narrowing. Moderate to severe atherosclerotic plaque within the iliac artery resulting in multifocal mild narrowing of the bilateral common iliac arteries. There are focal d issections within the bilateral internal iliac arteries resulting in mild multifocal stenoses. There is a right external iliac artery is patent. There is diffuse atherosclerotic plaque within the left external iliac artery resulting in up to 80% focal narrowing on image 264. There is severe stenosis throughout the visualized proximal left superficial femoral artery of up to 90% best seen on image 341. A long segment dissection throughout the majority of the abdominal aorta resulting in mild stenosis at the mid abdominal aorta. 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 The celiac and superior mesenteric arteries are widely patent. The origin of the inferior mesenteric artery is likely occluded. However, there is immediate reconstitution of flow into the proximal inferior mesenteric artery due to collaterals from the superior mesenteric artery. The mid to distal inferior mesenteric artery appears patent. Severe right and moderate left renal artery stenosis at the origins due to the calcified plaque. No evidence for retroperitoneal hematoma. Vicarious excretion of contrast seen within the gallbladder. The liver, spleen, adrenal glands, and pancreas are unremarkable. No hydronephrosis. A few hypodense lesions within the kidneys favor cysts. No retroperitoneal lymphadenopathy. The bladder is decompressed by Muro catheter. This likely accounts for the gas within the bladder lumen. The uterus and adnexa are unremarkable. Irregular thickening and mucosal hyperenhancement seen within the rectosigmoid junction measure approximately 7.3 cm in length. This is suspicious for a colonic mass. No pelvic lymphadenopathy or pelvic free fluid. Colonic diverticulosis. No evidence for acute diverticulitis. No evidence for bowel obstruction. Normal appendix. IMPRESSION: 1. Long segment dissection seen throughout the majority of the abdominal aorta resulting in mild stenosis at the mid abdominal aorta. 2. Additional short segment dissections seen within the right common femoral artery and bilateral internal iliac arteries as described above. 3. Multifocal stenoses as described above including focal occlusion at the origin of the inferior mesenteric artery. However, this demonstrates immediate reconstitution due to the collateral from the superior mesenteric artery. 4. Bilateral proximal renal artery stenosis. 5. Irregular thickening and mucosal hyperenhancement within the rectosigmoid junction measuring approximate 7.3 cm in length. This is highly suspicious for a colonic mass. A nonspecific colitis could also have a similar appearance but is considered less likely. Follow-up endoscopy recommended for further evaluation. 6. Additional findings as described above. ACT 112: Negative or not required by law. Electronically signed by: Roman Rios M.D. 05/02/2023 12:[address] 05/02/23 11:13 CT lumbar spine wo/w con CLINICAL HISTORY: ischemia to spine? TECHNIQUE: Multidetector row helical CT of the lumbar spine was performed without and with administration of intravenous contrast. Coronal and sagittal reformations were obtained. Automated dose lowering techniques and/or adjustment according to patient size were utilized for this exam. Comparison: None available at the time of this dictation. FINDINGS: For counting purposes, the last complete intervertebral disc space is considered L5-S1. No acute fractures are identified. Vertebral body heights and disk spaces are well maintained. Vertebral body alignment is within normal limits. Atherosclerotic changes are seen in the aorta. Soft tissue swelling is partially seen in the dependent portion of the buttocks, no drainable fluid collection is seen. IMPRESSION: No acute abnormalities and in particular no evidence of drainable fluid collection or bony erosion. ACT 112: Negative or not required by law. Electronically signed by: Marino Muir M.D. 05/02/2023 12:[address] 05/02/23 11:32 CT OF THE CHEST COMBO CLINICAL HISTORY: Spinal ischemia. COMPARISON STUDY: Chest x-ray dated 04/25/2023. TECHNIQUE: Before and following the IV administration of 115 cc of Optiray 320, CT scan of the chest was performed from the thoracic inlet to the upper abdomen. Images are reviewed in the axial, sagittal, and coronal planes. IV contrast was administered without complication. A dose lowering technique was utilized adhering to the principles of ALARA. FINDINGS: Thyroid: Mildly enlarged and heterogeneous. Thoracic aorta: No intramural hematoma is seen on the unenhanced series. There is advanced atherosclerotic calcification of the thoracic aorta, which is normal in caliber and demonstrates standard 3-vessel arch anatomy. No dissection is clearly seen within thoracic aorta. The arch vessels are patent noting advanced atherosclerotic plaque and irregularity. Pulmonary vasculature: The pulmonary trunk is mildly dilated, measuring over 3 cm diameter. This suggests pulmonary artery hypertension. There are no central filling defects identified in the pulmonary vessels to suggest pulmonary embolus. Note that this examination was not protocoled to assess for pulmonary emboli. Heart: The heart is enlarged and without pericardial effusion. There is diminished attenuation of the cardiac blood pool is compared to the myocardium suggesting anemia. The coronary arteries are densely calcified. Lungs and pleural spaces: There is [id number] emphysematous change. There is no lobar consolidation. Foci of probable scarring are seen throughout both lungs. Trace pleural effusions are observed. Minimal secretions are noted in the trachea. There are scattered calcified granulomas. There is a 1.1 x 1.4 x 1.0 cm irregular pulmonary nodule in the anterior left upper lobe seen on image #58. This may contain a tiny focus of cavitation. 3 over the right upper lobe pulmonary nodule is seen on image #79, and a 4 mm right middle lobe nodule is seen on image #108. Mediastinum: There is no mediastinal lymphadenopathy. [place]: Clear. Axillae: There is no axillary lymphadenopathy. Upper abdomen: Dissection is partially visualized involving the upper abdominal aorta on image #203. Partially visualized upper abdominal viscera is otherwise within normal limits. Skeletal structures: The skeletal structures are osteopenic. No lytic or blastic bony lesions are seen. IMPRESSION: 1. Cardiomegaly and emphysema. 2. Trace pleural effusions. 3. There is no lobar consolidation. 4. A 1.4 cm irregular pulmonary nodule is seen in the anterior left upper lobe. This is pathologically indeterminant, and although this could potentially be inflammatory the appearance is more suspicious for a pulmonary neoplasm. Follow- up in 4-6 weeks with a repeat chest CT or possibly PET/CT is recommended for reassessment. 5. There are at least 2 additional subcentimeter pulmonary nodules as above. The skull to be reassessed at follow-up. 6. Advanced atherosclerotic plaque with no dissection clearly identified in the thoracic aorta. Dissection is identified in the partially visualized upper abdominal aorta. See abdominal CT angiogram report for detailed findings. 7. Additional findings as above. ACT 112: Negative or not required by law. Electronically signed by: Koby Mcclain M.D. 05/02/2023 12:26 PM
--- NOTE | 2023-05-06 11:14 | Surgery Progress Note ---
Date of Service May 06, 2023 Assessment & Plan (1) Spinal cord infarction: Plan: She is having slight movement of her feet. Her son wants a second opinion from [facility]. Discussed this with [facility]. The neuro clinic will call her son Sunday to discuss her case. They said they do have access to her records and will have her films sent to them. Continue PT/OT (2) Ischemia of right lower extremity: Plan: Both lower extremities are viable. Continue present tx. Admission and Anticipated Discharge Date Admission Date: May 01, 2023 Subjective Patient awake. She has no complaints. Says she can move her feet very slightly. Physical Exam Constitutional: WD/WN, vitals as above Respiratory: normal respiratory effort; no respiratory distress Cardiovascular: Rate/Rhythm: regular rate and regular rhythm Extremities: normal capillary refill Gastrointestinal (Abdomen): Inspection/Auscultation: abdomen normal to inspection and + abdomen distended Percussion/Palpation: abdomen soft; abdomen nontender Skin: + incision (incisions dry and clean) Neurologic: CN's II-XI intact bilaterally, moves all extremities (has some minimal motion of feet ) and awake Motor/Sensory: no sensory deficit Psychiatric: Orientation: alert and oriented x 3 Results & Data Vital Signs (Past 12 Hours) Vital Signs Temp Pulse Pulse Pulse Resp BP BP 05/06/23 08:00 05/06/23 08:00 68 05/06/23 07:48 36.8 C 72 18 178/66 H 05/06/23 04:54 63 176/81 H 05/06/23 04:19 67 211/67 H 05/06/23 04:00 36.5 C 67 18 211/67 H 05/06/23 01:42 62 159/63 H 05/06/23 00:00 36.6 C 70 16 185/49 H Pulse Ox O2 Del Method 05/06/23 08:00 Room Air 05/06/23 08:00 05/06/23 07:48 91 Room Air 05/06/23 04:54 05/06/23 04:19 05/06/23 04:00 95 Room Air 05/06/23 01:42 05/06/23 00:00 90 Room Air
[2023-05-06] MEDS ORDERED: MAGNESIUM HYDROXIDE SUSP 30 ML UDC PO ONE (13:04)
[2023-05-06] MEDS: HEPARIN SODIUM/DEXTROSE 25,000 UNITS/500 ML BAG IV SCH (13:26)
--- NOTE | 2023-05-06 14:16 | Cardiology Consultation ---
Date of Consultation May 06, 2023 Assessment & Plan (1) HTN (hypertension): (2) Spinal cord infarction: (3) Aortic stenosis: Plan -Patient has undergone complex revascularization procedure of the right lower leg for critical limb ischemia. -Post procedure noted to have bilateral lower extremity paralysis. Reportedly has been able to move her toes a little bit per the patient's description today, but not able to demonstrate this for me this afternoon. -CT of the abdomen and pelvis performed several days ago revealed a long segment of dissection of the aorta and bilateral renal artery stenosis. -Patient with longstanding history of hypertension and has been off medications for quite some time. -At present carvedilol has been titrated to 12.5 mg twice daily, she is on losartan 100 mg daily, and nifedipine 90 mg daily. Hydrochlorothiazide on hold due to hyponatremia. -Rates are in the 60s and I do not think there is room to titrate her carvedilol to add clonidine. -Add hydralazine 10 mg by mouth three times per day. Of course risks of adding a peripheral vasodilator, but I think at this point, it is indicated. -Images of her CT of the chest abdomen pelvis were reviewed with diffuse atherosclerotic vascular disease throughout the thoracic and abdominal aorta. As noted she has bilateral renal artery stenosis, but is not a candidate for revascularization present given the other circumstances and I do not think she would be a candidate for percutaneous intervention to the renal arteries in the future given high risk of complications. -She has a history of recently diagnosed moderate to borderline severe aortic stenosis diagnosed earlier this month. Ongoing observation recommended. Volume status stable. Case discussed with Dr. Schmidt for the purpose of nation of care. History of Present Illness Attending Physician: Pual Amor MD History of Present Illness Alexandra Rodriguez is a 67-year-old female seen in cardiology consultation per the request of Dr. Schmidt for the evaluation of refractory hypertension. The patient's recent medical history dates back to March, when she presented with gangrene of the right great toe and was found to have significant bilateral lower extremity peripheral arterial disease and critical right lower extremity limb ischemia. The patient underwent a complex vascular surgery procedure subsequently found to have paralysis of her lower extremities and a spinal cord infarction and a dissection of the abdominal aorta. She has been treated with a heparin infusion. Blood pressures have been elevated persistently with most recent measurement today of 206/70, and looking back throughout her recent hospital stays, her presenting blood pressure on 04/25/2023 was 252/95. Patient describes longstanding history of hypertension that dates back to when she delivered her children. She notes that she had been on blood pressure medication but it stopped that and around 2004. Allergies Allergy/AdvReac Type Severity Reaction Status Date / Time No Known Allergies Allergy Verified 05/01/23 06:38 Home Medications Medication Instructions Recorded Confirmed Type ibuprofen 200 mg tablet (Advil) 200 mg PO Q6H PRN Pain 04/25/23 05/01/23 History amlodipine 5 mg tablet (Norvasc) 5 mg PO HS #30 tabs 04/27/23 05/01/23 Rx cefdinir 300 mg capsule 300 mg PO BID 8 days #16 caps 04/27/23 05/01/23 Rx doxycycline hyclate 100 mg tablet 100 mg PO BID 8 days #16 tabs 04/27/23 05/01/23 Rx hydrochlorothiazide 25 mg tablet 12.5 mg (1/2 x 25 mg) PO QAM #15 04/27/23 05/01/23 Rx tabs lactobacillus combination no.4 3 3,000 mmu cells PO DAILY 2 weeks 04/27/23 05/01/23 Rx billion cell capsule (Probiotic) #14 caps losartan 50 mg tablet 50 mg PO QAM #30 tabs 04/27/23 05/01/23 Rx acetaminophen 325 mg tablet 650 mg PO Q6 PRN Pain 05/01/23 05/01/23 History (Tylenol) Patient History Medical History Paralysis of both lower limbs Tobacco abuse HTN (hypertension) Family History Other Diabetes Social History Smoking Status: Current every day smoker Tobacco Type: Cigarettes Cigarettes Per Day: 10; Second Hand Exposure: Yes; Do You Dip or Chew Tobacco: No; Hx Alcohol Use: No Hx Substance Use: No Preferred Language: [place] Communication Ability: Effective Purchase Analyst Required: No Beliefs That Will Affect Care: None Current Living Situation: Alone Current Living Situation Comment: mobile home by herself with a dog, family nearby Other Information That Helps Us Care for You: No Feels Safe at Home: Yes Safety Concerns: Feels Safe At This Time Assistive Devices: None Review of Systems Review of Systems: All systems reviewed & are unremarkable except as noted in HPI & below Physical Exam Constitutional: WD/WN, vitals as above Respiratory: normal respiratory effort, lungs clear to auscultation Cardiovascular: Rate/Rhythm: regular rate and regular rhythm Heart Sounds: + murmur (II/ systolic murmur heard best at right sternal border) Extremities: no edema Gastrointestinal (Abdomen): normal bowel sounds, soft, nontender, no hepatosplenomegaly Neurologic: Patient to the lower extremities intact, bilateral lower extremities cool to the touch. Results & Data Vital Signs (Past 12 Hours) Vital Signs Temp Pulse Pulse Pulse Resp BP BP 05/06/23 13:53 59 L 206/70 H 05/06/23 12:20 73 18 195/64 H 05/06/23 08:00 05/06/23 08:00 68 05/06/23 07:48 36.8 C 72 18 05/06/23 04:54 63 176/81 H 05/06/23 04:19 67 211/67 H 05/06/23 04:00 36.5 C 67 18 BP Pulse Ox O2 Del Method 05/06/23 13:53 05/06/23 12:20 91 Room Air 05/06/23 08:00 Room Air 05/06/23 08:00 05/06/23 07:48 178/66 H 91 Room Air 05/06/23 04:54 05/06/23 04:19 05/06/23 04:00 211/67 H 95 Room Air Laboratory Results Comprehensive Metabolic Panel 05/06/23 Range/Units 06:01 Sodium 131 L (136-145) mmol/L Potassium 3.9 (3.5-5.1) mmol/L Chloride 93 L (98-107) mmol/L Carbon Dioxide 29 (21-32) mmol/L BUN 18 (6-23) mg/dl Creatinine 0.60 (0.6-1.2) mg/dl Glucose 144 H (70-99(Fasting)) mg/dl Calcium 9.4 (8.6-10.3) mg/dl Diagnostic Findings EKG performed 04/27/2023 revealed sinus rhythm at 86 bpm with occasional PVCs. Transthoracic echocardiogram performed 04/26/2023: Moderate concentric left ventricular hypertrophy Grade II diastolic dysfunction No left ventricular regional wall motion abnormalities Moderate aortic valve stenosis, aortic valve area calculated 1.1 cm by continuity equation, dimensionless index 0.35 Mild mitral regurgitation Mild tricuspid regurgitation Pulmonary systolic pressure mildly elevated, 46 mmHg (1) HTN (hypertension) Hypertension type: resistant hypertension Qualified Code(s): I1A.0 - Resistant hypertension (3) Aortic stenosis Cardiac valve disease etiology: nonrheumatic Qualified Code(s): I35.0 - Nonrheumatic aortic (valve) stenosis
[2023-05-06 15:24] LABS: ANTI-Xa, UFH(UnfractionatedHep 0.33 IU/ml (0.3-0.7)
[2023-05-06] MEDS: ACETAMINOPHEN 325 MG TAB PO PRN (20:31)
[2023-05-06] MEDS: DOCUSATE SODIUM 100 MG CAP PO SCH (20:32)
[2023-05-06] MEDS: hydrALAZINE 10 MG TAB PO SCH (20:32)
[2023-05-06] MEDS: NIFEdipine EXTENDED REL 30 MG TABCR PO SCH (20:32)
[2023-05-06] MEDS: NITROGLYCERIN 2% OINTMENT 30GM TUBE EXT SCH (23:32)
[2023-05-07] MEDS: NITROGLYCERIN 2% OINTMENT 30GM TUBE EXT SCH ×3 (05:58→17:04)
[2023-05-07] MEDS ORDERED: ALUMINUM/MAGNESIUM/SIMETH (MAALOX MAX) 30 ML UDC PO PRN (06:32)
[2023-05-07 06:46] LABS: Calcium 9.3 mg/dl (8.6-10.3); Creatinine Clr Calc Pharmacy 63.5 ml/min; Est GFR (African American) 106.4 ml/min; Est GFR (Non-African American) 91.8 ml/min; Potassium 4.3 mmol/L (3.5-5.1)
[2023-05-07] MEDS: HEPARIN SODIUM/DEXTROSE 25,000 UNITS/500 ML BAG IV SCH ×2 (07:04→07:21)
[2023-05-07 07:19] LABS: ANTI-Xa, UFH(UnfractionatedHep 0.38 IU/ml (0.3-0.7)
[2023-05-07] MEDS: ACETAMINOPHEN 325 MG TAB PO PRN (07:23)
--- NOTE | 2023-05-07 07:55 | Cardiology Progress Note ---
Date of Service May 07, 2023 Assessment & Plan (1) HTN (hypertension): (2) Spinal cord infarction: (3) Aortic stenosis: Admission and Anticipated Discharge Date Admission Date: May 01, 2023 Supervising Physician Co-Signing Physician Notes 67 yo woman Consultation for HTN management * S/P complex revascularization procedure of the right lower leg for critical limb ischemia. * Post procedure noted to have bilateral lower extremity paralysis. * CT of the abdomen and pelvis performed several days ago revealed a long segment of dissection of the aorta and bilateral renal artery stenosis * LVEF 45%; LION 1.1 cm2 C/W Moderate * HTN - longstanding * BP 105/43 * Continue Carvedilol 12.5 mg BID po BID - HR 52 - no further escalation * Continue Losartan 100 mg po per daily, and nifedipine 90 mg daily. Hydrochlorothiazide on hold due to hyponatremia. * On Procardia 90 mg po per day * STOP HCTZ 25 mg po per day * Start Chlorthalindone 25 mg po per day * Start Aldactone 25 mg po per day * STOP Hydralazine started at 10 mg po TID * Avoiding JESSICA/ARB/ARNI given bilateral KAYDEN * LDL 82 - extensive PAD * STOP Lipitor 40 mg po per day * Start Crestor 40 mg po per day * Start Zetia 10 mg po per day * Check Lipoprotein (a) + Apolipoprotein B * Check TSH * Smoking cessation Ike Roach Subjective ID: 67 yo woman Complex vascular disease Consultation for HTN + PVD + Bilateral KAYDEN Events overnight: None reported Subjective: no complaints Review of Systems Review of Systems: All systems reviewed & are unremarkable except as noted in HPI & below Physical Exam Physical Exam: JVP 12 cmH20 S1S2 2/6 systolic mumur at base left and apex CTA B No Abdominal Wall edema Mild swelling - RLE; augustin in place Results & Data Vital Signs (Past 12 Hours) Vital Signs Temp Pulse Pulse Pulse Resp BP Pulse Ox 05/07/23 07:32 36.8 C 62 18 159/54 H 92 05/07/23 02:38 36.6 C 56 L 20 161/56 H 93 05/06/23 22:55 36.4 C L 55 L 18 188/52 H 90 05/06/23 22:00 56 L 05/06/23 20:35 05/06/23 19:55 36.3 C L 58 L 16 188/65 H 92 O2 Del Method 05/07/23 07:32 Room Air 05/07/23 02:38 Room Air 05/06/23 22:55 Room Air 05/06/23 22:00 05/06/23 20:35 Room Air 05/06/23 19:55 Room Air Laboratory Results Comprehensive Metabolic Panel 05/07/23 Range/Units 05:48 Sodium 128 L (136-145) mmol/L Potassium 4.3 (3.5-5.1) mmol/L Chloride 89 L (98-107) mmol/L Carbon Dioxide 32 (21-32) mmol/L BUN 17 (6-23) mg/dl Creatinine 0.68 (0.6-1.2) mg/dl Glucose 118 H (70-99(Fasting)) mg/dl Calcium 9.3 (8.6-10.3) mg/dl Intake and Output 05/06/23 05/07/23 05/07/23 22:59 06:59 14:59 Intake Total 305.25 / 1106.167 250 / 1106.167 328.50 / 328.50 Output Total 425 2114 550 / 2115 Balance -119.75 / -1008.833 -300 / -1008.833 328.50 / 328.50 Intake: IV 155.25 / 466.167 328.50 / 328.50 Heparin Sodium/Dextrose 25,000 155.25 / 466.167 328.50 / 328.50 units In 500 ml @ 1,350 UNITS/ HR 27 mls/hr IV .[id number] [facility] Rx #:[id number] Oral 150 / 640 250 / 640 Output: Urine Amount (Catheter) 425 / 5 550 / 2115 Muro/Indwelling 425 / 5 550 / 2115 Other: Weight 57.1 kg Weight Measurement Method Built in [facility] Medications Administered Current Inpatient Medications Acetaminophen (Acetaminophen 325 Mg Tab) 650 mg PO Q6 PRN PRN Reason: Pain Stop: 05/31/23 13:36 Last Admin: 05/07/23 07:23 Dose: 650 mg Al Hydrox/Mg Hydrox/Simethicone (Aluminum/Magnesium/Simeth (Maalox Max) 30 Ml Udc) 30 ml PO Q6H PRN PRN Reason: Heartburn Stop: 06/06/23 06:31 Atorvastatin Calcium (Atorvastatin 40 Mg Tab) 40 mg PO QAM [facility] Stop: 06/05/23 08:59 Last Admin: 05/06/23 08:30 Dose: 40 mg Carvedilol (Carvedilol 12.5 Mg Tab) 12.5 mg PO BIDM [facility] Stop: 06/03/23 17:59 Last Admin: 05/06/23 17:05 Dose: 12.5 mg Docusate Sodium (Docusate Sodium 100 Mg Cap) 100 mg PO BID [facility] Stop: 06/05/23 20:59 Last Admin: 05/06/23 20:32 Dose: 100 mg Hydralazine HCl (Hydralazine 10 Mg Tab) 10 mg PO TID [facility] Stop: 06/05/23 20:59 Last Admin: 05/06/23 20:32 Dose: 10 mg Hydrochlorothiazide (Hydrochlorothiazide 25 Mg Tab) 25 mg PO QAM [facility] Stop: 06/04/23 08:59 Last Admin: 05/05/23 08:49 Dose: 25 mg Heparin Sodium/Dextrose (Heparin Sodium/Dextrose) 25,000 units in 500 mls @ 27 mls/hr IV .[id number] [facility]; Protocol Stop: 06/01/23 00:00 Last Admin: 05/07/23 07:21 Dose: 1,350 units/hr, 27 mls/hr Labetalol HCl (Labetalol Hcl Iv 5 Mg/Ml 20ml) 10 mg IV Q4H PRN PRN Reason: Hypertension Stop: 06/03/23 06:44 Last Admin: 05/04/23 20:20 Dose: 10 mg Lactobacillus Acidophilus (Advanced Probiotic 1250 Mg Capsule) 2 cap PO DAILY [facility] Stop: 06/01/23 08:59 Last Admin: 05/06/23 08:01 Dose: 2 cap Losartan Potassium (Losartan Potassium 50 Mg Tab) 100 mg PO DAILY [facility] Stop: 06/03/23 08:59 Last Admin: 05/06/23 08:01 Dose: 100 mg Morphine Sulfate (Morphine Sulfate 4 Mg/Ml 1 Ml Carp\Vial) 1 - 4 mg IV Q2H PRN PRN Reason: Pain Stop: 05/15/23 13:22 Last Admin: 05/06/23 15:43 Dose: 4 mg Nifedipine (Nifedipine Extended Rel 30 Mg Tabcr) 90 mg PO HS [facility] Stop: 06/04/23 20:59 Last Admin: 05/06/23 20:32 Dose: 90 mg Nitroglycerin (Nitroglycerin 2% Ointment 30gm Tube) 0.5 inch EXT Q6 TEDDY Stop: 06/05/23 23:14 Last Admin: 05/07/23 05:58 Dose: 0.5 inch Ondansetron HCl (Ondansetron Inj 2 Mg/Ml 2 Ml Vial) 4 mg IV Q6H PRN PRN Reason: Nausea And Vomiting Stop: 05/31/23 13:22 Last Admin: 05/06/23 20:31 Dose: 4 mg Oxycodone/Acetaminophen (Oxycodone/Acetaminophen 5mg/325mg Tab) 1 - 2 tab PO Q4H PRN PRN Reason: Pain (Scale 3,4,5,6) Stop: 05/15/23 20:53 Last Admin: 05/06/23 13:17 Dose: 2 tab Polyethylene Glycol (Polyethylene (Miralax) 17 Gm Pack) 17 gm PO DAILY PRN PRN Reason: Constipation Stop: 06/04/23 12:38 Last Admin: 05/06/23 13:17 Dose: 17 gm (1) HTN (hypertension) Hypertension type: resistant hypertension Qualified Code(s): I1A.0 - Resistant hypertension (3) Aortic stenosis Cardiac valve disease etiology: nonrheumatic Qualified Code(s): I35.0 - Nonrheumatic aortic (valve) stenosis
[2023-05-07] MEDS: ADVANCED PROBIOTIC 1250 MG CAPSULE PO SCH (08:18)
[2023-05-07] MEDS: carvediloL 12.5 MG TAB PO SCH ×2 (08:18→16:25)
[2023-05-07] MEDS: hydrALAZINE 10 MG TAB PO SCH ×2 (08:18→13:35)
[2023-05-07] MEDS: DOCUSATE SODIUM 100 MG CAP PO SCH ×2 (08:18→20:23)
[2023-05-07] MEDS: ATORVASTATIN 40 MG TAB PO SCH (08:18)
[2023-05-07] MEDS: LOSARTAN POTASSIUM 50 MG TAB PO SCH (08:19)
[2023-05-07] MEDS: MoRPHine SULFATE 4 MG/ML 1 ML CARP\\VIAL IV PRN (09:21)
[2023-05-07 09:29] LABS: Urine Chloride < 15 mmol/L; Urine Potassium 19.3 mmol/L; Urine Sodium 11 mmol/L
[2023-05-07] MEDS ORDERED: bisacodyL 10 MG SUPP PR STA (09:39)
[2023-05-07] MEDS: SODIUM CHLORIDE 0.9% 500 ML IV SCH ×2 (10:49→17:04)
--- NOTE | 2023-05-07 11:20 | Surgery Progress Note ---
Date of Service May 07, 2023 Assessment & Plan (1) Spinal cord infarction: Plan: She is having slight movement of her feet. Encouraged to participate in transfers and therapy. Continue PT/OT. Likely d/c to rehab when consistent HTN control. (2) Ischemia of right lower extremity: Plan: Both lower extremities are viable. Continue present tx. Admission and Anticipated Discharge Date Admission Date: May 01, 2023 Subjective 67 yo f POD #5 after RLE revascularization, now with spinal cord ischemia d/t aortic dissection, seen in f/u today. Pt states mild low back pain and incisional itching and discomfort. Continues to be able to feel her toes, but has minimal movement. No other complaints. Per staff, has not had a BM since admission. Pt denies feeling a need to use bathroom. Review of Systems Review of Systems: All systems reviewed & are unremarkable except as noted in HPI & below Physical Exam Constitutional: WD/WN, vitals as above Respiratory: normal respiratory effort, lungs clear to auscultation no respiratory distress Cardiovascular: Rate/Rhythm: regular rate and regular rhythm Vessels: posterior tibial pulses present (RLE faintly palpable) and dorsalis pedis pulses present (RLE faintly palpable) Extremities: normal capillary refill (R great toe no refill, 2nd toe mildly red and slow cap refills. ) Remaining RLE toes normal in appearance and good cap refill. Gastrointestinal (Abdomen): Percussion/Palpation: abdomen soft; abdomen nontender Skin: + incision (C/D/I with augustin, minimal serous/bloody drainage from ankle incision. ) Neurologic: CN's II-XI intact bilaterally and normal sensation to monofilament; + does not move all extremities (Inability to move both feet.) Psychiatric: Orientation: alert and oriented x 3 Results & Data Vital Signs (Past 12 Hours) Vital Signs Temp Pulse Pulse Pulse Resp BP Pulse Ox 05/07/23 07:54 60 05/07/23 07:32 36.8 C 62 18 159/54 H 92 05/07/23 02:38 36.6 C 56 L 20 161/56 H 93 O2 Del Method 05/07/23 07:54 05/07/23 07:32 Room Air 05/07/23 02:38 Room Air
--- NOTE | 2023-05-07 12:34 | Hospitalist Progress Note ---
Date of Service May 07, 2023 Assessment & Plan (1) Hypertensive urgency: Plan: Patient is a 67-year-old female with history of hypertension and peripheral vascular disease admitted to the hospital for right lower extremity critical limb ischemia and right great toe gangrene. She underwent vascular surgery on May 01. See operative report for further information. On the same day, patient underwent another vascular surgery. See operative report for further information. Patient was then admitted to ICU in postoperative for close monitoring. Neurology was consulted due to acute onset flaccid paralysis of both lower extremity. 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 Patient was then transferred to telemetry floors. Hospitalist service is consulted for management of hypertension. Patient currently on nifedipine 90 mg at bedtime, Coreg 12.5 mg twice daily, losartan 100 mg once a day. Noted to have isolated systolic blood pressure. She is also on labetalol 10 mg as needed every 4 hours CTA abdomen shows bilateral renal artery stenosis. Cardiology consulted for resistant hypertension. Recommend hydralazine 3 times daily. She was also started on nitro patch overnight. Blood pressure overall acceptable. Hyponatremia Serum sodium down trended while on hydrochlorothiazide. Serum sodium of 128 Urine osmolarity and urine electrolytes suggest hypovolemic hyponatremia Will start on normal saline at 80 cc/h. Repeat BMP tomorrow a.m. Abnormal CT abdomen/pelvis finding: Irregular thickening and mucosal hyperenhancement within rectosigmoid junction measuring 7.3 cm. Suspicious for colonic mass Will require further workup as per GI. Will let primary decide the timing of the evaluation. Discussed with patient's son Obey over the phone regarding the CT abdomen/pelvis finding on May 05, 2023. she will need further workup once acute issues have resolved with evaluation by GI. Discussed with patient as well at bedside on May 06, 2023 and on May 07, 2023. She does not want any evaluation at the moment. She reports that she will follow-up after resolution of acute medical issues. Pulmonary nodule: 1.4 cm irregular pulmonary nodule seen in anterior left upper lobe. Will need follow-up CT in 4 to 6 weeks. Updated son Obey about the finding. Type 2 diabetes mellitus: HbA1c of 6.5% Diet controlled for now Can consider oral hypoglycemic agents if patient is willing to try. Right lower extremity ischemia/right great toe gangrene Status post surgery by vascular surgery On heparin drip. Management per primary Abdominal aortic dissection Bilateral lower extremity weakness Blood pressure management as above Rest per primary Please note the above document was generated using voice recognition software. It may contain grammatical, syntax or spelling errors. Any formal questions or concerns about the content, text or information contained within the body of this dictation should be directly addressed to the provider for clarification Admission and Anticipated Discharge Date Admission Date: May 01, 2023 Subjective Patient seen and examined at bedside. She is sitting up on the bed; not in distress. Review of Systems Review of Systems: All systems reviewed & are unremarkable except as noted in Subjective Physical Exam Physical Exam: Constitutional: Awake alert oriented x 3; not in distress. Respiratory: normal respiratory effort, lungs clear to auscultation, no wheeze, rales, rhonchi. Normal insp/exp effort, no accessory muscle use Cardiovascular: RRR, no murmur, no edema Vessels: no JVD or carotid bruit Chest: normal inspection of chest Abdomen: Soft, nontender. Musculoskeletal: no cyanosis or clubbing, extremities motor strength 5/5 Skin: no rashes, warm and dry normal turgor Neurologic: PERRL, EOMI, accommodation nl, no face palsy, no dysarthria CN's II-XI intact Flaccid weakness of both lower extremity. Sensation intact Psychiatric: A+Ox3, euthymic affect Results & Data Results & Data Vital Signs (Past 12 Hours) Vital Signs Temp Pulse Pulse Pulse Resp BP Pulse Ox 05/07/23 12:02 36.4 C L 65 18 103/46 L 90 05/07/23 07:54 60 05/07/23 07:32 36.8 C 62 18 159/54 H 92 05/07/23 02:38 36.6 C 56 L 20 161/56 H 93 O2 Del Method O2 Flow Rate 05/07/23 12:02 Nasal Cannula 4 05/07/23 07:54 05/07/23 07:32 Room Air 05/07/23 02:38 Room Air Laboratory Results Laboratory Results WBC 12.18 K/ul (4.8-10.8) H 05/04/23 05:22 RBC 3.49 M/uL (4.20-5.40) L 05/04/23 05:22 Hgb 9.8 g/dl (12.0-16.0) L 05/04/23 05:22 Hct 29.4 % (37.0-47.0) L 05/04/23 05:22 MCV 84.2 fL (80.0-100.0) 05/04/23 05:22 MCH 28.1 pg (25.0-34.0) 05/04/23 05:22 MCHC 33.3 g/dL (32.0-36.0) 05/04/23 05:22 RDW Std Deviation 46.3 fL (36.4-46.3) 05/04/23 05:22 RDW Coeff of María 15.1 % (11.5-14.5) H 05/04/23 05:22 Plt Count 222 K/uL (130-400) 05/04/23 05:22 MPV 10.4 fL (9.4-12.4) 05/04/23 05:22 Immature Gran % (Auto) 1.6 % 05/04/23 05:22 Neut % (Auto) 65.4 % 05/04/23 05:22 Lymph % (Auto) 15.4 % 05/04/23 05:22 [place] % (Auto) 14.8 % 05/04/23 05:22 Eos % (Auto) 2.1 % 05/04/23 05:22 Baso % (Auto) 0.7 % 05/04/23 05:22 Neut # (Auto) 7.96 K/uL (1.40-6.50) H 05/04/23 05:22 Lymph # (Auto) 1.88 K/uL (1.20-3.40) 05/04/23 05:22 [place] # (Auto) 1.80 K/uL (0.11-0.59) H 05/04/23 05:22 Eos # (Auto) 0.25 K/uL (0.00-0.50) 05/04/23 05:22 Baso # (Auto) 0.09 K/uL (0.00-0.20) 05/04/23 05:22 Immature Gran # (Auto) 0.20 K/uL (0.01-0.20) 05/04/23 05:22 PT 11.5 Seconds (9.0-12.0) 05/01/23 23:25 INR 1.1 (0.9-1.1) 05/01/23 23:25 APTT > 139 Seconds (21-31) H* 05/02/23 02:00 PTT Ratio > 4.9 05/02/23 02:00 Heparin Anti-Xa, Unfract 0.38 IU/ml (0.3-0.7) 05/07/23 05:48 Sodium 128 mmol/L (136-145) L 05/07/23 05:48 Potassium 4.3 mmol/L (3.5-5.1) 05/07/23 05:48 Chloride 89 mmol/L (98-107) L 05/07/23 05:48 Carbon Dioxide 32 mmol/L (21-32) 05/07/23 05:48 Anion Gap 7 (3-11) 05/07/23 05:48 BUN 17 mg/dl (6-23) 05/07/23 05:48 Creatinine 0.68 mg/dl (0.6-1.2) 05/07/23 05:48 Est Cr Clr Drug Dosing 63.5 ml/min 05/07/23 05:48 Est GFR ( Amer) 106.4 ml/min 05/07/23 05:48 Est GFR (Non-Af Amer) 91.8 ml/min 05/07/23 05:48 BUN/Creatinine Ratio 25.0 (10-20) H 05/07/23 05:48 Glucose 118 mg/dl (70-99(Fasting)) H 05/07/23 05:48 POC Glucose 138 mg/dl (70-99) H 05/02/23 20:25 Calcium 9.3 mg/dl (8.6-10.3) 05/07/23 05:48 Urine Color Yellow 05/01/23 14:30 Urine Appearance Clear (Clear) 05/01/23 14:30 Urine pH 6.5 (4.5-7.5) 05/01/23 14:30 Ur Specific [place] 1.018 (1.000-1.030) 05/01/23 14:30 Urine Protein Negative (Negative) 05/01/23 14:30 Urine Glucose (UA) Negative (Negative) 05/01/23 14:30 Urine Ketones Negative (Negative) 05/01/23 14:30 Urine Blood Negative (Negative) 05/01/23 14:30 Urine Nitrite Negative (Negative) 05/01/23 14:30 Urine Bilirubin Negative (Negative) 05/01/23 14:30 Urine Urobilinogen Negative (Negative) 05/01/23 14:30 Ur Leukocyte Esterase Negative (Negative) 05/01/23 14:30 Urine Osmolality 296 mOsm/kg (500-800) L 05/07/23 09:00 Urine Sodium 11 mmol/L 05/07/23 09:00 Urine Potassium 19.3 mmol/L 05/07/23 09:00 Urine Chloride < 15 mmol/L 05/07/23 09:00 Nasal Screen MRSA (PCR) Negative (Negative) 05/01/23 14:30 Impressions Abdomen/Pelvis CTA 05/02/23 11:13 CT angio abdomen pelvis w con CT DOSE: 2896.61 mGy.cm CLINICAL HISTORY: ischemia to lumbral-sacral region . Lower abdominal pain. TECHNIQUE: Multiaxial CT images of the abdomen and pelvis were performed following the intravenous administration of 115 cc of Optiray 320 to evaluate the major arterial structures. 3-D/maximum intensity projection images in the sagittal and coronal planes were also obtained. A dose lowering technique was utilized adhering to the principles of ALARA. COMPARISON STUDY: None. FINDINGS: The lung bases will be reported on the same day chest CTA. No pneumoperitoneum. No pneumatosis. No portal venous gas identified. No acute fractures identified. Skin augustin with underlying subcutaneous gas and fat stranding within the right inguinal region suggestive of recent intervention partially visualized right superficial femoral arterial graft. There appears to be a focal short segment dissection within the right common femoral artery best seen on image 279 which demonstrates up to 50% focal narrowing. Moderate to severe atherosclerotic plaque within the iliac artery resulting in multifocal mild narrowing of the bilateral common iliac arteries. There are focal dis sections within the bilateral internal iliac arteries resulting in mild multifocal stenoses. There is a right external iliac artery is patent. There is diffuse atherosclerotic plaque within the left external iliac artery resulting in up to 80% focal narrowing on image 264. There is severe stenosis throughout the visualized proximal left superficial femoral artery of up to 90% best seen on image 341. A long segment dissection throughout the majority of the abdominal aorta resulting in mild stenosis at the mid abdominal aorta. 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 The celiac and superior mesenteric arteries are widely patent. The origin of the inferior mesenteric artery is likely occluded. However, there is immediate reconstitution of flow into the proximal inferior mesenteric artery due to collaterals from the superior mesenteric artery. The mid to distal inferior mesenteric artery appears patent. Severe right and moderate left renal artery stenosis at the origins due to the calcified plaque. No evidence for retroperitoneal hematoma. Vicarious excretion of contrast seen within the gallbladder. The liver, spleen, adrenal glands, and pancreas are unremarkable. No hydronephrosis. A few hypodense lesions within the kidneys favor cysts. No retroperitoneal lymphadenopathy. The bladder is decompressed by Muro catheter. This likely accounts for the gas within the bladder lumen. The uterus and adnexa are unremarkable. Irregular thickening and mucosal hyperenhancement seen within the rectosigmoid junction measure approximately 7.3 cm in length. This is suspicious for a colonic mass. No pelvic lymphadenopathy or pelvic free fluid. Colonic diverticulosis. No evidence for acute diverticulitis. No evidence for bowel obstruction. Normal appendix. IMPRESSION: 1. Long segment dissection seen throughout the majority of the abdominal aorta resulting in mild stenosis at the mid abdominal aorta. 2. Additional short segment dissections seen within the right common femoral artery and bilateral internal iliac arteries as described above. 3. Multifocal stenoses as described above including focal occlusion at the origin of the inferior mesenteric artery. However, this demonstrates immediate reconstitution due to the collateral from the superior mesenteric artery. 4. Bilateral proximal renal artery stenosis. 5. Irregular thickening and mucosal hyperenhancement within the rectosigmoid junction measuring approximate 7.3 cm in length. This is highly suspicious for a colonic mass. A nonspecific colitis could also have a similar appearance but is considered less likely. Follow-up endoscopy recommended for further evaluation. 6. Additional findings as described above. ACT 112: Negative or not required by law. Electronically signed by: Roman Rios M.D. 05/02/2023 12:[address] 05/02/23 11:13 CT lumbar spine wo/w con CLINICAL HISTORY: ischemia to spine? TECHNIQUE: Multidetector row helical CT of the lumbar spine was performed without and with administration of intravenous contrast. Coronal and sagittal reformations were obtained. Automated dose lowering techniques and/or adjustment according to patient size were utilized for this exam. Comparison: None available at the time of this dictation. FINDINGS: For counting purposes, the last complete intervertebral disc space is considered L5-S1. No acute fractures are identified. Vertebral body heights and disk spaces are well maintained. Vertebral body alignment is within normal limits. Atherosclerotic changes are seen in the aorta. Soft tissue swelling is partially seen in the dependent portion of the buttocks, no drainable fluid collection is seen. IMPRESSION: No acute abnormalities and in particular no evidence of drainable fluid collection or bony erosion. ACT 112: Negative or not required by law. Electronically signed by: Marino Muir M.D. 05/02/2023 12:[address] 05/02/23 11:32 CT OF THE CHEST COMBO CLINICAL HISTORY: Spinal ischemia. COMPARISON STUDY: Chest x-ray dated 04/25/2023. TECHNIQUE: Before and following the IV administration of 115 cc of Optiray 320, CT scan of the chest was performed from the thoracic inlet to the upper abdomen. Images are reviewed in the axial, sagittal, and coronal planes. IV contrast was administered without complication. A dose lowering technique was utilized adhering to the principles of ALARA. FINDINGS: Thyroid: Mildly enlarged and heterogeneous. Thoracic aorta: No intramural hematoma is seen on the unenhanced series. There is advanced atherosclerotic calcification of the thoracic aorta, which is normal in caliber and demonstrates standard 3-vessel arch anatomy. No dissection is clearly seen within thoracic aorta. The arch vessels are patent noting advanced atherosclerotic plaque and irregularity. Pulmonary vasculature: The pulmonary trunk is mildly dilated, measuring over 3 cm diameter. This suggests pulmonary artery hypertension. There are no central filling defects identified in the pulmonary vessels to suggest pulmonary embolus. Note that this examination was not protocoled to assess for pulmonary emboli. Heart: The heart is enlarged and without pericardial effusion. There is diminished attenuation of the cardiac blood pool is compared to the myocardium suggesting anemia. The coronary arteries are densely calcified. Lungs and pleural spaces: There is [id number] emphysematous change. There is no lobar consolidation. Foci of probable scarring are seen throughout both lungs. Trace pleural effusions are observed. Minimal secretions are noted in the trachea. There are scattered calcified granulomas. There is a 1.1 x 1.4 x 1.0 cm irregular pulmonary nodule in the anterior left upper lobe seen on image #58. This may contain a tiny focus of cavitation. 3 over the right upper lobe pulmonary nodule is seen on image #79, and a 4 mm right middle lobe nodule is seen on image #108. Mediastinum: There is no mediastinal lymphadenopathy. [place]: Clear. Axillae: There is no axillary lymphadenopathy. Upper abdomen: Dissection is partially visualized involving the upper abdominal aorta on image #203. Partially visualized upper abdominal viscera is otherwise within normal limits. Skeletal structures: The skeletal structures are osteopenic. No lytic or blastic bony lesions are seen. IMPRESSION: 1. Cardiomegaly and emphysema. 2. Trace pleural effusions. 3. There is no lobar consolidation. 4. A 1.4 cm irregular pulmonary nodule is seen in the anterior left upper lobe. This is pathologically indeterminant, and although this could potentially be inflammatory the appearance is more suspicious for a pulmonary neoplasm. Follow- up in 4-6 weeks with a repeat chest CT or possibly PET/CT is recommended for reassessment. 5. There are at least 2 additional subcentimeter pulmonary nodules as above. The skull to be reassessed at follow-up. 6. Advanced atherosclerotic plaque with no dissection clearly identified in the thoracic aorta. Dissection is identified in the partially visualized upper abdominal aorta. See abdominal CT angiogram report for detailed findings. 7. Additional findings as above. ACT 112: Negative or not required by law. Electronically signed by: Koby Mcclain M.D. 05/02/2023 12:26 PM
[2023-05-07 17:07] LABS: BUN Creatinine Ratio 27.2 (10-20); Calcium 8.9 mg/dl (8.6-10.3); Creatinine Clr Calc Pharmacy 46.9 ml/min; Est GFR (African American) 75.7 ml/min; Est GFR (Non-African American) 65.3 ml/min; Potassium 4.5 mmol/L (3.5-5.1)
[2023-05-07] MEDS: POLYETHYLENE (MIRALAX) 17 GM PACK PO PRN (20:23)
[2023-05-07] MEDS: NIFEdipine EXTENDED REL 30 MG TABCR PO SCH (23:40)
[2023-05-08] MEDS: HEPARIN SODIUM/DEXTROSE 25,000 UNITS/500 ML BAG IV SCH ×2 (01:49→19:32)
[2023-05-08 06:49] LABS: BUN Creatinine Ratio 32.5 (10-20); Calcium 9.1 mg/dl (8.6-10.3); Creatinine Clr Calc Pharmacy 53.6 ml/min; Est GFR (African American) 85.8 ml/min; Potassium 4.5 mmol/L (3.5-5.1)
[2023-05-08 07:04] LABS: Thyroid Stimulating Hormone 2.01 uIu/ml (0.300-4.500)
[2023-05-08 07:39] LABS: ANTI-Xa, UFH(UnfractionatedHep 0.51 IU/ml (0.3-0.7)
[2023-05-08] MEDS: EZETIMIBE 10 MG TAB PO SCH (07:57)
[2023-05-08] MEDS: SPIRONOLACTONE 25 MG TAB PO SCH (07:57)
[2023-05-08] MEDS: ROSUVASTATIN CALCIUM 20 MG TAB PO SCH (07:57)
[2023-05-08] MEDS: LOSARTAN POTASSIUM 50 MG TAB PO SCH (07:58)
[2023-05-08] MEDS: ADVANCED PROBIOTIC 1250 MG CAPSULE PO SCH (07:58)
[2023-05-08] MEDS: DOCUSATE SODIUM 100 MG CAP PO SCH ×2 (07:58→20:56)
[2023-05-08] MEDS: carvediloL 12.5 MG TAB PO SCH ×2 (07:59→15:58)
--- NOTE | 2023-05-08 08:32 | Cardiology Progress Note ---
Date of Service May 08, 2023 Assessment & Plan Admission and Anticipated Discharge Date Admission Date: May 01, 2023 Supervising Physician Co-Signing Physician Notes 67 yo woman Consultation for HTN management * S/P complex revascularization procedure of the right lower leg for critical limb ischemia. * Post procedure noted to have bilateral lower extremity paralysis. * CT of the abdomen and pelvis performed several days ago revealed a long segment of dissection of the aorta and bilateral renal artery stenosis * LVEF 45%; LION 1.1 cm2 C/W Moderate * HTN - longstanding * BP 115/47 * Continue Carvedilol 12.5 mg BID po BID - HR 54 - no further escalation * Continue Losartan 100 mg po per daily * Decrease Procardia to 60 mg po per day * Continue Aldactone 25 mg po per day * HCTZ (OFF) * Hydralazine (OFF) * Avoiding JESSICA/ARB/ARNI given bilateral KAYDEN * LDL 82 - extensive PAD * Lipitor (OFF) * Continue Crestor 40 mg po per day * Continue Zetia 10 mg po per day * Check Lipoprotein (a) + Apolipoprotein B * TSH -2 * Smoking cessation Ike Roach Subjective ID: 67 yo woman Complex vascular disease Consultation for HTN + PVD + Bilateral KAYDEN Events overnight: None reported Subjective: no complaints Review of Systems Review of Systems: All systems reviewed & are unremarkable except as noted in HPI & below Physical Exam Physical Exam: JVP 10 cmH20 S1S2 2/6 systolic mumur at base left and apex CTA B No Abdominal Wall edema Mild swelling - RLE; augustin in place Results & Data Vital Signs (Past 12 Hours) Vital Signs Temp Pulse Pulse Pulse Resp BP Pulse Ox 05/08/23 07:33 36.7 C 60 139/48 L 90 05/08/23 02:00 36.3 C L 55 L 20 126/63 90 05/07/23 22:56 36.5 C 55 L 18 116/58 L 90 05/07/23 22:06 52 L O2 Del Method O2 Flow Rate 05/08/23 07:33 Nasal Cannula 4 05/08/23 02:00 Nasal Cannula 4 05/07/23 22:56 Nasal Cannula 4 05/07/23 22:06 Laboratory Results Comprehensive Metabolic Panel 05/07/23 05/08/23 Range/Units 16:16 05:59 Sodium 127 L 127 L (136-145) mmol/L Potassium 4.5 4.5 (3.5-5.1) mmol/L Chloride 89 L 89 L (98-107) mmol/L Carbon Dioxide 30 31 (21-32) mmol/L BUN 25 H 27 H (6-23) mg/dl Creatinine 0.92 0.83 (0.6-1.2) mg/dl Glucose 131 H 121 H (70-99(Fasting)) mg/dl Calcium 8.9 9.1 (8.6-10.3) mg/dl Intake and Output 05/07/23 05/08/23 05/08/23 22:59 06:59 14:59 Intake Total 690.667 / 1867.767 698.6 / 1867.767 248.5 / 248.5 Output Total 150 / 500 250 / 500 801 / 801 Balance 540.667 / 1367.767 448.6 / 1367.767 -552.5 / -552.5 Intake: IV 590.667 / 1417.767 498.6 / 1417.767 148.5 / 148.5 Heparin Sodium/Dextrose 25,000 498.6 / 827.10 148.5 / 148.5 units In 500 ml @ 1,350 UNITS/ HR 27 mls/hr IV .[id number] [facility] Rx #:[id number] Sodium Chloride 0.9% 500 ml @ 590.667 / 590.667 80 mls/hr IV .[id number] [facility] Rx#: [id number] Oral 100 / 450 200 / 450 100 / 100 Output: Urine Amount (Catheter) 150 / 500 250 / 500 800 / 800 Muro/Indwelling 150 / 500 250 / 500 800 / 800 # Bowel Movements Other: Weight 60.7 kg Weight Measurement Method Built in [facility] Medications Administered Current Inpatient Medications Acetaminophen (Acetaminophen 325 Mg Tab) 650 mg PO Q6 PRN PRN Reason: Pain Stop: 05/31/23 13:36 Last Admin: 05/08/23 11:27 Dose: 650 mg Al Hydrox/Mg Hydrox/Simethicone (Aluminum/Magnesium/Simeth (Maalox Max) 30 Ml Udc) 30 ml PO Q6H PRN PRN Reason: Heartburn Stop: 06/06/23 06:31 Carvedilol (Carvedilol 12.5 Mg Tab) 12.5 mg PO BIDM [facility] Stop: 06/03/23 17:59 Last Admin: 05/08/23 07:59 Dose: 12.5 mg Docusate Sodium (Docusate Sodium 100 Mg Cap) 100 mg PO BID [facility] Stop: 06/05/23 20:59 Last Admin: 05/08/23 07:58 Dose: 100 mg Ezetimibe (Ezetimibe 10 Mg Tab) 10 mg PO QAM [facility] Stop: 06/07/23 08:59 Last Admin: 05/08/23 07:57 Dose: 10 mg Heparin Sodium/Dextrose (Heparin Sodium/Dextrose) 25,000 units in 500 mls @ 27 mls/hr IV .[id number] [facility]; Protocol Stop: 06/01/23 00:00 Last Titration: 05/08/23 07:19 Dose: 1,350 units/hr, 27 mls/hr Labetalol HCl (Labetalol Hcl Iv 5 Mg/Ml 20ml) 10 mg IV Q4H PRN PRN Reason: Hypertension Stop: 06/03/23 06:44 Last Admin: 05/04/23 20:20 Dose: 10 mg Lactobacillus Acidophilus (Advanced Probiotic 1250 Mg Capsule) 2 cap PO DAILY [facility] Stop: 06/01/23 08:59 Last Admin: 05/08/23 07:58 Dose: 2 cap Losartan Potassium (Losartan Potassium 50 Mg Tab) 100 mg PO DAILY [facility] Stop: 06/03/23 08:59 Last Admin: 05/08/23 07:58 Dose: 100 mg Morphine Sulfate (Morphine Sulfate 4 Mg/Ml 1 Ml Carp\Vial) 1 - 4 mg IV Q2H PRN PRN Reason: Pain Stop: 05/15/23 13:22 Last Admin: 05/07/23 09:21 Dose: 4 mg Nifedipine (Nifedipine Extended Rel 30 Mg Tabcr) 90 mg PO HS [facility] Stop: 06/04/23 20:59 Last Admin: 05/07/23 23:40 Dose: Not Given Ondansetron HCl (Ondansetron Inj 2 Mg/Ml 2 Ml Vial) 4 mg IV Q6H PRN PRN Reason: Nausea And Vomiting Stop: 05/31/23 13:22 Last Admin: 05/06/23 20:31 Dose: 4 mg Oxycodone/Acetaminophen (Oxycodone/Acetaminophen 5mg/325mg Tab) 1 - 2 tab PO Q4H PRN PRN Reason: Pain (Scale 3,4,5,6) Stop: 05/15/23 20:53 Last Admin: 05/06/23 13:17 Dose: 2 tab Polyethylene Glycol (Polyethylene (Miralax) 17 Gm Pack) 17 gm PO DAILY PRN PRN Reason: Constipation Stop: 06/04/23 12:38 Last Admin: 05/07/23 20:23 Dose: 17 gm Rosuvastatin Calcium (Rosuvastatin Calcium 20 Mg Tab) 40 mg PO [facility] Stop: 06/07/23 08:59 Last Admin: 05/08/23 07:57 Dose: 40 mg Spironolactone (Spironolactone 25 Mg Tab) 25 mg PO [facility] Stop: 06/07/23 08:59 Last Admin: 05/08/23 07:57 Dose: 25 mg
[2023-05-08] MEDS ORDERED: CHLORTHALIDONE 25 MG TAB PO SCH (09:00)
[2023-05-08] MEDS: ACETAMINOPHEN 325 MG TAB PO PRN (11:27)
--- NOTE | 2023-05-08 11:41 | Nephrology Consultation ---
Date of Consultation May 08, 2023 Assessment & Plan (1) Hyponatremia: moderate and worsening hyponatremia in pt w/o sigrid volume overload; cause unclear > hypovolemia/decreased effective circulating volume versus SIADH; ? role for thiazide though she had one dose only on 05/05 and we are missing lab trends; heparin gtt started 05/02 gives her about 1/2L D5W daily and not receiving other IVF really since admission and she drinks about 500-700 mL daily x days; urine osm inconclusive in isolation particularly in this range; less likely related to peripheral lung lesion concerning for neoplasm so this could in theory be SIADH/paraneoplastic process or to low solute diet; imaging w/ structural lung disease which can contribute; no report of excessive GI losses; TSH wnl -needs strict I/O -daily bed weight to continue -needs serum osm in AM and would repeat sodium urine studies at that time; so ordered along w/ AM cortisol -repeat UA ordered -no need for FR as she rarely takes in more than 700 mL daily -agree w/ avoiding further thiazides -may need to hold spironolactone in am if sodium continues to decline -low dose for loop diuretic therapy defer to cardiology, IM for HTN mgt History of Present Illness Reason for Consultation: hyponatremia Requesting Physician: Dr Schmidt Attending Physician: Paul Amor MD History of Present Illness 67 y/o F whom I'm asked to see for hyponatremia was admitted here 05/01 w/ wet gangrene of her R great toe in the setting of BL peripheral arterial disease. She underwent 05/01 balloon angioplasty and stent of R femoral/popliteal artery. Then developed critical RLE ischemia and went back to OR for open RLE thrombectomy w/ cutdown of femoral and below knee popliteal arteries. 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 PMH includes HTN, active tobacco abuse, peripheral arterial disease, BL renal artery stenosis on imaging, 7.3 cm colonic mass noted at rectosigmoidal junction for OP work up; 1.4 cm irregular pulmonary nodule noted on imaging. Pt w/ hx of not accessing medical care prior to presenting w/ great toe gangrene late last month. she had been started on several antihypertensives, among them hctz at 04/27 hospital d/c. Her sodium was normal on readmission 05/01 and day after. Then next labs on 05/06 show sodium 131, trending down to 127 today. of note she had one dose of hctz on 05/05. starting carlene antagonist today. no nsaid use. she is overall on the admission about even, only 700 mL positive assuming I/O accurate. bedweights not much changed since admission and while they vary somewhat range 57-58 kg generally. Patient denies uncontrolled pain or nausea; no dyspnea or cough, no edema. not particularly thirsty. Allergies Allergy/AdvReac Type Severity Reaction Status Date / Time No Known Allergies Allergy Verified 05/01/23 06:38 Home Medications Medication Instructions Recorded Confirmed Type ibuprofen 200 mg tablet (Advil) 200 mg PO Q6H PRN Pain 04/25/23 05/01/23 History amlodipine 5 mg tablet (Norvasc) 5 mg PO HS #30 tabs 04/27/23 05/01/23 Rx cefdinir 300 mg capsule 300 mg PO BID 8 days #16 caps 04/27/23 05/01/23 Rx doxycycline hyclate 100 mg tablet 100 mg PO BID 8 days #16 tabs 04/27/23 05/01/23 Rx hydrochlorothiazide 25 mg tablet 12.5 mg (1/2 x 25 mg) PO QAM #15 04/27/23 05/01/23 Rx tabs lactobacillus combination no.4 3 3,000 mmu cells PO DAILY 2 weeks 04/27/23 05/01/23 Rx billion cell capsule (Probiotic) #14 caps losartan 50 mg tablet 50 mg PO QAM #30 tabs 04/27/23 05/01/23 Rx acetaminophen 325 mg tablet 650 mg PO Q6 PRN Pain 05/01/23 05/01/23 History (Tylenol) nifedipine 30 mg tablet,extended 60 mg (2 x 30 mg) PO HS #60 tabs 05/08/23 Rx release 24 hr (Procardia XL) Patient History Medical History Paralysis of both lower limbs Tobacco abuse HTN (hypertension) Family History Other Diabetes Social History Smoking Status: Current every day smoker Tobacco Type: Cigarettes Cigarettes Per Day: 10; Second Hand Exposure: Yes; Do You Dip or Chew Tobacco: No; Hx Alcohol Use: No Hx Substance Use: No Preferred Language: Thai Communication Ability: Effective 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 Required: No Beliefs That Will Affect Care: None Current Living Situation: Alone Current Living Situation Comment: mobile home by herself with a dog, family nearby Other Information That Helps Us Care for You: No Feels Safe at Home: Yes Safety Concerns: Feels Safe At This Time Assistive Devices: None Review of Systems 2 Review of Systems: All systems reviewed & are unremarkable except as noted in HPI & below Physical Exam 2 Constitutional: well developed, well nourished, + frail appearing and cooperative; no acute distress Eyes: EOM intact bilaterally ENMT: Ears: no external ear abnormality Nose: no external nose abnormality Mouth: + dry oral mucous membranes and + poor dentition Neck: no nuchal rigidity Respiratory: normal respiratory effort Auscultation: + diminished lung sounds Cardiovascular: Rate/Rhythm: regular rate and regular rhythm Heart Sounds: + murmur Extremities: no edema Gastrointestinal (Abdomen): Inspection/Auscultation: normal bowel sounds P ercussion/Palpation: abdomen soft; abdomen nontender Musculoskeletal: Extremities: + abnormal strength (BLE flaccid paralysis) Skin: no rashes, warm and dry R medial LE incision c/d/i Neurologic: fluent speech, no tremor; very tired Psychiatric: Orientation: oriented x 3 and cooperative Results & Data Vital Signs (Past 12 Hours) Vital Signs Temp Pulse Pulse Pulse Resp BP Pulse Ox 05/08/23 08:00 05/08/23 08:00 56 L 05/08/23 07:33 36.7 C 60 139/48 L 90 05/08/23 02:00 36.3 C L 55 L 20 126/63 90 O2 Del Method O2 Flow Rate 05/08/23 08:00 Room Air 05/08/23 08:00 05/08/23 07:33 Nasal Cannula 4 05/08/23 02:00 Nasal Cannula 4 Laboratory Results 05/04/23 05:22 05/08/23 05:59 urine osm 296 Joshua 11, uCl <15
--- NOTE | 2023-05-08 13:10 | Hospitalist Progress Note ---
Date of Service May 08, 2023 Assessment & Plan (1) Hypertensive urgency: Plan: Patient is a 67-year-old female with history of hypertension and peripheral vascular disease admitted to the hospital for right lower extremity critical limb ischemia and right great toe gangrene. She underwent vascular surgery on May 01. See operative report for further information. On the same day, patient underwent another vascular surgery. See operative report for further information. Patient was then admitted to ICU in postoperative for close monitoring. Neurology was consulted due to acute onset flaccid paralysis of both lower extremity. 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 Patient was then transferred to telemetry floors. Hospitalist service is consulted for management of hypertension. Patient currently on nifedipine 90 mg at bedtime, Coreg 12.5 mg twice daily, losartan 100 mg once a day. Noted to have isolated systolic blood pressure. She is also on labetalol 10 mg as needed every 4 hours CTA abdomen shows bilateral renal artery stenosis. Cardiology consulted for resistant hypertension. On Coreg 12.5 mg twice daily, losartan 100 mg once a day, nifedipine and Aldactone. Hydrochlorothiazide/chlorthalidone was stopped due to hyponatremia. Hyponatremia Serum sodium down trended while on hydrochlorothiazide. Serum sodium of 127 Urine osmolarity and urine electrolytes suggest hypovolemic hyponatremia Neurology on consult; appreciate recommendation. Abnormal CT abdomen/pelvis finding: Irregular thickening and mucosal hyperenhancement within rectosigmoid junction measuring 7.3 cm. Suspicious for colonic mass Will require further workup as per GI. Will let primary decide the timing of the evaluation. Discussed with patient's son Oeby over the phone regarding the CT abdomen/pelvis finding on May 05, 2023. she will need further workup once acute issues have resolved with evaluation by GI. Discussed with patient as well at bedside on May 06, 2023 and on May 07, 2023. She does not want any evaluation for the colon mass at the moment. She reports that she will follow-up after rehab. Pulmonary nodule: 1.4 cm irregular pulmonary nodule seen in anterior left upper lobe. Will need follow-up CT chest in 4 to 6 weeks. Updated son Obey about the finding. Type 2 diabetes mellitus: HbA1c of 6.5% Diet controlled for now Can consider oral hypoglycemic agents if patient is willing to try. Right lower extremity ischemia/right great toe gangrene Status post surgery by vascular surgery On heparin drip. Management per primary Abdominal aortic dissection Bilateral lower extremity weakness Blood pressure management as above per primary Please note the above document was generated using voice recognition software. It may contain grammatical, syntax or spelling errors. Any formal questions or concerns about the content, text or information contained within the body of this dictation should be directly addressed to the provider for clarification Admission and Anticipated Discharge Date Admission Date: May 01, 2023 Subjective Patient seen and examined at bedside. She is sitting up on the bed; not in any distress. She is alert oriented x 3; not in distress. Review of Systems Review of Systems: All systems reviewed & are unremarkable except as noted in Subjective Physical Exam Physical Exam: Constitutional: Awake alert oriented x 3; not in distress. Respiratory: normal respiratory effort, lungs clear to auscultation, no wheeze, rales, rhonchi. Normal insp/exp effort, no accessory muscle use Cardiovascular: RRR, no murmur, no edema Vessels: no JVD or carotid bruit Chest: normal inspection of chest Abdomen: Soft, nontender. Musculoskeletal: no cyanosis or clubbing, extremities motor strength 5/5 Skin: no rashes, warm and dry normal turgor Neurologic: PERRL, EOMI, accommodation nl, no face palsy, no dysarthria CN's II-XI intact Flaccid weakness of both lower extremity. Sensation intact Psychiatric: A+Ox3, euthymic affect Results & Data Results & Data Vital Signs (Past 12 Hours) Vital Signs Temp Pulse Pulse Pulse Resp BP Pulse Ox 05/08/23 11:46 36.4 C L 54 L 18 115/47 L 91 05/08/23 08:00 05/08/23 08:00 56 L 05/08/23 07:33 36.7 C 60 139/48 L 90 05/08/23 02:00 36.3 C L 55 L 20 126/63 90 O2 Del Method O2 Flow Rate 05/08/23 11:46 Nasal Cannula 4 05/08/23 08:00 Room Air 05/08/23 08:00 05/08/23 07:33 Nasal Cannula 4 05/08/23 02:00 Nasal Cannula 4 Laboratory Results Laboratory Results WBC 12.18 K/ul (4.8-10.8) H 05/04/23 05:22 RBC 3.49 M/uL (4.20-5.40) L 05/04/23 05:22 Hgb 9.8 g/dl (12.0-16.0) L 05/04/23 05:22 Hct 29.4 % (37.0-47.0) L 05/04/23 05:22 MCV 84.2 fL (80.0-100.0) 05/04/23 05:22 MCH 28.1 pg (25.0-34.0) 05/04/23 05:22 MCHC 33.3 g/dL (32.0-36.0) 05/04/23 05:22 RDW Std Deviation 46.3 fL (36.4-46.3) 05/04/23 05:22 RDW Coeff of María 15.1 % (11.5-14.5) H 05/04/23 05:22 Plt Count 222 K/uL (130-400) 05/04/23 05:22 MPV 10.4 fL (9.4-12.4) 05/04/23 05:22 Immature Gran % (Auto) 1.6 % 05/04/23 05:22 Neut % (Auto) 65.4 % 05/04/23 05:22 Lymph % (Auto) 15.4 % 05/04/23 05:22 [place] % (Auto) 14.8 % 05/04/23 05:22 Eos % (Auto) 2.1 % 05/04/23 05:22 Baso % (Auto) 0.7 % 05/04/23 05:22 Neut # (Auto) 7.96 K/uL (1.40-6.50) H 05/04/23 05:22 Lymph # (Auto) 1.88 K/uL (1.20-3.40) 05/04/23 05:22 [place] # (Auto) 1.80 K/uL (0.11-0.59) H 05/04/23 05:22 Eos # (Auto) 0.25 K/uL (0.00-0.50) 05/04/23 05:22 Baso # (Auto) 0.09 K/uL (0.00-0.20) 05/04/23 05:22 Immature Gran # (Auto) 0.20 K/uL (0.01-0.20) 05/04/23 05:22 PT 11.5 Seconds (9.0-12.0) 05/01/23 23:25 INR 1.1 (0.9-1.1) 05/01/23 23:25 APTT > 139 Seconds (21-31) H* 05/02/23 02:00 PTT Ratio > 4.9 05/02/23 02:00 Heparin Anti-Xa, Unfract 0.51 IU/ml (0.3-0.7) 05/08/23 05:59 Sodium 127 mmol/L (136-145) L 05/08/23 05:59 Potassium 4.5 mmol/L (3.5-5.1) 05/08/23 05:59 Chloride 89 mmol/L (98-107) L 05/08/23 05:59 Carbon Dioxide 31 mmol/L (21-32) 05/08/23 05:59 Anion Gap 7 (3-11) 05/08/23 05:59 BUN 27 mg/dl (6-23) H 05/08/23 05:59 Creatinine 0.83 mg/dl (0.6-1.2) 05/08/23 05:59 Est Cr Clr Drug Dosing 53.6 ml/min 05/08/23 05:59 Est GFR ( Amer) 85.8 ml/min 05/08/23 05:59 Est GFR (Non-Af Amer) 74.0 ml/min 05/08/23 05:59 BUN/Creatinine Ratio 32.5 (10-20) H 05/08/23 05:59 Glucose 121 mg/dl (70-99(Fasting)) H 05/08/23 05:59 POC Glucose 138 mg/dl (70-99) H 05/02/23 20:25 Calcium 9.1 mg/dl (8.6-10.3) 05/08/23 05:59 TSH 2.010 uIu/ml (0.300-4.500) 05/08/23 05:59 Urine Color Yellow 05/01/23 14:30 Urine Appearance Clear (Clear) 05/01/23 14:30 Urine pH 6.5 (4.5-7.5) 05/01/23 14:30 Ur Specific [place] 1.018 (1.000-1.030) 05/01/23 14:30 Urine Protein Negative (Negative) 05/01/23 14:30 Urine Glucose (UA) Negative (Negative) 05/01/23 14:30 Urine Ketones Negative (Negative) 05/01/23 14:30 Urine Blood Negative (Negative) 05/01/23 14:30 Urine Nitrite Negative (Negative) 05/01/23 14:30 Urine Bilirubin Negative (Negative) 05/01/23 14:30 Urine Urobilinogen Negative (Negative) 05/01/23 14:30 Ur Leukocyte Esterase Negative (Negative) 05/01/23 14:30 Urine Osmolality 296 mOsm/kg (500-800) L 05/07/23 09:00 Urine Sodium 11 mmol/L 05/07/23 09:00 Urine Potassium 19.3 mmol/L 05/07/23 09:00 Urine Chloride < 15 mmol/L 05/07/23 09:00 Nasal Screen MRSA (PCR) Negative (Negative) 05/01/23 14:30 Impressions Abdomen/Pelvis CTA 05/02/23 11:13 CT angio abdomen pelvis w con CT DOSE: 2896.61 mGy.cm CLINICAL HISTORY: ischemia to lumbral-sacral region . Lower abdominal pain. TECHNIQUE: Multiaxial CT images of the abdomen and pelvis were performed following the intravenous administration of 115 cc of Optiray 320 to evaluate the major arterial structures. 3-D/maximum intensity projection images in the sagittal and coronal planes were also obtained. A dose lowering technique was utilized adhering to the principles of ALARA. COMPARISON STUDY: None. FINDINGS: The lung bases will be reported on the same day chest CTA. No pneumoperitoneum. No pneumatosis. No portal venous gas identified. No acute fractures identified. Skin augustin with underlying subcutaneous gas and fat stranding within the right inguinal region suggestive of recent intervention partially visualized right superficial femoral arterial graft. There appears to be a focal short segment dissection within the right common femoral artery best seen on image 279 which demonstrates up to 50% focal narrowing. Moderate to severe atherosclerotic plaque within the iliac artery resulting in multifocal mild narrowing of the bilateral common iliac arteries. There are focal dissections within the bilateral internal iliac arteries resulting in mild multifocal stenoses. There is a right external iliac artery is patent. There is diffuse atherosclerotic plaque within the left external iliac artery resulting in up to 80% focal narrowing on image 264. There is severe stenosis throughout the visualized proximal left superficial femoral artery of up to 90% best seen on image 341. A long segment dissection throughout the majority of the abdominal aorta resulting in mild stenosis at the mid abdominal aorta. 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 The celiac and superior mesenteric arteries are widely patent. The origin of the inferior mesenteric artery is likely occluded. However, there is immediate reconstitution of flow into the proximal inferior mesenteric artery due to collaterals from the superior mesenteric artery. The mid to distal inferior mesenteric artery appears patent. Severe right and moderate left renal artery stenosis at the origins due to the calcified plaque. No evidence for retroperitoneal hematoma. Vicarious excretion of contrast seen within the gallbladder. The liver, spleen, adrenal glands, and pancreas are unremarkable. No hydronephrosis. A few hypodense lesions within the kidneys favor cysts. No retroperitoneal lymphadenopathy. The bladder is decompressed by Muro catheter. This likely accounts for the gas within the bladder lumen. The uterus and adnexa are unremarkable. Irregular thickening and mucosal hyperenhancement seen within the rectosigmoid junction measure approximately 7.3 cm in length. This is suspicious for a colonic mass. No pelvic lymphadenopathy or pelvic free fluid. Colonic diverticulosis. No evidence for acute diverticulitis. No evidence for bowel obstruction. Normal appendix. IMPRESSION: 1. Long segment dissection seen throughout the majority of the abdominal aorta resulting in mild stenosis at the mid abdominal aorta. 2. Additional short segment dissections seen within the right common femoral artery and bilateral internal iliac arteries as described above. 3. Multifocal stenoses as described above including focal occlusion at the origin of the inferior mesenteric artery. However, this demonstrates immediate reconstitution due to the collateral from the superior mesenteric artery. 4. Bilateral proximal renal artery stenosis. 5. Irregular thickening and mucosal hyperenhancement within the rectosigmoid junction measuring approximate 7.3 cm in length. This is highly suspicious for a colonic mass. A nonspecific colitis could also have a similar appearance but is considered less likely. Follow-up endoscopy recommended for further evaluation. 6. Additional findings as described above. ACT 112: Negative or not required by law. Electronically signed by: Roman Rios M.D. 05/02/2023 12:[address] 05/02/23 11:13 CT lumbar spine wo/w con CLINICAL HISTORY: ischemia to spine? TECHNIQUE: Multidetector row helical CT of the lumbar spine was performed without and with administration of intravenous contrast. Coronal and sagittal reformations were obtained. Automated dose lowering techniques and/or adjustment according to patient size were utilized for this exam. Comparison: None available at the time of this dictation. FINDINGS: For counting purposes, the last complete intervertebral disc space is considered L5-S1. No acute fractures are identified. Vertebral body heights and disk spaces are well maintained. Vertebral body alignment is within normal limits. Atheroscle rotic changes are seen in the aorta. Soft tissue swelling is partially seen in the dependent portion of the buttocks, no drainable fluid collection is seen. IMPRESSION: No acute abnormalities and in particular no evidence of drainable fluid collection or bony erosion. ACT 112: Negative or not required by law. Electronically signed by: Marino Muir M.D. 05/02/2023 12:[address] 05/02/23 11:32 CT OF THE CHEST COMBO CLINICAL HISTORY: Spinal ischemia. COMPARISON STUDY: Chest x-ray dated 04/25/2023. TECHNIQUE: Before and following the IV administration of 115 cc of Optiray 320, CT scan of the chest was performed from the thoracic inlet to the upper abdomen. Images are reviewed in the axial, sagittal, and coronal planes. IV contrast was administered without complication. A dose lowering technique was utilized adhering to the principles of ALARA. FINDINGS: Thyroid: Mildly enlarged and heterogeneous. Thoracic aorta: No intramural hematoma is seen on the unenhanced series. There is advanced atherosclerotic calcification of the thoracic aorta, which is normal in caliber and demonstrates standard 3-vessel arch anatomy. No dissection is c learly seen within thoracic aorta. The arch vessels are patent noting advanced atherosclerotic plaque and irregularity. Pulmonary vasculature: The pulmonary trunk is mildly dilated, measuring over 3 cm diameter. This suggests pulmonary artery hypertension. There are no central filling defects identified in the pulmonary vessels to suggest pulmonary embolus. Note that this examination was not protocoled to assess for pulmonary emboli. Heart: The heart is enlarged and without pericardial effusion. There is diminished attenuation of the cardiac blood pool is compared to the myocardium suggesting anemia. The coronary arteries are densely calcified. Lungs and pleural spaces: There is [id number] emphysematous change. There is no lobar consolidation. Foci of probable scarring are seen throughout both lungs. Trace pleural effusions are observed. Minimal secretions are noted in the trachea. There are scattered calcified granulomas. There is a 1.1 x 1.4 x 1.0 cm irregular pulmonary nodule in the anterior left upper lobe seen on image #58. This may contain a tiny focus of cavitation. 3 over the right upper lobe pulmonary nodule is seen on image #79, and a 4 mm right middle lobe nodule is seen on image #108. Mediastinum: There is no mediastinal lymphadenopathy. [place]: Clear. Axillae: There is no axillary lymphadenopathy. Upper abdomen: Dissection is partially visualized involving the upper abdominal aorta on image #203. Partially visualized upper abdominal viscera is otherwise within normal limits. Skeletal structures: The skeletal structures are osteopenic. No lytic or blastic bony lesions are seen. IMPRESSION: 1. Cardiomegaly and emphysema. 2. Trace pleural effusions. 3. There is no lobar consolidation. 4. A 1.4 cm irregular pulmonary nodule is seen in the anterior left upper lobe. This is pathologically indeterminant, and although this could potentially be inflammatory the appearance is more suspicious for a pulmonary neoplasm. Follow- up in 4-6 weeks with a repeat chest CT or possibly PET/CT is recommended for reassessment. 5. There are at least 2 additional subcentimeter pulmonary nodules as above. The skull to be reassessed at follow-up. 6. Advanced atherosclerotic plaque with no dissection clearly identified in the thoracic aorta. Dissection is identified in the partially visualized upper abdominal aorta. See abdominal CT angiogram report for detailed findings. 7. Additional findings as above. ACT 112: Negative or not required by law. Electronically signed by: Koby Mcclain M.D. 05/02/2023 12:26 PM
[2023-05-08] MEDS: oxyCODONE/ACETAMINOPHEN 5mg/325mg TAB PO PRN (14:40)
[2023-05-08] MEDS: ONDANSETRON INJ 2 MG/ML 2 ML VIAL IV PRN ×2 (14:41→23:09)
--- NOTE | 2023-05-08 15:40 | Surgery Progress Note ---
Date of Service May 08, 2023 Assessment & Plan (1) Spinal cord infarction: Plan: She is having slight movement of her feet. Encouraged to participate in transfers and therapy. Continue PT/OT. Approved for rehab to [facility]. d/c to rehab when cleared by medicine/nephrology/cardiology. Pt's family had previously requested to seek a second opinion at [facility]. Records and imaging transmitted to [facility]. Pt herself states she does not wish to be seen at [facility] presently. Advised pt to discuss with her family and make her wishes known. If she decides she does wish to seek a second opinion, pt may call [facility] to arrange. Pt expresses understanding. Dr Amor's office will call to arrange an outpt follow up appt for staple removal next week in office. (2) Ischemia of right lower extremity: Plan: Both lower extremities are viable, aside from R great toe. Continue present tx. Admission and Anticipated Discharge Date Admission Date: May 01, 2023 Subjective 67 yo f s/p RLE revascularization for critical limb ischemia, who developed aortic dissection and spinal cord ischemia, seen in f/u today. Pt states some pain in incisions. She is fatigued after PT/OT today. Looking forward to rehab. No other complaints. Review of Systems Review of Systems: All systems reviewed & are unremarkable except as noted in HPI & below Physical Exam Constitutional: WD/WN, vitals as above Respiratory: normal respiratory effort, lungs clear to auscultation normal respiratory effort; no respiratory distress Auscultation: lungs clear to auscultation bilaterally Cardiovascular: RRR, no murmur, no edema Rate/Rhythm: regular rate and regular rhythm Vessels: posterior tibial pulses present (RLE faintly palpable) and dorsalis pedis pulses present (RLE faintly palpable) Extremities: normal capillary refill (R great toe no refill, 2nd toe mildly red with cap refill 5 seconds. ) Gastrointestinal (Abdomen): Percussion/Palpation: abdomen soft; abdomen nontender Skin: + incision (C/D/I with augustin, minimal serous/bloody drainage from ankle incision. ) Neurologic: CN's II-XI intact bilaterally and normal sensation to monofilament; + does not move all extremities (slight plantar and dorsiflexion BLE. + sensation) Psychiatric: Orientation: alert and oriented x 3 Results & Data Vital Signs (Past 12 Hours) Vital Signs Temp Pulse Pulse Resp BP Pulse Ox O2 Del Method 05/08/23 11:46 36.4 C L 54 L 18 115/47 L 91 Nasal Cannula 05/08/23 08:00 Room Air 05/08/23 08:00 56 L 05/08/23 07:33 36.7 C 60 139/48 L 90 Nasal Cannula O2 Flow Rate 05/08/23 11:46 4 05/08/23 08:00 05/08/23 08:00 05/08/23 07:33 4
[2023-05-08] MEDS ORDERED: NIFEdipine EXTENDED REL 30 MG TABCR PO SCH (21:00)
[2023-05-08 21:32] LABS: Appearance Urine Clear (Clear); Bacteria Urine Automated Negative (Negative); Bilirubin Urine Negative (Negative); Blood Urine Trace (Negative); Cast Urine Automated 0 /lpf (0-5); Color Urine Yellow; Epithelial Cell Urine Auto 0-5 /lpf (0-5); Glucose Urine UA Negative (Negative); Ketones Urine Negative (Negative); Leukocyte Esterase Urine Negative (Negative); Nitrite Urine Negative (Negative); Protein Urine Negative (Negative); RBC Urine Automated 0-4 /hpf (0-4); Specific Gravity Urine 1.008 (1.000-1.030); Urobilinogen Urine Negative (Negative)
--- NOTE | 2023-05-08 21:35 | CT Scan Report ---
Exam(s): CT HEAD Without Contrast EXAM: CT Head Without Intravenous Contrast CLINICAL HISTORY: Reason for exam: AMS. TECHNIQUE: Axial computed tomography images of the head/brain without intravenous contrast. CTDI is 33.65 mGy and DLP is 546.36 mGy-cm. Automated exposure control was utilized for the study. A dose lowering technique was utilized adhering to the principles of ALARA. COMPARISON: No relevant prior studies available. FINDINGS: No acute intracranial hemorrhage. No midline shift or mass effect. The territorial swan-white matter differentiation is maintained throughout. Periventricular and subcortical white matter hypoattenuation, consistent with chronic microangiopathy. The visualized orbits appear grossly unremarkable. The calvarium is intact. The visualized paranasal sinuses and mastoid air cells are grossly clear. IMPRESSION: No acute intracranial hemorrhage, midline shift, or mass effect. Electronically signed by: Helder Chew MD 05/08/23 21:34 PM
[2023-05-08 22:13] LABS: Basophils # (auto) 0.11 K/uL (0.00-0.20); Basophils % (auto) 0.6 %; Eosinophils # (auto) 0.16 K/uL (0.00-0.50); Eosinophils % (auto) 0.9 %; Hematocrit (blood only) 28.8 % (37.0-47.0); Hemoglobin 9.5 g/dl (12.0-16.0); Immature Granulocytes # (auto) 0.53 K/uL (0.01-0.20); Immature Granulocytes % (auto) 2.8 %; Lymphocytes # (auto) 2.13 K/uL (1.20-3.40); Lymphocytes % (auto) 11.4 %; Mean Corpuscular Hemoglobin 27.5 pg (25.0-34.0); Mean Corpuscular Volume 83.5 fL (80.0-100.0); Mean Platelet Volume 10.1 fL (9.4-12.4); Monocytes # (auto) 2.51 K/uL (0.11-0.59); Monocytes % (auto) 13.5 %; Neutrophils # (auto) 13.21 K/uL (1.40-6.50); Neutrophils % (auto) 70.8 %; Platelet Count 390 K/uL (130-400); RDW Coefficient of Variation 14.5 % (11.5-14.5); Red Blood Count 3.45 M/uL (4.20-5.40); White Blood Count 18.65 K/ul (4.8-10.8)
[2023-05-08 22:16] LABS: Albumin Globulin Ratio 0.9 (0.9-2); Albumin Level 3.1 gm/dl (3.4-5.0); BUN Creatinine Ratio 29.9 (10-20); Bilirubin,Total 0.4 mg/dl (0.2-1.0); Calcium 8.8 mg/dl (8.6-10.3); Creatinine Clr Calc Pharmacy 57.7 ml/min; Est GFR (African American) 93.9 ml/min; Globulin 3.5 gm/dl (2.5-4.0); Potassium 4.3 mmol/L (3.5-5.1); Total Protein 6.6 gm/dl (6.0-8.3)
[2023-05-08 22:22] LABS: Troponin I High Sensitivity 11.2 pg/ml (0-14)
[2023-05-08 22:47] LABS: Base Excess ABG 7.6 mEq/L (-9-1.8); HCO3 ABG 32 mmol/L (19-24); Oxygen Saturation ABG 94.9 % (90-95); PCO2 ABG 43 mmHg (35-46); PO2 ABG 65 mmHg (80-95); pH ABG 7.48 (7.35-7.45)
[2023-05-08 22:57] LABS: Allen Test Pos (Pos)
[2023-05-08] MEDS ORDERED: PIPERACILLIN/TAZOBACTAM 4.5 GM in DEXTROSE 5% MINI-B 100 ML IV ONE (23:15)
[2023-05-09] MEDS: LABETALOL HCL IV 5 MG/ML 20ML IV PRN (03:11)
[2023-05-09] MEDS: PIPERACILLIN/TAZOBACTAM 4.5 GM in DEXTROSE 5% MINI-B 100 ML IV SCH ×3 (03:11→20:57)
--- NOTE | 2023-05-09 07:20 | Nephrology Progress Note ---
Date of Service May 09, 2023 Assessment & Plan (1) Hyponatremia: Plan: moderate hyponatremia in pt w/o sigrid volume overload w/ sNa improving to 130 today; cause unclear > hypovolemia/decreased effective circulating volume versus SIADH; ? role for thiazide though she had one dose only on 05/05 and we are missing lab trends; heparin gtt started 05/02 gives her about 1/2L D5W daily and not receiving other IVF really since admission and she drinks about 500-700 mL daily x days; urine osm inconclusive in isolation particularly in this range; less likely related to peripheral lung lesion concerning for neoplasm so this could in theory be SIADH/paraneoplastic process or to low solute diet; imaging w/ structural lung disease which can contribute; no report of excessive GI losses; TSH wnl; AM cortisol acceptable urine studies rechecked 05/08 notably most c/w mild polydipsia -needs strict I/O -daily bed weight to continue -no need for FR as she rarely takes in more than 700 mL daily -agree w/ avoiding further thiazides and expect sodium to improve further once off of heparin gtt -may need to hold spironolactone in am if sodium continues to decline -low threshold for loop diuretic therapy defer to cardiology, IM for HTN mgt PRELIMINARY NEPHRO D/C RECOMMENDATIONS -d/c on fluid limit 1.5 L daily, toward which protein shakes don't count -bmp 2X weekly at rehab and rehab personnel to contact me if serum sodium <130 -check bmp at pcp f/u visit after rehab d/c >> if serum sodium 135 or better can stop fluid limit -recommend PCP again recheck BMP one month after rehab d/c; if still w/ sodium issues or ongoing uncontrolled HTN, consider nephro referral -would avoid hctz or other thiazide diuretics for BP control after d/c Care coordinated with vascular surgery service Admission and Anticipated Discharge Date Admission Date: May 01, 2023 Subjective had an event last evening after waking at 9 pm in which she was oriented to self only; evaluated by hospitalist and neurology; no changes to care since w/ fresh stent not an MRI candidate; c/o pain at site of stitches; no sob, no n/v, no edema Review of Systems 2 Review of Systems: All systems reviewed & are unremarkable except as noted in Subjective Physical Exam 2 Constitutional: well developed, well nourished, + frail appearing and cooperative; no acute distress Eyes: EOM intact bilaterally ENMT: Ears: no external ear abnormality Nose: no external nose abnormality Mouth: + dry oral mucous membranes and + poor dentition Neck: no nuchal rigidity Respiratory: normal respiratory effort Auscultation: + diminished lung sounds Cardiovascular: Rate/Rhythm: regular rate and regular rhythm Heart Sounds: + murmur Extremities: no edema Gastrointestinal (Abdomen): Inspection/Auscultation: normal bowel sounds P ercussion/Palpation: abdomen soft; abdomen nontender Musculoskeletal: Extremities: + abnormal strength (BLE flaccid paralysis) Skin: no rashes, warm and dry Psychiatric: Orientation: oriented x 3 and cooperative Results & Data Vital Signs (Past 12 Hours) Vital Signs Temp Pulse Pulse Resp BP BP BP 05/09/23 03:37 64 177/74 H 05/09/23 03:16 36.8 C 75 16 198/63 H 05/09/23 03:11 75 198/63 H 05/08/23 23:42 65 05/08/23 22:05 36.5 C 70 16 184/50 H 05/08/23 20:30 05/08/23 20:11 36.0 C L 61 18 128/67 Pulse Ox O2 Del Method 05/09/23 03:37 05/09/23 03:16 92 Room Air 05/09/23 03:11 05/08/23 23:42 05/08/23 22:05 91 Room Air 05/08/23 20:30 Room Air 05/08/23 20:11 90 Room Air Laboratory Results 05/08/23 21:38 05/09/23 07:[address] [place] 21 sOSM 259 AM Cortisol 49
--- NOTE | 2023-05-09 07:32 | Cardiology Progress Note ---
Date of Service May 09, 2023 Assessment & Plan Admission and Anticipated Discharge Date Admission Date: May 01, 2023 Supervising Physician Co-Signing Physician Notes 67 yo woman Consultation for HTN management * S/P complex revascularization procedure of the right lower leg for critical limb ischemia. * Post procedure noted to have bilateral lower extremity paralysis. * CT of the abdomen and pelvis performed several days ago revealed a long segment of dissection of the aorta and bilateral renal artery stenosis * LVEF 45%; LION 1.1 cm2 C/W Moderate * HTN - longstanding * BP 115/47 * Continue Carvedilol 12.5 mg BID po BID - HR 54 - no further escalation * Continue Losartan 100 mg po per daily * Increase Procardia to 90 mg po per day * Continue Aldactone 25 mg po per day * HCTZ (OFF) * Hydralazine (OFF) * Avoiding JESSICA/ARB/ARNI given bilateral KAYDEN * LDL 82 - extensive PAD * Lipitor (OFF) * Continue Crestor 40 mg po per day * Continue Zetia 10 mg po per day * Check Lipoprotein (a) + Apolipoprotein B * TSH -2 * Smoking cessation * Feet are moving better Ike Roach Subjective Events overnight: None No telemetry events Subjective: No complaints Feet moving better Review of Systems Review of Systems: All systems reviewed & are unremarkable except as noted in HPI & below Physical Exam Physical Exam: JVP 10 cmH20 S1S2 2/6 systolic mumur at base left and apex CTA B No Abdominal Wall edema Mild swelling - RLE; augustin in place Results & Data Vital Signs (Past 12 Hours) Vital Signs Temp Pulse Pulse Resp BP BP BP 05/09/23 03:37 64 177/74 H 05/09/23 03:16 36.8 C 75 16 198/63 H 05/09/23 03:11 75 198/63 H 05/08/23 23:42 65 05/08/23 22:05 36.5 C 70 16 184/50 H 05/08/23 20:30 05/08/23 20:11 36.0 C L 61 18 128/67 Pulse Ox O2 Del Method 05/09/23 03:37 05/09/23 03:16 92 Room Air 05/09/23 03:11 05/08/23 23:42 05/08/23 22:05 91 Room Air 05/08/23 20:30 Room Air 05/08/23 20:11 90 Room Air Laboratory Results Cardiac Enzymes 05/08/23 Range/Units 21:38 AST 32 (13-39) U/L Troponin I High Sens 11.2 (0-14) pg/ml CBC 05/08/23 Range/Units 21:38 WBC 18.65 H (4.8-10.8) K/ul RBC 3.45 L (4.20-5.40) M/uL Hgb 9.5 L (12.0-16.0) g/dl Hct 28.8 L (37.0-47.0) % Plt Count 390 (130-400) K/uL Neut # (Auto) 13.21 H (1.40-6.50) K/uL Lymph # (Auto) 2.13 (1.20-3.40) K/uL Castro # (Auto) 2.51 H (0.11-0.59) K/uL Eos # (Auto) 0.16 (0.00-0.50) K/uL Baso # (Auto) 0.11 (0.00-0.20) K/uL Comprehensive Metabolic Panel 05/08/23 Range/Units 21:38 Sodium 128 L (136-145) mmol/L Potassium 4.3 (3.5-5.1) mmol/L Chloride 91 L (98-107) mmol/L Carbon Dioxide 31 (21-32) mmol/L BUN 23 (6-23) mg/dl Creatinine 0.77 (0.6-1.2) mg/dl Glucose 110 H (70-99(Fasting)) mg/dl Calcium 8.8 (8.6-10.3) mg/dl AST 32 (13-39) U/L ALT 18 (7-52) U/L Alkaline Phosphatase 78 (34-104) U/L Total Protein 6.6 (6.0-8.3) gm/dl Albumin 3.1 L (3.4-5.0) gm/dl Intake and Output 05/08/23 05/09/23 05/09/23 22:59 06:59 14:59 Intake Total 379.85 / 878.35 250 / 878.35 Output Total 2000 / 2000 Balance -20.15 / -1122.65 -550 / -1122.65 Intake: IV 329.85 / 578.35 100 / 578.35 Heparin Sodium/Dextrose 25,000 329.85 / 478.35 units In 500 ml @ 1,350 UNITS/ HR 27 mls/hr IV .[id number] [facility] Rx #:[id number] Piperacillin/Tazobactam 4.5 gm 100 / 100 In Dextrose 5% Mini-B 100 ml @ 200 mls/hr IV ONE ONE Rx#: [id number] Oral 50 / 300 150 / 300 Output: Urine Amount (Catheter) 1999 Muro/Indwelling 1999 Other: Weight 58.5 kg Weight Measurement Method Built in [facility] Medications Administered Current Inpatient Medications Acetaminophen (Acetaminophen 325 Mg Tab) 650 mg PO Q6 PRN PRN Reason: Pain Stop: 05/31/23 13:36 Last Admin: 05/08/23 11:27 Dose: 650 mg Al Hydrox/Mg Hydrox/Simethicone (Aluminum/Magnesium/Simeth (Maalox Max) 30 Ml Udc) 30 ml PO Q6H PRN PRN Reason: Heartburn Stop: 06/06/23 06:31 Carvedilol (Carvedilol 12.5 Mg Tab) 12.5 mg PO BIDM [facility] Stop: 06/03/23 17:59 Last Admin: 05/08/23 15:58 Dose: Not Given Docusate Sodium (Docusate Sodium 100 Mg Cap) 100 mg PO BID [facility] Stop: 06/05/23 20:59 Last Admin: 05/08/23 20:56 Dose: 100 mg Ezetimibe (Ezetimibe 10 Mg Tab) 10 mg PO QAM [facility] Stop: 06/07/23 08:59 Last Admin: 05/08/23 07:57 Dose: 10 mg Heparin Sodium/Dextrose (Heparin Sodium/Dextrose) 25,000 units in 500 mls @ 27 mls/hr IV .[id number] [facility]; Protocol Stop: 06/01/23 00:00 Last Admin: 05/08/23 19:32 Dose: 1,350 units/hr, 27 mls/hr Piperacillin Sod/Tazobactam (Sod 4.5 gm/ Dextrose) 100 mls @ 25 mls/hr IV Q8H [facility]; Protocol Stop: 05/11/23 03:59 Last Admin: 05/09/23 03:11 Dose: 25 mls/hr Labetalol HCl (Labetalol Hcl Iv 5 Mg/Ml 20ml) 10 mg IV Q4H PRN PRN Reason: Hypertension Stop: 06/03/23 06:44 Last Admin: 05/09/23 03:11 Dose: 10 mg Lactobacillus Acidophilus (Advanced Probiotic 1250 Mg Capsule) 2 cap PO DAILY [facility] Stop: 06/01/23 08:59 Last Admin: 05/08/23 07:58 Dose: 2 cap Losartan Potassium (Losartan Potassium 50 Mg Tab) 100 mg PO DAILY [facility] Stop: 06/03/23 08:59 Last Admin: 05/08/23 07:58 Dose: 100 mg Morphine Sulfate (Morphine Sulfate 4 Mg/Ml 1 Ml Carp\Vial) 1 - 4 mg IV Q2H PRN PRN Reason: Pain Stop: 05/15/23 13:22 Last Admin: 05/07/23 09:21 Dose: 4 mg Nifedipine (Nifedipine Extended Rel 30 Mg Tabcr) 60 mg PO HS [facility] Stop: 06/07/23 20:59 Last Admin: 05/08/23 20:56 Dose: 60 mg Ondansetron HCl (Ondansetron Inj 2 Mg/Ml 2 Ml Vial) 4 mg IV Q6H PRN PRN Reason: Nausea And Vomiting Stop: 05/31/23 13:22 Last Admin: 05/08/23 23:09 Dose: 4 mg Oxycodone/Acetaminophen (Oxycodone/Acetaminophen 5mg/325mg Tab) 1 - 2 tab PO Q4H PRN PRN Reason: Pain (Scale 3,4,5,6) Stop: 05/15/23 20:53 Last Admin: 05/08/23 14:40 Dose: 2 tab Polyethylene Glycol (Polyethylene (Miralax) 17 Gm Pack) 17 gm PO DAILY PRN PRN Reason: Constipation Stop: 06/04/23 12:38 Last Admin: 05/07/23 20:23 Dose: 17 gm Rosuvastatin Calcium (Rosuvastatin Calcium 20 Mg Tab) 40 mg PO QAM [facility] Stop: 06/07/23 08:59 Last Admin: 05/08/23 07:57 Dose: 40 mg Spironolactone (Spironolactone 25 Mg Tab) 25 mg PO QAM [facility] Stop: 06/07/23 08:59 Last Admin: 05/08/23 07:57 Dose: 25 mg
[2023-05-09 07:58] LABS: BUN Creatinine Ratio 28.8 (10-20); Calcium 8.9 mg/dl (8.6-10.3); Creatinine Clr Calc Pharmacy 66.2 ml/min; Est GFR (African American) 107.4 ml/min; Est GFR (Non-African American) 92.7 ml/min; Potassium 4.1 mmol/L (3.5-5.1)
[2023-05-09 08:17] LABS: ANTI-Xa, UFH(UnfractionatedHep 0.43 IU/ml (0.3-0.7)
[2023-05-09] MEDS: ROSUVASTATIN CALCIUM 20 MG TAB PO SCH (08:54)
[2023-05-09] MEDS: ADVANCED PROBIOTIC 1250 MG CAPSULE PO SCH (08:54)
[2023-05-09] MEDS: EZETIMIBE 10 MG TAB PO SCH (08:54)
[2023-05-09] MEDS: carvediloL 12.5 MG TAB PO SCH ×2 (08:54→16:13)
[2023-05-09] MEDS: LOSARTAN POTASSIUM 50 MG TAB PO SCH (08:54)
[2023-05-09] MEDS: DOCUSATE SODIUM 100 MG CAP PO SCH ×2 (08:54→20:59)
[2023-05-09] MEDS: SPIRONOLACTONE 25 MG TAB PO SCH (08:54)
--- NOTE | 2023-05-09 08:55 | Communication Note ---
Date of Service: May 09, 2023 Lat night around 8:50pm was texted that patient woke up from sleep and was oriented to name only. Last well known was at 6pm.Saw patient. CAn tell name but does not know where she is. Obeys simple commands. Answers simple questions. Denies headache, vision ok. NO chest pain or sob. No facial droop. Can raise brow.Speech clear.Power 5/5 in upper extremities . Co ordination of movements normal.Finger nose test normal. No pronator drift. CT head was done and was ok. Discussed with [facility] neurology. and as patient current only finding is of disorientation and patient been on iv heparin for abdominal aortic dissection thought that patient not candidate for tnk and aslo no cta head and neck as no obvious focal findings and recommended MRI scan. Could not do MRI scan as patient recently has femoral stents. labs showed elevated wbc. Na 128.Empirically started on zosyn. Notified Am provider.
--- NOTE | 2023-05-09 09:26 | Neurology Progress Note ---
Date of Service May 09, 2023 Assessment & Plan (1) Spinal cord infarction: (2) Leg weakness, bilateral: Plan This patient likely had a lower thoracic spinal cord acute infarct, during peripheral vascular surgery May 01, associated with a long segment dissection of the abdominal aorta. She has profound weakness of the lower extremities but has made some improvements over the last couple of days going from paralysis to 1/5 movements diffusely bilaterally proximally distally. Left leg moves slightly better than the right. Reflexes are still absent. There is no sensory component to this lower thoracic cord infarct (positive Beevor sign points to a lower thoracic [id number]). Recommendations: 1. Continue physical and occupational therapy. 2. Recommend rehabilitation hospital and not home as the patient desires as I am not certain she can get the proper care and rehabilitation at home. 3. Could consider MRI of the thoracic cord. Overall, I spent a total of 50 minutes with this case including review of records, direct evaluation the patient at bedside, report generation, and discussing the case with the patient and RN at bedside, and with Monika Godoy PA-C, including differential diagnosis and options Admission and Anticipated Discharge Date Admission Date: May 01, 2023 Subjective Patient has no complaint of pain or headache. Does have a little bit of lightheadedness when she sits up. She has no weakness, numbness, or pain in the arms. The only thing she wants is to go home. She does not want to go to the rehab hospital. Nursing reports that she can move her toes some and is about the same today as she was yesterday. Results & Data Vital Signs (Past 12 Hours) Vital Signs Temp Pulse Pulse Resp BP BP Pulse Ox 05/09/23 07:43 36.4 C L 68 18 178/65 H 92 05/09/23 03:37 64 177/74 H 05/09/23 03:16 36.8 C 75 16 198/63 H 92 05/09/23 03:11 75 198/63 H 05/08/23 23:42 65 05/08/23 22:05 36.5 C 70 16 184/50 H 91 O2 Del Method 05/09/23 07:43 Room Air 05/09/23 03:37 05/09/23 03:16 Room Air 05/09/23 03:11 05/08/23 23:42 05/08/23 22:05 Room Air Exam (Neuro) Physical Exam: Patient is awake and alert. Speech is without aphasia or dysarthria. Mood is reasonable affect is appropriate. Thought processes are intact conversation. Extraocular muscles are intact without nystagmus. There is no facial droop. Tongue is midline. Neck is supple. Coordination is normal in the arms without tremor or ataxia. Strength is 5/5 diffusely in all major muscle groups in the arms both proximally and distally. There is a positive Beevor's sign present with the umbilicus moving up towards the head with head flexion. Leg strength is 1/4 proximally and distally left greater than right leg. She has a normal sensory exam in the legs, abdomen, and posterior thoraco lumbar spine. Toes were neutral to plantar stimulation bilaterally Reflexes were 2/4 in the biceps, triceps, and brachioradialis tendons. Reflexes were absent in the quadriceps and Achilles tendons bilaterally. PG Care Time/CCT Total # of Minutes Spent Total Time Spent with Patient: Total time spent is greater than 50% in coordination of care (as documented) at patient's floor/unit and/or counseling patient: Coding Level of Care Code 21058 SUB INP/OBS CARE 3/50MIN Diagnoses Spinal cord infarction G95.11 Leg weakness, bilateral R29.898 Time Spent (min) 50
--- NOTE | 2023-05-09 15:09 | Surgery Progress Note ---
Date of Service May 09, 2023 Assessment & Plan (1) Spinal cord infarction: Plan: She is having slight movement of her feet. Encouraged to participate in transfers and therapy. Pt would like to return home, however, she will require signfiicant PT/OT prior to returning home. Discussed with pt, she is agreeable to rehab placement. CHange heparin to eliquis Continue PT/OT. [facility]. Nephrology wishes to eval her labs tomorrow morning. Planning on d/c to rehab tomorrow if labs remain stable or improve. Pt's family had previously requested to seek a second opinion at [facility]. Records and imaging transmitted to [facility]. Pt herself states she does not wish to be seen at [facility] presently. Advised pt to discuss with her family and make her wishes known. If she decides she does wish to seek a second opinion, pt may call [facility] to arrange. Pt expresses understanding. Dr Amor's office will call to arrange an outpt follow up appt for staple removal next week in office. (2) Ischemia of right lower extremity: Plan: Both lower extremities are viable, aside from R great toe. Continue present tx. Admission and Anticipated Discharge Date Admission Date: May 01, 2023 Subjective 67 yo f s/p RLE revascularization, now with aortic dissection and spinal cord ischemia, seen in f/u today. Pt denies any new complaints. Review of Systems Review of Systems: All systems reviewed & are unremarkable except as noted in HPI & below Physical Exam Constitutional: WD/WN, vitals as above Respiratory: normal respiratory effort, lungs clear to auscultation normal respiratory effort; no respiratory distress Auscultation: lungs clear to auscultation bilaterally Cardiovascular: RRR, no murmur, no edema Rate/Rhythm: regular rate and regular rhythm Vessels: posterior tibial pulses present (RLE faintly palpable) and dorsalis pedis pulses present (RLE faintly palpable) Extremities: normal capillary refill (R great toe no refill, 2nd toe mildly red with cap refill 5 seconds. ) Gastrointestinal (Abdomen): Percussion/Palpation: abdomen soft; abdomen nontender Skin: + incision (C/D/I with augustin, minimal serous/bloody drainage from ankle incision. ) Neurologic: CN's II-XI intact bilaterally and normal sensation to monofilament; + does not move all extremities (slight plantar and dorsiflexion BLE. + sensation) Psychiatric: Orientation: alert and oriented x 3 Results & Data Vital Signs (Past 12 Hours) Vital Signs Temp Pulse Pulse Resp BP BP Pulse Ox 05/09/23 11:30 36.2 C L 54 L 18 113/54 L 90 05/09/23 08:00 05/09/23 08:00 67 05/09/23 07:43 36.4 C L 68 18 178/65 H 92 05/09/23 03:37 64 177/74 H 05/09/23 03:16 36.8 C 75 16 198/63 H 92 05/09/23 03:11 75 198/63 H O2 Del Method 05/09/23 11:30 Room Air 05/09/23 08:00 Room Air 05/09/23 08:00 05/09/23 07:43 Room Air 05/09/23 03:37 05/09/23 03:16 Room Air 05/09/23 03:11
--- NOTE | 2023-05-09 17:16 | Hospitalist Progress Note ---
Date of Service May 09, 2023 Assessment & Plan (1) Hypertensive urgency: Plan: Patient is a 67 yr female with H/O Hypertension and peripheral vascular disease admitted to the hospital for right lower extremity critical limb ischemia and right great toe gangrene. She underwent vascular surgery on May 01. See operative report for further information. On the same day, patient underwent another vascular surgery. See operative report for further information. Patient was then admitted to ICU in postoperative for close monitoring. Neurology was consulted due to acute onset flaccid paralysis of both lower extremity. 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 Patient was then transferred to telemetry floors. Hospitalist service is consulted for management of hypertension. Hypertensive urgency CTA abdomen shows bilateral proximal renal artery stenosis. Continue Coreg 12.5 twice daily Continue losartan 100 mg daily, nifedipine 90 mg at bedtime Also on Aldactone IV labetalol as needed Appreciate cardiology/Nephrology Input Hydrochlorothiazide/chlorthalidone was stopped due to hyponatremia. Avoid JESSICA/ARB/ARNI due to renal artery stenosis Monitor BP closely Hyponatremia Serum sodium down trended while on hydrochlorothiazide. Serum sodium 127>128>130 Appreciate nephrology input Monitor I's and O's closely Continue fluid restriction as per nephrology Monitor sodium levels closely Once sodium 135 or more, can discontinue fluid restriction as per nephrology Needs follow-up with nephrology upon discharge Abnormal CT abdomen/pelvis finding: Irregular thickening and mucosal hyperenhancement within rectosigmoid junction measuring 7.3 cm. Suspicious for colonic mass Will require further workup as per GI. Will let primary decide the timing of the evaluation. Prior hospitalist discussed with patient's son Obey over the phone regarding the CT abdomen/pelvis finding on May 05, 2023. she will need further workup once acute issues have resolved with evaluation by GI. Prior hospitalist discussed with patient as well at bedside on May 06, 2023 and on May 07, 2023. She does not want any evaluation for the colon mass at the moment. She reports that she will follow-up after rehab. Pulmonary nodule: 1.4 cm irregular pulmonary nodule seen in anterior left upper lobe. Will need follow-up CT chest in 4 to 6 weeks. Prior hospitalist updated patient/patient's son about pulmonary nodule and need for further workup Type 2 diabetes mellitus: HbA1c of 6.5% Diet controlled for now Can consider oral hypoglycemic agents if patient is willing to try. Right lower extremity ischemia/right great toe gangrene Status post surgery by vascular surgery On heparin drip>> transition to Eliquis Management per primary Abdominal aortic dissection Bilateral lower extremity weakness Blood pressure management as above Management as per primary DVT Px: Started on Eliquis Code Status Full Code Disposition As per Primary Admission and Anticipated Discharge Date Admission Date: May 01, 2023 Subjective Patient is seen and examined at bedside States having some soreness at surgical site of her legs Denies any chest pain, dyspnea, dizziness, nausea, vomiting, abdominal pain No other complaints Review of Systems Review of Systems: All systems reviewed & are unremarkable except as noted in Subjective Physical Exam Physical Exam: Physical Exam: Vitals signs as noted above General Appearance:Moderately built and nourished, no apparent distress Head: normocephalic, Atraumatic Eyes: normal inspection, EOMI Neck: supple, Trachea midline Respiratory/Chest: Normal breath sounds, CTA, No accessory muscle use Cardiovascular: S1, S2, + murmur Abdomen/GI:Soft, Non tender, Bowel sounds present Extremities/Musculoskeletal:normal inspection, +[place]amar on LE B/L, R toe gangrene +edema Neurologic/Psych:AAOX3, B/L LE weakness 1-2/5 Skin: normal color, warm Results & Data Results & Data Vital Signs (Past 12 Hours) Vital Signs Temp Pulse Pulse Resp BP Pulse Ox O2 Del Method 05/09/23 16:06 36.4 C L 53 L 18 138/54 L 91 Room Air 05/09/23 11:30 36.2 C L 54 L 18 113/54 L 90 Room Air 05/09/23 08:00 Room Air 05/09/23 08:00 67 05/09/23 07:43 36.4 C L 68 18 178/65 H 92 Room Air Laboratory Results Short CBC 05/08/23 Range/Units 21:38 WBC 18.65 H (4.8-10.8) K/ul Hgb 9.5 L (12.0-16.0) g/dl Hct 28.8 L (37.0-47.0) % Plt Count 390 (130-400) K/uL BMP 05/08/23 05/09/23 21:38 07:15 Sodium 128 L 130 L Potassium 4.3 4.1 Chloride 91 L 92 L Carbon Dioxide 31 31 BUN 23 19 Creatinine 0.77 0.66 Glucose 110 H 143 H Calcium 8.8 8.9 Liver Function 05/08/23 Range/Units 21:38 Total Bilirubin 0.4 (0.2-1.0) mg/dl AST 32 (13-39) U/L ALT 18 (7-52) U/L Alkaline Phosphatase 78 (34-104) U/L Albumin 3.1 L (3.4-5.0) gm/dl Urine 05/08/23 Range/Units 20:50 Urine Color Yellow Urine Appearance Clear (Clear) Urine pH 7.0 (4.5-7.5) Ur Specific Conrad 1.008 (1.000-1.030) Urine Protein Negative (Negative) Urine Glucose (UA) Negative (Negative)
[2023-05-09] MEDS: APIXABAN 5 MG TABLET PO SCH (20:58)
[2023-05-09] MEDS ORDERED: NIFEdipine EXTENDED REL 30 MG TABCR PO SCH (21:00)
[2023-05-09] MEDS: POLYETHYLENE (MIRALAX) 17 GM PACK PO PRN (21:07)
[2023-05-10] MEDS: PIPERACILLIN/TAZOBACTAM 4.5 GM in DEXTROSE 5% MINI-B 100 ML IV SCH ×2 (03:56→11:00)
[2023-05-10 06:47] LABS: Hematocrit (blood only) 28.4 % (37.0-47.0); Hemoglobin 9.5 g/dl (12.0-16.0); Mean Corpuscular Hemoglobin 28.2 pg (25.0-34.0); Mean Corpuscular Hgb Conc 33.5 g/dL (32.0-36.0); Mean Corpuscular Volume 84.3 fL (80.0-100.0); Platelet Count 404 K/uL (130-400); RDW Coefficient of Variation 14.6 % (11.5-14.5); RDW Standard Deviation 44.4 fL (36.4-46.3); Red Blood Count 3.37 M/uL (4.20-5.40)
[2023-05-10 07:04] LABS: Calcium 8.8 mg/dl (8.6-10.3); Creatinine Clr Calc Pharmacy 59.8 ml/min; Est GFR (African American) 100.2 ml/min; Est GFR (Non-African American) 86.4 ml/min; Magnesium 2.1 mg/dl (1.7-2.4); Potassium 4.4 mmol/L (3.5-5.1)
[2023-05-10] MEDS: carvediloL 12.5 MG TAB PO SCH (07:25)
[2023-05-10] MEDS: EZETIMIBE 10 MG TAB PO SCH (07:25)
[2023-05-10] MEDS: APIXABAN 5 MG TABLET PO SCH (07:25)
[2023-05-10] MEDS: DOCUSATE SODIUM 100 MG CAP PO SCH (07:26)
[2023-05-10] MEDS: ADVANCED PROBIOTIC 1250 MG CAPSULE PO SCH (07:26)
[2023-05-10] MEDS: ROSUVASTATIN CALCIUM 20 MG TAB PO SCH (07:27)
[2023-05-10] MEDS: SPIRONOLACTONE 25 MG TAB PO SCH (07:27)
[2023-05-10] MEDS: LOSARTAN POTASSIUM 50 MG TAB PO SCH (07:43)
--- NOTE | 2023-05-10 07:49 | Nephrology Progress Note ---
Date of Service May 10, 2023 Assessment & Plan (1) Hyponatremia: Plan: moderate hyponatremia in pt w/o sigrid volume overload w/ sNa improving further to 131 today; cause unclear > hypovolemia/decreased effective circulating volume versus SIADH; ? role for thiazide though she had one dose only on 05/05 and we are missing lab trends; heparin gtt started 05/02 gives her about 1/2L D5W daily and not receiving other IVF really since admission and she drinks about 500-700 mL daily x days; urine osm inconclusive in isolation particularly in this range; less likely related to peripheral lung lesion concerning for neoplasm so this could in theory be SIADH/paraneoplastic process or to low solute diet; imaging w/ structural lung disease which can contribute; no report of excessive GI losses; TSH wnl; AM cortisol acceptable urine studies rechecked 05/08 notably most c/w mild polydipsia -needs strict I/O -daily bed weight to continue -no need for FR as she rarely takes in more than 700 mL daily until yesterday and is now off of heparin gtt -agree w/ avoiding further thiazides and expect sodium to improve further once off of heparin gtt -may need to hold spironolactone if sodium continues to decline -low threshold for loop diuretic therapy defer to cardiology, IM for HTN mgt will sign off NEPHRO D/C RECOMMENDATIONS -d/c on fluid limit 1.5 L daily, toward which protein shakes don't count -bmp 2X weekly at rehab and rehab personnel to contact me if serum sodium <130 -check bmp at pcp f/u visit after rehab d/c >> if serum sodium 135 or better can stop fluid limit -recommend PCP again recheck BMP one month after rehab d/c; if still w/ sodium issues or ongoing uncontrolled HTN, consider nephro referral -would avoid hctz or other thiazide diuretics for BP control after d/c Care coordinated again today with vascular surgery service Admission and Anticipated Discharge Date Admission Date: May 01, 2023 Subjective Seen and evaluated on rounds at approximately 8:00 a.m. this morning. No acute interval clinical events. no worsening dyspnea or edema; no N Review of Systems 2 Review of Systems: All systems reviewed & are unremarkable except as noted in Subjective Physical Exam 2 Constitutional: well developed, well nourished, + frail appearing and cooperative; no acute distress Eyes: EOM intact bilaterally ENMT: Ears: no external ear abnormality Nose: no external nose abnormality Mouth: + dry oral mucous membranes and + poor dentition Neck: no nuchal rigidity Respiratory: normal respiratory effort Auscultation: + diminished lung sounds Cardiovascular: Rate/Rhythm: regular rate and regular rhythm Heart Sounds: + murmur Extremities: no edema Gastrointestinal (Abdomen): Inspection/Auscultation: normal bowel sounds P ercussion/Palpation: abdomen soft; abdomen nontender Musculoskeletal: Extremities: + abnormal strength (BLE flaccid paralysis) Skin: no rashes, warm and dry Psychiatric: Orientation: oriented x 3 and cooperative Results & Data Vital Signs (Past 12 Hours) Vital Signs Temp Pulse Pulse Resp BP Pulse Ox O2 Del Method 05/10/23 03:38 36.7 C 58 L 16 131/55 L 91 Room Air 05/09/23 22:36 36.8 C 51 L 17 137/53 L 94 Room Air 05/09/23 22:16 Room Air Laboratory Results 05/10/23 05:54 05/10/23 05:54
--- NOTE | 2023-05-10 07:55 | Cardiology Progress Note ---
Date of Service May 10, 2023 Assessment & Plan Admission and Anticipated Discharge Date Admission Date: May 01, 2023 Supervising Physician Co-Signing Physician Notes 67 yo woman Consultation for HTN management * S/P complex revascularization procedure of the right lower leg for critical limb ischemia. * Post procedure noted to have bilateral lower extremity paralysis. * CT of the abdomen and pelvis performed several days ago revealed a long segment of dissection of the aorta and bilateral renal artery stenosis * LVEF 45%; LION 1.1 cm2 C/W Moderate * HTN - longstanding * BP 131/44 * Continue Carvedilol 12.5 mg BID po BID - HR 52 - no further escalation * Continue Losartan 100 mg po per daily * Continue Procardia to 90 mg po per day * Continue Aldactone 25 mg po per day * HCTZ (OFF) * Hydralazine (OFF) * Avoiding JESSICA/ARB/ARNI given bilateral KAYDEN * LDL 82 - extensive PAD * Lipitor (OFF) * Continue Crestor 40 mg po per day * Continue Zetia 10 mg po per day * Check Lipoprotein (a) + Apolipoprotein B * TSH -2 * Smoking cessation * Feet are moving better * [facility] * Please call with any additional questions Ike Roach Subjective Events overnight: * None reported * No Telemetry events - sinus with APCs Subjective: * Improvement in leg movement * No complaints Review of Systems Review of Systems: All systems reviewed & are unremarkable except as noted in HPI & below Physical Exam Physical Exam: JVP 10 cmH20 S1S2 2/6 systolic mumur at base left and apex CTA B No Abdominal Wall edema Mild swelling - RLE; augustin in place Results & Data Vital Signs (Past 12 Hours) Vital Signs Temp Pulse Pulse Resp BP Pulse Ox O2 Del Method 05/10/23 03:38 36.7 C 58 L 16 131/55 L 91 Room Air 05/09/23 22:36 36.8 C 51 L 17 137/53 L 94 Room Air 05/09/23 22:16 Room Air Laboratory Results Coagulation 05/09/23 Range/Units 07:15 APTT Cancelled CBC 05/10/23 Range/Units 05:54 WBC 15.50 H (4.8-10.8) K/ul RBC 3.37 L (4.20-5.40) M/uL Hgb 9.5 L (12.0-16.0) g/dl Hct 28.4 L (37.0-47.0) % Plt Count 404 H (130-400) K/uL Comprehensive Metabolic Panel 05/09/23 05/10/23 Range/Units 07:15 05:54 Sodium 130 L 131 L (136-145) mmol/L Potassium 4.1 4.4 (3.5-5.1) mmol/L Chloride 92 L 94 L (98-107) mmol/L Carbon Dioxide 31 31 (21-32) mmol/L BUN 19 19 (6-23) mg/dl Creatinine 0.66 0.73 (0.6-1.2) mg/dl Glucose 143 H 116 H (70-99(Fasting)) mg/dl Calcium 8.9 8.8 (8.6-10.3) mg/dl Intake and Output 05/09/23 05/10/23 05/10/23 22:59 06:59 14:59 Intake Total 450 / 1850 450 / 1850 Output Total 600 / 1700 600 / 1700 Balance -150 / 150 -150 / 150 Intake: IV 100 / 800 100 / 800 Piperacillin/Tazobactam 4.5 gm 100 / 300 100 / 300 In Dextrose 5% Mini-B 100 ml @ 25 mls/hr IV Q8H [facility] Rx#: [id number] Oral 350 / 1050 350 / 1050 Output: Urine Amount (Catheter) 600 / 1700 600 / 1700 Muro/Indwelling 600 / 1700 600 / 1700 Other: Weight 58.4 kg Weight Measurement Method [facility] Medications Administered Current Inpatient Medications Acetaminophen (Acetaminophen 325 Mg Tab) 650 mg PO Q6 PRN PRN Reason: Pain Stop: 05/31/23 13:36 Last Admin: 05/08/23 11:27 Dose: 650 mg Al Hydrox/Mg Hydrox/Simethicone (Aluminum/Magnesium/Simeth (Maalox Max) 30 Ml Udc) 30 ml PO Q6H PRN PRN Reason: Heartburn Stop: 06/06/23 06:31 Apixaban (Apixaban 5 Mg Tablet) 10 mg PO BID [facility] Stop: 05/16/23 09:01 Last Admin: 05/10/23 07:25 Dose: 10 mg Carvedilol (Carvedilol 12.5 Mg Tab) 12.5 mg PO BIDM [facility] Stop: 06/03/23 17:59 Last Admin: 05/10/23 07:25 Dose: Not Given Docusate Sodium (Docusate Sodium 100 Mg Cap) 100 mg PO BID [facility] Stop: 06/05/23 20:59 Last Admin: 05/10/23 07:26 Dose: 100 mg Ezetimibe (Ezetimibe 10 Mg Tab) 10 mg PO QAM [facility] Stop: 06/07/23 08:59 Last Admin: 05/10/23 07:25 Dose: 10 mg Piperacillin Sod/Tazobactam (Sod 4.5 gm/ Dextrose) 100 mls @ 25 mls/hr IV Q8H [facility]; Protocol Stop: 05/11/23 03:59 Last Admin: 05/10/23 03:56 Dose: 25 mls/hr Labetalol HCl (Labetalol Hcl Iv 5 Mg/Ml 20ml) 10 mg IV Q4H PRN PRN Reason: Hypertension Stop: 06/03/23 06:44 Last Admin: 05/09/23 03:11 Dose: 10 mg Lactobacillus Acidophilus (Advanced Probiotic 1250 Mg Capsule) 2 cap PO DAILY [facility] Stop: 06/01/23 08:59 Last Admin: 05/10/23 07:26 Dose: 2 cap Losartan Potassium (Losartan Potassium 50 Mg Tab) 100 mg PO DAILY [facility] Stop: 06/03/23 08:59 Last Admin: 05/10/23 07:43 Dose: Not Given Morphine Sulfate (Morphine Sulfate 4 Mg/Ml 1 Ml Carp\Vial) 1 - 4 mg IV Q2H PRN PRN Reason: Pain Stop: 05/15/23 13:22 Last Admin: 05/07/23 09:21 Dose: 4 mg Nifedipine (Nifedipine Extended Rel 30 Mg Tabcr) 90 mg PO HS [facility] Stop: 06/08/23 20:59 Last Admin: 05/09/23 21:00 Dose: 90 mg Ondansetron HCl (Ondansetron Inj 2 Mg/Ml 2 Ml Vial) 4 mg IV Q6H PRN PRN Reason: Nausea And Vomiting Stop: 05/31/23 13:22 Last Admin: 05/08/23 23:09 Dose: 4 mg Oxycodone/Acetaminophen (Oxycodone/Acetaminophen 5mg/325mg Tab) 1 - 2 tab PO Q4H PRN PRN Reason: Pain (Scale 3,4,5,6) Stop: 05/15/23 20:53 Last Admin: 05/08/23 14:40 Dose: 2 tab Polyethylene Glycol (Polyethylene (Miralax) 17 Gm Pack) 17 gm PO DAILY PRN PRN Reason: Constipation Stop: 06/04/23 12:38 Last Admin: 05/09/23 21:07 Dose: 17 gm Rosuvastatin Calcium (Rosuvastatin Calcium 20 Mg Tab) 40 mg PO [facility] Stop: 06/07/23 08:59 Last Admin: 05/10/23 07:27 Dose: 40 mg Spironolactone (Spironolactone 25 Mg Tab) 25 mg PO [facility] Stop: 06/07/23 08:59 Last Admin: 05/10/23 07:27 Dose: 25 mg
--- NOTE | 2023-05-10 12:22 | Hospitalist Progress Note ---
Date of Service May 10, 2023 Assessment & Plan (1) Hypertensive urgency: Plan: Patient is a 67 yr female with H/O Hypertension and peripheral vascular disease admitted to the hospital for right lower extremity critical limb ischemia and right great toe gangrene. She underwent vascular surgery on May 01. See operative report for further information. On the same day, patient underwent another vascular surgery. See operative report for further information. Patient was then admitted to ICU in postoperative for close monitoring. Neurology was consulted due to acute onset flaccid paralysis of both lower extremity. 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 Patient was then transferred to telemetry floors. Hospitalist service is consulted for management of hypertension. Hypertensive urgency CTA abdomen shows bilateral proximal renal artery stenosis. Continue Coreg 12.5 twice daily Continue losartan 100 mg daily, nifedipine at bedtime Also on Aldactone IV labetalol as needed Appreciate cardiology/Nephrology Input Hydrochlorothiazide/chlorthalidone was stopped due to hyponatremia. Avoid JESSICA/ARB/ARNI due to renal artery stenosis Plan to be discharged to rehab facility today Hyponatremia Serum sodium down trended while on hydrochlorothiazide. Serum sodium 127>128>130>131 Appreciate nephrology input Monitor I's and O's closely Continue fluid restriction as per nephrology Monitor sodium levels closely Once sodium 135 or more, can discontinue fluid restriction as per nephrology Needs follow-up with nephrology upon discharge Abnormal CT abdomen/pelvis finding: Irregular thickening and mucosal hyperenhancement within rectosigmoid junction measuring 7.3 cm. Suspicious for colonic mass Will require further workup as per GI. Will let primary decide the timing of the evaluation. Prior hospitalist discussed with patient's son Obey over the phone regarding the CT abdomen/pelvis finding on May 05, 2023. she will need further workup once acute issues have resolved with evaluation by GI. Prior hospitalist discussed with patient as well at bedside on May 06, 2023 and on May 07, 2023. She does not want any evaluation for the colon mass at the moment. She reports that she will follow-up after rehab. Pulmonary nodule: 1.4 cm irregular pulmonary nodule seen in anterior left upper lobe. Will need follow-up CT chest in 4 to 6 weeks. Prior hospitalist updated patient/patient's son about pulmonary nodule and need for further workup Type 2 diabetes mellitus: HbA1c of 6.5% Diet controlled for now Can consider oral hypoglycemic agents if patient is willing to try. Right lower extremity ischemia/right great toe gangrene Status post surgery by vascular surgery On heparin drip>> transition to Eliquis Management per primary Abdominal aortic dissection Bilateral lower extremity weakness Blood pressure management as above Management as per primary DVT Px: Eliquis Code Status Full Code Disposition As per Primary Rehab Admission and Anticipated Discharge Date Admission Date: May 01, 2023 Subjective Patient is seen and examined at bedside States feeling much better today No new complaints Still has mild shortness of augustin Denies any chest pain, dyspnea, dizziness, nausea, vomiting, abdominal pain Plan to be discharged to rehab facility today Review of Systems Review of Systems: All systems reviewed & are unremarkable except as noted in Subjective Physical Exam Physical Exam: Physical Exam: Vitals signs as noted above General Appearance:Moderately built and nourished, no apparent distress Head: normocephalic, Atraumatic Eyes: normal inspection, EOMI Neck: supple, Trachea midline Respiratory/Chest: Normal breath sounds, CTA, No accessory muscle use Cardiovascular: S1, S2, + murmur Abdomen/GI:Soft, Non tender, Bowel sounds present Extremities/Musculoskeletal:normal inspection, +[place] on LE B/L, R toe gangrene +edema Neurologic/Psych:AAOX3, B/L LE weakness 1-2/5 Skin: normal color, warm Results & Data Results & Data Vital Signs (Past 12 Hours) Vital Signs Temp Pulse Pulse Pulse Resp BP BP 05/10/23 11:24 36.8 C 54 L 18 131/48 L 05/10/23 10:19 36.7 C 58 L 51 L 16 128/67 131/55 L 05/10/23 08:00 52 L 05/10/23 03:38 36.7 C 58 L 16 131/55 L Pulse Ox O2 Del Method 05/10/23 11:24 92 Room Air 05/10/23 10:19 91 05/10/23 08:00 05/10/23 03:38 91 Room Air Laboratory Results Short CBC 05/10/23 Range/Units 05:54 WBC 15.50 H (4.8-10.8) K/ul Hgb 9.5 L (12.0-16.0) g/dl Hct 28.4 L (37.0-47.0) % Plt Count 404 H (130-400) K/uL [facility] 05/10/23 05:54 Sodium 131 L Potassium 4.4 Chloride 94 L Carbon Dioxide 31 BUN 19 Creatinine 0.73 Glucose 116 H Calcium 8.8
--- NOTE | 2023-05-10 13:36 | Discharge Summary ---
Date of Service May 10, 2023 Admission HPI Per Admitting Provider April 27, 2023 Assessment & Plan (1) Peripheral arterial disease: Pt with wet gangrene of R great toe and significant PAD of BLE. No rest pain. Pt discussed with Dr Amor, recommends pt undergo RLE angio with intervention on Sunday, 05/01. Procedure, risks, benefits, and alternatives discussed with pt and her daughter by myself at Dr Amor's request. Pt expresses understanding and agreement. If pt is discharged prior to then, can come in as outpt for procedure. She will need to arrive at 0600 and be NPO after midnight the night before. Advised pt and her daughter of these instructions. History of Present Illness Reason for Consultation: PAD, R toe wound Attending Physician: Claudia Melvin MD History of Present Illness 67 yo f without significant medical hx, admitted with gangrene of R great toe, seen in consultation today for PAD. Pt has not seen a physician in many years. She is a long time smoker. She states she injured her R great toe in December 2022, and there appeared to be a bruise to the area for quite a while. States she noted redness and pain about 1-2 weeks ago, which progressed after she attempted to treat an ingrown toenail at home herself. Upon questioning, pt states she does get calf cramps when ambulating. Denies Chandra, fever, chest pain, SOB, abd pain, N/V, rest pain, prior nonhealing wounds, other complaints. Arterial US of RLE demonstrates a long occlusion of her SFA with distal reconstitution, and a severe stenosis of her profunda. [place] RLE 0.3, LLE 0.4. Allergies Allergy/AdvReac Type Severity Reaction Status Date / Time No Known Allergies Allergy Verified 04/25/23 15:32 Home Medications Medication Instructions Recorded Confirmed Type ibuprofen 200 mg tablet (Advil) 200 mg PO Q6H PRN Pain 04/25/23 04/25/23 History Patient History Medical History Tobacco abuse HTN (hypertension) Family History Other Diabetes Social History Smoking Status: Current every day smoker Tobacco Type: Cigarettes Cigarettes Per Day: 1-2 ppd; Hx Alcohol Use: No Hx Substance Use: No Preferred Language: Bahraini Communication Ability: Effective Traffic Officer Required: No Beliefs That Will Affect Care: None Current Living Situation: Alone Current Living Situation Comment: mobile home by herself with a dog, family nearby Feels Safe at Home: Yes Safety Concerns: Feels Safe At This Time Assistive Devices: None Review of Systems Review of Systems: All systems reviewed & are unremarkable except as noted in HPI & below Physical Exam Constitutional: WD/WN, vitals as above cooperative and comfortable; not in distress Neck: trachea midline Respiratory: normal respiratory effort Auscultation: + diminished lung sounds and + wheezes Cardiovascular: Rate/Rhythm: regular rate and regular rhythm Vessels: femoral pulses present (+3), posterior tibial pulses present (nonpalpable), dorsalis pedis pulses present (nonpalpable) and radial pulses present; + abnormal peripheral pulses Extremities: + edema (R great toe); + abnormal capillary refill Gastrointestinal (Abdomen): Inspection/Auscultation: abdomen normal to inspection and normal bowel sounds Percussion/Palpation: abdomen soft; abdomen nontender Musculoskeletal: Extremities: strength 5/5 throughout Skin: + eschar (wet necrosis of R distal great toe, moderate erythema of toe and local foot) Neurologic: moves all extremities and awake; no focal motor deficits and not confused Psychiatric: A+Ox3, euthymic affect Results & Data Vital Signs (Past 12 Hours) Vital Signs Temp Pulse Pulse Resp BP BP Pulse Ox 04/27/23 11:00 79 186/64 H 04/27/23 10:00 65 156/66 H 04/27/23 09:59 65 156/66 H 04/27/23 09:10 73 191/70 H 04/27/23 08:07 36.7 C 86 16 174/69 H 93 04/27/23 07:31 04/27/23 07:28 74 04/27/23 05:55 90 18 194/69 H 04/27/23 03:40 36.6 C 72 18 218/77 H 95 O2 Del Method 04/27/23 11:00 04/27/23 10:00 04/27/23 09:59 04/27/23 09:10 04/27/23 08:07 Room Air 04/27/23 07:31 Room Air 04/27/23 07:28 04/27/23 05:55 Room Air 04/27/23 03:40 Room Air Signed By: <Electronically signed by Monika Shah PA-C> 04/27/23 1208 <Electronically signed by Paul Amor MD> 04/30/23 1228 Created: 04/27/23 1157 The status of this report is Signed. Draft = Not yet reviewed or approved by Medical Physician. Signed = Reviewed and approved by Medical Physician. Admission Exam Per Admitting Provider Constitutional: WD/WN, vitals as above cooperative and comfortable; not in distress Neck: trachea midline Respiratory: normal respiratory effort Auscultation: + diminished lung sounds and + wheezes Cardiovascular: Rate/Rhythm: regular rate and regular rhythm Vessels: femoral pulses present (+3), posterior tibial pulses present (nonpalpable), dorsalis pedis pulses present (nonpalpable) and radial pulses present; + abnormal peripheral pulses Extremities: + edema (R great toe); + abnormal capillary refill Gastrointestinal (Abdomen): Inspection/Auscultation: abdomen normal to inspection and normal bowel sounds Percussion/Palpation: abdomen soft; abdomen nontender Musculoskeletal: Extremities: strength 5/5 throughout Skin: + eschar (wet necrosis of R distal great toe, moderate erythema of toe and local foot) Neurologic: moves all extremities and awake; no focal motor deficits and not confused Psychiatric: A+Ox3, euthymic affect Principal Diagnosis Spinal cord infarct Right lower extremity ischemia Discharge Exam Constitutional WD/WN, vitals as above [facility] Mallampati Class: III Respiratory normal respiratory effort, lungs clear to auscultation normal respiratory effort; no respiratory distress Auscultation: lungs clear to auscultation bilaterally Cardiovascular RRR, no murmur, no edema Rate/Rhythm: regular rate and regular rhythm Extremities: normal capillary refill Gastrointestinal (Abdomen) Inspection/Auscultation: abdomen normal to inspection and + abdomen distended Percussion/Palpation: abdomen soft; abdomen nontender Skin + incision (incisions dry and clean) Neurologic CN's II-XI intact bilaterally, normal sensation to monofilament, moves all extremities (has some minimal motion of feet ) and awake Motor/Sensory: no sensory deficit Psychiatric Orientation: alert and oriented x 3 Discharge Data Allergies Allergy/AdvReac Type Severity Reaction Status Date / Time No Known Allergies Allergy Verified 05/01/23 06:38 Consultations 05/01/23 13:34 Consult Data Migration Lead Routine 05/02/23 10:02 Consult Neurology Routine 05/04/23 05:13 Consult Hospitalist Routine 05/06/23 07:22 Consult Cardiology Routine 05/08/23 07:28 Consult Nephrology Routine Procedures Performed Operation Date: 05/02/23 14:00 <No data on this case meets the specified criteria> Ordered Studies 05/01/23 07:08 EV angio LE RT Routine US EV guide vascular access Routine 05/01/23 12:00 EV angio LE RT Routine 05/01/23 14:37 EV angio LE RT Routine 05/02/23 11:13 CT angio abdomen pelvis w con Stat CT lumbar spine wo/w con Stat 05/02/23 11:32 CT chest diagnostic wo/w con Stat 05/08/23 21:02 CT head/brain wo con Stat Hospital Course (1) Spinal cord infarction: She is having more movement of feet today than yesterday. She is going to rehab today (2) Ischemia of right lower extremity: Both lower extremities are viable, aside from R great toe. Continue present tx. Total Time Total Time Spent Total Time Spent (In Minutes): 0 Discharge Plan Discharge Items Patient Disposition: Transfer Inpatient Rehab Fac Reason For Visit: POST OP Discharge Diagnosis: 1. 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 s/p RLE common femoral endarterectomy with bovine patch and open thrombectomy of RLE 3. Aortic dissection 4. Spinal cord ischemia 5. Hypertension 6. Hyponatremia Condition on Discharge: Good Activity: Per Instructions section Weightbearing Comment: WBAT Non-emergency contact: Primary Care Provider, Surgeon, Accounting Policy Consultant and Die Cutting Machine Operator Call non-emergency contact if: you have any medication questions, your symptoms worsen, your pain is not controlled, your pain is worsening, your pain is concerning for you, you have a fever, your wound has increased redness and your wound has increased drainage Follow-up/Referrals: Paul Amor MD [Physician] - (Follow up with Dr Amor or Monika Shah PA-C in 1 week for staple removal) PCP,NO [Primary Care Provider] - (Follow up with your PCP within 2 weeks) Diet: Heart Healthy Addtl Attending Provider Instructions: ACTIVITY RECOMMENDATIONS: See Above SPECIAL CARE INSTRUCTIONS: 1. Ruch R great toe with betadine and cover with 4x4 and/or kerlix. Will need a post op shoe/boot for PT/OT if she progresses to weight bearing on the R foot. Call your doctor if: * Temperature above 101 degrees * Pain not relieved by pain medicine ordered * There is increased drainage or redness from any incision * You have any unanswered questions or concerns. Addtl Quill Skinner Provider Instructions: Instructions from hospitalist team; For high blood pressure, your evaluated by cardiology during the hospitalization. They recommended following medication: 1) carvedilol 12.5 mg twice daily 2) losartan 100 mg in a.m. 3) spironolactone 25 mg once daily 4) nifedipine 90 mg in the evening You are also prescribed Crestor and Zetia as per cardiology recommendation for high cholesterol/peripheral vascular disease Please repeat BMP at PCP visit to check on low sodium level. Your sodium level at the time of the discharge was 131. Please follow-up with GI doctor for colonoscopy as discussed. CT abdomen and pelvis showed irregular thickening within the rectosigmoid junction. This is highly suspicious for colonic mass. Please obtain CT chest in 4 weeks to follow-up on the lung nodule seen in the CT chest. Please follow-up with primary care doctor as soon as you are discharged from rehab. NEPHRO D/C RECOMMENDATIONS -d/c on fluid limit 1.5 L daily, toward which protein shakes don't count -bmp 2X weekly at rehab and rehab personnel to contact me if serum sodium <130 -check bmp at pcp f/u visit after rehab d/c >> if serum sodium 135 or better can stop fluid limit -recommend PCP again recheck BMP one month after rehab d/c; if still w/ sodium issues or ongoing uncontrolled HTN, consider nephro referral -would avoid hctz or other thiazide diuretics for BP control after d/c Pending Studies at Discharge: No Stand-Alone Forms: My [facility] Skilled Items Patient informed of condition?: Yes DNR: No Discharge Level of Care: Acute rehab Communicable Disease: No Discharge Prognosis: Stable Lines: None Urinary Catheter: Yes Medications and DC Order Prescriptions: New losartan 50 mg Tablet 100 mg PO DAILY Qty: 30 0RF carvedilol 12.5 mg Tablet 12.5 mg PO BIDM Qty: 30 0RF spironolactone 25 mg Tablet 25 mg PO QAM Qty: 30 0RF ezetimibe 10 mg Tablet 10 mg PO QAM Qty: 30 0RF rosuvastatin [Crestor] 20 mg Tablet 40 mg PO QAM Qty: 30 0RF polyethylene glycol 3350 [Miralax] 17 gram Powder In Packet 17 g PO DAILY PRN (Reason: constipation) Qty: 30 0RF docusate sodium 100 mg Capsule 100 mg PO BID Qty: 60 0RF nifedipine [Procardia XL] 30 mg Tablet Extended Release 24hr 60 mg PO HS Qty: 60 0RF Eliquis 5 mg Tablet 10 mg PO BID Qty: 90 0RF Rx Instructions: Take 10mg BID x 7 days, then 5mg BID oxycodone-acetaminophen [Percocet] 5-325 mg Tablet 1 tab PO Q6H PRN (Reason: pain) Qty: 30 0RF Discontinued acetaminophen [Tylenol] 325 mg Tablet 650 mg PO Q6 PRN (Reason: Pain) ibuprofen [Advil] 200 mg Tablet 200 mg PO Q6H PRN (Reason: Pain) amlodipine [Norvasc] 5 mg Tablet 5 mg PO HS Qty: 30 0RF losartan 50 mg Tablet 50 mg PO QAM Qty: 30 0RF hydrochlorothiazide 25 mg Tablet 12.5 mg PO QAM Qty: 15 0RF cefdinir 300 mg capsule 300 mg PO BID 8 Days Qty: 16 0RF Probiotic 3 billion cell capsule 3,000 mmu cells PO DAILY 14 Days Qty: 14 0RF Rx Instructions: administer with a meal doxycycline hyclate 100 mg tablet 100 mg PO BID 8 Days Qty: 16 0RF Discharge Orders: Discharge Order (Routine); Ordered 05/10/23 Ordered By: Monika Shha Admission Data Admit Date/Time: 05/01/23 19:37 Attending Provider: Paul Amor Admit Provider: Paul Amor Primary Care Provider: PCP,NO Other Providers: Trace Jacobson; Behzad Addison; Kelvin Hanna; González Zamarripa; Rhys Lam; Nakia Rivera; Mark Licona; Ingrid Pierce; Alexa Jacob; Nithin Boyer; Julio Frederick; Neisha Serra; Trace Lowe.; [facility]; Madonna Ortega; Randolph Shaw; Sandie Camarena; Carmen Russell; Stephanie Maldonado; Lavinia Brown; Jacobo Espitia; Charles Palomares Other Interventions: Discharge Summary Assessment (RN) Last Done: 05/10/23 10:19
--- NOTE | 2023-05-10 13:36 | Surgery Progress Note ---
Date of Service May 10, 2023 Assessment & Plan (1) Spinal cord infarction: Plan: She is having more movement of feet today than yesterday. She is going to rehab today (2) Ischemia of right lower extremity: Plan: Both lower extremities are viable, aside from R great toe. Continue present tx. Admission and Anticipated Discharge Date Admission Date: May 01, 2023 Subjective Patient without complaint. Says she is getting movement of her feet. Physical Exam Constitutional: WD/WN, vitals as above Respiratory: normal respiratory effort, lungs clear to auscultation normal respiratory effort; no respiratory distress Auscultation: lungs clear to auscultation bilaterally Cardiovascular: RRR, no murmur, no edema Rate/Rhythm: regular rate and regular rhythm Extremities: normal capillary refill Skin: + incision (incisions dry and clean) Neurologic: CN's II-XI intact bilaterally, normal sensation to monofilament, moves all extremities (has some minimal motion of feet ) and awake Motor/Sensory: no sensory deficit Psychiatric: Orientation: alert and oriented x 3 Results & Data Vital Signs (Past 12 Hours) Vital Signs Temp Pulse Pulse Pulse Resp BP BP 05/10/23 11:24 36.8 C 54 L 18 131/48 L 05/10/23 10:19 36.7 C 58 L 51 L 16 128/67 131/55 L 05/10/23 08:00 52 L 05/10/23 03:38 36.7 C 58 L 16 131/55 L Pulse Ox O2 Del Method 05/10/23 11:24 92 Room Air 05/10/23 10:19 91 05/10/23 08:00 05/10/23 03:38 91 Room Air
== END 2023-05-10 15:08 | DRG 252 ==
LOC: ASU 05:51 → 1E 19:37 → 2S 05-03 20:22

== ENCOUNTER 2023-07-04 11:52 | Inpatient (IN) ==
--- NOTE | 2023-07-04 12:05 | ED Triage Note ---
Date of Service July 04, 2023 Provider in Triage Author: Joyce Jenkins History of Present Illness This patient was briefly evaluated while in triage. An abbreviated physical exam was performed. This patient is a 67-year-old Female who presents to the ED for evaluation of need for abx treatment for decubitus ulcers. Pt was referred by the wound clinic. Has been treated for wounds since April after a vascular surgery. Pt reports developed ulceration while here in hospital then [facility]. Pt reports of pain in her sacrum and lower abdominal pain, TTP. Physical Exam Initial orders for labs and / or imaging were placed and patient was placed in the waiting area until a bed is available. Please see further documentation for the full ED course.
[2023-07-04 12:57] LABS: Hematocrit (blood only) 33.6 % (37.0-47.0); Hemoglobin 10.4 g/dl (12.0-16.0); Mean Corpuscular Hemoglobin 23.1 pg (25.0-34.0); Mean Corpuscular Volume 74.7 fL (80.0-100.0); Mean Platelet Volume 8.8 fL (9.4-12.4); Platelet Count 580 K/uL (130-400); RDW Coefficient of Variation 17.4 % (11.5-14.5); RDW Standard Deviation 46.5 fL (36.4-46.3); White Blood Count 17.44 K/ul (4.8-10.8)
[2023-07-04 13:10] LABS: Alanine Aminotransferase 22 U/L (7-52); Albumin Globulin Ratio 0.6 (0.9-2); Albumin Level 2.7 gm/dl (3.4-5.0); Alkaline Phosphatase 141 U/L (34-104); Anion Gap 9 (3-11); Aspartate Aminotransferase 21 U/L (13-39); BUN Creatinine Ratio 31.9 (10-20); Bilirubin,Total 0.4 mg/dl (0.2-1.0); Blood Urea Nitrogen 22 mg/dl (6-23); Calcium 8.6 mg/dl (8.6-10.3); Carbon Dioxide 28 mmol/L (21-32); Chloride 98 mmol/L (98-107); Est GFR (African American) 105.9 ml/min; Est GFR (Non-African American) 91.4 ml/min; Globulin 4.2 gm/dl (2.5-4.0); Glucose 138 mg/dl (70-99(Fasting)); Lipase 13 U/L (11-82); Potassium 3.2 mmol/L (3.5-5.1); Sodium 135 mmol/L (136-145); Total Protein 6.9 gm/dl (6.0-8.3)
[2023-07-04 14:04] LABS: Basophils # (auto) 0.05 K/uL (0.00-0.20); Basophils % (auto) 0.3 %; Echinocytes 1+; Eosinophils # (auto) 0.02 K/uL (0.00-0.50); Eosinophils % (auto) 0.1 %; Immature Granulocytes # (auto) 0.17 K/uL (0.01-0.20); Lymphocytes % (auto) 7.5 %; Monocytes # (auto) 1.44 K/uL (0.11-0.59); Monocytes % (auto) 8.3 %; Neutrophils # (auto) 14.46 K/uL (1.40-6.50); Neutrophils % (auto) 82.8 %; Polychromasia 1+
[2023-07-04] MEDS ORDERED: Patient's HEIGHT &/or WEIGHT Needed ONE (16:15)
[2023-07-04] MEDS: MoRPHine SULFATE 4 MG/ML 1 ML CARP\\VIAL IV STA (16:23)
[2023-07-04] MEDS: ACETAMINOPHEN 1,000 MG/100 ML VIAL IV STA (16:25)
[2023-07-04] MEDS: CEFEPIME 20 ML IV ONE (16:29)
--- NOTE | 2023-07-04 16:51 | Emergency Department Note ---
Impression & Plan Osteomyelitis, Unstageable pressure ulcer of sacral region, Unstageable pressure ulcer of buttock, Spinal cord infarction, Flaccid paralysis of legs, Aortic dissection, abdominal ED Provider Note NAME: JAYANT GARZA AGE: 67 SEX: F ARRIVES VIA: Ambulance INFORMANT: Patient ED PROVIDER(S): Ousmane Scruggs MD CHIEF COMPLAINT: Unstageable sacral wound. Referred by wound clinic. PLAN: Disposition: Admit MEDICAL DECISION MAKING: The patient is a 67-year-old woman with a past medical history of vascular disease with history of ischemic limb where she underwent right lower extremity angiogram and balloon angioplasty of right superficial femoral-popliteal artery with stent placement and tPA lysis from the common femoral artery to the peroneal artery where postoperatively the patient developed inability to move her feet and had repeat injury for acute on chronic limb ischemia in the right lower extremity per records involved right common femoral artery cutdown and open thrombectomy and right common femoral/superficial femoral artery endarterectomy with Bovie patch. After this procedure the patient developed flaccid paralysis of both lower extremities. CT angio gram demonstrated abdominal aortic dissection extending into the iliac arteries as well as bilateral renal artery stenosis. It was suspected that the patient suffered infarct of her spinal cord. Per discharge summary from [facility] it was anticipated the patient will require longterm placement the patient had decided that she wanted to return home and that adequate care would be arranged from family and so she was discharged home with health services. The patient was seen by the wound clinic on 07/02 for initial intake and evaluation of severe unstageable sacral ulcers. Due to the severity of these ulcers it was recommended she come to the hospital however the patient was insistent that she did not want to come to the hospital. They had discussed the severity of her ulcers and option for hospice care which they initially were in agreement with as well as family. However, today the patient decided that she did not want to be on hospice and was referred to the emergency department. She denies any fevers, chills, cough, congestion. On evaluation the patient is chronically ill-appearing but no acute distress, afebrile with stable vital signs. She has extensive unstageable sacral ulcers which are protrusion of bilateral ischial bones and sacrum with necrotic foul- smelling tissue. There is scant purulent drainage which was cultured. Recent culture from the wound clinic demonstrates Citrobacter murliniae, Klebsiella pneumoniae, and gram-negative bacilli with speciation pending. Sensitivities noted to cefepime. Citrobacter was resistant to ceftriaxone. Treatment was initiated with IV cefepime and daptomycin. warehouse laborer consulted and provided dressing. WBC 17.4 K with neutrophil predominance though no significant left shift. H/H similar to prior range values. Platelets 580K, likely reactive. Chemistry without metabolic acidosis. Lactic acid 1.3, within normal limits. Lipase not elevated. Procalcitonin 1.13. CT of the abdomen pelvis was performed and demonstrates the patient's large decubitus ulcers with evidence of osteomyelitis of bilateral ischial tuberosities. No definite sacrococcygeal osteomyelitis is noted. There is associated cellulitis without abscess. Additional note is made of 7 cm annular mucosal mass in the rectosigmoid junction which is redemonstrated from prior imaging with adjacent subcentimeter lymph nodes. There is no bowel obstruction or pneumoperitoneum. The patient long segment abdominal aortic dissection is again seen. Case was reviewed with Dr. Ascencio, admitting resident with ROSIE Morin hospitalist to evaluate the patient for admission Triage Nursing notes reviewed and agree them. Prior/external medical records reviewed Vital Signs: reviewed Differential diagnosis: Cellulitis, abscess, MRSA infection, DVT, necrotizing fasciitis, dermatitis, drug eruption, allergic reaction, as well as other pathologies. ER treatment provided: See below. Diagnostics interpreted by me: Cardiac Monitoring: An order for continuous cardiac monitoring was placed and demonstrated normal sinus rhythm, 64 bpm, no ectopy. Laboratory studies: See below Imaging studies: See below Consultation(s): Case was reviewed with Dr. Ascencio, admitting resident with ROSIE Morin hospitalist to evaluate the patient for admission. HPI: The patient is a 67-year-old woman with a past medical history of vascular disease with history of ischemic limb where she underwent right lower extremity angiogram and balloon angioplasty of right superficial femoral-popliteal artery with stent placement and tPA lysis from the common femoral artery to the peroneal artery where postoperatively the patient developed inability to move her feet and had repeat injury for acute on chronic limb ischemia in the right lower extremity per records involved right common femoral artery cutdown and open thrombectomy and right common femoral/superficial femoral artery endarterectomy with Bovie patch. After this procedure the patient developed flaccid paralysis of both lower extremities. CT angio gram demonstrated abdominal aortic dissection extending into the iliac arteries as well as bilateral renal artery stenosis. It was suspected that the patient suffered infarct of her spinal cord. Per discharge summary from [facility] it was anticipated the patient will require longterm placement the patient had decided that she wanted to return home and that adequate care would be arranged from family and so she was discharged home with health services. The patient was seen by the wound clinic on 07/02 for initial intake and evaluation of severe unstageable sacral ulcers. Due to the severity of these ulcers it was recommended she come to the hospital however the patient was insistent that she did not want to come to the hospital. They had discussed the severity of her ulcers and option for hospice care which they initially were in agreement with as well as family. However, today the pat ROS: See above HPI for pertinent positives & negatives. A total of 10 systems reviewed and were otherwise negative. VITALS:See Below PHYSICAL EXAMINATION: GENERAL: Awake, alert, chronically ill-appearing, in no distress HENT: Normocephalic, atraumatic. Oropharynx unremarkable. EYES: Normal conjunctiva. Sclera non-icteric. NECK: Supple. No nuchal rigidity. FROM. No JVD. RESPIRATORY: Clear to auscultation. CARDIAC: Regular rate, normal rhythm. ABDOMEN: Soft, non-distended. No tenderness to palpation. No rebound or guarding. No masses. RECTAL: See skin exam and photos below. MUSCULOSKELETAL: Chest examination reveals no tenderness. The back is symmetrical on inspection without obvious abnormality. There is no CVA tenderness to palpation. No joint edema. LOWER EXTREMITIES: Calves are equal size bilaterally and non-tender. Mild BLE edema. NEURO: Chronic flaccid paralysis of bilateral lower extremities. SKIN: Extensive unstageable sacral ulcers with exposed bilateral ischium and sacrum with necrotic foul-smelling tissue. There is scant purulent drainage which was cultured. No jaundice noted. 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 Type II diabetes mellitus with peripheral artery disease Tobacco abuse HTN (hypertension) Family History Other Diabetes Social History Smoking Status: Current some day smoker Tobacco Type: Cigarettes Cigarettes Per Day: 10; Second Hand Exposure: Yes; Do You Dip or Chew Tobacco: No; Hx Alcohol Use: No Hx Substance Use: No Preferred Language: Romanian Communication Ability: Effective Hearing Ability: Normal Manager Presentation Required: No Beliefs That Will Affect Care: None Current Living Situation: Alone and Family Current Living Situation Comment: Pt lives alone but currently her son and daughter in law live with her Feels Safe at Home: Yes Diet: regular caffeine: Yes Assistive Devices: None Allergies Allergies Allergy/AdvReac Type Severity Reaction Status Date / Time No Known Allergies Allergy Verified 07/04/23 15:47 Home Meds Home Medications Medication Instructions Recorded Confirmed loperamide 2 mg capsule 2 mg PO Q4H PRN Diarrhea 06/05/23 07/04/23 (Anti-Diarrheal (loperamide)) Previous Rx's Medication Instructions Recorded oxycodone-acetaminophen 5 mg-325 1 tab PO Q6H PRN pain #30 tabs 05/10/23 mg tablet (Percocet) ferrous sulfate 325 mg (65 mg 325 mg PO BID #180 tabs 06/19/23 iron) tablet carvedilol 12.5 mg tablet 12.5 mg PO BIDM #180 tabs 06/29/23 ezetimibe 10 mg tablet 10 mg PO QAM #90 tabs 06/29/23 hydralazine 25 mg tablet 50 mg (2 x 25 mg) PO TID #270 tabs 06/29/23 nifedipine 30 mg tablet,extended 60 mg (2 x 30 mg) PO HS #180 tabs 06/29/23 release 24 hr (Procardia XL) pantoprazole 40 mg tablet,delayed 40 mg PO BID #180 tabs 06/29/23 release rosuvastatin 20 mg tablet (Crestor) 20 mg PO QAM #90 tabs 06/29/23 Results & Data (ED) Vital Signs Vital Signs - 24 hr 07/04/23 12:02 07/04/23 16:02 07/04/23 16:19 Temperature 36.7 C Temperature Source Temporal Artery Scan Pulse Rate 75 70 Pulse Rate [Apical] 71 Pulse Rhythm Respiratory Rate 14 22 Respiratory Effort / Characteristics Respiratory Depth Normal Blood Pressure 151/55 H Blood Pressure [Left Arm] 139/69 Blood Pressure Mean 87 Blood Pressure Mean [Left Arm] 92 Blood Pressure Position [Left Arm] Pulse Oximetry 96 93 Oxygen Delivery Method Room Air Nasal Cannula Oxygen Flow Rate 3 Sepsis New/Unexplained Change in Mental Status No Sepsis Action Taken by Nursing No Action Required 07/04/23 16:19 07/04/23 18:00 Temperature Temperature Source Pulse Rate 68 Pulse Rate [Apical] 67 Pulse Rhythm Regular Respiratory Rate 22 18 Respiratory Effort / Characteristics Non-Labored Respiratory Depth Normal Blood Pressure Blood Pressure [Left Arm] 120/51 L Blood Pressure Mean Blood Pressure Mean [Left Arm] 74 Blood Pressure Position [Left Arm] Lying Pulse Oximetry 95 93 Oxygen Delivery Method Nasal Cannula Nasal Cannula Oxygen Flow Rate 3 3 Sepsis New/Unexplained Change in Mental Status Sepsis Action Taken by Nursing Laboratory Data Attestation: I reviewed the patient's lab results. 07/04/23 12:30 07/04/23 12:30 Lab Results 07/04/23 07/04/23 Range/Units 12:30 16:07 WBC 17.44 H (4.8-10.8) K/ul RBC 4.50 (4.20-5.40) M/uL Hgb 10.4 L (12.0-16.0) g/dl Hct 33.6 L (37.0-47.0) % MCV 74.7 L (80.0-100.0) fL MCH 23.1 L (25.0-34.0) pg MCHC 31.0 L (32.0-36.0) g/dL RDW Std Deviation 46.5 H (36.4-46.3) fL RDW Coeff of María 17.4 H (11.5-14.5) % Plt Count 580 H (130-400) K/uL MPV 8.8 L (9.4-12.4) fL Immature Gran % (Auto) 1.0 % Neut % (Auto) 82.8 % Lymph % (Auto) 7.5 % Pope % (Auto) 8.3 % Eos % (Auto) 0.1 % Baso % (Auto) 0.3 % Neut # (Auto) 14.46 H (1.40-6.50) K/uL Lymph # (Auto) 1.30 (1.20-3.40) K/uL Pope # (Auto) 1.44 H (0.11-0.59) K/uL Eos # (Auto) 0.02 (0.00-0.50) K/uL Baso # (Auto) 0.05 (0.00-0.20) K/uL Immature Gran # (Auto) 0.17 (0.01-0.20) K/uL Polychromasia 1+ Echinocytes 1+ ESR 111 H (0-30) mm/hr Sodium 135 L (136-145) mmol/L Potassium 3.2 L (3.5-5.1) mmol/L Chloride 98 (98-107) mmol/L Carbon Dioxide 28 (21-32) mmol/L Anion Gap 9 (3-11) BUN 22 (6-23) mg/dl Creatinine 0.69 (0.6-1.2) mg/dl Est Cr Clr Drug Dosing Not Reportable Est GFR ( Amer) 105.9 ml/min Est GFR (Non-Af Amer) 91.4 ml/min BUN/Creatinine Ratio 31.9 H (10-20) Glucose 138 H (70-99(Fasting)) mg/dl Lactate 1.3 (0.4-2.0) mmol/L Calcium 8.6 (8.6-10.3) mg/dl Total Bilirubin 0.4 (0.2-1.0) mg/dl AST 21 (13-39) U/L ALT 22 (7-52) U/L Alkaline Phosphatase 141 H (34-104) U/L C-Reactive Protein 27.28 H (0-0.5) mg/dl Total Protein 6.9 (6.0-8.3) gm/dl Albumin 2.7 L (3.4-5.0) gm/dl Globulin 4.2 H (2.5-4.0) gm/dl Albumin/Globulin Ratio 0.6 L (0.9-2) Lipase 13 (11-82) U/L Procalcitonin 1.13 H (0-0.5) ng/ml Administered Medications Potassium Chloride (K Vito / Wtr) 10 meq in 100 mls @ 100 mls/hr IV Q1H TEDDY Stop: 07/05/23 00:29 Last Admin: 07/04/23 22:29 Dose: 100 mls/hr Documented By: Infusion: 07/04/23 22:06 Dose: Infused Documented By: Admin: 07/04/23 21:06 Dose: 100 mls/hr Documented By: Discontinued Medications Cefepime HCl (Maxipime) 20 mls @ 5 mls/min IV NOW ONE Stop: 07/04/23 16:33 Last Admin: 07/04/23 16:29 Dose: 5 mls/min Documented By: LORENZO Acetaminophen (Ofirmev) 1,000 mg in 100 mls @ 400 mls/hr IV NOW STA Stop: 07/04/23 16:34 Last Infusion: 07/04/23 17:24 Dose: Infused Documented By: Admin: 07/04/23 16:25 Dose: 400 mls/hr Documented By: LORENZO Daptomycin 300 mg/ Syringe 6 mls @ 3 mls/min IV NOW ONE; Protocol Stop: 07/04/23 16:31 Last Admin: 07/04/23 18:12 Dose: 3 mls/min Documented By: LORENZO Ioversol (Optiray 320 500ml) 83 ml IV ONCE ONE Stop: 07/04/23 17:22 Last Admin: 07/04/23 17:22 Dose: 83 ml Documented By: TWAN Morphine Sulfate (Morphine Sulfate 4 Mg/Ml 1 Ml Carp\Vial) 4 mg IV NOW STA Stop: 07/04/23 16:21 Last Admin: 07/04/23 16:23 Dose: 4 mg Documented By: LORENZO Potassium Chloride (Potassium Chloride Crtab 20 Meq Tabcr) 40 meq PO NOW STA Stop: 07/04/23 19:52 Last Admin: 07/04/23 20:23 Dose: Not Given Documented By: Imaging Data Radiologist's Impression: Abdomen/Pelvis CT 07/04/23 16:[address] WITH IV CONTRAST CT DOSE: 723.39 mGy.cm HISTORY: Acute pelvic pain with sacral decubitus ulcer unstageable sacral ulcer TECHNIQUE: Multiaxial CT images of the abdomen and pelvis were performed following the IV administration of 83 cc of Optiray, A dose lowering technique was utilized adhering to the principles of ALARA. COMPARISON STUDY: CTA 05/02/2023 FINDINGS: The study is significantly limited secondary to patient positioning. Left hemidiaphragmatic elevation. Clear lung bases. No free air. Unremarkable spleen, and adrenal glands. There are a few subcentimeter pancreatic head calcifications suggestive of chronic pancreatitis. Mildly distended gallbladder with wall thickening. Liver is within normal limits. Patent portal vein. Trace ascites. 2 mm nonobstructing calculus of the superior pole left kidney. Mild nonspecific bilateral perinephric stranding with a few bilateral renal cysts. Decompressed urinary bladder with Muro catheter. Heterogeneous uterus with borderline endometrial thickening. Soft tissue prominence of the left ovary. Fusiform dilation of the aorta at the level of the diaphragmatic hiatus again noted, 3.4 cm. Long segment dissection is again noted to the majority of the abdominal aorta with mild mid abdominal aortic stenosis. Right femoral arterial graft. Diffuse body wall edema. No lymphadenopathy. Moderate to extensive fecal retention. 7 cm focus of wall thickening with increased enhancement involves the rectosigmoid junction resulting in luminal narrowing. Findings are similar to prior. There is a 10 cm sacral decubitus ulcer noted with adjacent cellulitis. Additional large ulcers are noted adjacent to the bilateral ischial tuberosities. Bony erosive changes are noted involving the ischial tuberosities. No definite evidence of acute sacrococcygeal bony erosion. IMPRESSION: 1. Large decubitus ulcers with osteomyelitis of the bilateral ischial tuberosities. No definite sacrococcygeal osteomyelitis identified by CT. There is associated cellulitis without abscess. 2. Possible 7 cm annular mucosal mass in the rectosigmoid junction redemonstrated with adjacent subcentimeter lymph nodes. Correlation with endoscopy recommended. 3. No bowel obstruction or pneumoperitoneum. 4. Long segment abdominal aortic dissection again seen. 5. Additional findings as above. ACT 112: Negative or not required by law. The above report was generated using voice recognition software. It may contain grammatical, syntax or spelling errors. Electronically signed by: Fabrizio Herrera M.D. 07/04/2023 5:58 PM Discharge Plan Visit Data Chief Complaint: Wound Stated Complaint: BED SORE, REFFERED BY WOUND CARE ED Provider: Ousmane Scruggs Discharge Problem: Osteomyelitis, Unstageable pressure ulcer of sacral region, Unstageable pressure ulcer of buttock, Spinal cord infarction, Flaccid paralysis of legs, Aortic dissection, abdominal Patient Disposition: Admitted As Inpatient Discharge Instructions Interventions: ED Discharge Assessment Last Done: 07/04/23 22:00 Discharge Problem: Osteomyelitis Qualifiers: Osteomyelitis type: unspecified type Osteomyelitis location: multiple sites Q ualified Code(s): M86.9 - Osteomyelitis, unspecified Unstageable pressure ulcer of buttock Qualifiers: Laterality: unspecified laterality Qualified Code(s): L89.300 - Pressure ulcer of unspecified buttock, unstageable
[2023-07-04] MEDS: OPTIRAY 320 500ml IV ONE (17:22)
--- NOTE | 2023-07-04 18:01 | CT Scan Report ---
ABDOMEN AND PELVIS CT WITH IV CONTRAST CT DOSE: 723.39 mGy.cm HISTORY: Acute pelvic pain with sacral decubitus ulcer unstageable sacral ulcer TECHNIQUE: Multiaxial CT images of the abdomen and pelvis were performed following the IV administrat ion of 83 cc of Optiray, A dose lowering technique was utilized adhering to the principles of ALARA. COMPARISON STUDY: CTA 05/02/2023 FINDINGS: The study is significantly limited secondary to patient positioning. Left hemidiaphragmatic elevation. Clear lung bases. No free air. Unremarkable spleen, and adrenal gla nds. There are a few subcentimeter pancreatic head calcifications suggestive of chronic pancreatitis. Mildly distended gallbladder with wall thickening. Liver is within normal limits. Patent portal vein . Trace ascites. 2 mm nonobstructing calculus of the superior pole left kidney. Mild nonspecific bila teral perinephric stranding with a few bilateral renal cysts. Decompressed urinary bladder with Muro catheter. Heterogeneous uterus with borderline endometrial thickening. Soft tissue prominence of the left ovary. Fusiform dilation of the aorta at the level of the diaphragmatic hiatus again noted, 3.4 cm. Long segment dissection is again noted to the majority of the abdominal aorta with mild mid abdo ángel aortic stenosis. Right femoral arterial graft. Diffuse body wall edema. No lymphadenopathy. Moderate to extensive fecal retention. 7 cm focus of wall thickening with increased enhancement invol ves the rectosigmoid junction resulting in luminal narrowing. Findings are similar to prior. There is a 10 cm sacral decubitus ulcer noted with adjacent cellulitis. Additional large ulcers are noted adj acent to the bilateral ischial tuberosities. Bony erosive changes are noted involving the ischial tub erosities. No definite evidence of acute sacrococcygeal bony erosion. IMPRESSION: 1. Large decubitus ulcers with osteomyelitis of the bilateral ischial tuberosities. No definite sacro coccygeal osteomyelitis identified by CT. There is associated cellulitis without abscess. 2. Possible 7 cm annular mucosal mass in the rectosigmoid junction redemonstrated with adjacent subce ntimeter lymph nodes. Correlation with endoscopy recommended. 3. No bowel obstruction or pneumoperitoneum. 4. Long segment abdominal aortic dissection again seen. 5. Additional findings as above. ACT 112: Negative or not required by law. The above report was generated using voice recognition software. It may contain grammatical, syntax o r spelling errors. Electronically signed by: Fabrizio Herrera M.D. 07/04/2023 5:58 PM
[2023-07-04] MEDS: DAPTOmycin 300 MG in SYRINGE 0 ML IV ONE (18:12)
[2023-07-04 18:40] LABS: Appearance Urine Cloudy (Clear); Bacteria Urine Automated 2+ (Negative); Bilirubin Urine Negative (Negative); Blood Urine 2+ (Negative); Color Urine Yellow; Glucose Urine UA Negative (Negative); Ketones Urine Negative (Negative); Leukocyte Esterase Urine 1+ (Negative); Nitrite Urine Positive (Negative); Protein Urine 2+ (Negative); RBC Urine Automated 0-4 /hpf (0-4); Specific Gravity Urine 1.044 (1.000-1.030); Urobilinogen Urine Negative (Negative); WBC Urine Automated >30 /hpf (0-5); pH Urine 6.5 (4.5-7.5)
--- NOTE | 2023-07-04 18:51 | History & Physical Report ---
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 Bilateral ischial tuberosity osteomyelitis - pt hemodynamically stable upon admission - lab work in the ED significant for leukocytosis to 17.44 with left shift, procal 1.13 - CTAP showed large decubitus ulcers with osteomyelitis of the bilateral ischial tuberosities - wound cx from 07/02 showed pansensitive klebsiella, gram neg bacilli (no sensitivities or speciation), and citrobacter (resistant to ceftriaxone) - blood culture and urine cx pending - s/p daptomycin x1, cefepime x1 in ED; will continue cefepime upon admission - pain control with tylenol first line, NSAIDs second line, and morphine for breakthrough pain - general surgery consulted for possible debridement/intervention Chronic peripheral vascular disease - in the setting of long standing smoking with recent intervention in Apr 2023 as detailed in HPI - continue home statin 20 mg daily Colonic mass - CTAP this admission redemonstrated 7 cm mucosal mass; no prior colonoscopy - Hgb 10.4 upon admission (increased from most recent 8.4 on 06/19/2023) - continue to trend CBC - pt will need colonoscopy for definitive diagnosis Aortic stenosis - last echo 03/2023 showed valve area of 1.1cm and EF 54%; pt currently asymptomatic and euvolemic Hypokalemia - K 3.2 upon admission (3.4 at last blood draw 06/19/2023) - 40 meq IV ordered upon admission (not given PO d/t inability to swallow large pills) - will recheck in AM HTN - pt unsure of what medications she takes at home - continue home regimen per med rec; carvedilol 12.5mg BID, nifedipine 30 mg HS - will hold hydralazine as pt's BP controlled Spinal cord infarction - resulting in bilateral LE paralysis - PT/OT consulted; suspect pt may need further rehab upon discharge Hx of type 2 DM - last A1c 6.5% 03/2023 w/o medications - no need for SSI Diet: heart healthy diet tonight; NPO tonight pending possible intervention tomorrow Code: full; recommend further discussion into pt's GOC and what interventions she is willing to proceed with; palliative care consult may be of benefit VTE ppx: may consider addition during this hospitalization if prolonged; anticoagulation on hold as outpatient d/t anemia and heme + stools Dispo: admit to med/surg (2) Unstageable pressure ulcer of sacral region: (3) Osteomyelitis: (4) Pulmonary nodule 1 cm or greater in diameter: (5) Spinal cord infarction: (6) Aortic dissection, abdominal: (7) Aortic stenosis: (8) Mass of colon: (9) HTN (hypertension): (10) Gangrene of toe of right foot: (11) Microcytic anemia: History of Present Illness Chief Complaint: worsening sacral wounds Primary Care Provider: JINA Garcia Pt is a 67 yo female with PMH of JUAN MIGUEL, neurogenic bladder, multiple vessel atherosclerotic disease/stenosis, aortic stenosis, 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 Pt explains that she saw the wound clinic on Sunday due to a worsening sacral wound. She explains that between then and now pt was waiting for her [id number]. Pt endorses that there was brown colored discharge coming from her wound. Pt currently endorses minimal pain around her buttocks. She denies any associated symptoms including fever, chills, SOB, and chest pain. Pt was recently admitted 04/2023 for acute ischemia of RLE requiring surgical intervention (right femoral artery endarterectomy, RLE open thrombectomy). At this visit, a pulmonary nodule and colon mass were discovered on scans. Prior to pt's hospital admission in , pt had not seen a doctor since 2005. She has never had a colonoscopy. She was discharged to a SNF for rehab. She was discharged on eliquis. Pt endorses she has smoked for the last 30 years. At the height of her smoking, she was smoking 2.5 ppd (she is unclear about how long this duration was). More recently, she has cut down to 1/2 ppd. She also notes that she has had a terrible year in terms of loss- she lost a son in August 2022 d/t fentanyl, her ex- in November 2022 d/t by suicide, and another family member in December. Pt was seen by her PCP 06/06/2023. At this visit, her statin was reduced to 20 mg daily d/t low cholesterol levels and risks outweighing the benefits. Her anticoagulation was also on hold d/t anemia and heme + stools. In the ER, the pt was hemodynamically stable. She was given cefepime x1, dapto x1, tylenol 1000mg, and morphine 4 mg. Allergies Allergy/AdvReac Type Severity Reaction Status Date / Time No Known Allergies Allergy Verified 07/04/23 15:47 Home Medications Medication Instructions Recorded Confirmed Type oxycodone-acetaminophen 5 mg-325 1 tab PO Q6H PRN pain #30 tabs 05/10/23 07/04/23 Rx mg tablet (Percocet) loperamide 2 mg capsule 2 mg PO Q4H PRN Diarrhea 06/05/23 07/04/23 History (Anti-Diarrheal (loperamide)) ferrous sulfate 325 mg (65 mg 325 mg PO BID #180 tabs 06/19/23 07/04/23 Rx iron) tablet carvedilol 12.5 mg tablet 12.5 mg PO BIDM #180 tabs 06/29/23 07/04/23 Rx ezetimibe 10 mg tablet 10 mg PO QAM #90 tabs 06/29/23 07/04/23 Rx hydralazine 25 mg tablet 50 mg (2 x 25 mg) PO TID #270 tabs 06/29/23 07/04/23 Rx nifedipine 30 mg tablet,extended 60 mg (2 x 30 mg) PO HS #180 tabs 06/29/23 07/04/23 Rx release 24 hr (Procardia XL) pantoprazole 40 mg tablet,delayed 40 mg PO BID #180 tabs 06/29/23 07/04/23 Rx release rosuvastatin 20 mg tablet (Crestor) 20 mg PO QAM #90 tabs 06/29/23 07/04/23 Rx Past Med/Surg History Medical History Iron deficiency anemia Neurogenic bladder Mesenteric artery stenosis Renal artery stenosis Aortic dissection, abdominal Aortic stenosis 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 Type II diabetes mellitus with peripheral artery disease Tobacco abuse HTN (hypertension) Family History Other Diabetes Social History Smoking Status: Current every day smoker Tobacco Type: Cigarettes Cigarettes Per Day: 10; Second Hand Exposure: No; Do You Dip or Chew Tobacco: No; Tobacco Cessation Education Requested by Patient: No Hx Alcohol Use: No Hx Substance Use: No Preferred Language: Maori Communication Ability: Effective Hearing Ability: Normal Manager Mining Required: No Beliefs That Will Affect Care: None Current Living Situation: Family Current Living Situation Comment: Pt lives alone but currently her son and daughter in law live with her Other Information That Helps Us Care for You: No Feels Safe at Home: Yes Safety Concerns: Feels Safe At This Time Diet: regular caffeine: Yes Assistive Devices: Glasses and Hospital Bed Review of Systems Review of Systems: As per HPI Physical Exam Physical Exam: Constitutional: ill appearing, no acute distress HEENT: normocephalic, no conjunctival injection CV: regular rhythm, regular rate, 2/6 systolic murmur, 2+ bilateral pitting LE edema Respiratory: CTA bilaterally. No rhonchi, wheezes, or crackles. No increased work of breathing GI: soft, minimally distended, minimally tender in bilateral lower quadrants, + bowel sounds MSK: no gross deformities noted Skin: warm, dry; pictures of sacral wound in ER and wound care notes; ~1x2cm blister on back of left heel in addition to black/purple discoloration underneath heel callous; black discoloration noted of left great toe Neuro: alert, oriented; sensation intact in bilateral LE; unable to move left LE, pt able to flex/extend right foot Psych: mood and affect congruent Results & Data Results & Data Vital Signs (Past 12 Hours) Vital Signs Temp Pulse Pulse Resp BP BP Pulse Ox 07/04/23 18:00 67 18 120/51 L 93 07/04/23 16:19 68 22 95 07/04/23 16:19 71 22 139/69 93 07/04/23 16:02 70 07/04/23 12:02 36.7 C 75 14 151/55 H 96 O2 Del Method O2 Flow Rate 07/04/23 18:00 Nasal Cannula 3 07/04/23 16:19 Nasal Cannula 3 07/04/23 16:19 Nasal Cannula 3 07/04/23 16:02 07/04/23 12:02 Room Air Supervising Physician Co-Signing Physician Notes I personally saw and examined the patient. I independently reviewed the labs, EKG, imaging, problem list, medication list, past medical history and family history. I verified all marie points and agree with resident physician Dr Jackelyn Ascencio, with the following exceptions and/or additions: 67 year old female presents to the ER on advice of the wound care clinic due to stage IV sacral ulcer. Patient denies any fever or chills. O/E Frail appearing, alert and orientated to year, place and person, HS RRR, systolic murmur throughout, loudest in apex, no respiratory distress, Chest CTAB, Abdo SNT, Sacral ulcer examined with pictures taken in ER, no movement of LLE, minimal movement of toes only on RLE, gangrenous right 1st toe, Dry cracking skin on b/l feet with ecchymosis under left heel with possible fluid collection here A/P Stage 4 sacral ulcer - patient is not septic. Consult wound care nurse, general surgery for debridement and possible biopsy, ID for ongoing antibiotic management given recent wound cultures without need for MRSA coverage but given OM will continue MRSA coverage for now with vancomycin. Continue IV cefepime. NPO after midnight for possible surgical intervention Peripheral artery disease - noted significant vascular history under Dr Amor. Previously discharged on Eliquis but stopped at [facility] at rehab. Aortic dissection - this is not new Right 1st toe gangrene, Left heel ecchymosis, possible fluid collection - Left ankle xr to assess for OM, consider podiatry consult once initial sacral ulcer has been stabilized Microcytic anemia - prior FOB positive with possible colon cancer on prior CTs (awaiting O/P colonoscopy). Currently appears stable. Hgb most recently 8.4 on Jun 19, now 10.4. Ferritin, iron studies with AM labs. Chronic indwelling wheat catheter - suspected neurogenic bladder from spinal cord infarction VTE Prophylaxis deferred on admission pending repeat Hgb and surgical management. Consider low dose IV heparin prior to resumption of Eliquis to ensure hemoglobin stability Low tolerance for palliative care referral given overall poor prognosis if unable to get her back on anticoagulation. Resident Activity Tracking Resident Involvement: Resident Care Provided Care Provided: Adult Hospital Medicine (7) Aortic stenosis Cardiac valve disease etiology: nonrheumatic Qualified Code(s): I35.0 - Nonrheumatic aortic (valve) stenosis (9) HTN (hypertension) Hypertension type: resistant hypertension Qualified Code(s): I1A.0 - Resistant hypertension
[2023-07-04] MEDS ORDERED: ONDANSETRON INJ 2 MG/ML 2 ML VIAL IV PRN (19:55)
[2023-07-04] MEDS: POTASSIUM CHLORIDE CRTAB 20 MEQ TABCR PO STA (20:17)
[2023-07-04] MEDS: POTASSIUM CHLORIDE / WTR 10 MEQ/100 ML PLCT IV SCH (21:06)
--- NOTE | 2023-07-04 21:16 | Surgery Consultation ---
<Statement entered by Aurelia Brar, - 07/05/23 03:07> This case was discussed with the surgical PA. I agree with the plan. Date of Consultation July 04, 2023 Assessment & Plan (1) Unstageable pressure ulcer of sacral region: The patient has been admitted on the hospitalist service. From surgical perspective we recommend proceeding as follows: Provide analgesics Provide antiemetic Patient has had blood cultures, urine culture, and wound culture sent The patient has been started on broad-spectrum antibiotics in the form of cefepime and daptomycin which should continue I suspect the patient requires some type of debridement of her wounds. Will make the patient n.p.o. after midnight tonight and she will be reevaluated by Dr. 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 Patient notes that she is largely bedbound and has developed sacral/ischial pressure sores that she says have been present for quite some time. She follows up locally with the wound care clinic and was seen there on Sunday07/02/2023 and due to the appearance of her wound recommend admission. The patient noted that due to logistical reasons she could not present to the emergency department prior to today. With her current wound she denies any fevers, shakes, or chills. She does report some nausea and vomiting but notes that this is related to anxiety. She denies any abdominal pain. She does note that she has a chronic indwelling Muro catheter. Due to her paraplegia she says she is largely bedbound but does make efforts to change position to offload pressure sores. Since arrival to the hospital the patient has had labs and imaging which independent reviewed. A CT scan of the abdomen pelvis showed the patient had large decubitus ulcers with concern for osteomyelitis of the ischial tuberosities bilaterally. Definite osteomyelitis of the sacrum/coccygeal region could not be ascertained by CT. There is extensive cellulitis but no discrete abscesses were noted. Patient was also noted to have a 7 cm annular mucosal mass in the rectosigmoid junction. There is no evidence of bowel obstruction or pneumoperitoneum. Labs include a CBC her white blood cell count was elevated at 17.4. Hemoglobin and hematocrit were 10.4 and 33.6. Platelet count was 580,000. Erythrocyte sedimentation rate was elevated at 111. Chemistry profile showed sodium and potassium were 135 and 3.2 respectively. BUN and creatinine were both normal. Lactic acid level is nonelevated. C-reactive protein was 27.2. Lipase was nonelevated. Procalcitonin was elevated at 1.13. Urinalysis did show the specimen was positive for nitrites as well as 1+ leukocyte Estrace and pyuria with greater than 30 white blood cells per high-power field. There is 2+ bacteria on the study. At the time of my interview the patient was resting comfortably in bed and she was no distress Allergies Allergy/AdvReac Type Severity Reaction Status Date / Time No Known Allergies Allergy Verified 07/04/23 15:47 Home Medications Medication Instructions Recorded Confirmed Type oxycodone-acetaminophen 5 mg-325 1 tab PO Q6H PRN pain #30 tabs 05/10/23 07/04/23 Rx mg tablet (Percocet) loperamide 2 mg capsule 2 mg PO Q4H PRN Diarrhea 06/05/23 07/04/23 History (Anti-Diarrheal (loperamide)) ferrous sulfate 325 mg (65 mg 325 mg PO BID #180 tabs 06/19/23 07/04/23 Rx iron) tablet carvedilol 12.5 mg tablet 12.5 mg PO BIDM #180 tabs 06/29/23 07/04/23 Rx ezetimibe 10 mg tablet 10 mg PO QAM #90 tabs 06/29/23 07/04/23 Rx hydralazine 25 mg tablet 50 mg (2 x 25 mg) PO TID #270 tabs 06/29/23 07/04/23 Rx nifedipine 30 mg tablet,extended 60 mg (2 x 30 mg) PO HS #180 tabs 06/29/23 07/04/23 Rx release 24 hr (Procardia XL) pantoprazole 40 mg tablet,delayed 40 mg PO BID #180 tabs 06/29/23 07/04/23 Rx release rosuvastatin 20 mg tablet (Crestor) 20 mg PO QAM #90 tabs 06/29/23 07/04/23 Rx Patient History Medical History Iron deficiency anemia Neurogenic bladder Mesenteric artery stenosis Renal artery stenosis Aortic dissection, abdominal Aortic stenosis 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 Type II diabetes mellitus with peripheral artery disease Tobacco abuse HTN (hypertension) Family History Other Diabetes Social History Smoking Status: Current some day smoker Tobacco Type: Cigarettes Cigarettes Per Day: 10; Second Hand Exposure: Yes; Do You Dip or Chew Tobacco: No; Hx Alcohol Use: No Hx Substance Use: No Preferred Language: Czech Communication Ability: Effective Hearing Ability: Normal Gamma Operator Required: No Beliefs That Will Affect Care: None Current Living Situation: Alone and Family Current Living Situation Comment: Pt lives alone but currently her son and daughter in law live with her Feels Safe at Home: Yes Diet: regular caffeine: Yes Assistive Devices: None Review of Systems Constitutional: no fever and no chills Ear, Nose, Mouth, Throat: no hearing loss Respiratory: no cough Cardiovascular: no chest pain Gastrointestinal: + nausea and + vomiting; no abdominal pa in Genitourinary: as per Subjective / HPI Musculoskeletal: no back pain Integumentary: + skin ulcer and + sores Neurologic: Chronic paraplegia Physical Exam Physical Exam: With a nurse lead cargo mover present the patient was rolled in the bedside to examine her wounds. Patient had 2 large wounds bilaterally of the ischium which appear to undermine with exposed muscle and exposed bone and some parts. There was some brownish/purulent drainage coming from some of the wound which was malodorous. I did not appreciate any crepitus in the soft tissue Constitutional: + thin, + cachectic and + frail appearin g; no acute distress Eyes: no conjunctival abnormality ENMT: Ears: no hearing impairment and no external ear abnormality Mouth: no oropharynx abnormality Neck: trachea midline Respiratory: normal respiratory effort; no respiratory distress and no labored breathing Cardiovascular: Rate/Rhythm: regular rate and regular rhythm Gastrointestinal (Abdomen): Soft and nontender Skin: See above description Neurologic: Patient can move upper extremities. Patient has lower extremity paraplegia which is pre-existing Psychiatric: A+Ox3, euthymic affect Genitourinary: Muro catheter is in place draining clear urine Results & Data Vital Signs (Past 12 Hours) Vital Signs Temp Pulse Pulse Resp BP BP Pulse Ox 07/04/23 20:01 63 22 117/65 99 07/04/23 20:00 64 07/04/23 18:00 67 18 120/51 L 93 07/04/23 16:19 68 22 95 07/04/23 16:19 71 22 139/69 93 07/04/23 16:02 70 07/04/23 12:02 36.7 C 75 14 151/55 H 96 O2 Del Method O2 Flow Rate 07/04/23 20:01 Nasal Cannula 3 07/04/23 20:00 07/04/23 18:00 Nasal Cannula 3 07/04/23 16:19 Nasal Cannula 3 07/04/23 16:19 Nasal Cannula 3 07/04/23 16:02 07/04/23 12:02 Room Air PG Care Time/CCT Total # of Minutes Spent Total Time Spent with Patient: Total time spent is greater than 50% in coordination of care (as documented) at patient's floor/unit and/or counseling patient: Coding Level of Care Code 89449 INT INP/OBS CARE 3/75MIN Diagnoses Unstageable pressure ulcer of sacral region L89.150
[2023-07-04] MEDS ORDERED: VANCOMYCIN CONSULT ACTIVE PRN (23:04)
[2023-07-04] MEDS: NIFEdipine EXTENDED REL 30 MG TABCR PO SCH (23:53)
[2023-07-04] MEDS: PANTOprazole 40 MG TAB PO SCH (23:53)
[2023-07-04] MEDS: NYSTATIN SUSP 500,000 U/5 ML UDC PO SCH (23:53)
[2023-07-04] MEDS: MoRPHine SULFATE 2 MG/ML CARP IV PRN (23:58)
[2023-07-05] MEDS: CEFEPIME 2,000 MG in SYRINGE 0 ML IV SCH (00:58)
[2023-07-05 07:15] LABS: Hematocrit (blood only) 28.8 % (37.0-47.0); Hemoglobin 8.8 g/dl (12.0-16.0); Mean Corpuscular Hemoglobin 23.2 pg (25.0-34.0); Mean Corpuscular Hgb Conc 30.6 g/dL (32.0-36.0); Mean Platelet Volume 8.7 fL (9.4-12.4); Platelet Count 435 K/uL (130-400); RDW Coefficient of Variation 17.4 % (11.5-14.5); RDW Standard Deviation 47.7 fL (36.4-46.3); Red Blood Count 3.79 M/uL (4.20-5.40); White Blood Count 15.36 K/ul (4.8-10.8)
--- NOTE | 2023-07-05 07:16 | Hospitalist Progress Note ---
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 Sacral ulcer/Bilateral ischial tuberosity osteomyelitis - Leucocytosis 17-> 15; downtrending - CTAP showed large decubitus ulcers with osteomyelitis of the bilateral ischial tuberosities - wound cx from 07/02 showed pansensitive klebsiella, gram neg bacilli (no sensitivities or speciation), and citrobacter (resistant to ceftriaxone) - blood culture 07/04 1/2 growing gram + baciilli - urine cx growing gram negative bacilli - continue cefepime, vancomycin pending ID consult - general surgery consulted plan for debridement, rectal tube inserted for fecal diversion Gram Positive Bacteremia - source likely sacral ulcer - 1/2 cultures from 07/04 growing gram + bacilii - repeat cultures pending - TTE pending - ID consulted Chronic peripheral vascular disease - in the setting of long standing smoking with recent intervention in Apr 2023 as detailed in HPI - continue home statin 20 mg daily - previously on Eliquis, but stopped at rehab Right 1st toe gangrene, Left heel ecchymosis, possible fluid collection - Left ankle xr without OM - consider podiatry consult once initial sacral ulcer has been stabilized Colonic mass - CTAP this admission redemostrated 7 cm mucosal mass; no prior colonoscopy - Hgb 10.4 upon admission (increased from most recent 8.4 on 06/19/2023) - continue to trend CBC - pt will need colonoscopy for definitive diagnosis Aortic stenosis - last echo 03/2023 showed valve area of 1.1cm and EF 54%; pt currently asymptomatic and euvolemic Hypokalemia - K 3.2 upon admission; repletes - K= 4.1 07/05 HTN - pt unsure of what medications she takes at home - continue home regimen per med rec; carvedilol 12.5mg BID, nifedipine 30 mg HS - will hold hydralazine as pt's BP controlled Spinal cord infarction - resulting in bilateral LE paralysis - PT/OT consulted; suspect pt may need further rehab upon discharge Hx of type 2 DM - last A1c 6.5% 03/2023 w/o medications - no need for SSI Microcytic anemia - prior FOB positive with possible colon cancer on prior CTs (awaiting O/P colonoscopy). - Currently appears stable. - Hgb most recently 8.4 on Jun 19, 10.4 on admission, 8.8 today; continue to trend - Iron low, ferritin wnl; consistent with anemia of chronic disease Chronic indwelling wheat catheter - suspected neurogenic bladder from spinal cord infarction (2) Unstageable pressure ulcer of sacral region: (3) Osteomyelitis: (4) Pulmonary nodule 1 cm or greater in diameter: (5) Spinal cord infarction: (6) Aortic dissection, abdominal: (7) Aortic stenosis: (8) Mass of colon: (9) HTN (hypertension): (10) Gangrene of toe of right foot: (11) Gram-positive bacteremia: Admission and Anticipated Discharge Date Admission Date: July 04, 2023 Supervising Physician Co-Signing Physician Notes Attending Physician Supervision Note: I independently interviewed and examined the patient and verified the marie history and physical, reviewed labs and image studies and agree with findings and care plan noted above. no new concerns today. vitals noted nad heent nc at mmm breathing unlabored no accessory muscles good effort skin no rashes no pallor or icterus neuro no focal deficits. 67 year old female presents to the ER on advice of the wound care clinic due to stage IV sacral ulcer. Patient denies any fever or chills. Stage 4 sacral ulcer/OM ischemia tuberosity - wound care nurse consulted. general surgery for debridement, ID for ongoing abx mx -Continue IV cefepime for klebsiella and citrobacter in wound cx done as outpt. -surgery also planning colostomy for excess stool burden for definitive management of sacral wound. -NPO, IVF G+ Bacteria in one blood culture - Not MRSA. ? contaminant. follow final results. on cefepime. Right 1st toe gangrene, Left heel ecchymosis, possible fluid collection - Left ankle xr with no bony pathology. -consider podiatry consult once initial sacral ulcer has been stabilized Microcytic anemia - prior FOB positive with possible colon cancer on prior CTs (awaiting O/P colonoscopy). h/h stable. iron studies with low s iron. ferritin 154. -consider IV venofer once acute infection status resolved Peripheral artery disease - noted significant vascular history under Dr Simoni. Previously discharged on Eliquis but stopped at [facility] at rehab - will get info from [facility]. Aortic dissection - not new Chronic indwelling wheat catheter - ? d/t neurogenic bladder from spinal cord infarction. with sacral decubitus - will help as well. VTE Proph - Heparin SQ. consider palliative care referral given overall poor prognosis if unable to get her back on anticoagulation. Subjective No acute complaints this morning. Notes that she is hungry. Denies pain. Review of Systems Review of Systems: As per above Physical Exam Physical Exam: Constitutional: well-appearing, no acute distress HEENT: NCAT, no conjunctival injection CV: regular rhythm, no murmur appreciated, extremities well-perfused, no LE edema Resp: CTABL, no wheezes/rales/rhonchi appreciated, no increased work of breathing GI: soft, nondistended, nontender, BS normoactive MSK: no gross deformities appreciated Skin: warm, dry, no rash appreciated Neuro: alert, oriented Results & Data Results & Data Vital Signs (Past 12 Hours) Vital Signs Temp Pulse Pulse Pulse Resp BP Pulse Ox 07/04/23 22:50 07/04/23 22:50 36.7 C 64 18 137/56 L 99 07/04/23 22:00 07/04/23 20:01 63 22 117/65 99 07/04/23 20:00 64 O2 Del Method O2 Flow Rate 07/04/23 22:50 Nasal Cannula 3 07/04/23 22:50 Nasal Cannula 3 07/04/23 22:00 Nasal Cannula 3 07/04/23 20:01 Nasal Cannula 3 07/04/23 20:00 (3) Osteomyelitis Osteomyelitis location: multiple sites Osteomyelitis type: unspecified type Qualified Code(s): M86.9 - Osteomyelitis, unspecified (7) Aortic stenosis Cardiac valve disease etiology: nonrheumatic Qualified Code(s): I35.0 - Nonrheumatic aortic (valve) stenosis (9) HTN (hypertension) Hypertension type: resistant hypertension Qualified Code(s): I1A.0 - Resistant hypertension
[2023-07-05 07:23] LABS: BUN Creatinine Ratio 40.4 (10-20); Calcium 7.9 mg/dl (8.6-10.3); Creatinine Clr Calc Pharmacy 72.9 ml/min; Est GFR (African American) 112.7 ml/min; Est GFR (Non-African American) 97.3 ml/min; Potassium 4.1 mmol/L (3.5-5.1)
--- NOTE | 2023-07-05 07:27 | XRay Report ---
SINGLE VIEW CHEST CLINICAL HISTORY: Sepsis. FINDINGS: An AP, portable, upright chest radiograph is compared to study dated 04/16/2023 and correla juan with chest CT dated 05/02/2023. The heart is enlarged noting atherosclerotic calcification of the thoracic aorta. The pulmonary vasculature is noncongested. Emphysema and chronic interstitial thicken ing is similar to previous. There is elevation of the left hemidiaphragm with associated atelectasis. Scattered calcified granulomas are observed. No airspace consolidation or large pleural effusion is identified. No pneumothorax is seen. The skeletal structures are osteopenic. The bony thorax is gross ly intact. IMPRESSION: 1. Cardiomegaly and emphysema with no active disease in the chest. 2. The suspicious left upper lobe pulmonary nodule seen by CT on 05/02/2023 is not appreciated on x-ra y. ACT 112: Negative or not required by law. Electronically signed by: Koby Mcclain M.D. 07/05/2023 7:26 AM
[2023-07-05 07:49] LABS: Ferritin 154.2 ng/ml (8-388)
--- NOTE | 2023-07-05 07:53 | XRay Report ---
LEFT ANKLE 3 VIEWS CLINICAL HISTORY: Left ankle pain. Clinical concern for osteomyelitis. FINDINGS: 3 views of the left ankle are obtained. No prior studies are available for comparison at th e time of dictation. The skeletal structures are osteopenic. No fracture is seen. There is no bony er osion to suggest osteomyelitis. The ankle mortise is intact. Degenerative change is observed at the t ibiotalar articulation. There is degenerative spurring along the dorsal aspect of the tarsal bones. A dorsal calcaneal heel spur is observed. Soft tissue edema is noted in the hindfoot. No soft tissue g as or radiodense foreign body is identified. IMPRESSION: Soft tissue swelling with no acute bony abnormality identified. Electronically signed by: Koby Mcclain M.D. 07/05/2023 7:52 AM
[2023-07-05] MEDS: FERROUS SULFATE 325 MG TAB PO SCH (08:09)
[2023-07-05] MEDS: carvediloL 12.5 MG TAB PO SCH (08:09)
[2023-07-05] MEDS: EZETIMIBE 10 MG TAB PO SCH (08:11)
[2023-07-05] MEDS: ROSUVASTATIN CALCIUM 20 MG TAB PO SCH (08:11)
[2023-07-05 09:31] LABS: A calco-baum cmplx NotReported Not Detected (NotDetected); Bact fragilis Not Reported Not Detected (NotDetected); Blood Culture Id Panel PCR Panel Negative (NotDetected); C auris Not Reported Not Detected (NotDetected); Calbicans Not Reported Not Detected (NotDetected); Candida glabrata Not Reported Not Detected (NotDetected); Candida krusei Not Reported Not Detected (NotDetected); Cneoformans/gatti Not Reported Not Detected (NotDetected); Cparapsilosis Not Reported Not Detected (NotDetected); E cloacae compx Not Reported Not Detected (NotDetected); Efaecalis Not Reported Not Detected (NotDetected); Efaecium Not Reported Not Detected (NotDetected); Enterobacterales Not Reported Not Detected (NotDetected); Escherichia coli Not Reported Not Detected (NotDetected); H influenzae Not Reported Not Detected (NotDetected); K aerogenes Not Reported Not Detected (NotDetected); Koxytoca Not Reported Not Detected (NotDetected); Kpneumoniae grp Not Reported Not Detected (NotDetected); Lmonocyt Not Reported Not Detected (NotDetected); N meningitidis Not Reported Not Detected (NotDetected); P aeruginosa Not Reported Not Detected (NotDetected); Proteus spp Not Reported Not Detected (NotDetected); Salmonella spp Not Reported Not Detected (NotDetected); Smarcescens Not Reported Not Detected (NotDetected); Staph lugdunensis Not Reported Not Detected (NotDetected); Staph spp. Not Reported Not Detected (NotDetected); Staphaureus Not Reported Not Detected (NotDetected); Staphepi Not Reported Not Detected (NotDetected); Stenmaltophilia Not Reported Not Detected (NotDetected); Strep agal(GrpB) Not Reported Not Detected (NotDetected); Strep pneum Not Reported Not Detected (NotDetected); Strep pyog (GrpA) Not Reported Not Detected (NotDetected); Strep spp Not Reported Not Detected (NotDetected)
[2023-07-05] MEDS: LACTATED RINGER'S 1,000 ML IV SCH (11:17)
[2023-07-05] MEDS: VANCOMYCIN HCL 1,250 MG in SODIUM CHLORIDE 0.9% 250 ML IV ONE (11:18)
--- NOTE | 2023-07-05 11:22 | Billing Data ---
Date of Service July 04, 2023 Coding Level of Care Code 36330 INT INP/OBS CARE
[2023-07-05] MEDS: MoRPHine SULFATE 2 MG/ML CARP IV STA (11:45)
--- NOTE | 2023-07-05 12:25 | Surgery Progress Note ---
Date of Service July 05, 2023 Assessment & Plan (1) Unstageable pressure ulcer of sacral region: (2) Unstageable pressure ulcer of buttock: Plan: After discussing further with the patient, she has decided she would like to hold off on colostomy at this time. We have inserted a rectal tube for fecal diversion for now. Today we will plan for debridement of the sacral and b/l gluteal wounds. The details of the procedure have been explained to her and all of her questions were answered. Consent was obtained. Admission and Anticipated Discharge Date Admission Date: July 04, 2023 Subjective I saw this patient this am with the surgical PA and again separately to discuss surgical planning. She says she is incontinent of stool and does not know when she is going to have bowel movements. Physical Exam Skin: large sacral decubitus and gluteal b/l ulcerations. Stool over the area, very foul smelling. Results & Data Vital Signs (Past 12 Hours) Vital Signs Temp Pulse Resp BP Pulse Ox O2 Del Method O2 Flow Rate 07/05/23 11:29 36.5 C 64 14 124/54 L 97 Nasal Cannula 1 PG Care Time/CCT Total # of Minutes Spent Total Time Spent with Patient: Total time spent is greater than 50% in coordination of care (as documented) at patient's floor/unit and/or counseling patient: Coding Level of Care Code 72219 SUB INP/OBS CARE 1/25MIN Diagnoses Unstageable pressure ulcer of sacral region L89.150 Unstageable pressure ulcer of buttock L89.300 Laterality: unspecified laterality (2) Unstageable pressure ulcer of buttock Laterality: unspecified laterality Qualified Code(s): L89.300 - Pressure ulcer of unspecified buttock, unstageable
--- NOTE | 2023-07-05 12:31 | Infectious Disease Consult ---
Date of Consultation July 05, 2023 Assessment & Plan (1) Gram-positive bacteremia: (2) Osteomyelitis: (3) Unstageable pressure ulcer of sacral region: Plan #Gram positive bacilli bacteremia #sacral decubitus #osteomyelitis #paraplegia MICRO 07/04 Bcx Gram positive bacilli 07/01 wound cx Citrobacter muliniae, Kleb pneumo, GN Bacilli 67 yo female with PMH of JUAN MIGUEL, neurogenic bladder, multiple vessel atherosclerotic disease/stenosis, aortic stenosis, spinal cord infarction with resultant paraplegia and bedbound and development of sacral and ischial pressure ulcers, abdominal aortic dissection, HTN, and type 2 DM admitted to [facility] on 07/04 worsening chronic sacral wounds at the urging of the wound clinic. Pt explains that she saw the wound clinic on Sunday due to a worsening sacral wound and there was noted brown colored discharge coming from her wound. Pt was recently admitted 04/2023 for acute ischemia of RLE requiring surgical intervention (right femoral artery endarterectomy, RLE open thrombectomy). At this visit, a pulmonary nodule and colon mass were discovered on scans. Prior to pt's hospital admission in , pt had not seen a doctor since 2005. She has never had a colonoscopy. On admission, labs showed WBC 17.4. Platelets 580K, ESR 111, CRP 27.2 normal Cr and lactic acid. 07/04 Blood cultures no Growth. CT A/P showed large decubitus ulcers with concern for osteomyelitis of the ischial tuberosities bilaterally. Definite osteomyelitis of the sacrum/coccygeal region could not be ascertained by CT. There is extensive cellulitis but no discrete abscesses were noted. Also noted, 7 cm annular mucosal mass in the rectosigmoid junction without evidence of bowel obstruction or pneumoperitoneum. She is planning to have debridement by surgery today. She would like to hold on colostomy. RECOMMEND: -Planned debridement today, please send OR tissue for cultures -C/W Cefepime -C/W Daptomycin -Repeat bcx Do not anticipate treatment for osteomyelitis, unless flap placement planned Krista Arnold MD Infectious Diseases [facility] Consultation Information This patient recommendation is based on a telemedicine consult request which was completed asynchronously through chart review and information provided by the primary physician. The patient was not seen or examined today. The evaluation is consultative in nature and all patient care and treatment decisions can either be accepted or rejected by the patient's primary hospital-based treating physician using their own independent medical judgment for their patient. [employer] Sales Representative contact information: Please call [facility] Call Center . (Phone Number For Physician Use Only) Time Spent Reviewing Chart: 31+ minutes History of Present Illness Reason for Consultation: wound infection with osteomyelitis Requesting Physician: Dr. Carlson Attending Physician: Shelley Carlson MD History of Present Illness 67 yo female with PMH of JUAN MIGUEL, neurogenic bladder, multiple vessel atherosclerotic disease/stenosis, aortic stenosis, spinal cord infarction with resultant paraplegia and bedbound and development of sacral and ischial pressure ulcers, abdominal aortic dissection, HTN, and type 2 DM admitted to [facility] on 07/04 worsening chronic sacral wounds at the urging of the wound clinic. Pt explains that she saw the wound clinic on Sunday due to a worsening sacral wound and there was noted brown colored discharge coming from her wound. Pt was recently admitted 04/2023 for acute ischemia of RLE requiring surgical intervention (right femoral artery endarterectomy, RLE open thrombectomy). At this visit, a pulmonary nodule and colon mass were discovered on scans. Prior to pt's hospital admission in , pt had not seen a doctor since 2005. She has never had a colonoscopy. On admission, labs showed WBC 17.4. Platelets 580K, ESR 111, CRP 27.2 normal Cr and lactic acid. 07/04 Blood cultures no Growth. CT A/P showed large decubitus ulcers with concern for osteomyelitis of the ischial tuberosities bilaterally. Definite osteomyelitis of the sacrum/coccygeal region could not be ascertained by CT. There is extensive cellulitis but no discrete abscesses were noted. Also noted, 7 cm annular mucosal mass in the rectosigmoid junction without evidence of bowel obstruction or pneumoperitoneum. She is planning to have debridement by surgery today. She would like to hold on colostomy. Allergies Allergy/AdvReac Type Severity Reaction Status Date / Time No Known Allergies Allergy Verified 07/04/23 15:47 Home Medications Medication Instructions Recorded Confirmed Type oxycodone-acetaminophen 5 mg-325 1 tab PO Q6H PRN pain #30 tabs 05/10/23 07/04/23 Rx mg tablet (Percocet) loperamide 2 mg capsule 2 mg PO Q4H PRN Diarrhea 06/05/23 07/04/23 History (Anti-Diarrheal (loperamide)) ferrous sulfate 325 mg (65 mg 325 mg PO BID #180 tabs 06/19/23 07/04/23 Rx iron) tablet carvedilol 12.5 mg tablet 12.5 mg PO BIDM #180 tabs 06/29/23 07/04/23 Rx ezetimibe 10 mg tablet 10 mg PO QAM #90 tabs 06/29/23 07/04/23 Rx hydralazine 25 mg tablet 50 mg (2 x 25 mg) PO TID #270 tabs 06/29/23 07/04/23 Rx nifedipine 30 mg tablet,extended 60 mg (2 x 30 mg) PO HS #180 tabs 06/29/23 07/04/23 Rx release 24 hr (Procardia XL) pantoprazole 40 mg tablet,delayed 40 mg PO BID #180 tabs 06/29/23 07/04/23 Rx release rosuvastatin 20 mg tablet (Crestor) 20 mg PO QAM #90 tabs 06/29/23 07/04/23 Rx Patient History Medical History Iron deficiency anemia Neurogenic bladder Mesenteric artery stenosis Renal artery stenosis Aortic dissection, abdominal Aortic stenosis 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 Type II diabetes mellitus with peripheral artery disease Tobacco abuse HTN (hypertension) Family History Other Diabetes Social History Smoking Status: Current every day smoker Tobacco Type: Cigarettes Cigarettes Per Day: 10; Second Hand Exposure: No; Do You Dip or Chew Tobacco: No; Tobacco Cessation Education Requested by Patient: No Hx Alcohol Use: No Hx Substance Use: No Preferred Language: Greek Communication Ability: Effective Hearing Ability: Normal Motion Graphics Designer Required: No Beliefs That Will Affect Care: None Current Living Situation: Family Current Living Situation Comment: Pt lives alone but currently her son and daughter in law live with her Other Information That Helps Us Care for You: No Feels Safe at Home: Yes Safety Concerns: Feels Safe At This Time Diet: regular caffeine: Yes Assistive Devices: Hospital Bed and Wheelchair Results & Data Vital Signs (Past 12 Hours) Vital Signs Temp Pulse Resp BP Pulse Ox O2 Del Method O2 Flow Rate 07/05/23 11:29 36.5 C 64 14 124/54 L 97 Nasal Cannula 1 Laboratory Results Short CBC 07/05/23 Range/Units 06:46 WBC 15.36 H (4.8-10.8) K/ul Hgb 8.8 L (12.0-16.0) g/dl Hct 28.8 L (37.0-47.0) % Plt Count 435 H (130-400) K/uL BMP 07/05/23 06:46 Sodium 134 L Potassium 4.1 D Chloride 103 Carbon Dioxide 25 BUN 23 Creatinine 0.57 L Glucose 97 Calcium 7.9 L Urine 07/04/23 Range/Units Unknown Urine Color Yellow Urine Appearance Cloudy A (Clear) Urine pH 6.5 (4.5-7.5) Ur Specific [place] 1.044 H (1.000-1.030) Urine Protein 2+ H (Negative) Urine Glucose (UA) Negative (Negative) Microbiology 07/04/23 12:30 Blood Aerobic Blood Culture - Preliminary No growth in Aerobic bottle after 24 hours. 07/04/23 12:30 Blood Anaerobic Blood Culture - Preliminary Gram positive bacilli 07/04/23 Unknown Buttock,Right Gram Stain - Final 07/04/23 Unknown Buttock,Right Aerobic and Anaerobic Culture - Preliminary Gram negative bacilli Gram negative bacilli#2 07/04/23 Unknown Urine,Straight Cath Urine Culture - Preliminary Gram negative bacilli Medications Administered Current Inpatient Medications Acetaminophen (Acetaminophen 325 Mg Tab) 650 mg PO Q4H PRN PRN Reason: pain/fever Stop: 08/03/23 19:54 Atropine Sulfate (Atropine Sulfate 0.1 Mg/Ml 10ml Syr) 0.5 mg IV Q1M PRN PRN Reason: PACU Use-HR<40 &/or Bradycardi Stop: 07/05/23 20:59 Carvedilol (Carvedilol 12.5 Mg Tab) 12.5 mg PO BIDM TEDDY Stop: 08/04/23 07:59 Last Admin: 07/05/23 08:09 Dose: 12.5 mg Ezetimibe (Ezetimibe 10 Mg Tab) 10 mg PO QAM TEDDY Stop: 08/04/23 08:59 Last Admin: 07/05/23 08:11 Dose: 10 mg Ephedrine Sulfate (Ephedrine Sulfate 50 Mg/Ml Amp) 5 mg IV Q5M PRN PRN Reason: PACU Use Only-SBP<90 mmHg Stop: 07/05/23 20:59 Fentanyl Citrate (Fentanyl Citrate Pf 100 Mcg/2 Ml Vial) 25 mcg IV Q5M PRN PRN Reason: PACU Use Only-Pain Stop: 07/05/23 20:59 Ferrous Sulfate (Ferrous Sulfate 325 Mg Tab) 325 mg PO BIDM TEDDY Stop: 08/04/23 07:59 Last Admin: 07/05/23 08:09 Dose: 325 mg Flumazenil (Flumazenil 0.1 Mg/1 Ml 10 Ml Vial) 0.2 mg IV Q2M PRN PRN Reason: PACU Use Only-Benzo Reversal Stop: 07/05/23 20:59 Hydromorphone HCl (Hydromorphone Inj 1 Mg/Ml Syringe) 0.25 mg IV Q5M PRN PRN Reason: PACU Use Only-Pain Stop: 07/05/23 20:59 Cefepime HCl 2,000 mg/ Syringe 20 mls @ 5 mls/min IV Q8H [facility]; Protocol Stop: 08/16/23 00:00 Last Admin: 07/05/23 08:18 Dose: 5 mls/min Lactated Ringer's (Lr) 1,000 mls @ 80 mls/hr IV .[id number] [facility] Stop: 08/04/23 09:59 Last Admin: 07/05/23 11:17 Dose: 80 mls/hr Promethazine HCl 12.5 mg/ (Sodium Chloride) 50.5 mls @ 204 mls/hr IV ONCE PRN PRN Reason: PACU Use Only-Nausea/Vomiting Stop: 07/05/23 21:00 Labetalol HCl (Labetalol Hcl Iv 5 Mg/Ml 20ml) 5 mg IV Q5M PRN PRN Reason: PACU Use-SBP>160 or DBP>100 Stop: 07/05/23 21:00 Melatonin (Melatonin 3 Mg Tab) 3 mg PO HS PRN PRN Reason: Insomnia Stop: 08/03/23 19:54 Miscellaneous Information (Vancomycin Consult Active) 1 each N/A UD PRN PRN Reason: Consult Stop: 08/03/23 23:03 Morphine Sulfate (Morphine Sulfate 2 Mg/Ml Carp) 2 mg IV Q6H PRN PRN Reason: Pain Stop: 07/18/23 23:03 Last Admin: 07/05/23 07:47 Dose: 2 mg Naloxone HCl (Naloxone Hcl 0.4 Mg/1 Ml Vial/Carp) 0.2 mg IV Q2M PRN PRN Reason: PACU Use Only-Opiate Reversal Stop: 07/05/23 20:59 Nifedipine (Nifedipine Extended Rel 30 Mg Tabcr) 60 mg PO HS [facility] Stop: 08/03/23 23:03 Last Admin: 07/04/23 23:53 Dose: 60 mg Nystatin (Nystatin Susp 500,000 U/5 Ml Udc) 5 ml PO QID [facility] Stop: 07/14/23 22:44 Last Admin: 07/05/23 13:10 Dose: Not Given Ondansetron HCl (Ondansetron Inj 2 Mg/Ml 2 Ml Vial) 4 mg IV Q6H PRN PRN Reason: Nausea Stop: 08/03/23 19:54 Ondansetron HCl (Ondansetron Inj 2 Mg/Ml 2 Ml Vial) 4 mg IV ONCE PRN PRN Reason: PACU Use Only-Nausea/Vomiting Stop: 07/05/23 21:00 Pantoprazole Sodium (Pantoprazole 40 Mg Tab) 40 mg PO BID [facility] Stop: 08/03/23 23:03 Last Admin: 07/05/23 08:12 Dose: 40 mg Rosuvastatin Calcium (Rosuvastatin Calcium 20 Mg Tab) 20 mg PO QAM [facility] Stop: 08/04/23 08:59 Last Admin: 07/05/23 08:11 Dose: 20 mg (2) Osteomyelitis Osteomyelitis location: multiple sites Osteomyelitis type: unspecified type Qualified Code(s): M86.9 - Osteomyelitis, unspecified
[2023-07-05] MEDS ORDERED: FLUMAZENIL 0.1 MG/1 ML 10 ML VIAL IV PRN ×2 (12:59→14:20)
[2023-07-05] MEDS ORDERED: ATROPINE SULFATE 0.1 MG/ML 10ML SYR IV PRN ×2 (12:59→14:20)
[2023-07-05] MEDS ORDERED: PROMETHAZINE HCL 12.5 MG in SODIUM CHLORIDE 0.9% 50 ML IV PRN ×2 (12:59→14:20)
[2023-07-05] MEDS ORDERED: ONDANSETRON INJ 2 MG/ML 2 ML VIAL IV PRN ×2 (12:59→14:20)
[2023-07-05] MEDS ORDERED: HYDROmorphone INJ 1 MG/ML SYRINGE IV PRN ×2 (12:59→14:20)
[2023-07-05] MEDS ORDERED: ePHEDrine sulfate 50 MG/ML AMP IV PRN ×2 (12:59→14:20)
[2023-07-05] MEDS ORDERED: NALOXONE HCL 0.4 MG/1 ML VIAL/CARP IV PRN ×2 (12:59→14:20)
[2023-07-05] MEDS ORDERED: LABETALOL HCL IV 5 MG/ML 20ML IV PRN ×2 (12:59→14:20)
[2023-07-05] MEDS ORDERED: fentaNYL citrate PF 100 MCG/2 ML VIAL IV PRN ×2 (12:59→14:20)
--- NOTE | 2023-07-05 12:59 | Anesthesiology Consultation ---
Date of Service July 05, 2023 Assessment & Plan Chart Review Chart Review: Acceptable Risk for Surgery and Patient NOT seen in Pre Admission Testing Consults Requested none ASA ASA4 Proposed Anesthesia Anesthesia Type: General Risk / Benefits Reviewed With: PT / POA / Parent / Guardian, Accepts Plan and Informed Consent Obtained History Surgery Operation Date: 07/05/23 09:10 Proposed Procedures p Ischial and Sacral Debridements - Aurelia Brar, Height/Weight Height: 4 ft 11 in Weight: 52.6 kg Allergies Allergy/AdvReac Type Severity Reaction Status Date / Time No Known Allergies Allergy Verified 07/04/23 15:47 Medications Home Medications Medication Instructions Recorded Confirmed Last Taken oxycodone-acetaminophen 5 mg-325 1 tab PO Q6H PRN pain #30 tabs 05/10/23 07/04/23 Unknown mg tablet (Percocet) loperamide 2 mg capsule 2 mg PO Q4H PRN Diarrhea 06/05/23 07/04/23 Unknown (Anti-Diarrheal (loperamide)) ferrous sulfate 325 mg (65 mg 325 mg PO BID #180 tabs 06/19/23 07/04/23 07/04/23 08:00 iron) tablet carvedilol 12.5 mg tablet 12.5 mg PO BIDM #180 tabs 06/29/23 07/04/23 07/04/23 08:00 ezetimibe 10 mg tablet 10 mg PO QAM #90 tabs 06/29/23 07/04/23 07/04/23 hydralazine 25 mg tablet 50 mg (2 x 25 mg) PO TID #270 tabs 06/29/23 07/04/23 07/04/23 08:00 nifedipine 30 mg tablet,extended 60 mg (2 x 30 mg) PO HS #180 tabs 06/29/23 07/04/23 07/03/23 release 24 hr (Procardia XL) pantoprazole 40 mg tablet,delayed 40 mg PO BID #180 tabs 06/29/23 07/04/23 07/04/23 08:00 release rosuvastatin 20 mg tablet (Crestor) 20 mg PO QAM #90 tabs 06/29/23 07/04/23 07/04/23 Active Medications Generic Name Dose Route Start Last Admin Trade Name Freq PRN Reason Stop Dose Admin Carvedilol 12.5 mg 07/05/23 08:00 07/05/23 08:09 Carvedilol 12.5 Mg Tab PO 08/04/23 07:59 12.5 mg BIDM TEDDY Administration Ezetimibe 10 mg 07/05/23 09:00 07/05/23 08:11 Ezetimibe 10 Mg Tab PO 08/04/23 08:59 10 mg QAM TEDDY Administration Ferrous Sulfate 325 mg 07/05/23 08:00 07/05/23 08:09 Ferrous Sulfate 325 Mg Tab PO 08/04/23 07:59 325 mg BIDM TEDDY Administration Cefepime HCl 2,000 mg/ Syringe 20 mls @ 5 mls/min 07/05/23 00:00 07/05/23 08:18 IV 08/16/23 00:00 5 mls/min Q8H TEDDY Administration Protocol Vancomycin HCl 1,250 mg/ 275 mls @ 200 mls/hr 07/05/23 12:00 07/05/23 12:47 Sodium Chloride IV 07/05/23 13:22 Infused NOW ONE Infusion Lactated Ringer's 1,000 mls @ 80 mls/hr 07/05/23 10:00 07/05/23 11:17 Lr IV 08/04/23 09:59 80 mls/hr .[id number] TEDDY Administration Morphine Sulfate 2 mg 07/04/23 23:04 07/05/23 07:47 Morphine Sulfate 2 Mg/Ml Carp IV 07/18/23 23:03 2 mg Q6H PRN Administration Pain Nifedipine 60 mg 07/04/23 23:04 07/04/23 23:53 Nifedipine Extended Rel 30 Mg Tabcr PO 08/03/23 23:03 60 mg HS TEDDY Administration Nystatin 5 ml 07/04/23 22:45 07/05/23 08:10 Nystatin Susp 500,000 U/5 Ml Udc PO 07/14/23 22:44 5 ml QID TEDDY Administration Pantoprazole Sodium 40 mg 07/04/23 23:04 07/05/23 08:12 Pantoprazole 40 Mg Tab PO 08/03/23 23:03 40 mg BID TEDDY Administration Rosuvastatin Calcium 20 mg 07/05/23 09:00 07/05/23 08:11 Rosuvastatin Calcium 20 Mg Tab PO 03/09/24 08:59 20 mg QAM TEDDY Administration Past Medical History Medical History Iron deficiency anemia Neurogenic bladder Mesenteric artery stenosis Renal artery stenosis Aortic dissection, abdominal Aortic stenosis 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 Type II diabetes mellitus with peripheral artery disease Tobacco abuse HTN (hypertension) paraplegic Exercise / Class Metabolic Activity IV < 2 Limit ADL/Bedbound Past Family History Family History Other Diabetes Past Anesthesia History No Hx of Anesthesia Complications and No Family Hx of Anesthesia Complications History of PONV No Hx of PONV and No Hx of Motion Sickness Social History Smoking Status: Current every day smoker Smoking cigarettes per day: 10 Do You Dip or Chew Tobacco: No Hx Alcohol Use: No Hx Substance Use: No substance use type: does not use Physical Exam Vital Signs Last Vital Signs Temp 36.5 C 07/05/23 11:29 Pulse 64 07/05/23 11:29 Resp 14 07/05/23 11:29 BP 124/54 L 07/05/23 11:29 Pulse Ox 97 07/05/23 11:29 O2 Del Method Nasal Cannula 07/05/23 11:29 O2 Flow Rate 1 07/05/23 11:29 Testing Laboratory Results 07/05/23 06:46 07/05/23 06:46 Urine Color Yellow 07/04/23 Unknown Urine Appearance Cloudy (Clear) A 07/04/23 Unknown Urine pH 6.5 (4.5-7.5) 07/04/23 Unknown Ur Specific [place] 1.044 (1.000-1.030) H 07/04/23 Unknown Urine Protein 2+ (Negative) H 07/04/23 Unknown Urine Glucose (UA) Negative (Negative) 07/04/23 Unknown Urine Ketones Negative (Negative) 07/04/23 Unknown Urine Nitrite Positive (Negative) A 07/04/23 Unknown Ur Leukocyte Esterase 1+ (Negative) H 07/04/23 Unknown Urine WBC (Auto) >30 /hpf (0-5) H 07/04/23 Unknown Urine RBC (Auto) 0-4 /hpf (0-4) 07/04/23 Unknown U Hyaline Cast (Auto) 1-5 /lpf (0-5) 07/04/23 Unknown U Epithel Cells (Auto) 10-20 /lpf (0-5) H 07/04/23 Unknown Urine Bacteria (Auto) 2+ (Negative) H 07/04/23 Unknown 07/04/23 Unknown Gram Stain - Final Buttock,Right Aerobic and Anaerobic Culture - Preliminary Gram negative bacilli Gram negative bacilli#2 07/04/23 12:30 Anaerobic Blood Culture - Preliminary Blood Gram positive bacilli 07/04/23 Unknown Urine Culture - Preliminary Urine,Straight Cath Gram negative bacilli Electrocardiogram Date: 04/27/23 Findings: + NSR @ (SR @ 86 w? SA w/ occas. PVC's) and + LVH Chest X-Ray Date: 07/04/23 Findings: + cardiomegaly, + atherosclerosis of thoracic aorta and + other (C/W emphysema) Echocardiogram Date: 04/26/23 EF: 54% LV Function: normal RWMA: + none Other Findings: + LVH (moderate) and + diastolic dysfunction (Grade 2) Valvular Disease: + (moderate) and + MR (mild) TR-mild PAP 46 Torr
[2023-07-05] MEDS ORDERED: MIDAZOLAM HCL 1 MG/ML 2ML VIAL ONE ×2 (14:03→17:24)
[2023-07-05] MEDS ORDERED: fentaNYL citrate PF 100 MCG/2 ML VIAL ONE ×2 (14:03→17:24)
[2023-07-05] MEDS ORDERED: LIDOCAINE 2% 2 ML VIAL/AMP(20MG/ML) INFIL ONE ×2 (14:05→17:24)
[2023-07-05] MEDS ORDERED: PROPOFOL IV EMULSION 10 MG/ML 20 ML VIAL IV ONE ×2 (14:05→17:24)
[2023-07-05] MEDS ORDERED: ROCURONIUM BROMIDE 10 MG/ML 5 ML VIAL IV ONE ×2 (14:05→17:54)
[2023-07-05] MEDS ORDERED: ONDANSETRON INJ 2 MG/ML 2 ML VIAL ONE (17:54)
[2023-07-05] MEDS ORDERED: DEXAMETHASONE SOD INJ 4 MG/ML VIAL ONE (17:54)
[2023-07-05] MEDS: VANCOMYCIN HCL 1000MG/20ML VIAL ONE (18:41)
--- NOTE | 2023-07-05 19:04 | Operative Report ---
PG Post Operative Report Pre & Post Diagnosis Operation Date: 07/05/23 09:10 Pre-Op Diagnosis: (1) Unstageable pressure ulcer of sacral region. (2) Unstageable pressure ulcer of buttock. Post-Op Diagnosis: (1) Unstageable pressure ulcer of sacral region. (2) Unstageable pressure ulcer of buttock. Measurements: Left gluteal 5.5cm right to left, craniocaudal 10 Right gluteal 6.5cm right to left, craniocaudal 8 Sacral 9cm right to left, craniocaudal 12 I identified the patient and participated in the time-out.: Yes Procedure Operation Date: 07/05/23 09:10 Actual Procedures p Debridement of sacral and bilateral gluteal folds. - Aurelia Brar DO Surgeon Aurelia Brar DO [employer] No certified ophthalmic surgical assistant Estimated Blood Loss 5 Findings See Below Provide wound measurements: Left gluteal 5.5cm right to left, craniocaudal 10 Right gluteal 6.5cm right to left, craniocaudal 8 Sacral 9cm right to left, craniocaudal 12 Specimens None Tissue sent for aerobic/anaerobic culture Anesthesia Type General Complications None Indications Desiccated devitalized tissue involving all 3 large areas of ulceration at the sacral and ischial tuberosities Description of Procedure The patient was brought back to the operating room and connected to cardiac and oxygen monitoring. SCDs were applied to bilateral lower extremities she was administered supplemental O2 and general anesthesia. The patient was intubated. She was placed on the operating room table in prone position with care to protect bony prominences and her chest area with bumpers. The sacral and gluteal areas were prepped and draped in typical sterile fashion using Betadine. A timeout was conducted. The sacral wound was sharply debrided as was the bilateral gluteal wounds. All 3 wounds were debrided of devitalized tissue including skin, subcutaneous tissue, muscle down to periosteum and direct bone was palpated and a very small 1 to 2 mm spot at the left ischial tuberosity. Measurements of the 3 wounds noted above. All 3 wounds were copiously irrigated with a combination of 3 L of water containing 1 g of Vancomycin. The wounds were all packed with dry Kerlix which were covered with ABD pads. The area was wiped clean of excess Betadine and the ABD pads are secured in place with tape. The patient tolerated the procedure well. She was awakened from anesthesia, extubated transferred to recovery in stable condition. I attest to the content of the Intraoperative Record and any orders documented therein. Any exceptions are noted below.
--- NOTE | 2023-07-05 19:38 | Anesthesiology Progress Note ---
Date of Service July 05, 2023 Anesthesia Post Procedure Vital Signs Vital Signs: Temp Pulse Pulse Pulse Resp BP Pulse Ox 07/05/23 17:04 65 109/61 98 07/05/23 16:22 66 20 127/59 L 98 07/05/23 13:11 36.7 C 65 18 129/46 L 99 07/05/23 11:29 36.5 C 64 14 124/54 L 97 07/05/23 08:00 07/04/23 22:50 07/04/23 22:50 36.7 C 64 18 137/56 L 99 07/04/23 22:00 07/04/23 20:01 63 22 117/65 99 07/04/23 20:00 64 O2 Del Method O2 Flow Rate 07/05/23 17:04 Nasal Cannula 3 07/05/23 16:22 Nasal Cannula 3 07/05/23 13:11 Nasal Cannula 1 07/05/23 11:29 Nasal Cannula 1 07/05/23 08:00 Nasal Cannula 2 07/04/23 22:50 Nasal Cannula 3 07/04/23 22:50 Nasal Cannula 3 07/04/23 22:00 Nasal Cannula 3 07/04/23 20:01 Nasal Cannula 3 07/04/23 20:00 Pain Intensity Sacrum: Pain Intensity: 9 Transfer of Care Handoff Completed per policy Notes Mental Status: alert / awake / arousable Patient Amnestic to Procedure: Yes Nausea / Vomiting: adequately controlled Pain: adequately controlled Airway Patency, RR, SpO2: stable & adequate BP & HR: stable & adequate Hydration State: stable & adequate Anesthetic Complications: no major complications apparent
[2023-07-05] MEDS: VANCOMYCIN HCL 1,000 MG in SODIUM CHLORIDE 0.9% 250 ML IV SCH (20:31)
[2023-07-05] MEDS ORDERED: HEPARIN SOD 5,000 UNIT/0.5 ML VIAL SQ SCH (21:00)
[2023-07-05] MEDS: BUPIVACAINE 0.5 % 5 MG/1 ML MPF 30ML VIAL ONE (21:18)
[2023-07-05] MEDS: MELATONIN 3 MG TAB PO PRN (21:53)
[2023-07-06] MEDS: FIRST - Mouthwash BLM 119 ML PO PRN (02:51)
[2023-07-06 07:31] LABS: Hematocrit (blood only) 23.3 % (37.0-47.0); Mean Corpuscular Hemoglobin 23.1 pg (25.0-34.0); Mean Corpuscular Volume 76.9 fL (80.0-100.0); Mean Platelet Volume 8.5 fL (9.4-12.4); Platelet Count 365 K/uL (130-400); RDW Coefficient of Variation 17.6 % (11.5-14.5); RDW Standard Deviation 49.1 fL (36.4-46.3); Red Blood Count 3.03 M/uL (4.20-5.40)
[2023-07-06 08:00] LABS: Calcium 7.4 mg/dl (8.6-10.3); Creatinine Clr Calc Pharmacy 70.5 ml/min; Est GFR (African American) 111.5 ml/min; Est GFR (Non-African American) 96.2 ml/min; Potassium 4.3 mmol/L (3.5-5.1)
--- NOTE | 2023-07-06 08:10 | Hospitalist Progress Note ---
Date of Service July 06, 2023 Assessment & Plan (1) Peripheral arterial disease: Plan: Pt is a 67 yo female with PMH of JUAN MIGUEL, neurogenic bladder, multiple vessel atherosclerotic disease/stenosis, aortic stenosis, 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 Bilateral ischial tuberosity osteomyelitis - Leucocytosis persistently elevated 17.6 - CTAP showed large decubitus ulcers with osteomyelitis of the bilateral ischial tuberosities - wound cx from 07/02 showed pansensitive klebsiella, gram neg bacilli (no sensitivities or speciation), and citrobacter (resistant to ceftriaxone) - blood culture 07/04 1/2 growing gram + baciilli - urine cx growing gram positive cocci and ecoli, resistant to penicillin - ID consulted. continue cefepime(07/04), vancomycin(07/04), flagyl(07/06) - general surgery consulted for debridement, rectal tube inserted for fecal diversion -echo negative for vegetation -wound care consulted, wound vac applied Gram Positive Bacteremia - source likely sacral ulcer - 1/2 cultures from 07/04 growing gram + bacilii - repeat blood cultures until negative -echo negative for vegetation - ID consulted, see above Chronic peripheral vascular disease - in the setting of long standing smoking with recent intervention in Apr 2023 as detailed in HPI - continue rosuvastatin 20 mg daily, zetia 10mg daily - previously on Eliquis, but stopped at rehab Right 1st toe gangrene, Left heel ecchymosis, possible fluid collection - Left ankle xr without OM - Right foot XR conern infection without osteomyelitis, image better seen on wound care note - Podiatry consulted Colonic mass - CTAP this admission redemostrated 7 cm mucosal mass; no prior colonoscopy - Hgb 10.4 upon admission (increased from most recent 8.4 on 06/19/2023) - continue to trend CBC - pt will need colonoscopy for definitive diagnosis Aortic stenosis - last echo 03/2023 showed valve area of 1.1cm and EF 54%; pt currently asymptomatic and euvolemic Hypokalemia - K 3.2 upon admission; repleted HTN - pt unsure of what medications she takes at home - continue home regimen per med rec; carvedilol 12.5mg BID, nifedipine 30 mg HS - will hold hydralazine as pt's BP controlled Spinal cord infarction - resulting in bilateral LE paralysis - PT/OT consulted; suspect pt may need further rehab upon discharge Hx of type 2 DM - last A1c 6.5% 03/2023 w/o medications - no need for SSI Oral Thrush -continue nystatin PO -continue prn magic mouthwash Microcytic anemia - prior FOB positive with possible colon cancer on prior CTs (awaiting O/P colonoscopy). - Currently appears stable. - Hgb most recently 8.4 on Jun 19, 10.4 on admission, 8.8 today; continue to trend - Iron low, ferritin wnl; consistent with anemia of chronic disease Chronic indwelling wheat catheter - suspected neurogenic bladder from spinal cord infarction (2) Unstageable pressure ulcer of sacral region: (3) Osteomyelitis: (4) Pulmonary nodule 1 cm or greater in diameter: (5) Spinal cord infarction: (6) Aortic dissection, abdominal: (7) Aortic stenosis: (8) Mass of colon: (9) HTN (hypertension): (10) Gangrene of toe of right foot: (11) Gram-positive bacteremia: Admission and Anticipated Discharge Date Admission Date: July 04, 2023 Supervising Physician Co-Signing Physician Notes Attending Physician Supervision Note: I independently interviewed and examined the patient and verified the marie history and physical, reviewed labs and image studies and agree with findings and care plan noted above. underwent debridement - would vac to be placed. vitals noted nad heent nc at mmm breathing unlabored no accessory muscles good effort skin no rashes no pallor or icterus neuro no focal deficits. 67 year old female presents to the ER on advice of the wound care clinic due to stage IV sacral ulcer. Patient denies any fever or chills. Stage 4 sacral ulcer/OM ischemia tuberosity/Paraplegia - s/p debridement 07/06. ID following. wound care as well -IV cefepime/vancomycin/flagyl. await OR cultures. -surgery also planning colostomy for excess stool burden for definitive management of sacral wound. G+ Bacteria in one blood culture - Not MRSA. Repeat blood cx ordered. Right 1st toe gangrene, Left heel ecchymosis, possible fluid collection - Left ankle xr with no bony pathology. -podiatry consult added Microcytic anemia - - prior FOB positive with possible colon cancer on prior CTs (awaiting O/P colonoscopy). h/h stable. iron studies with low s iron. ferritin 154. - h/h drop today. recheck and follow. PAD - noted significant vascular history under Dr Amor. Previously discharged on Eliquis but stopped at [facility] at rehab - sec to drop in h/h. follow. Chronic indwelling wheat catheter - ? d/t neurogenic bladder from spinal cord infarction. with sacral decubitus - will help as well. Aortic dissection - not new VTE Proph - Add SCD. No heparin SQ given. Eliquis on hold consider palliative care referral given overall poor prognosis if unable to get her back on anticoagulation. Subjective Patient seen at bedside, calm comfortable cooperative. Denies SOB nausea vomiting fever, states pain in under control. Patient understands she has a rectal tube, will need to be reassessed in a week to determine if her wounds are covered enough for it to come out. Otherwise good appetite and sleep. Physical Exam Constitutional: WD/WN, vitals as above Eyes: PERRL, conjunctivae normal, anicteric sclerae ENMT: external ear and nose normal, oropharynx normal Neck: trachea midline, no thyromegaly Respiratory: normal respiratory effort Auscultation: + wheezes (RLL on inhalation and exhalation) Gastrointestinal (Abdomen): Inspection/Auscultation: abdomen normal to inspection rectal tube noted Skin: black eschar on right 1st toe. Pitting edema noted on b/l feet Genitourinary: wheat present Results & Data Results & Data Vital Signs (Past 12 Hours) Vital Signs Temp Pulse Resp BP Pulse Ox O2 Del Method O2 Flow Rate 07/06/23 07:36 36.8 C 56 L 16 110/42 L 93 Room Air 07/06/23 03:25 37.4 C 64 18 118/53 L 95 Room Air 07/05/23 23:24 36.4 C L 57 L 19 123/70 100 Nasal Cannula 2 07/05/23 22:15 36.2 C L 58 L 18 129/54 L 96 Nasal Cannula 2 07/05/23 21:20 36.3 C L 64 20 146/65 H 96 Nasal Cannula 2 07/05/23 20:45 36.2 C L 63 18 148/64 H 99 Nasal Cannula 2 07/05/23 20:30 Nasal Cannula 2 07/05/23 20:15 36.4 C L 20 131/58 L 98 Nasal Cannula 2 Resident Activity Tracking Resident Involvement: Resident Care Provided Care Provided: Adult [facility] (3) Osteomyelitis Osteomyelitis location: multiple sites Osteomyelitis type: unspecified type Qualified Code(s): M86.9 - Osteomyelitis, unspecified (7) Aortic stenosis Cardiac valve disease etiology: nonrheumatic Qualified Code(s): I35.0 - Nonrheumatic aortic (valve) stenosis (9) HTN (hypertension) Hypertension type: resistant hypertension Qualified Code(s): I1A.0 - Resistant hypertension
[2023-07-06] MEDS: MoRPHine SULFATE 2 MG/ML CARP IV STA (10:09)
--- NOTE | 2023-07-06 12:38 | Infectious Disease Progress Nt ---
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 Pt explains that she saw the wound clinic on Sunday due to a worsening sacral wound and there was noted brown colored discharge coming from her wound. Pt was recently admitted 04/2023 for acute ischemia of RLE requiring surgical intervention (right femoral artery endarterectomy, RLE open thrombectomy). At this visit, a pulmonary nodule and colon mass were discovered on scans. Prior to pt's hospital admission in , pt had not seen a doctor since 2005. She has never had a colonoscopy. On admission, labs showed WBC 17.4. Platelets 580K, ESR 111, CRP 27.2 normal Cr and lactic acid. 07/04 Blood cultures no Growth. CT A/P showed large decubitus ulcers with concern for osteomyelitis of the ischial tuberosities bilaterally. Definite osteomyelitis of the sacrum/coccygeal region could not be ascertained by CT. There is extensive cellulitis but no discrete abscesses were noted. Al so noted, 7 cm annular mucosal mass in the rectosigmoid junction without evidence of bowel obstruction or pneumoperitoneum. Patient has declined divertying colostomy. OR on 07/05 debridement of sacral and bilateral gluteal folds Or cultures are pending. RECOMMEND: -C/W Cefepime -Patient changed from Daptomycin to Vancomycin, pharmacy to follow levels -Follow OR cultures -Repeat bcx -Will add Flagyl 500mg IV TID for anaerobic coverage Plan for treatment for SSTI, Do not anticipate treatment for osteomyelitis, unless flap placement planned treatment for osteomyelitis in these circumstances with limited utility. ID doesnt round on weekends, please page ID Connect with questions, Dr. Holland will take over service on Sunday. Krista Arnold MD Infectious Diseases [facility] ID Connect Admission and Anticipated Discharge Date Admission Date: July 04, 2023 Subjective This patient recommendation is based on a telemedicine consult request which was completed asynchronously through chart review and information provided by the primary physician. The patient was not seen or examined today. The evaluation is consultative in nature and all patient care and treatment decisions can either be accepted or rejected by the patient's primary hospital-based treating physician using their own independent medical judgment for their patient. Time Spent Reviewing Chart: 21 - 30 minutes Results & Data Vital Signs (Past 12 Hours) Vital Signs Temp Pulse Resp BP Pulse Ox O2 Del Method O2 Flow Rate 07/06/23 08:42 55 L 109/60 07/06/23 07:36 36.8 C 56 L 16 110/42 L 93 Room Air 07/06/23 07:20 Nasal Cannula 2 07/06/23 03:25 37.4 C 64 18 118/53 L 95 Room Air Laboratory Results Laboratory Results - last 48 hr 07/04/23 07/04/23 07/04/23 12:30 16:07 Unknown WBC 17.44 H RBC 4.50 Hgb 10.4 L Hct 33.6 L MCV 74.7 L MCH 23.1 L MCHC 31.0 L RDW Std Deviation 46.5 H RDW Coeff of María 17.4 H Plt Count 580 H MPV 8.8 L Immature Gran % (Auto) 1.0 Neut % (Auto) 82.8 Lymph % (Auto) 7.5 Cotton % (Auto) 8.3 Eos % (Auto) 0.1 Baso % (Auto) 0.3 Neut # (Auto) 14.46 H Lymph # (Auto) 1.30 Cotton # (Auto) 1.44 H Eos # (Auto) 0.02 Baso # (Auto) 0.05 Immature Gran # (Auto) 0.17 Polychromasia 1+ Echinocytes 1+ ESR 111 H Sodium 135 L Potassium 3.2 L Chloride 98 Carbon Dioxide 28 Anion Gap 9 BUN 22 Creatinine 0.69 Est Cr Clr Drug Dosing Not Reportable Est GFR ( Amer) 105.9 Est GFR (Non-Af Amer) 91.4 BUN/Creatinine Ratio 31.9 H Glucose 138 H Lactate 1.3 Calcium 8.6 Magnesium Iron TIBC Unsaturated IBC Transferrin % Sat Ferritin Total Bilirubin 0.4 AST 21 ALT 22 Alkaline Phosphatase 141 H C-Reactive Protein 27.28 H Total Protein 6.9 Albumin 2.7 L Globulin 4.2 H Albumin/Globulin Ratio 0.6 L Lipase 13 Procalcitonin 1.13 H Urine Color Yellow Urine Appearance Cloudy A Urine pH 6.5 Ur Specific [place] 1.044 H Urine Protein 2+ H Urine Glucose (UA) Negative Urine Ketones Negative Urine Blood 2+ H Urine Nitrite Positive A Urine Bilirubin Negative Urine Urobilinogen Negative Ur Leukocyte Esterase 1+ H Urine WBC (Auto) >30 H Urine RBC (Auto) 0-4 U Hyaline Cast (Auto) 1-5 U Epithel Cells (Auto) 10-20 H Urine Bacteria (Auto) 2+ H Urine Yeast Not Reportable Bld Cult ID Panel PCR PCR Panel Negative 07/05/23 07/06/23 06:46 07:13 WBC 15.36 H 17.60 H RBC 3.79 L 3.03 L Hgb 8.8 L 7.0 L Hct 28.8 L 23.3 L MCV 76.0 L 76.9 L MCH 23.2 L 23.1 L MCHC 30.6 L 30.0 L RDW Std Deviation 47.7 H 49.1 H RDW Coeff of María 17.4 H 17.6 H Plt Count 435 H 365 MPV 8.7 L 8.5 L Immature Gran % (Auto) Neut % (Auto) Lymph % (Auto) Cotton % (Auto) Eos % (Auto) Baso % (Auto) Neut # (Auto) Lymph # (Auto) Cotton # (Auto) Eos # (Auto) Baso # (Auto) Immature Gran # (Auto) Polychromasia Echinocytes ESR Sodium 134 L 133 L Potassium 4.1 D 4.3 Chloride 103 104 Carbon Dioxide 25 26 Anion Gap 6 3 BUN 23 23 Creatinine 0.57 L 0.59 L Est Cr Clr Drug Dosing 72.9 70.5 Est GFR ( Amer) 112.7 111.5 Est GFR (Non-Af Amer) 97.3 96.2 BUN/Creatinine Ratio 40.4 H 39.0 H Glucose 97 117 H Lactate Calcium 7.9 L 7.4 L Magnesium 2.0 Iron 14 L TIBC 140 L Unsaturated IBC 126 L Transferrin % Sat 10 L Ferritin 154.2 Total Bilirubin AST ALT Alkaline Phosphatase C-Reactive Protein Total Protein Albumin Globulin Albumin/Globulin Ratio Lipase Procalcitonin Urine Color Urine Appearance Urine pH Ur Specific [place] Urine Protein Urine Glucose (UA) Urine Ketones Urine Blood Urine Nitrite Urine Bilirubin Urine Urobilinogen Ur Leukocyte Esterase Urine WBC (Auto) Urine RBC (Auto) U Hyaline Cast (Auto) U Epithel Cells (Auto) Urine Bacteria (Auto) Urine Yeast Bld Cult ID Panel PCR Microbiology 07/04/23 Unknown Urine,Straight Cath Urine Culture - Preliminary Escherichia coli Gram positive cocci 07/04/23 12:30 Blood Aerobic Blood Culture - Preliminary No growth in Aerobic bottle after 24 hours. 07/04/23 12:30 Blood Anaerobic Blood Culture - Preliminary Gram positive bacilli 07/04/23 Unknown Buttock,Right Gram Stain - Final 07/04/23 Unknown Buttock,Right Aerobic and Anaerobic Culture - Preliminary Gram negative bacilli Klebsiella pneumoniae Gram negative bacilli#2 07/05/23 18:12 Buttock Decubitus Gram Stain - Final 07/05/23 18:12 Buttock Decubitus Aerobic and Anaerobic Culture - Preliminary Moderate counts mixed probable gastrointestinal microbiota. 07/04/23 16:06 Blood Aerobic Blood Culture - Preliminary No growth in Aerobic bottle after 24 hours. 07/04/23 16:06 Blood Anaerobic Blood Culture - Preliminary Gram positive bacilli Medications Administered Current Inpatient Medications Acetaminophen (Acetaminophen 325 Mg Tab) 650 mg PO Q4H PRN PRN Reason: pain/fever Stop: 08/03/23 19:54 Carvedilol (Carvedilol 12.5 Mg Tab) 12.5 mg PO BIDM [facility] Stop: 08/04/23 07:59 Last Admin: 07/06/23 08:44 Dose: Not Given Ezetimibe (Ezetimibe 10 Mg Tab) 10 mg PO QAM [facility] Stop: 08/04/23 08:59 Last Admin: 07/06/23 08:45 Dose: 10 mg Ferrous Sulfate (Ferrous Sulfate 325 Mg Tab) 325 mg PO BIDM [facility] Stop: 08/04/23 07:59 Last Admin: 07/06/23 08:45 Dose: 325 mg Cefepime HCl 2,000 mg/ Syringe 20 mls @ 5 mls/min IV Q8H [facility]; Protocol Stop: 08/16/23 00:00 Last Admin: 07/06/23 07:40 Dose: 5 mls/min Lactated Ringer's (Lr) 1,000 mls @ 80 mls/hr IV .[id number] [facility] Stop: 08/04/23 09:59 Last Admin: 07/06/23 11:41 Dose: 80 mls/hr Vancomycin HCl 1,000 mg/ (Sodium Chloride) 270 mls @ 200 mls/hr IV Q12H [facility] Stop: 08/16/23 19:59 Last Infusion: 07/06/23 10:25 Dose: Infused Melatonin (Melatonin 3 Mg Tab) 3 mg PO HS PRN PRN Reason: Insomnia Stop: 08/03/23 19:54 Last Admin: 07/05/23 21:53 Dose: 3 mg Miscellaneous Information (Vancomycin Consult Active) 1 each N/A UD PRN PRN Reason: Consult Stop: 08/03/23 23:03 Morphine Sulfate (Morphine Sulfate 2 Mg/Ml Carp) 2 mg IV Q6H PRN PRN Reason: Pain Stop: 07/18/23 23:03 Last Admin: 07/06/23 07:50 Dose: 2 mg Multi-Ingredient Mouthwash/Gargle (First - Mouthwash Blm 119 Ml) 5 ml PO Q4H PRN PRN Reason: mouth pain Stop: 08/05/23 03:44 Last Admin: 07/06/23 11:59 Dose: 5 ml Nifedipine (Nifedipine Extended Rel 30 Mg Tabcr) 60 mg PO HS [facility] Stop: 08/03/23 23:03 Last Admin: 07/05/23 21:16 Dose: 60 mg Nystatin (Nystatin Susp 500,000 U/5 Ml Udc) 5 ml PO QID [facility] Stop: 07/14/23 22:44 Last Admin: 07/06/23 12:38 Dose: 5 ml Ondansetron HCl (Ondansetron Inj 2 Mg/Ml 2 Ml Vial) 4 mg IV Q6H PRN PRN Reason: Nausea Stop: 08/03/23 19:54 Pantoprazole Sodium (Pantoprazole 40 Mg Tab) 40 mg PO BID [facility] Stop: 08/03/23 23:03 Last Admin: 07/06/23 08:46 Dose: 40 mg Rosuvastatin Calcium (Rosuvastatin Calcium 20 Mg Tab) 20 mg PO QAM [facility] Stop: 08/04/23 08:59 Last Admin: 07/06/23 08:45 Dose: 20 mg (2) Osteomyelitis Osteomyelitis location: multiple sites Osteomyelitis type: unspecified type Qualified Code(s): M86.9 - Osteomyelitis, unspecified
--- NOTE | 2023-07-06 14:14 | Pharmacy Report ---
Pharmacy PK ABX Note - Date of Service July 06, 2023 - Assessment and Plan Assessment * Ms Rodriguez is a 67 year old F receiving vanc/cefepime for treatment of gram positive bacteremia, decubitus ulcers w/ osteomyelitis. * Pertinent microbiologic data includes: 07/04/23 12:30 Aerobic Blood Culture - Preliminary Blood No growth in Aerobic bottle after 48 hours. Anaerobic Blood Culture - Preliminary Gram positive bacilli 07/04/23 Unknown Urine Culture - Preliminary Urine,Straight Cath Escherichia coli Gram positive cocci 07/04/23 Unknown Gram Stain - Final Buttock,Right Aerobic and Anaerobic Culture - Preliminary Gram negative bacilli Klebsiella pneumoniae Gram negative bacilli#2 07/05/23 18:12 Gram Stain - Final Buttock Decubitus Aerobic and Anaerobic Culture - Preliminary Moderate counts mixed probable gastrointestinal microbiota. 07/04/23 16:06 Aerobic Blood Culture - Preliminary Blood No growth in Aerobic bottle after 24 hours. Anaerobic Blood Culture - Preliminary Gram positive bacilli * Pt is POD #1 s/p debridement of sacral wounds in OR. * ID consult in place Plan Vancomycin * Loading dose: 1250 mg IV x 1 dose, then * Maintenance dose: 1000 mg IV every 12 hours * Regimen is predicted to achieve target AUC/TERESO of 400-600 mg/L.hr * Vanc level ordered for tomorrow with AM labs Cefepime 2gm IV q8h Pharmacy will continue to follow and will adjust dose/frequency as necessary. Thank you. Pharmacy has transitioned to AUC monitoring for vancomycin. AUC/TERESO is the preferred PK/PD target and is associated with decreased risk of nephrotoxicity compared to traditional trough targets.
--- NOTE | 2023-07-06 15:53 | XRay Report ---
RIGHT FOOT 3 VIEWS CLINICAL HISTORY: Right foot infection. FINDINGS: 3 views of the right foot are compared to study dated 04/25/2023. The skeletal structures a re osteopenic. No fracture is seen. There is no bony erosion typical for osteomyelitis. Mild arthriti c change is seen throughout the foot. There is a large dorsal heel spur. Degenerative spurring is see n along the dorsal aspect of the tarsal bones. A cutaneous defect in the first toe suggests a wound. No soft tissue gas or radiodense foreign body is identified. Diffuse soft tissue edema seen throughou t the forefoot. IMPRESSION: 1. Diffuse soft tissue swelling with no acute bony abnormality identified. 2. A wound is suggested in the first toe. Correlate clinically Electronically signed by: Koby Mcclian M.D. 07/06/2023 3:52 PM
--- NOTE | 2023-07-06 16:25 | XCELERA ---
[id number]
[2023-07-06] MEDS: metroNIDAZOLE 500 MG/100 ML BAG IV SCH (17:31)
[2023-07-06 18:34] LABS: Hematocrit (blood only) 24.3 % (37.0-47.0); Hemoglobin 7.4 g/dl (12.0-16.0)
--- NOTE | 2023-07-07 07:03 | Hospitalist Progress Note ---
Date of Service July 07, 2023 Assessment & Plan (1) Peripheral arterial disease: Plan: Pt is a 67 yo female with PMH of JUAN MIGUEL, neurogenic bladder, multiple vessel atherosclerotic disease/stenosis, aortic stenosis, 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 Bilateral ischial tuberosity osteomyelitis - Leucocytosis persistently elevated 15.83 - CTAP showed large decubitus ulcers with osteomyelitis of the bilateral ischial tuberosities - wound cx from 07/02 showed pansensitive klebsiella, gram neg bacilli (no sensitivities or speciation), and citrobacter (resistant to ceftriaxone) - blood culture 07/04 1/2 growing gram + baciilli - urine cx growing E. coli, gram + cocci - ID consulted. continue cefepime(07/04), vancomycin(07/04), flagyl(07/06) - general surgery consulted for debridement, rectal tube inserted for fecal diversion - echo negative for vegetation - wound care consulted, wound vac applied Gram Positive Bacteremia - source likely sacral ulcer - 1/2 cultures from 07/04 growing gram + bacilii - repeat blood cultures until negative - echo negative for vegetation - ID consulted, see above Microcytic anemia - prior FOB positive with possible colon cancer on prior CTs (awaiting O/P colonoscopy). - Currently appears stable. - Iron low, ferritin wnl; consistent with anemia of chronic disease - Hgb 6.7 AM 07/07. - Will transfuse 1U PRBC's, recheck H&H at 8PM. Chronic peripheral vascular disease - in the setting of long standing smoking with recent intervention in Apr 2023 as detailed in HPI - continue rosuvastatin 20 mg daily, zetia 10mg daily - previously on Eliquis, but stopped at rehab Right 1st toe gangrene, Left heel ecchymosis, possible fluid collection - Left ankle xr without OM - Right foot XR conern infection without osteomyelitis, image better seen on w ound care note - Podiatry consulted, no intervention warranted at this time. Colonic mass - CTAP this admission redemostrated 7 cm mucosal mass; no prior colonoscopy - Hgb 10.4 upon admission (increased from most recent 8.4 on 06/19/2023) - continue to trend CBC - pt will need colonoscopy for definitive diagnosis Aortic stenosis - last echo 03/2023 showed valve area of 1.1cm and EF 54%; pt currently asymptomatic and euvolemic HTN - pt unsure of what medications she takes at home - continue home regimen per med rec; carvedilol 12.5mg BID, nifedipine 30 mg HS - will hold hydralazine as pt's BP controlled Oral Thrush -continue nystatin PO -continue prn magic mouthwash Hx of type 2 DM - last A1c 6.5% 03/2023 w/o medications - no need for SSI Spinal cord infarction - resulting in bilateral LE paralysis - PT/OT consulted; suspect pt may need further rehab upon discharge Chronic indwelling wheat catheter - suspected neurogenic bladder from spinal cord infarction F/E/N/GI: Heart healthy, Carb consistent T2DM DVT PPx: SCDs Dispo: Med/surg (2) Unstageable pressure ulcer of sacral region: (3) Osteomyelitis: (4) Pulmonary nodule 1 cm or greater in diameter: (5) Spinal cord infarction: (6) Aortic dissection, abdominal: (7) Aortic stenosis: (8) Mass of colon: (9) HTN (hypertension): (10) Gangrene of toe of right foot: (11) Gram-positive bacteremia: Admission and Anticipated Discharge Date Admission Date: July 04, 2023 Supervising Physician Co-Signing Physician Notes Attending Physician Supervision Note: I independently interviewed and examined the patient and verified the marie history and physical, reviewed labs and image studies and agree with findings and care plan noted above. no new concerns. vitals noted nad heent nc at mmm breathing unlabored no accessory muscles good effort skin no rashes no pallor or icterus neuro no focal deficits. 67 year old female presents to the ER on advice of the wound care clinic due to stage IV sacral ulcer. Patient denies any fever or chills. Stage 4 sacral ulcer/OM ischemia tuberosity/Paraplegia - s/p debridement 07/06. ID following. wound care as well -IV cefepime/vancomycin/flagyl. Would cx - moderate pseudomonas and gram positive cocci. -rectal tube and wheat in place. G+ Bacteria in one blood culture - Not MRSA. Repeat blood cx neg. Right 1st toe gangrene, Left heel ecchymosis, possible fluid collection - Left ankle xr with no bony pathology. -podiatry consult - no intervention recommended. consider vascular consult for PAD. (could assess the need on sunday). Microcytic anemia with acute blood loss anemia - - prior FOB positive with possible colon cancer on prior CTs (awaiting O/P colonoscopy). iron studies with low s iron. ferritin 154. - h/h drop - transfuse one unit pRBC 07/07. follow PAD - noted significant vascular history under Dr Amor. Previously discharged on Eliquis but stopped at [facility] at rehab - sec to drop in h/h. follow. Chronic indwelling whaet catheter - ? d/t neurogenic bladder from spinal cord infarction. with sacral decubitus - will help as well. Aortic dissection - not new VTE Proph - SCD. No heparin SQ given. Eliquis on hold consider palliative care referral given overall poor prognosis if unable to get her back on anticoagulation. Subjective Patient states she feels tired and sore but denies lightheaded or dizziness. Wasn't able to eat much of her breakfast due to a decreased appetite. Denies N/V, shortness of breath, chest pain. Review of Systems Review of Systems: As per above Physical Exam Constitutional: WD/WN, vitals as above Respiratory: normal respiratory effort, lungs clear to auscultation Cardiovascular: Rate/Rhythm: regular rate and regular rhythm Heart Sounds: normal S1 and normal S2 Gastrointestinal (Abdomen): normal bowel sounds, soft, nontender, no hepatosplenomegaly Psychiatric: A+Ox3, euthymic affect Results & Data Results & Data Vital Signs (Past 12 Hours) Vital Signs Temp Pulse Resp BP Pulse Ox O2 Del Method 07/06/23 21:10 Room Air 07/06/23 20:52 36.6 C 62 14 122/54 L 95 Room Air Resident Activity Tracking Resident Involvement: Resident Care Provided Care Provided: Adult Hospital Medicine (3) Osteomyelitis Osteomyelitis location: multiple sites Osteomyelitis type: unspecified type Qualified Code(s): M86.9 - Osteomyelitis, unspecified (7) Aortic stenosis Cardiac valve disease etiology: nonrheumatic Qualified Code(s): I35.0 - Nonrheumatic aortic (valve) stenosis (9) HTN (hypertension) Hypertension type: resistant hypertension Qualified Code(s): I1A.0 - Resistant hypertension
[2023-07-07 07:13] LABS: Hematocrit (blood only) 21.8 % (37.0-47.0); Hemoglobin 6.7 g/dl (12.0-16.0); Mean Corpuscular Hemoglobin 23.4 pg (25.0-34.0); Mean Corpuscular Hgb Conc 30.7 g/dL (32.0-36.0); Mean Corpuscular Volume 76.2 fL (80.0-100.0); Mean Platelet Volume 8.8 fL (9.4-12.4); Platelet Count 362 K/uL (130-400); RDW Coefficient of Variation 17.6 % (11.5-14.5); RDW Standard Deviation 48.8 fL (36.4-46.3); Red Blood Count 2.86 M/uL (4.20-5.40); White Blood Count 15.83 K/ul (4.8-10.8)
[2023-07-07 07:35] LABS: BUN Creatinine Ratio 32.8 (10-20); Calcium 7.3 mg/dl (8.6-10.3); Creatinine Clr Calc Pharmacy 62.1 ml/min; Est GFR (African American) 106.9 ml/min; Est GFR (Non-African American) 92.2 ml/min
--- NOTE | 2023-07-07 08:06 | Orthopedic Consultation ---
Date of Consultation July 07, 2023 Assessment & Plan (1) Gangrene of toe of right foot: Patient seen and evaluated at bedside in room w364-1. I reviewed the right great toe discoloration with Patient who notes injury from January of 2023. I reviewed previous ABIs and Duplex lower extremity artery exam, Patient has history of severe peripheral arterial disease which certainly plays a large role in her symptoms. X-rays taken and reviewed show no signs of OM. No intervention planned by podiatry. Encourage vascular consultation for CTA. Thank you for allowing me to participate in the care of this Patient. I will continue to follow while in house. (2) Type II diabetes mellitus with peripheral artery disease: (3) CAD (coronary artery disease): (4) Ischemia of right lower extremity: History of Present Illness Attending Physician: Shelley Carlson MD History of Present Illness Patient is a 67 year old female seen at bedside in room W362-1 for right great toe wound. 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 Patient admitted to [facility] for worsening sacral wounds at the urging of the wound clinic and shown to have bilateral ischial tuberosity osteomyelitis. She underwent wound debridement on 07/05/23. Patient currently treated with IV cefepime. She is seen today for right great toe wound.Patient notes she hit a table with her right great toe in January of 2023. Allergies Allergy/AdvReac Type Severity Reaction Status Date / Time No Known Allergies Allergy Verified 07/04/23 15:47 Home Medications Medication Instructions Recorded Confirmed Type oxycodone-acetaminophen 5 mg-325 1 tab PO Q6H PRN pain #30 tabs 05/10/23 07/04/23 Rx mg tablet (Percocet) loperamide 2 mg capsule 2 mg PO Q4H PRN Diarrhea 06/05/23 07/04/23 History (Anti-Diarrheal (loperamide)) ferrous sulfate 325 mg (65 mg 325 mg PO BID #180 tabs 06/19/23 07/04/23 Rx iron) tablet carvedilol 12.5 mg tablet 12.5 mg PO BIDM #180 tabs 06/29/23 07/04/23 Rx ezetimibe 10 mg tablet 10 mg PO QAM #90 tabs 06/29/23 07/04/23 Rx hydralazine 25 mg tablet 50 mg (2 x 25 mg) PO TID #270 tabs 06/29/23 07/04/23 Rx nifedipine 30 mg tablet,extended 60 mg (2 x 30 mg) PO HS #180 tabs 06/29/23 07/04/23 Rx release 24 hr (Procardia XL) pantoprazole 40 mg tablet,delayed 40 mg PO BID #180 tabs 06/29/23 07/04/23 Rx release rosuvastatin 20 mg tablet (Crestor) 20 mg PO QAM #90 tabs 06/29/23 07/04/23 Rx Patient History Medical History Iron deficiency anemia Neurogenic bladder Mesenteric artery stenosis Renal artery stenosis Aortic dissection, abdominal Aortic stenosis 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 Type II diabetes mellitus with peripheral artery disease Tobacco abuse HTN (hypertension) Surgical History S/P debridement (07/05/23) Debridement of sacral and bilateral gluteal folds. - Aurelia Jung, Family History Other Diabetes Social History Smoking Status: Current every day smoker Tobacco Type: Cigarettes Cigarettes Per Day: 10; Second Hand Exposure: No; Do You Dip or Chew Tobacco: No; Hx Alcohol Use: No Hx Substance Use: No Preferred Language: Wallisian Communication Ability: Effective Hearing Ability: Normal Cream Buyer Required: No Beliefs That Will Affect Care: None Current Living Situation: Family Current Living Situation Comment: Pt lives alone but currently her son and daughter in law live with her Feels Safe at Home: Yes Diet: regular caffeine: Yes Assistive Devices: Hospital Bed and Wheelchair Physical Exam Constitutional: + frail appearing, cooperative and comfo rtable Respiratory: normal respiratory effort Cardiovascular: Pedal pulses non palpable. Capillary refill time delayed. Musculoskeletal: No gross deformities. Skin: + ecchymosis (Right distal hallux ecchym osis. No signs of drainage.) Neurologic: Decreased epicritic sensation to feet. Psychiatric: Orientation: alert and oriented x 3 Results & Data Vital Signs (Past 12 Hours) Vital Signs Temp Pulse Resp BP Pulse Ox O2 Del Method 07/06/23 21:10 Room Air 07/06/23 20:52 36.6 C 62 14 122/54 L 95 Room Air Diagnostic Findings [facility] [place] [phone] XRay Report Patient: JAYANT GARZA Admit Date: 07/04/23 MR#: [id number] Address1: [address] [place] [address] Acct ID:[id number] Address2: Date: 1955 [facility] Zip: [place] [phone] Age: 67 Location: 3W Sex: F Room/Bed: [facility] Att Phy: Shelley Carlson MD Diagnosis: OSTEOMYELITIS Aura Phy: Lisa Fair CRNP Service Date: 07/06/23 Fam Phy: Interpreting Phy: Koby Mcclain MDAdmit Phy: Jackelyn Ascencio DO Ordering Phy: Savi Dubon DO cc: ~ RIGHT FOOT 3 VIEWS CLINICAL HISTORY: Right foot infection. FINDINGS: 3 views of the right foot are compared to study dated 04/25/2023. The skeletal structures are osteopenic. No fracture is seen. There is no bony erosion typical for osteomyelitis. Mild arthritic change is seen throughout the foot. There is a large dorsal heel spur. Degenerative spurring is seen along the dorsal aspect of the tarsal bones. A cutaneous defect in the first toe suggests a wound. No soft tissue gas or radiodense foreign body is identified. Diffuse soft tissue edema seen throughout the forefoot. IMPRESSION: 1. Diffuse soft tissue swelling with no acute bony abnormality identified. 2. A wound is suggested in the first toe. Correlate clinically Electronically signed by: Koby Mcclain M.D. 07/06/2023 3:52 PM Dictated: 07/06/23 1550 Transcribed: 07/06/23 1550
--- NOTE | 2023-07-07 10:16 | Pharmacy Report ---
Pharmacy PK ABX Note - Date of Service July 07, 2023 - Assessment and Plan Assessment 07/07: * Continues on vanc/cefepime/metronidazole- day # 3 vancomycin. Renal function stable. ID following. 07/06: * Ms Rodriguez is a 67 year old F receiving vanc/cefepime for treatment of gram positive bacteremia, decubitus ulcers w/ osteomyelitis. * Pertinent microbiologic data includes: 07/04 blood culture (+) gram (+) bacilli in 2/, buttock culture (+) E.coli, Klebsiella pneumonia, and pseudomonas, 07/05 decubitus (+) pseudomonas aeruginosa. * Pt is POD #1 s/p debridement of sacral wounds in OR. * ID consult in place Plan Vancomycin * Current regimen: vanc 1gm IV q12h * Random level (~9hr level), 27.8mcg/mL this AM - predicted to achieve ssAUC of 923mg/L.hr -supratherapeutic. * Decrease maintenance dose to 1250mg IV q24h starting later this evening. * Regimen is predicted to achieve target AUC/TERESO of 400-600 mg/L.hr * Will repeat a level around steady state of new regimen Pharmacy will continue to follow and will adjust dose/frequency as necessary. Thank you. Pharmacy has transitioned to AUC monitoring for vancomycin. AUC/TERESO is the preferred PK/PD target and is associated with decreased risk of nephrotoxicity compared to traditional trough targets.
[2023-07-07] MEDS ORDERED: SODIUM CHLORIDE 0.9% 250 ML IV PRN (13:21)
[2023-07-07] MEDS: ACETAMINOPHEN 325 MG TAB PO PRN (13:48)
[2023-07-07] MEDS: VANCOMYCIN HCL 1,250 MG in SODIUM CHLORIDE 0.9% 250 ML IV SCH (19:16)
[2023-07-07 19:59] LABS: Hematocrit (blood only) 27.9 % (37.0-47.0); Hemoglobin 8.5 g/dl (12.0-16.0)
--- NOTE | 2023-07-08 06:36 | Hospitalist Progress Note ---
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 Bilateral ischial tuberosity osteomyelitis - Leucocytosis persistently elevated 15.83 - CTAP showed large decubitus ulcers with osteomyelitis of the bilateral ischial tuberosities - wound cx from 07/02 showed pansensitive klebsiella, gram neg bacilli (no sensitivities or speciation), and citrobacter (resistant to ceftriaxone) - blood culture 07/04 1/2 growing gram + baciilli - urine cx growing E. coli, gram + cocci - ID consulted. continue cefepime(07/04), vancomycin(07/04), flagyl(07/06) - general surgery consulted for debridement, rectal tube inserted for fecal diversion - echo negative for vegetation - wound care consulted, wound vac applied Gram Positive Bacteremia - source likely sacral ulcer - 1/2 cultures from 07/04 growing gram + bacilii - repeat blood cultures until negative - echo negative for vegetation - ID consulted, see above Microcytic anemia - prior FOB positive with possible colon cancer on prior CTs (awaiting O/P colonoscopy). - Currently appears stable. - Iron low, ferritin wnl; consistent with anemia of chronic disease - Hgb 6.7 AM 07/07. - Transfused 1U PRBC 07/07 with repeat Hgb 9.0. - Continue to trend AM CBC. Chronic peripheral vascular disease - in the setting of long standing smoking with recent intervention in Apr 2023 as detailed in HPI - continue rosuvastatin 20 mg daily, zetia 10mg daily - previously on Eliquis, but stopped at rehab Right 1st toe gangrene, Left heel ecchymosis, possible fluid collection - Left ankle xr without OM - Right foot XR conern infection without osteomyelitis, image better seen on wound care note - Podiatry consulted, no intervention warranted at this time. Colonic mass - CTAP this admission redemostrated 7 cm mucosal mass; no prior colonoscopy - Hgb 10.4 upon admission (increased from most recent 8.4 on 06/19/2023) - continue to trend CBC - pt will need colonoscopy for definitive diagnosis Aortic stenosis - last echo 03/2023 showed valve area of 1.1cm and EF 54%; pt currently asymptomatic and euvolemic HTN - pt unsure of what medications she takes at home - continue home regimen per med rec; carvedilol 12.5mg BID, nifedipine 30 mg HS - will hold hydralazine as pt's BP controlled Oral Thrush -continue nystatin PO -continue prn magic mouthwash Hx of type 2 DM - last A1c 6.5% 03/2023 w/o medications - no need for SSI Spinal cord infarction - resulting in bilateral LE paralysis - PT/OT consulted; suspect pt may need further rehab upon discharge Chronic indwelling wheat catheter - suspected neurogenic bladder from spinal cord infarction F/E/N/GI: Heart healthy, Carb consistent T2DM. Per nutrition will try to get caloric intake up with increased boost consumption. DVT PPx: SCDs Dispo: Med/surg (2) Unstageable pressure ulcer of sacral region: (3) Osteomyelitis: (4) Pulmonary nodule 1 cm or greater in diameter: (5) Spinal cord infarction: (6) Aortic dissection, abdominal: (7) Aortic stenosis: (8) Mass of colon: (9) HTN (hypertension): (10) Gangrene of toe of right foot: (11) Gram-positive bacteremia: Admission and Anticipated Discharge Date Admission Date: July 04, 2023 Supervising Physician Co-Signing Physician Notes Attending Physician Supervision Note: I independently interviewed and examined the patient and verified the marie history and physical, reviewed labs and image studies and agree with findings and care plan noted above. no new concerns. vitals noted nad heent nc at mmm breathing unlabored no accessory muscles good effort skin no rashes no pallor or icterus neuro no focal deficits. 67 year old female presents to the ER on advice of the wound care clinic due to stage IV sacral ulcer. Stage 4 sacral ulcer/OM ischemia tuberosity/Paraplegia - s/p debridement 07/06. ID following. wound care as well -IV cefepime/vancomycin/flagyl. Would cx - moderate pseudomonas. -rectal tube and wheat in place. Bacteremia - culture from 07/04 - Clostridium cadaveris in both tubes. already on flagyl. ID consulted. Positive Urine culture - E coli and enterococcus - contaminant/asymptomatic - no concern of infection but current abx regimen should cover. Microcytic anemia with acute blood loss anemia - - prior FOB positive with possible colon cancer on prior CTs (awaiting O/P colonoscopy). iron studies with low s iron. ferritin 154. - h/h drop - transfuse one unit pRBC 07/07. Right 1st toe gangrene, Left heel ecchymosis, possible fluid collection - Left ankle xr with no bony pathology. -podiatry consult - no intervention recommended. consider vascular consult for PAD. (could assess the need on sunday). PAD - noted significant vascular history under Dr Amor. Previously discharged on Eliquis but stopped at [facility] at rehab - follow. assess the need to resume in am since h/h stable. Chronic indwelling wheat catheter - ? d/t neurogenic bladder from spinal cord infarction. with sacral decubitus - will help as well. Aortic dissection - not new Nystatin/Boost added VTE Proph - SCD. h/h stable on 07/08 - consider chemical chemoprophylaxis in am. Subjective Patient feeling subjectively better today, pain is not as pronounced and she states that she is able to eat more. No overnight events. Review of Systems Review of Systems: As per above Physical Exam Constitutional: WD/WN, vitals as above Respiratory: normal respiratory effort, lungs clear to auscultation Cardiovascular: Rate/Rhythm: regular rate and regular rhythm Heart Sounds: normal S1 and normal S2 Gastrointestinal (Abdomen): normal bowel sounds, soft, nontender, no hepatosplenomegaly Psychiatric: A+Ox3, euthymic affect Results & Data Results & Data Vital Signs (Past 12 Hours) Vital Signs Temp Pulse Resp BP Pulse Ox O2 Del Method 07/07/23 19:18 36.9 C 68 16 155/61 H 92 Room Air 07/07/23 19:15 Room Air Resident Activity Tracking Resident Involvement: Resident Care Provided Care Provided: Adult Hospital Medicine (3) Osteomyelitis Osteomyelitis location: multiple sites Osteomyelitis type: unspecified type Qualified Code(s): M86.9 - Osteomyelitis, unspecified (7) Aortic stenosis Cardiac valve disease etiology: nonrheumatic Qualified Code(s): I35.0 - Nonrheumatic aortic (valve) stenosis (9) HTN (hypertension) Hypertension type: resistant hypertension Qualified Code(s): I1A.0 - Resistant hypertension
[2023-07-08 07:50] LABS: Basophils # (auto) 0.03 K/uL (0.00-0.20); Basophils % (auto) 0.2 %; Eosinophils # (auto) 0.06 K/uL (0.00-0.50); Eosinophils % (auto) 0.4 %; Hematocrit (blood only) 28.1 % (37.0-47.0); Lymphocytes # (auto) 1.44 K/uL (1.20-3.40); Lymphocytes % (auto) 9.6 %; Mean Corpuscular Hemoglobin 24.9 pg (25.0-34.0); Mean Corpuscular Volume 77.8 fL (80.0-100.0); Mean Platelet Volume 8.8 fL (9.4-12.4); Monocytes % (auto) 9.3 %; Neutrophils # (auto) 11.46 K/uL (1.40-6.50); Neutrophils % (auto) 76.5 %; Platelet Count 337 K/uL (130-400); RDW Coefficient of Variation 17.5 % (11.5-14.5); Red Blood Count 3.61 M/uL (4.20-5.40); White Blood Count 14.99 K/ul (4.8-10.8)
[2023-07-08 08:09] LABS: Albumin Level 2.1 gm/dl (3.4-5.0); BUN Creatinine Ratio 27.7 (10-20); Calcium 7.6 mg/dl (8.6-10.3); Est GFR (Non-African American) 93.2 ml/min; Phosphorus 2.2 mg/dl (2.5-4.9)
[2023-07-08] MEDS: POTASSIUM CHLORIDE CRTAB 20 MEQ TABCR PO STA (11:21)
[2023-07-09 08:28] LABS: Hematocrit (blood only) 28.1 % (37.0-47.0); Hemoglobin 8.9 g/dl (12.0-16.0); Mean Corpuscular Hemoglobin 24.5 pg (25.0-34.0); Mean Corpuscular Hgb Conc 31.7 g/dL (32.0-36.0); Mean Corpuscular Volume 77.2 fL (80.0-100.0); Mean Platelet Volume 8.8 fL (9.4-12.4); Platelet Count 343 K/uL (130-400); Red Blood Count 3.64 M/uL (4.20-5.40); White Blood Count 13.88 K/ul (4.8-10.8)
[2023-07-09 08:43] LABS: Albumin Globulin Ratio 0.6 (0.9-2); Albumin Level 1.9 gm/dl (3.4-5.0); Bilirubin,Total 0.3 mg/dl (0.2-1.0); Calcium 7.2 mg/dl (8.6-10.3); Creatinine Clr Calc Pharmacy 69.3 ml/min; Est GFR (African American) 110.9 ml/min; Est GFR (Non-African American) 95.7 ml/min; Globulin 3.2 gm/dl (2.5-4.0); Potassium 3.2 mmol/L (3.5-5.1); Total Protein 5.1 gm/dl (6.0-8.3)
--- NOTE | 2023-07-09 08:54 | Pharmacy Report ---
Pharmacy PK ABX Note - Date of Service July 09, 2023 - Assessment and Plan Assessment 07/09: * Antibiotic regimen per ID, likely to treat as SSTI not osteomyelitis. * Renal function stable. Patient remains afebrile. * No change to culture data, latest blood cultures (07/05 and 07/06) are negative at 48 hours. * No plan for intervention by podiatry. 07/07: * Continues on vanc/cefepime/metronidazole- day # 3 vancomycin. Renal function stable. ID following. 07/06: * Ms Rodriguez is a 67 year old F receiving vanc/cefepime for treatment of gram positive bacteremia, decubitus ulcers w/ osteomyelitis. * Pertinent microbiologic data includes: 07/04 blood culture (+) gram (+) bacilli in 07/01, buttock culture (+) E.coli, Klebsiella pneumonia, and pseudomonas, 07/05 decubitus (+) pseudomonas aeruginosa. * Pt is POD #1 s/p debridement of sacral wounds in OR. * ID consult in place Plan Vancomycin * Current regimen: 1250 mg IV every 24 hours * Random level obtained 07/09/23 resulted as 24.7 mcg/mL. This is predicted to achieve target AUC/TERESO of 400-600 mg/L.hr * Predicted AUC at steady state: 569 mg/L.hr * Continue 1250 mg IV every 24 hours * Will repeat level in the next 48-72 hours if therapy is continued and/or change in patient clinical status Cefepime * 2 g IV q8h - no change Metronidazole * 500 mg IV q8h - no change Pharmacy will continue to follow and will adjust dose/frequency as necessary. Thank you. Pharmacy has transitioned to AUC monitoring for vancomycin. AUC/TERESO is the preferred PK/PD target and is associated with decreased risk of nephrotoxicity compared to traditional trough targets.
[2023-07-09 09:01] LABS: Basophils # (auto) 0.05 K/uL (0.00-0.20); Basophils % (auto) 0.4 %; Echinocytes 1+; Eosinophils # (auto) 0.09 K/uL (0.00-0.50); Eosinophils % (auto) 0.6 %; Immature Granulocytes # (auto) 0.76 K/uL (0.01-0.20); Immature Granulocytes % (auto) 5.5 %; Lymphocytes # (auto) 1.73 K/uL (1.20-3.40); Lymphocytes % (auto) 12.5 %; Monocytes % (auto) 11.5 %; Neutrophils # (auto) 9.65 K/uL (1.40-6.50); Neutrophils % (auto) 69.5 %; Polychromasia 2+
--- NOTE | 2023-07-09 11:39 | Hospitalist Progress Note ---
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 Bilateral ischial tuberosity osteomyelitis CTAP showed large decubitus ulcers with osteomyelitis of the bilateral ischial tuberosities. Debrided 07/05 with wound vac placement and rectal tube for fecal diversion. ECHO negative for vegetations Wound, ID, and surgery on board - appreciate recs Continue cefepime, vanc, flagyl Cultures: wound cx 07/02 - pansensitive klebsiella, gram neg bacilli (no sensitivities or speciation), and citrobacter (resistant to ceftriaxone) blood culture 07/04 - gram positive bacilli, clostridium cadaveris urine cx 07/04 - e. coli, gram + cocci blood cx 07/05 NGTD x48H wound cx 07/05 (OR) - pseudomonas +mixed anaerobes Abx: Cefepime 07/04 Vancomycin 07/04 Flagyl 07/06 Gram Positive Bacteremia Source likely sacral ulcer. Blood cultures grew clostridium cadaveris. Repeat blood cx NGTD x48H. ECHO without vegetations. ID on board - recs as above. Microcytic anemia Prior FOB positive with 7 cm mucosal mass - ?colon cancer on prior CTs (awaiting O/P colonoscopy). Transfused 1U PRBCs 07/07 with appropriate hemoglobin response. Iron low, ferritin wnl; consistent with anemia of chronic disease Continue to trend AM CBC. Chronic peripheral vascular disease Likely in the setting of long standing smoking with recent intervention in Apr 2023 as detailed in HPI. Continue rosuvastatin 20 mg daily, zetia 10mg daily - previously on Eliquis, but stopped at rehab Right 1st toe gangrene, Left heel ecchymosis, possible fluid collection - Left ankle xr without OM - Right foot XR concern infection without osteomyelitis, image better seen on wound care note - Podiatry consulted, no intervention warranted at this time. Colonic mass CTAP this admission re-demonstrated 7 cm mucosal mass; no prior colonoscopy. Pt will need colonoscopy for definitive diagnosis Aortic stenosis - last echo 03/2023 showed valve area of 1.1cm and EF 54%; pt currently asymptomatic and euvolemic HTN - pt unsure of what medications she takes at home - continue home regimen per med rec; carvedilol 12.5mg BID, nifedipine 30 mg HS - will hold hydralazine as pt's BP controlled Oral Thrush -continue nystatin PO -continue prn magic mouthwash Hx of type 2 DM - last A1c 6.5% 03/2023 w/o medications - no need for SSI Spinal cord infarction - resulting in bilateral LE paralysis - PT/OT consulted; suspect pt may need further rehab upon discharge Chronic indwelling wheat catheter - suspected neurogenic bladder from spinal cord infarction F/E/N/GI: Heart healthy, Carb consistent T2DM. Per nutrition will try to get caloric intake up with increased boost consumption. DVT PPx: SCDs Dispo: Med/surg (2) Unstageable pressure ulcer of sacral region: (3) Osteomyelitis: (4) Pulmonary nodule 1 cm or greater in diameter: (5) Spinal cord infarction: (6) Aortic dissection, abdominal: (7) Aortic stenosis: (8) Mass of colon: (9) HTN (hypertension): (10) Gangrene of toe of right foot: (11) Gram-positive bacteremia: Admission and Anticipated Discharge Date Admission Date: July 04, 2023 Supervising Physician Co-Signing Physician Notes I personally examined the patient and verified all marie points of history and exam, discussed case, and agree with decision making with Dr Ramos Patient's only real complaints are dry lips and dry/burning tongue. She denies any significant sacral or foot pain. Discussed with nursing, input appreciated. Case discussed with infectious disease, input appreciated. Vitals noted, in general she is very thin and frail appearing, does not appear to be in pain distress. HEENT normocephalic atraumatic mucous membranes dry. Skin shows dry skin, her right great toe appears to be erythematous and edematous Stage 4 sacral ulcer/OM ischemia tuberosity/Paraplegia - s/p debridement 07/06. ID following. wound care as well -IV cefepime/vancomycin/flagyl. surgery followinginfectious disease notes that unless there is a plan for a flap, prolonged treatment is unlikely to have much benefit. -rectal tube and wheat in place. Bacteremia - culture from 07/04 - Clostridium cadaveris in both tubes. Continue IV Flagyl Positive Urine culture - E coli and enterococcus - contaminant/asymptomatic - no concern of infection but current abx regimen should cover. Microcytic anemia with acute blood loss anemia - - prior FOB positive with possible colon cancer on prior CTs (awaiting O/P colonoscopy). iron studies with low s iron. ferritin 154. - h/h drop - transfused one unit pRBC 07/07. Right 1st toe gangrene, Left heel ecchymosis, possible fluid collection - Left ankle xr with no bony pathology. -podiatry consult - no intervention recommended. consider vascular consult for PAD. - discussed with infectious disease, and agree clinically that an MRI would be warranted to evaluate for osteomyelitisin discussion with the patient, she declines at this time. PAD - noted significant vascular history under Dr Amor. Previously discharged on Eliquis but stopped at [facility] at rehab - follow. assess the need to resume in am since h/h stable. Chronic indwelling wheat catheter - ? d/t neurogenic bladder from spinal cord infarction. with sacral decubitus - will help as well. Aortic dissection - not new Nystatin/Boost added For what appears to be fairly severe protein/calorie malnutrition. Discussed dire need for p.o. intake. VTE Proph - SCD. h/h stable on 07/08 Need to continue to delineate goals of care given the severity of her situation, and the unfortunately low probability of meaningful improvementparticularly given her vascular disease and nutritional status. Her declining of the MRI for her toe at least provides an opportunity to start to discuss goals of care further as we build rapport. Subjective Patient with continued pain. No fevers, chills, SOB, CP. Tolerating PO. Undecided on further debridements. Discussed with surgery. Review of Systems 2 Review of Systems: As per above Physical Exam 2 Physical Exam: Gen: well appearing patient in NAD HEENT: AT NC MMM Resp: CTAB no wheezing no increased work of breathing CV: RRR no m/r/g clinically well perfused Abd: non-distended MSK: no obvious deformities Skin: no rashes or bruising Neuro: alert and oriented Psych: appropriate mood and affect Results & Data Results & Data Vital Signs (Past 12 Hours) Vital Signs Temp Pulse Resp BP Pulse Ox O2 Del Method 07/09/23 08:18 36.6 C 56 L 19 122/51 L 95 Room Air 07/09/23 08:15 60 07/08/23 23:46 Room Air Laboratory Results 07/09/23 07:55 07/09/23 07:55 Resident Activity Tracking Resident Involvement: Resident Care Provided Care Provided: Adult Hospital Medicine (3) Osteomyelitis Osteomyelitis location: multiple sites Osteomyelitis type: unspecified type Qualified Code(s): M86.9 - Osteomyelitis, unspecified (7) Aortic stenosis Cardiac valve disease etiology: nonrheumatic Qualified Code(s): I35.0 - Nonrheumatic aortic (valve) stenosis (9) HTN (hypertension) Hypertension type: resistant hypertension Qualified Code(s): I1A.0 - Resistant hypertension
[2023-07-09] MEDS: traMADol HCL 50 MG TABLET PO PRN (11:54)
--- NOTE | 2023-07-09 15:13 | Infectious Disease Progress Nt ---
Date of Service July 09, 2023 Assessment & Plan (1) Gram-positive bacteremia: (2) Osteomyelitis: (3) Unstageable pressure ulcer of sacral region: Plan Alexandra Rodriguez is a 67-year-old woman with history of JUAN MIGUEL, neurogenic bladder, multiple vessel atherosclerotic disease/stenosis, aortic stenosis, spinal cord infarction with resultant paraplegia and bedbound c/b sacral and ischial pressure ulcers, abdominal aortic dissection, HTN, and T2DM, admitted to [facility] on 07/04/23 with worsening chronic sacral wounds and CT showing bilateral ischial tuberosity osteomyelitis and extensive surrounding cellulitis. Also with gangrenous R 1st toe wound. Found to have 07/04 BCx + Clostridium cadaveris. 07/01 wound cx + Citrobacter, Klebsiella pneumoniae, Alcaligenes faecalis, 07/04 wound cx + E. coli, Kleb pneumo, PsA. S/p OR debridement on 07/05, OR Cx + PsA. CT A/P showed large sacral decubitus ulcers with concern for osteomyelitis of the ischial tuberosities bilaterally. There is extensive cellulitis but no discrete abscesses were noted. Also noted, 7 cm annular mucosal mass in the rectosigmoid junction without evidence of bowel obstruction or pneumoperitoneum. Also found this admission to have R 1st toe gangrenous wound, evaluated by podiatry with no planned intervention, evaluated by ortho on 07/07 with recommendation to involve vascular as well. R foot X-ray without acute bony abnormality, though chronic osteomyelitis is likely. Agree with R foot MRI for further evaluation. 07/04 BCx + Clostridium cadaveris, source appears to be sacral wound and/or R 1st toe. 07/06 TTE without obvious vegetation, and repeat BCx from 07/05 and 07/06 NGTD. OR on 07/05 debridement of sacral and bilateral gluteal folds. Wound cx have been polymicrobial including Citrobacter, Kleb pneumo, Alcaligenes faecalis, E. coli, and PsA. 07/05 OR Cx + PsA and Gram stain + GPCs and GPRs as well as mixed anaerobic growth. Patient has previously declined diverting colostomy. Plan for treatment for SSTI of sacral region. Do not anticipate treatment for osteomyelitis, unless flap placement planned and/or intensive plan for wound healing. Unable to cure chronic osteomyelitis unless there is a plan in place for wound healing with coverage of the bone (typically flap), and thus would not treat with an extensive course of abx at this time. Would continue IV vancomycin, cefepime, and metronidazole, to cover polymicrobial sacral wound infection and Clostridial bacteremia. Could consider stopping IV vancomycin in the coming days given that no MRSA has been isolated, though pt with leukocytosis and ongoing gangrene of R 1st toe (awaiting further eval and possible surgical plan) and can continue for time being. ID Problem List: 1.Clostridium cadaveris bacteremia 2.Sacral decubitus wounds c/b bilateral ischial tuberosity osteomyelitis. 07/01 wound cx + Citrobacter, Klebsiella pneumoniae, Alcaligenes faecalis, 07/04 wound cx + E. coli, Kleb pneumo, PsA. S/p OR debridement on 07/05, OR Cx + PsA. 3.Paraplegia 2/2 spinal cord infarction 4.R 1st toe gangrenous wound Recommendations: - Continue IV vancomycin (dosing per Rx) for now - Continue cefepime 2g IV q8h - Continue metronidazole 500 mg IV TID - Agree with R foot MRI for further evaluation of R 1st toe osteomyelitis - Awaiting further plan regarding possible surgical intervention for R 1st toe including possible ortho/vascular intervention - If no plan for sacral flap and/or other intensive wound coverage plan, then would not treat for sacral osteomyelitis. Unable to cure chronic osteomyelitis unless there is a plan in place for wound healing with coverage of the bone (typically flap), and thus would not treat with an extensive course of abx at this time. - F/u all 07/05 OR cx of sacrum until finalized ID will continue to follow. Stefani Holland MD, MHS Infectious Diseases [facility] Connect ID Connect direct line: [phone] Admission and Anticipated Discharge Date Admission Date: July 04, 2023 Subjective This patient recommendation is based on a telemedicine consult request which was completed asynchronously through chart review and information provided by the primary physician. The patient was not seen or examined today. The evaluation is consultative in nature and all patient care and treatment decisions can either be accepted or rejected by the patient's primary hospital-based treating physician using their own independent medical judgment for their patient. Time Spent Reviewing Chart: 31+ minutes - Discussed with hospitalist, current plan for sacrum is wound vac and debridement. No current plan for flap but surgery will continue to follow. Current plan for toe is that podiatry is monitoring and continuing antibiotics and local wound care; no surgical plan at this time. - Afebrile, WBC 13.8 - Wound images from 07/06 and 07/09 reviewed Results & Data Vital Signs (Past 12 Hours) Vital Signs Temp Pulse Resp BP Pulse Ox O2 Del Method 07/09/23 14:57 36.7 C 57 L 17 127/47 L 92 Room Air 07/09/23 08:18 36.6 C 56 L 19 122/51 L 95 Room Air 07/09/23 08:15 60 Diagnostic Findings Diagnostics: 07/06 R foot X-ray 1. Diffuse soft tissue swelling with no acute bony abnormality identified. 2.A wound is suggested in the first toe. Correlate clinically Micro Summary: 07/06 BCx x2: NGTD 07/05 BCx x2: NGTD 07/05 OR culture (buttock decubitus): Pseudomonas aeruginosa, high counts mixed anaerobic; stainmany GPCs, rare GPRs 07/04 BCx Clostridium cadaveris 07/04 R buttock wound: E. coli, Klebsiella pneumoniae, Pseudomonas aeruginosa (all young-S) 07/04 UCx: E. coli, E. faecalis 07/01 L buttock wound cx: Citrobacter muliniae, Klebsiella pneumo, Alcaligenes faecalis Antibiotic Summary: cefepime (07/04 present) vancomycin (07/05 present) metronidazole (07/06 present) Prior daptomycin (07/04) (2) Osteomyelitis Osteomyelitis location: multiple sites Osteomyelitis type: unspecified type Qualified Code(s): M86.9 - Osteomyelitis, unspecified
--- NOTE | 2023-07-09 19:06 | Billing Data ---
Date of Service July 09, 2023 Coding Level of Care Code 53452 SUB INP/OBS CARE MIN
--- NOTE | 2023-07-09 19:51 | Surgery Progress Note ---
Date of Service July 09, 2023 Assessment & Plan (1) Flaccid paralysis of legs: (2) Fecal incontinence: (3) Wound of sacral region: Plan: rectal tube in place to control fecal stream for wound protection wound vac changed by wound care after I had seen the patient. Follow up with wound care indicates foul smell still emitting from the area during vac change. Will likely return to OR on Sunday or to evaluate for the need for additional soft tissue debridement and to wash the wounds. 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 Patient agreeable with colostomy if really needed but this may also be done at a later date provided she can remain with a rectal tube in the interim. Admission and Anticipated Discharge Date Admission Date: July 04, 2023 Subjective Patient seen this am. Tolerating oral intake, afebrile. No acute events o/n. Physical Exam Gastrointestinal (Abdomen): Rectal tube with liquid stool Musculoskeletal: wound vac in place at sacral/buttock area. Functioning well. Results & Data Vital Signs (Past 12 Hours) Vital Signs Temp Pulse Resp BP Pulse Ox O2 Del Method 07/09/23 19:32 36.9 C 56 L 16 130/54 L 94 Room Air 07/09/23 14:57 36.7 C 57 L 17 127/47 L 92 Room Air 07/09/23 08:18 36.6 C 56 L 19 122/51 L 95 Room Air 07/09/23 08:15 60 PG Care Time/CCT Total # of Minutes Spent Total Time Spent with Patient: Total time spent is greater than 50% in coordination of care (as documented) at patient's floor/unit and/or counseling patient: Coding Level of Care Code 96410 Post Operative Follow-Up Diagnoses Flaccid paralysis of legs G82.20 Fecal incontinence R15.9 Wound of sacral region S31.000A
--- NOTE | 2023-07-10 06:39 | Hospitalist Progress Note ---
Date of Service July 10, 2023 Assessment & Plan (1) Peripheral arterial disease: Plan: Pt is a 67 yo female with PMH of JUAN MIGUEL, neurogenic bladder, multiple vessel atherosclerotic disease/stenosis, aortic stenosis, spinal cord infarction (from most recent admission), abdominal aortic dissection, HTN, and type 2 DM presented with worsening sacral wounds now s/p debridement 07/05 and wound vac placement with plan for return trip to the OR later this week. Bilateral ischial tuberosity osteomyelitis CTAP showed large decubitus ulcers with osteomyelitis of the bilateral ischial tuberosities. Debrided 07/05 with wound vac placement and rectal tube for fecal diversion with plan for return trip to the OR later this week. ECHO negative for vegetations Wound, ID, and surgery on board - appreciate recs Continue cefepime, vanc, flagyl Cultures: wound cx 07/02 - pansensitive klebsiella, gram neg bacilli (no sensitivities or speciation), and citrobacter (resistant to ceftriaxone) blood culture 07/04 - gram positive bacilli, clostridium cadaveris urine cx 07/04 - e. coli, gram + cocci blood cx 07/05 NGTD x48H wound cx 07/05 (OR) - pseudomonas +mixed anaerobes Abx: Cefepime 07/04 Vancomycin 07/04 Flagyl 07/06 Gram Positive Bacteremia Source likely sacral ulcer. Blood cultures grew clostridium cadaveris. Repeat blood cx NGTD x48H. ECHO without vegetations. ID on board - recs as above. Microcytic anemia Prior FOB positive with 7 cm mucosal mass - ?colon cancer on prior CTs (awaiting O/P colonoscopy). Transfused 1U PRBCs 07/07 with appropriate hemoglobin response. Iron low, ferritin wnl; consistent with anemia of chronic disease Continue to trend AM CBC. Chronic peripheral vascular disease Likely in the setting of long standing smoking with recent intervention in Apr 2023 as detailed in HPI. Continue rosuvastatin 20 mg daily, zetia 10mg daily - previously on Eliquis, but stopped at rehab Right 1st toe gangrene, Left heel ecchymosis, possible fluid collection - Left ankle xr without OM - Right foot XR concern infection without osteomyelitis, image better seen on wound care note - Podiatry consulted, no intervention warranted at this time. Colonic mass CTAP this admission re-demonstrated 7 cm mucosal mass; no prior colonoscopy. Pt will need colonoscopy for definitive diagnosis Aortic stenosis - last echo 03/2023 showed valve area of 1.1cm and EF 54%; pt currently asymptomatic and euvolemic HTN - pt unsure of what medications she takes at home - continue home regimen per med rec; carvedilol 12.5mg BID, nifedipine 30 mg HS - will hold hydralazine as pt's BP controlled Oral Thrush -continue nystatin PO -continue prn magic mouthwash Hx of type 2 DM - last A1c 6.5% 03/2023 w/o medications - no need for SSI Spinal cord infarction - resulting in bilateral LE paralysis - PT/OT consulted; suspect pt may need further rehab upon discharge Chronic indwelling wheat catheter - suspected neurogenic bladder from spinal cord infarction F/E/N/GI: Heart healthy, Carb consistent T2DM. Per nutrition will try to get caloric intake up with increased boost consumption. DVT PPx: SCDs Dispo: Med/surg (2) Unstageable pressure ulcer of sacral region: (3) Osteomyelitis: (4) Pulmonary nodule 1 cm or greater in diameter: (5) Spinal cord infarction: (6) Aortic dissection, abdominal: (7) Aortic stenosis: (8) Mass of colon: (9) HTN (hypertension): (10) Gangrene of toe of right foot: (11) Gram-positive bacteremia: Admission and Anticipated Discharge Date Admission Date: July 04, 2023 Supervising Physician Co-Signing Physician Notes I personally examined the patient and verified all marie points of history and exam, discussed case, and agree with decision making with Dr Ramos Attempted to see patient multiple times. Sleeping each time. In discussion with dietitianshe is really refusing any nutritional interventions at this time. Vitals noted, in general she is resting comfortably appears to be in no distress. There is unfortunately a foul smell in the room. Breathing unlabored no accessory muscle use good effort. Stage 4 sacral ulcer/OM ischemia tuberosity/Paraplegia - s/p debridement 07/06. ID following. wound care as well -IV cefepime/vancomycin/flagyl. surgery followinginfectious disease notes that unless there is a plan for a flap, prolonged treatment is unlikely to have much benefit. -rectal tube and wheat in place. - Further surgical plans would certainly be largely dictated by patient overall goals of care Bacteremia - culture from 07/04 - Clostridium cadaveris in both tubes. on IV Flagyl Positive Urine culture - E coli and enterococcus - contaminant/asymptomatic - no concern of infection but current abx regimen should cover. Microcytic anemia with acute blood loss anemia - - prior FOB positive with possible colon cancer on prior CTs (awaiting O/P colonoscopy). iron studies with low s iron. ferritin 154. - h/h drop - transfused one unit pRBC 07/07. Right 1st toe gangrene, Left heel ecchymosis, possible fluid collection - Left ankle xr with no bony pathology. -podiatry consult - no intervention recommended. consider vascular consult for PAD. - discussed with infectious disease, and agree clinically that an MRI would be warranted to evaluate for osteomyelitisin discussion with the patient, she declined evaluation PAD - noted significant vascular history under Dr Amor. Previously discharged on Eliquis but stopped at [facility] at rehab - follow. assess the need to resume in am since h/h stable. Chronic indwelling wheat catheter - ? d/t neurogenic bladder from spinal cord infarction. with sacral decubitus - will help as well. Aortic dissection - not new Nystatin/Boost added For what appears to be fairly severe protein/calorie malnutrition. Discussed dire need for p.o. intake yesterday, today she refused to really have any meaningful p.o. intake and discussion with dietitian. This definitely makes me suspicious patient may be thinking more palliative type goalsI wanted to discuss this with her today, but felt it inappropriate to wake her from a comfortable sleep to immediately dive into a very difficult discussions without warning. VTE Proph - SCD. h/h stable on 07/08 Need to continue to delineate goals of care given the severity of her situation, and the unfortunately low probability of meaningful improvementparticularly given her vascular disease and nutritional status. Subjective Patient resting comfortably at bedside. Allowed to sleep. Review of Systems 2 Review of Systems: As per above Physical Exam 2 Physical Exam: Gen: well appearing patient in NAD HEENT: AT NC MMM Resp: no increased work of breathing CV: clinically well perfused Abd: non-distended MSK: no obvious deformities Skin: no rashes or bruising Neuro: alert and oriented Psych: appropriate mood and affect Results & Data Results & Data Vital Signs (Past 12 Hours) Vital Signs Temp Pulse Resp BP Pulse Ox O2 Del Method 07/09/23 19:32 36.9 C 56 L 16 130/54 L 94 Room Air 07/09/23 19:30 Room Air Laboratory Results 07/10/23 06:42 07/10/23 06:42 Resident Activity Tracking Resident Involvement: Resident Care Provided Care Provided: Adult Hospital Medicine (3) Osteomyelitis Osteomyelitis location: multiple sites Osteomyelitis type: unspecified type Qualified Code(s): M86.9 - Osteomyelitis, unspecified (7) Aortic stenosis Cardiac valve disease etiology: nonrheumatic Qualified Code(s): I35.0 - Nonrheumatic aortic (valve) stenosis (9) HTN (hypertension) Hypertension type: resistant hypertension Qualified Code(s): I1A.0 - Resistant hypertension
[2023-07-10 07:11] LABS: Hematocrit (blood only) 29.9 % (37.0-47.0); Hemoglobin 9.5 g/dl (12.0-16.0); Mean Corpuscular Hemoglobin 24.5 pg (25.0-34.0); Mean Corpuscular Hgb Conc 31.8 g/dL (32.0-36.0); Mean Corpuscular Volume 77.3 fL (80.0-100.0); Mean Platelet Volume 8.9 fL (9.4-12.4); Platelet Count 347 K/uL (130-400); RDW Coefficient of Variation 18.3 % (11.5-14.5); RDW Standard Deviation 50.4 fL (36.4-46.3); Red Blood Count 3.87 M/uL (4.20-5.40); White Blood Count 12.48 K/ul (4.8-10.8)
[2023-07-10 07:30] LABS: ALC (manual) 0.62 K/uL (1.2-3.4); ANC (manual) 10.98 K/uL (1.4-6.5); Acanthocytes 1+; Basophils # (manual) 0.12 K/uL (0-0.2); Basophils % (manual) 1 %; Eosinophils # (manual) 0.12 K/uL (0-0.50); Eosinophils % (manual) 1 %; Lymphocytes # (manual) 0.62 K/uL (1.2-3.4); Lymphocytes % (manual) 5 %; Metamyelocytes # (manual) 0.12 K/uL (0-0); Metamyelocytes % (manual) 1 %; Monocytes % (manual) 4 %; Neutrophils # (manual) 10.98 K/uL (1.40-6.50); Neutrophils % (manual) 88 %
[2023-07-10 07:37] LABS: Albumin Globulin Ratio 0.6 (0.9-2); Albumin Level 1.9 gm/dl (3.4-5.0); BUN Creatinine Ratio 29.5 (10-20); Bilirubin,Total 0.2 mg/dl (0.2-1.0); Calcium 7.4 mg/dl (8.6-10.3); Creatinine Clr Calc Pharmacy 68.2 ml/min; Est GFR (African American) 110.3 ml/min; Est GFR (Non-African American) 95.1 ml/min; Globulin 3.3 gm/dl (2.5-4.0); Potassium 3.1 mmol/L (3.5-5.1); Total Protein 5.2 gm/dl (6.0-8.3)
[2023-07-10] MEDS: POTASSIUM CHLORIDE CRTAB 20 MEQ TABCR PO STA (08:20)
[2023-07-10] MEDS: POTASSIUM CHLORIDE / WTR 10 MEQ/100 ML PLCT IV SCH (08:42)
--- NOTE | 2023-07-10 10:04 | Infectious Disease Progress Nt ---
Date of Service July 10, 2023 Assessment & Plan (1) Gram-positive bacteremia: (2) Osteomyelitis: (3) Unstageable pressure ulcer of sacral region: (4) Bacteremia due to Clostridium species: (5) Chronic osteomyelitis of sacrum: (6) Gangrene of toe of right foot: (7) Wound of sacral region: (8) Spinal cord infarction: Plan Alexandra Rodriguez is a 67-year-old woman with history of JUAN MIGUEL, neurogenic bladder, multiple vessel atherosclerotic disease/stenosis, aortic stenosis, spinal cord infarction with resultant paraplegia and bedbound c/b sacral and ischial pressure ulcers, abdominal aortic dissection, HTN, and T2DM, admitted to [facility] on 07/04/23 with worsening chronic sacral wounds and CT showing bilateral ischial tuberosity osteomyelitis and extensive surrounding cellulitis. Also with gangrenous R 1st toe wound. Found to have 07/04 BCx + Clostridium cadaveris. 07/01 wound cx + Citrobacter, Klebsiella pneumoniae, Alcaligenes faecalis, 07/04 wound cx + E. coli, Kleb pneumo, PsA. S/p OR debridement on 07/05, OR Cx + PsA. CT A/P showed large sacral decubitus ulcers with c/f osteomyelitis of the ischial tuberosities bilaterally. There is extensive cellulitis but no discrete abscesses were noted. Also noted, 7 cm annular mucosal mass in the rectosigmoid junction without evidence of bowel obstruction or pneumoperitoneum. Currently treating for SSTI of sacral region. Unable to cure chronic osteomyelitis unless there is a plan in place for wound healing with coverage of the bone (typically flap), and thus would not treat with an extensive course of abx at this time. Surgery continuing to follow for debridement and discussing fecal management plan, and with wound vac in place. Also found to have R 1st toe gangrenous wound. Thus far evaluated by podiatry with no planned intervention, evaluated by ortho on 07/07 with recommendation to involve vascular as well. R foot X-ray without acute bony abnormality, though chronic osteomyelitis is likely. Agree with R foot MRI for further evaluation, if within pts GOCpt has thus far declined this. 07/04 BCx + Clostridium cadaveris, source appears to be sacral wound and/or R 1st toe. 07/06 TTE without obvious vegetation, and repeat BCx from 07/05 and 07/06 NGTD. OR on 07/05 debridement of sacral and bilateral gluteal folds. Wound cx have been polymicrobial including Citrobacter, Kleb pneumo, Alcaligenes faecalis, E. coli, and PsA. 07/05 OR Cx + PsA and Gram stain + GPCs and GPRs as well as mixed anaerobic growth. Would cefepime and metronidazole, to cover polymicrobial sacral wound infection and Clostridial bacteremia. Can stop IV vancomycin. ID Problem List: 1.Clostridium cadaveris bacteremia 2.Sacral decubitus wounds c/b bilateral ischial tuberosity osteomyelitis. 07/01 wound cx + Citrobacter, Klebsiella pneumoniae, Alcaligenes faecalis, 07/04 wound cx + E. coli, Kleb pneumo, PsA. S/p OR debridement on 07/05, OR Cx + PsA. 3.Paraplegia 2/2 spinal cord infarction 4.R 1st toe gangrenous wound Recommendations: - Can stop vancomycin - Continue cefepime 2g IV q8h - Continue metronidazole 500 mg IV TID - Agree with R foot MRI for further evaluation of R 1st toe osteomyelitis, if within pts GOC - Awaiting further plan regarding possible surgical intervention for R 1st toe including possible ortho/vascular intervention - If no plan for sacral flap and/or other intensive wound coverage plan, then would not treat for sacral osteomyelitis. Unable to cure chronic osteomyelitis unless there is a plan in place for wound healing with coverage of the bone (typically flap), and thus would not treat with an extensive course of abx at this time. Surgery continuing to follow - F/u all 07/05 OR cx of sacrum until finalized ID will continue to follow. Stefani Holland MD, MHS Infectious Diseases [facility]/ID Connect ID Connect direct line: [phone] Admission and Anticipated Discharge Date Admission Date: July 04, 2023 Subjective Subsequent visit was provided via telemedicine using two-way real-time interactive telecommunication between the patient and the telemedicine provider. For the duration of the visit, the provider was performing the assessment from a different facility than the patient. This includesuse of bluetooth stethoscope forauscultationperformed by the telepresenter that the telemedicine provider can hear if described in the physical exam. [employer] contact information: Please call ID Connect Call Center . (Phone Number For Physician Use Only) After establishing a telemedicine visit, patient was: Patient was verified with two unique identifiers, Patient/authorized rep acknowledged consent and understanding and Gave permission to continue telehealth session Time Spent with Patient: Subsequent => 35 min - Current plan for sacrum is wound vac and debridement. Per surgery, plan for debridement on Sun or . Still discussing long-term fecal management including colostomy - Current plan for toe is antibiotics and local wound care; no surgical plan at this time. - Afebrile, WBC 12.5 - Wound images from 07/06 and 07/09 reviewed Physical Exam Physical Exam: Exam obtained with aid of in-person telepresenter. General: Chronically ill-appearing, no acute distress HEENT: Conjunctivae non-injected, sclerae anicteric, MMM, OP clear. Resp: Respirations nonlabored. Back: Sacral wound vac in place. Ext: R toe with dark gangrenous wound. Skin: No rashes or lesions. Neuro: Alert & interactive. Grossly non-focal. Psych: Pleasant, appropriate. Results & Data Vital Signs (Past 12 Hours) Vital Signs Temp Pulse Resp BP Pulse Ox O2 Del Method 07/10/23 07:42 36.3 C L 59 L 16 144/48 H 94 Room Air Diagnostic Findings Diagnostics: 07/06 R foot X-ray 1. Diffuse soft tissue swelling with no acute bony abnormality identified. 2.A wound is suggested in the first toe. Correlate clinically Micro Summary: 07/06 BCx x2: NGTD 07/05 BCx x2: NGTD 07/05 OR culture (buttock decubitus): Pseudomonas aeruginosa, high counts mixed anaerobic; stainmany GPCs, rare GPRs 07/04 BCx Clostridium cadaveris 07/04 R buttock wound: E. coli, Klebsiella pneumoniae, Pseudomonas aeruginosa (all young-S) 07/04 UCx: E. coli, E. faecalis 2/4 L buttock wound cx: Citrobacter muliniae, Klebsiella pneumo, Alcaligenes faecalis Antibiotic Summary: cefepime (07/04 present) metronidazole (07/06 present) Prior vancomycin (07/05 07/09) daptomycin (07/04) (2) Osteomyelitis Osteomyelitis location: multiple sites Osteomyelitis type: unspecified type Qualified Code(s): M86.9 - Osteomyelitis, unspecified
[2023-07-10] MEDS: MoRPHine SULFATE 2 MG/ML CARP IV PRN (15:35)
--- NOTE | 2023-07-10 19:20 | Billing Data ---
Date of Service July 10, 2023 Coding Level of Care Code 53455 SUB INP/OBS CARE
--- NOTE | 2023-07-11 06:56 | Hospitalist Progress Note ---
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 Bilateral ischial tuberosity osteomyelitis CTAP showed large decubitus ulcers with osteomyelitis of the bilateral ischial tuberosities. Debrided 07/05 with wound vac placement and rectal tube for fecal diversion with plan for ?return trip to the OR later this week. ECHO negative for vegetations Wound, ID, and surgery on board - appreciate recs Continue cefepime, vanc, flagyl Cultures: wound cx 07/02 - pansensitive klebsiella, gram neg bacilli (no sensitivities or speciation), and citrobacter (resistant to ceftriaxone) blood culture 07/04 - gram positive bacilli, clostridium cadaveris urine cx 07/04 - e. coli, gram + cocci blood cx 07/05 NGTD x48H wound cx 07/05 (OR) - pseudomonas +mixed anaerobes Abx: Cefepime 07/04 Vancomycin 07/04 Flagyl 07/06 Gram Positive Bacteremia Source likely sacral ulcer. Blood cultures grew clostridium cadaveris. Repeat blood cx NGTD x48H. ECHO without vegetations. ID on board - recs as above. Microcytic anemia Prior FOB positive with 7 cm mucosal mass - ?colon cancer on prior CTs (awaiting O/P colonoscopy). Transfused 1U PRBCs 07/07 with appropriate hemoglobin respons e. Iron low, ferritin wnl; consistent with anemia of chronic disease Continue to trend AM CBC. Chronic peripheral vascular disease Likely in the setting of long standing smoking with recent intervention in Apr 2023 as detailed in HPI. Continue rosuvastatin 20 mg daily, zetia 10mg daily - previously on Eliquis, but stopped at rehab Right 1st toe gangrene, Left heel ecchymosis, possible fluid collection - Left ankle xr without OM - Right foot XR concern infection without osteomyelitis, image better seen on wound care note - Podiatry consulted, no intervention warranted at this time. Colonic mass CTAP this admission re-demonstrated 7 cm mucosal mass; no prior colonoscopy. Pt will need colonoscopy for definitive diagnosis Aortic stenosis - last echo 03/2023 showed valve area of 1.1cm and EF 54%; pt currently asymptomatic and euvolemic HTN - pt unsure of what medications she takes at home - continue home regimen per med rec; carvedilol 12.5mg BID, nifedipine 30 mg HS - will hold hydralazine as pt's BP controlled Oral Thrush -continue nystatin PO -continue prn magic mouthwash Hx of type 2 DM - last A1c 6.5% 03/2023 w/o medications - no need for SSI Spinal cord infarction - resulting in bilateral LE paralysis - PT/OT consulted; suspect pt may need further rehab upon discharge Chronic indwelling wheat catheter - suspected neurogenic bladder from spinal cord infarction F/E/N/GI: Heart healthy, Carb consistent T2DM. Per nutrition will try to get caloric intake up with increased boost consumption. DVT PPx: SCDs Dispo: Med/surg Goals of Care: prognosis poor - ?metastatic colon cancer, vascular disease, malnutrition, wounds, ongoing discussion of goals of care (2) Unstageable pressure ulcer of sacral region: (3) Osteomyelitis: (4) Pulmonary nodule 1 cm or greater in diameter: (5) Spinal cord infarction: (6) Aortic dissection, abdominal: (7) Aortic stenosis: (8) Mass of colon: (9) HTN (hypertension): (10) Gangrene of toe of right foot: (11) Gram-positive bacteremia: Admission and Anticipated Discharge Date Admission Date: July 04, 2023 Supervising Physician Co-Signing Physician Notes I personally examined the patient and verified all marie points of history and exam, discussed case, and agree with decision making with Dr Ramos some pain. mouth and throat hurt as well. extensive discussions w pt and family (son, dtr, DIL, sister) updated on dx's and prognosis, pathway to treatment and hurdles - discussed most in depth re: malnutrition/wounds/infection and probable colon CA. also discussed vascular disease being quite severe. they expressed understanding, asked good questions. answered all to the best of my ability. vitals noted nad heent nc at mmm breathing unlabored no accessory muscles good effort skin no rashes no pallor or icterus Stage 4 sacral ulcer/OM ischemia tuberosity/Paraplegia - s/p debridement 07/06. ID following. wound care as well -IV cefepime/vancomycin/flagyl. surgery followinginfectious disease notes that unless there is a plan for a flap, prolonged treatment is unlikely to have much benefit. -rectal tube and wheat in place. - Further surgical plans would certainly be largely dictated by patient overall goals of care - see below Bacteremia - culture from 07/04 - Clostridium cadaveris in both tubes. on IV Flagyl Positive Urine culture - E coli and enterococcus - contaminant/asymptomatic - no concern of infection but current abx regimen should cover. Microcytic anemia with acute blood loss anemia - - prior FOB positive with possible colon cancer on prior CTs (awaiting O/P colonoscopy). iron studies with low s iron. ferritin 154. - h/h drop - transfused one unit pRBC 07/07. Right 1st toe gangrene, Left heel ecchymosis, possible fluid collection - Left ankle xr with no bony pathology. -podiatry consult - no intervention recommended. consider vascular consult for PAD. - discussed with infectious disease, and agree clinically that an MRI would be warranted to evaluate for osteomyelitisin discussion with the patient, she declined evaluation PAD - noted significant vascular history under Dr Amor. Previously discharged on Eliquis but stopped at [facility] at rehab - follow. assess the need to resume in am since h/h stable. Chronic indwelling wheat catheter - ? d/t neurogenic bladder from spinal cord infarction. with sacral decubitus - will help as well. Aortic dissection - not new Nystatin/Boost added For what appears to be fairly severe protein/calorie malnutrition. nutrition efforts will largely be dictated by goals of care VTE Proph - SCD. h/h stable on 07/08 goals of care discussion: -was gentle but sigrid about the severity of her illnesses - and that she essentially has 2 separate processes (malnutrition/wounds, probable colon CA) that both could be completely insurmountable, and both would likely require a long course of treatment, surgeries, and optimal nutrition to even have a chance of success. outlined general course of treatment for both major problems so that pt/family would have an understanding of what the "road map" would be. discussed overall very poor prognosis. discussed hospice/palliative goals as very reasonable options given her situation. discussed that patient herself should be the primary decision maker with her goals, supported by family. pt/family were going to discuss further - offered assistance should they have further questions (sister later called to ask minor clarifying questions like ?course of abx, ?was pt septic). Subjective Patient resting comfortably at bedside. Allowed to sleep. Review of Systems Review of Systems: As per above Physical Exam Physical Exam: Gen: well appearing patient in NAD HEENT: AT NC MMM Resp: no increased work of breathing CV: clinically well perfused Abd: non-distended MSK: no obvious deformities Skin: no rashes or bruising Neuro: alert and oriented Psych: appropriate mood and affect Results & Data Results & Data Vital Signs (Past 12 Hours) Vital Signs Temp Pulse Resp BP Pulse Ox O2 Del Method 07/10/23 20:20 Room Air 07/10/23 20:09 36.8 C 61 16 181/70 H 97 Room Air Resident Activity Tracking Resident Involvement: Resident Care Provided Care Provided: Adult Hospital Medicine (3) Osteomyelitis Osteomyelitis location: multiple sites Osteomyelitis type: unspecified type Qualified Code(s): M86.9 - Osteomyelitis, unspecified (7) Aortic stenosis Cardiac valve disease etiology: nonrheumatic Qualified Code(s): I35.0 - Nonrheumatic aortic (valve) stenosis (9) HTN (hypertension) Hypertension type: resistant hypertension Qualified Code(s): I1A.0 - Resistant hypertension
[2023-07-11 07:06] LABS: Basophils # (auto) 0.07 K/uL (0.00-0.20); Basophils % (auto) 0.5 %; Eosinophils # (auto) 0.14 K/uL (0.00-0.50); Hematocrit (blood only) 34.5 % (37.0-47.0); Hemoglobin 10.7 g/dl (12.0-16.0); Immature Granulocytes # (auto) 0.59 K/uL (0.01-0.20); Immature Granulocytes % (auto) 4.2 %; Lymphocytes # (auto) 1.55 K/uL (1.20-3.40); Lymphocytes % (auto) 11.2 %; Mean Corpuscular Hemoglobin 24.2 pg (25.0-34.0); Mean Corpuscular Volume 77.9 fL (80.0-100.0); Monocytes # (auto) 1.52 K/uL (0.11-0.59); Monocytes % (auto) 10.9 %; Neutrophils # (auto) 10.02 K/uL (1.40-6.50); Neutrophils % (auto) 72.2 %; Platelet Count 356 K/uL (130-400); RDW Coefficient of Variation 18.9 % (11.5-14.5); RDW Standard Deviation 51.5 fL (36.4-46.3); Red Blood Count 4.43 M/uL (4.20-5.40); White Blood Count 13.89 K/ul (4.8-10.8)
[2023-07-11 08:55] LABS: Albumin Level 2.1 gm/dl (3.4-5.0); Bilirubin,Total 0.3 mg/dl (0.2-1.0); Calcium 7.7 mg/dl (8.6-10.3); Potassium 3.4 mmol/L (3.5-5.1)
[2023-07-11 09:00] LABS: Albumin Globulin Ratio 0.6 (0.9-2); BUN Creatinine Ratio 34.4 (10-20); Est GFR (African American) 108.5 ml/min; Est GFR (Non-African American) 93.6 ml/min; Globulin 3.6 gm/dl (2.5-4.0); Total Protein 5.7 gm/dl (6.0-8.3)
--- NOTE | 2023-07-11 09:51 | Infectious Disease Progress Nt ---
Date of Service July 11, 2023 Assessment & Plan (1) Gram-positive bacteremia: (2) Osteomyelitis: (3) Unstageable pressure ulcer of sacral region: (4) Bacteremia due to Clostridium species: (5) Chronic osteomyelitis of sacrum: (6) Gangrene of toe of right foot: (7) Wound of sacral region: (8) Spinal cord infarction: Plan Alexandra Rodriguez is a 67-year-old woman with history of JUAN MIGUEL, neurogenic bladder, multiple vessel atherosclerotic disease/stenosis, aortic stenosis, spinal cord infarction with resultant paraplegia and bedbound c/b sacral and ischial pressure ulcers, abdominal aortic dissection, HTN, and T2DM, admitted to [facility] on 07/04/23 with worsening chronic sacral wounds and CT showing bilateral ischial tuberosity osteomyelitis and extensive surrounding cellulitis. Also with gangrenous R 1st toe wound. Found to have 07/04 BCx + Clostridium cadaveris. 07/01 wound cx + Citrobacter, Klebsiella pneumoniae, Alcaligenes faecalis, 07/04 wound cx + E. coli, Kleb pneumo, PsA. S/p OR debridement on 07/05, OR Cx + PsA. Awaiting potential additional debridement of sacral wound and possibly surgical management of R 1st toe. CT A/P showed large sacral decubitus ulcers with c/f osteomyelitis of the ischial tuberosities bilaterally. There is extensive cellulitis but no discrete abscesses were noted. Also noted, 7 cm annular mucosal mass in the rectosigmoid junction without evidence of bowel obstruction or pneumoperitoneum. Currently treating for SSTI of sacral region. Unable to cure chronic osteomyelitis unless there is a plan in place for wound healing with coverage of the bone (typically flap), and thus would not treat with an extensive course of abx at this time. Surgery continuing to follow for debridement and discussing fecal management plan, and with wound vac in place. Also found to have R 1st toe gangrenous wound. Thus far evaluated by podiatry with no planned intervention, evaluated by ortho on 07/07 with recommendation to involve vascular as well. R foot X-ray without acute bony abnormality, though chronic osteomyelitis is likely. Agree with R foot MRI for further evaluation, if within pts GOCpt has thus far declined this. 07/04 BCx + Clostridium cadaveris, source appears to be sacral wound and/or R 1st toe. 07/06 TTE without obvious vegetation, and repeat BCx from 07/05 and 07/06 NGTD. OR on 07/05 debridement of sacral and bilateral gluteal folds. Wound cx have been polymicrobial including Citrobacter, Kleb pneumo, Alcaligenes faecalis, E. coli, and PsA. 07/05 OR Cx + PsA and Gram stain + GPCs and GPRs as well as mixed anaerobic growth. Would cefepime and metronidazole, to cover polymicrobial sacral wound infection and Clostridial bacteremia. ID Problem List: 1.Clostridium cadaveris bacteremia 2.Sacral decubitus wounds c/b bilateral ischial tuberosity osteomyelitis. 07/01 wound cx + Citrobacter, Klebsiella pneumoniae, Alcaligenes faecalis, 07/04 wound cx + E. coli, Kleb pneumo, PsA. S/p OR debridement on 07/05, OR Cx + PsA. 3.Paraplegia 06/29 spinal cord infarction 4.R 1st toe gangrenous wound Recommendations: - Continue cefepime 2g IV q8h - Continue metronidazole 500 mg IV TID - Agree with R foot MRI for further evaluation of R 1st toe osteomyelitis, if within pts GOC - Awaiting further plan regarding possible surgical intervention for R 1st toe including possible ortho/vascular intervention - Per surgery likely return to OR this week for additional sacral debridement - If no plan for sacral flap and/or other intensive wound coverage plan, then would not treat for sacral osteomyelitis. Unable to cure chronic osteomyelitis unless there is a plan in place for wound healing with coverage of the bone (typically flap), and thus would not treat with an extensive course of abx at this time. Surgery continuing to follow ID will continue to follow. Stefani Holland MD, MHS Infectious Diseases [facility]/ID Connect ID Connect direct line: [phone] Admission and Anticipated Discharge Date Admission Date: July 04, 2023 Subjective This patient recommendation is based on a telemedicine consult request which was completed asynchronously through chart review and information provided by the primary physician. The patient was not seen or examined today. The evaluation is consultative in nature and all patient care and treatment decisions can either be accepted or rejected by the patient's primary hospital-based treating physician using their own independent medical judgment for their patient. Time Spent Reviewing Chart: 21 - 30 minutes - Afebrile, WBC 14 Results & Data Vital Signs (Past 12 Hours) Vital Signs Temp Pulse Resp BP Pulse Ox O2 Del Method 07/11/23 08:49 Room Air 07/11/23 07:54 36.9 C 72 16 172/70 H 96 Room Air Diagnostic Findings Diagnostics: 07/06 R foot X-ray 1. Diffuse soft tissue swelling with no acute bony abnormality identified. 2.A wound is suggested in the first toe. Correlate clinically Micro Summary: 07/06 BCx x2: NGTD 07/05 BCx x2: NGTD 07/05 OR culture (buttock decubitus): Pseudomonas aeruginosa (no sensis), high counts mixed anaerobic; stainmany GPCs, rare GPRs 07/04 BCx Clostridium cadaveris 07/04 R buttock wound: E. coli, Klebsiella pneumoniae, Pseudomonas aeruginosa (all oyung-S) 07/04 UCx: E. coli, E. faecalis 07/01 L buttock wound cx: Citrobacter muliniae, Klebsiella pneumo, Alcaligenes faecalis Antibiotic Summary: cefepime (07/04 present) metronidazole (07/06 present) Prior vancomycin (07/05 07/09) daptomycin (07/04) (2) Osteomyelitis Osteomyelitis location: multiple sites Osteomyelitis type: unspecified type Qualified Code(s): M86.9 - Osteomyelitis, unspecified
--- NOTE | 2023-07-11 16:11 | Billing Data ---
Date of Service July 11, 2023 Coding Level of Care Code 37920 SUB INP/OBS CARE 3MIN
--- NOTE | 2023-07-12 07:13 | Hospitalist Progress Note ---
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 Bilateral ischial tuberosity osteomyelitis CTAP showed large decubitus ulcers with osteomyelitis of the bilateral ischial tuberosities. Debrided 07/05 with wound vac placement and rectal tube for fecal diversion with plan for ?return trip to the OR later this week. ECHO negative for vegetations Wound, ID, and surgery on board - appreciate recs Continue cefepime, vanc, flagyl Cultures: wound cx 07/02 - pansensitive klebsiella, gram neg bacilli (no sensitivities or speciation), and citrobacter (resistant to ceftriaxone) blood culture 07/04 - gram positive bacilli, clostridium cadaveris urine cx 07/04 - e. coli, gram + cocci blood cx 07/05 NGTD x48H wound cx 07/05 (OR) - pseudomonas +mixed anaerobes Abx: Cefepime 07/04 Vancomycin 07/04 Flagyl 07/06 Gram Positive Bacteremia Source likely sacral ulcer. Blood cultures grew clostridium cadaveris. Repeat blood cx NGTD x48H. ECHO without vegetations. ID on board - recs as above. Microcytic anemia Prior FOB positive with 7 cm mucosal mass - ?colon cancer on prior CTs (awaiting O/P colonoscopy). Transfused 1U PRBCs 07/07 with appropriate hemoglobin response. Iron low, ferritin wnl; consistent with anemia of chronic disease Continue to trend AM CBC. Chronic peripheral vascular disease Likely in the setting of long standing smoking with recent intervention in Apr 2023 as detailed in HPI. Continue rosuvastatin 20 mg daily, zetia 10mg daily - previously on Eliquis, but stopped at rehab Right 1st toe gangrene, Left heel ecchymosis, possible fluid collection - Left ankle xr without OM - Right foot XR concern infection without osteomyelitis, image better seen on wound care note - Podiatry consulted, no intervention warranted at this time. Colonic mass CTAP this admission re-demonstrated 7 cm mucosal mass; no prior colonoscopy. Pt will need colonoscopy for definitive diagnosis Aortic stenosis - last echo 03/2023 showed valve area of 1.1cm and EF 54%; pt currently asymptomatic and euvolemic HTN - pt unsure of what medications she takes at home - continue home regimen per med rec; carvedilol 12.5mg BID, nifedipine 30 mg HS - will hold hydralazine as pt's BP controlled Oral Thrush -continue nystatin PO -continue prn magic mouthwash Hx of type 2 DM - last A1c 6.5% 03/2023 w/o medications - no need for SSI Spinal cord infarction - resulting in bilateral LE paralysis - PT/OT consulted; suspect pt may need further rehab upon discharge Chronic indwelling wheat catheter - suspected neurogenic bladder from spinal cord infarction F/E/N/GI: Heart healthy, Carb consistent T2DM. Per nutrition will try to get caloric intake up with increased boost consumption. DVT PPx: SCDs Dispo: Med/surg Goals of Care: prognosis poor - ?metastatic colon cancer, vascular disease, malnutrition, wounds, ongoing discussion of goals of care (2) Unstageable pressure ulcer of sacral region: (3) Osteomyelitis: (4) Pulmonary nodule 1 cm or greater in diameter: (5) Spinal cord infarction: (6) Aortic dissection, abdominal: (7) Aortic stenosis: (8) Mass of colon: (9) HTN (hypertension): (10) Gangrene of toe of right foot: (11) Gram-positive bacteremia: Admission and Anticipated Discharge Date Admission Date: July 04, 2023 Supervising Physician Co-Signing Physician Notes pt taken to OR when i tried to see her. resident physician notes pt was still weighing options on aggressive vs comfort care (current surgery for wound debridement so would be reasonable either way) plan from07/12 by me, otherwise as above Stage 4 sacral ulcer/OM ischemia tuberosity/Paraplegia - s/p debridement 07/06. ID following. wound care as well -IV cefepime/vancomycin/flagyl. surgery followinginfectious disease notes that unless there is a plan for a flap, prolonged treatment is unlikely to have much benefit. -rectal tube and wheat in place. - Further surgical plans would certainly be largely dictated by patient overall goals of care - see below Bacteremia - culture from 07/04 - Clostridium cadaveris in both tubes. on IV Flagyl Positive Urine culture - E coli and enterococcus - contaminant/asymptomatic - no concern of infection but current abx regimen should cover. Microcytic anemia with acute blood loss anemia - - prior FOB positive with possible colon cancer on prior CTs (awaiting O/P colonoscopy). iron studies with low s iron. ferritin 154. - h/h drop - transfused one unit pRBC 07/07. Right 1st toe gangrene, Left heel ecchymosis, possible fluid collection - Left ankle xr with no bony pathology. -podiatry consult - no intervention recommended. consider vascular consult for PAD. - discussed with infectious disease, and agree clinically that an MRI would be warranted to evaluate for osteomyelitisin discussion with the patient, she declined evaluation PAD - noted significant vascular history under Dr Amor. Previously discharged on Eliquis but stopped at [facility] at rehab - follow. assess the need to resume in am since h/h stable. Chronic indwelling wheat catheter - ? d/t neurogenic bladder from spinal cord infarction. with sacral decubitus - will help as well. Aortic dissection - not new Nystatin/Boost added For what appears to be fairly severe protein/calorie malnutrition. nutrition efforts will largely be dictated by goals of care VTE Proph - SCD. h/h stable on 07/08 goals of care discussion: -was gentle but sigrid about the severity of her illnesses - and that she essentially has 2 separate processes (malnutrition/wounds, probable colon CA) that both could be completely insurmountable, and both would likely require a long course of treatment, surgeries, and optimal nutrition to even have a chance of success. outlined general course of treatment for both major problems so that pt/family would have an understanding of what the "road map" would be. discussed overall very poor prognosis. discussed hospice/palliative goals as very reasonable options given her situation. discussed that patient herself should be the primary decision maker with her goals, supported by family. pt/family were going to discuss further - offered assistance should they have further questions (sister later called to ask minor clarifying questions like ?course of abx, ?was pt septic). Subjective Seen at bedside this AM. Plans to go to the OR today. Did not reach consensus with family on goals of care discussion. Unsure what she wants to do. Review of Systems 2 Review of Systems: As per above Physical Exam 2 Physical Exam: Gen: well appearing patient in NAD HEENT: AT NC MMM Resp: no increased work of breathing CV: clinically well perfused Abd: non-distended MSK: no obvious deformities Skin: no rashes or bruising Neuro: alert and oriented Psych: appropriate mood and affect Results & Data Results & Data Vital Signs (Past 12 Hours) Vital Signs Temp Pulse Resp BP Pulse Ox O2 Del Method 07/12/23 07:02 37 C 60 16 134/66 95 Room Air 07/11/23 20:58 36.5 C 62 18 138/57 L 97 Room Air 07/11/23 19:40 Room Air Laboratory Results 07/12/23 08:07 07/12/23 08:07 Resident Activity Tracking Resident Involvement: Resident Care Provided Care Provided: Adult [facility] Medicine (3) Osteomyelitis Osteomyelitis location: multiple sites Osteomyelitis type: unspecified type Qualified Code(s): M86.9 - Osteomyelitis, unspecified (7) Aortic stenosis Cardiac valve disease etiology: nonrheumatic Qualified Code(s): I35.0 - Nonrheumatic aortic (valve) stenosis (9) HTN (hypertension) Hypertension type: resistant hypertension Qualified Code(s): I1A.0 - Resistant hypertension
[2023-07-12 08:35] LABS: Basophils # (auto) 0.06 K/uL (0.00-0.20); Basophils % (auto) 0.4 %; Eosinophils # (auto) 0.07 K/uL (0.00-0.50); Eosinophils % (auto) 0.5 %; Hematocrit (blood only) 32.1 % (37.0-47.0); Immature Granulocytes # (auto) 0.62 K/uL (0.01-0.20); Lymphocytes # (auto) 1.65 K/uL (1.20-3.40); Lymphocytes % (auto) 10.7 %; Mean Corpuscular Hemoglobin 24.3 pg (25.0-34.0); Mean Corpuscular Hgb Conc 31.2 g/dL (32.0-36.0); Mean Corpuscular Volume 77.9 fL (80.0-100.0); Monocytes # (auto) 1.44 K/uL (0.11-0.59); Monocytes % (auto) 9.4 %; Neutrophils # (auto) 11.54 K/uL (1.40-6.50); Platelet Count 350 K/uL (130-400); RDW Coefficient of Variation 19.4 % (11.5-14.5); RDW Standard Deviation 53.2 fL (36.4-46.3); Red Blood Count 4.12 M/uL (4.20-5.40); White Blood Count 15.38 K/ul (4.8-10.8)
[2023-07-12 08:47] LABS: Albumin Globulin Ratio 0.6 (0.9-2); BUN Creatinine Ratio 36.5 (10-20); Bilirubin,Total 0.3 mg/dl (0.2-1.0); Calcium 7.7 mg/dl (8.6-10.3); Creatinine Clr Calc Pharmacy 48.9 ml/min; Est GFR (African American) 83.3 ml/min; Est GFR (Non-African American) 71.9 ml/min; Globulin 3.4 gm/dl (2.5-4.0); Potassium 3.5 mmol/L (3.5-5.1); Total Protein 5.4 gm/dl (6.0-8.3)
--- NOTE | 2023-07-12 10:17 | Infectious Disease Progress Nt ---
Date of Service July 12, 2023 Assessment & Plan (1) Gram-positive bacteremia: (2) Osteomyelitis: (3) Unstageable pressure ulcer of sacral region: (4) Bacteremia due to Clostridium species: (5) Chronic osteomyelitis of sacrum: (6) Gangrene of toe of right foot: (7) Wound of sacral region: (8) Spinal cord infarction: Plan Alexandra Rodriguez is a 67-year-old woman with history of JUAN MIGUEL, neurogenic bladder, multiple vessel atherosclerotic disease/stenosis, aortic stenosis, spinal cord infarction with resultant paraplegia and bedbound c/b sacral and ischial pressure ulcers, abdominal aortic dissection, HTN, and T2DM, admitted to [facility] on 07/04/23 with worsening chronic sacral wounds and CT showing bilateral ischial tuberosity osteomyelitis and extensive surrounding cellulitis. Also with gangrenous R 1st toe wound. Found to have 2/ BCx + Clostridium cadaveris. 07/01 wound cx + Citrobacter, Klebsiella pneumoniae, Alcaligenes faecalis, / wound cx + E. coli, Kleb pneumo, PsA. S/p OR debridement on 07/05, OR Cx + PsA. At this time, primary team having GOC discussions which suggest that pt will not currently be pursuing aggressive surgical plan for sacral wound or R 1st toe gangrene, and thus will treat for SSTI of the sacral wound. CT A/P showed large sacral decubitus ulcers with c/f osteomyelitis of the ischial tuberosities bilaterally. There is extensive cellulitis but no discrete abscesses were noted. Also noted, 7 cm annular mucosal mass in the rectosigmoid junction without evidence of bowel obstruction or pneumoperitoneum. Currently treating for SSTI of sacral region. Unable to cure chronic osteomyelitis unless there is a plan in place for wound healing with coverage of the bone (typically flap), and thus would not treat with an extensive course of abx at this time. Also found to have R 1st toe gangrenous wound. R foot X-ray without acute bony abnormality, though chronic osteomyelitis is likely. Agree with R foot MRI for further evaluation, if within pts GOCpt has thus far declined this. At this time, primary team having GOC discussions which suggest that pt will not currently be pursuing aggressive surgical plan for sacral wound or R 1st toe gangrene, and thus will treat for SSTI of the sacral wound. 2/7 BCx + Clostridium cadaveris, source appears to be sacral wound and/or R 1st toe. 07/06 TTE without obvious vegetation, and repeat BCx from 07/05 and 07/06 NGTD. OR on 07/05 debridement of sacral and bilateral gluteal folds. Wound cx have been polymicrobial including Citrobacter, Kleb pneumo, Alcaligenes faecalis, E. coli, and PsA. 07/05 OR Cx + PsA and Gram stain + GPCs and GPRs as well as mixed anaerobic growth. Would cefepime and metronidazole, to cover polymicrobial sacral wound infection and Clostridial bacteremia. Given GOC as discussed, will recommend to complete a 14-day course for SSTI. If discharging, can change to levofloxacin and metronidazole to complete the course. If GOC change and will be planning for sacral flap or other intensive healing plan, or toe amputation with c/f residual osteomyelitis, please reengage ID to reevaluate abx plan. ID Problem List: 1.Clostridium cadaveris bacteremia 2.Sacral decubitus wounds c/b bilateral ischial tuberosity osteomyelitis. 07/01 wound cx + Citrobacter, Klebsiella pneumoniae, Alcaligenes faecalis, 07/04 wound cx + E. coli, Kleb pneumo, PsA. S/p OR debridement on 07/05, OR Cx + PsA. 3.Paraplegia 06/29 spinal cord infarction 4.R 1st toe gangrenous wound Recommendations: - Continue cefepime 2g IV q8h and metronidazole 500 mg IV TID while inpatient to complete a 14-day course for SSTI (07/0407/17/23) and Clostridium. Unable to cure chronic sacral osteomyelitis unless there is a plan in place for wound healing with coverage of the bone (typically flap), and thus would not treat with an extensive course of abx at this time. - If will be discharging, can change abx to levofloxacin (750 mg PO q48h ir CrCl remains <50, please ensure renally dosed) and metronidazole 500 mg PO BID to complete the 14-day course for SSTI as above - At this time, given pts GOC, no formal surgical plan in place for sacral wound flap or other intensive healing plan for sacral wound coverage. Also curr ently without surgical plan to address R 1st toe gangrenous wound. If GOC change and will be planning for sacral flap or other intensive healing plan, or toe debridement/amputation with c/f residual osteomyelitis, please reengage ID to reevaluate abx plan. Plan discussed with hospitalist. Thank you for letting ID participate in the care of this patient. ID will sign off at this time. If questions, please contact the [facility] call center at [phone]. Stefani Holland MD, MHS Infectious Diseases [facility] direct line: [phone] Admission and Anticipated Discharge Date Admission Date: July 04, 2023 Subjective Subsequent visit was provided via telemedicine using two-way real-time interactive telecommunication between the patient and the telemedicine provider. For the duration of the visit, the provider was performing the assessment from a different facility than the patient. This includesuse of bluetooth stethoscope forauscultationperformed by the telepresenter that the telemed icine provider can hear if described in the physical exam. Medical Device Sales Representative contact information: Please call [facility] Call Center [phone]. (Phone Number For Physician Use Only) After establishing a telemedicine visit, patient was: Patient was verified with two unique identifiers, Patient/authorized rep acknowledged consent and u nderstanding and Gave permission to continue telehealth session Time Spent with Patient: Subsequent => 35 min - Afebrile - Per discussion with hospitalist Dr. Bower, at this time no formal surgical plan in place for sacral wound coverage or for 1st R toe amputation/debridement. Ongoing GOC discussions, please see hospitalist note from 07/11 - Pt without new pain or symptoms Physical Exam Physical Exam: Exam obtained with aid of in-person telepresenter. General: Chronically ill-appearing, no acute distress HEENT: Conjunctivae non-injected, sclerae anicteric, MMM, OP clear. Resp: Respirations nonlabored. Back: Sacral wound vac in place. Ext: R toe with gangrenous wound. Skin: No rashes or lesions. Neuro: Alert & interactive. Grossly non-focal. Psych: Pleasant, appropriate. Results & Data Vital Signs (Past 12 Hours) Vital Signs Temp Pulse Resp BP Pulse Ox O2 Del Method 07/12/23 07:25 Room Air 07/12/23 07:02 37 C 60 16 134/66 95 Room Air Diagnostic Findings Diagnostics: 07/06 R foot X-ray 1. Diffuse soft tissue swelling with no acute bony abnormality identified. 2.A wound is suggested in the first toe. Correlate clinically 07/04 CT A/P 1. Large decubitus ulcers with osteomyelitis of the bilateral ischial tuberosities. No definite sacrococcygeal osteomyelitis identified by CT. There is associated cellulitis without abscess. 2. Possible 7 cm annular mucosal mass in the rectosigmoid junction redemonstrated with adjacent subcentimeter lymph nodes. Correlation with en doscopy recommended. 3. No bowel obstruction or pneumoperitoneum. 4. Long segment abdominal aortic dissection again seen. 5. Additional findings as above. Micro Summary: 07/06 BCx x2: NGTD 07/05 BCx x2: NGTD 07/05 OR culture (buttock decubitus): Pseudomonas aeruginosa (no sensis), high counts mixed anaerobic; stainmany GPCs, rare GPRs 07/04 BCx Clostridium cadaveris 07/04 R buttock wound: E. coli, Klebsiella pneumoniae, Pseudomonas aeruginosa (all young-S) 07/04 UCx: E. coli, E. faecalis 07/01 L buttock wound cx: Citrobacter muliniae, Klebsiella pneumo, Alcaligenes faecalis Antibiotic Summary: cefepime (07/04 present) metronidazole (07/06 present) Prior vancomycin (07/05 07/09) daptomycin (07/04) (2) Osteomyelitis Osteomyelitis location: multiple sites Osteomyelitis type: unspecified type Qualified Code(s): M86.9 - Osteomyelitis, unspecified
[2023-07-12] MEDS ORDERED: PROPOFOL IV EMULSION 10 MG/ML 20 ML VIAL IV ONE (11:06)
[2023-07-12] MEDS ORDERED: MIDAZOLAM HCL 1 MG/ML 2ML VIAL ONE (11:06)
[2023-07-12] MEDS ORDERED: LIDOCAINE 2% 2 ML VIAL/AMP(20MG/ML) INFIL ONE (11:06)
[2023-07-12] MEDS ORDERED: ONDANSETRON INJ 2 MG/ML 2 ML VIAL ONE (11:06)
[2023-07-12] MEDS ORDERED: fentaNYL citrate PF 100 MCG/2 ML VIAL ONE (11:06)
--- NOTE | 2023-07-12 13:10 | Surgery Progress Note ---
Date of Service July 12, 2023 Assessment & Plan (1) Wound of sacral region: Plan: Alexandra will be taken to the OR today for evaluation and possible wound debridement, washout of sacral wounds. The consent has been obtained and is on the chart. Admission and Anticipated Discharge Date Admission Date: July 04, 2023 Subjective Patient has no complaints this am. Physical Exam Constitutional: not in distress and not diaphoretic Respiratory: normal respiratory effort; no respiratory distress, no labored breathing and does not use accessory muscles Skin: wound vac is in place Results & Data Vital Signs (Past 12 Hours) Vital Signs Temp Pulse Resp BP Pulse Ox O2 Del Method 07/12/23 10:40 36.4 C L 59 L 18 146/44 H 93 Room Air 07/12/23 07:25 Room Air 07/12/23 07:02 37 C 60 16 134/66 95 Room Air PG Care Time/CCT Total # of Minutes Spent Total Time Spent with Patient: Total time spent is greater than 50% in coordination of care (as documented) at patient's floor/unit and/or counseling patient: Coding Level of Care Code 41616 Post Operative Follow-Up Diagnoses Wound of sacral region S31.000A
[2023-07-12] MEDS ORDERED: ROCURONIUM BROMIDE 10 MG/ML 5 ML VIAL IV ONE (15:57)
[2023-07-12] MEDS ORDERED: SUGAMMADEX SODIUM 200 MG/2 ML VIAL IV ONE (16:27)
--- NOTE | 2023-07-12 16:45 | Operative Report ---
PG Post Operative Report Pre & Post Diagnosis Operation Date: 07/12/23 11:30 Pre-Op Diagnosis: Osteomyelitis. Wound of sacral region. Post-Op Diagnosis: Osteomyelitis. Wound of sacral region. Measurements: Central sacral wound 9.5 medial to lateral 13 craniocaudal. Right buttock/ischium 7 medial to lateral 6.5 craniocaudal. Left buttock/ischium 5.5 medial to lateral 8 craniocaudal. I identified the patient and participated in the time-out.: Yes Procedure Operation Date: 07/12/23 11:30 Actual Procedures p Sacral Wound Debridement and Wash Out - Aurelia Brar DO Surgeon Aurelia Brar DO Head Scorer No surgical consultant Estimated Blood Loss 5 Findings See Below Specimens None Anesthesia Type General Complications None Indications necrotic tissue wound bed Description of Procedure The patient was brought back to the operating room, connected to O2 and cardiac monitoring, administered general anesthesia and a secured airway was inserted. The patient was placed on the operating room table in prone position. The wound vac was removed and the area was prepped and draped in typical sterile fashion using Betadine. There were small areas of newly declared necrotic tissue that were questionable at the previous surgery. Sharp debridement was performed to include skin, soft tissue, tendon and removal of loose tissue from bony prominences at the ischial tuberosity area particularly the left. All 3 wounds were debrided in this fashion. Bleeding was controlled with gently cautery. The areas were copiously washed out using 3L of NS containing Vancomycin. The areas were dried of excess saline and Vancomycin was sprinkled over the wounds. The wounds were each dressed with Kerlix in multiple layers which were covered with two ABD pads and secured in place with perforated tape. The patient tolerated the procedure well. She was awakened from anesthesia, the secured airway was removed. The patient was transferred to recovery in stable condition. I attest to the content of the Intraoperative Record and any orders documented therein. Any exceptions are noted below.
[2023-07-12] MEDS: VANCOMYCIN HCL 1000MG/20ML VIAL ONE (16:51)
--- NOTE | 2023-07-12 17:31 | Anesthesiology Progress Note ---
Date of Service July 12, 2023 Anesthesia Post Procedure Vital Signs Vital Signs: Temp Pulse Pulse Resp BP Pulse Ox O2 Del Method 07/12/23 17:20 52 L 18 122/48 L 96 Room Air 07/12/23 17:10 52 L 18 121/49 L 97 Room Air 07/12/23 17:00 50 L 15 117/48 L 97 Room Air 07/12/23 16:50 50 L 15 112/50 L 99 Oxymask 07/12/23 16:42 97.2 F L 50 L 15 112/46 L 99 Oxymask 07/12/23 10:40 97.5 F L 59 L 18 146/44 H 93 Room Air 07/12/23 07:25 Room Air 07/12/23 07:02 98.6 F 60 16 134/66 95 Room Air 07/11/23 20:58 97.7 F 62 18 138/57 L 97 Room Air 07/11/23 19:40 Room Air O2 Flow Rate 07/12/23 17:20 07/12/23 17:10 07/12/23 17:00 07/12/23 16:50 3 07/12/23 16:42 6 07/12/23 10:40 07/12/23 07:25 07/12/23 07:02 07/11/23 20:58 07/11/23 19:40 Pain Intensity Sacrum: Pain Intensity: 6 Bilateral Abdomen: Pain Intensity: 3 Back: Pain Intensity: 8 Generalized: Pain Intensity: 10 Transfer of Care Handoff Completed per policy Notes Mental Status: alert / awake / arousable and participated in evaluation Patient Amnestic to Procedure: Yes Nausea / Vomiting: adequately controlled Pain: adequately controlled Airway Patency, RR, SpO2: stable & adequate BP & HR: stable & adequate Hydration State: stable & adequate Anesthetic Complications: no major complications apparent and Pt Satisfied with anesthetic care
[2023-07-12] MEDS ORDERED: MoRPHine SULFATE 2 MG/ML CARP IV PRN (17:47)
[2023-07-13 06:43] LABS: Basophils # (auto) 0.07 K/uL (0.00-0.20); Basophils % (auto) 0.5 %; Eosinophils # (auto) 0.14 K/uL (0.00-0.50); Hematocrit (blood only) 28.3 % (37.0-47.0); Hemoglobin 8.8 g/dl (12.0-16.0); Immature Granulocytes # (auto) 0.46 K/uL (0.01-0.20); Immature Granulocytes % (auto) 3.3 %; Lymphocytes # (auto) 1.58 K/uL (1.20-3.40); Lymphocytes % (auto) 11.3 %; Mean Corpuscular Hemoglobin 24.4 pg (25.0-34.0); Mean Corpuscular Hgb Conc 31.1 g/dL (32.0-36.0); Mean Corpuscular Volume 78.4 fL (80.0-100.0); Mean Platelet Volume 9.2 fL (9.4-12.4); Monocytes # (auto) 1.63 K/uL (0.11-0.59); Monocytes % (auto) 11.6 %; Neutrophils # (auto) 10.16 K/uL (1.40-6.50); Neutrophils % (auto) 72.3 %; Platelet Count 303 K/uL (130-400); RDW Coefficient of Variation 19.8 % (11.5-14.5); RDW Standard Deviation 54.8 fL (36.4-46.3); Red Blood Count 3.61 M/uL (4.20-5.40); White Blood Count 14.04 K/ul (4.8-10.8)
[2023-07-13 07:06] LABS: Albumin Globulin Ratio 0.6 (0.9-2); Bilirubin,Total 0.3 mg/dl (0.2-1.0); Calcium 7.5 mg/dl (8.6-10.3); Creatinine Clr Calc Pharmacy 38.1 ml/min; Est GFR (African American) 61.7 ml/min; Est GFR (Non-African American) 53.2 ml/min; Globulin 3.1 gm/dl (2.5-4.0); Potassium 3.3 mmol/L (3.5-5.1); Total Protein 5.1 gm/dl (6.0-8.3)
--- NOTE | 2023-07-13 15:32 | Hospitalist Progress Note ---
Date of Service July 13, 2023 Assessment & Plan (1) Peripheral arterial disease: Plan: Pt is a 67 y/o female with PMH of JUAN MIGUEL, neurogenic bladder, multiple vessel atherosclerotic disease/stenosis, aortic stenosis, spinal cord infarction (from most recent admission), abdominal aortic dissection, HTN, and type 2 DM presented with worsening sacral wounds now s/p debridement 07/05 and wound vac placement with plan for ?return trip to the OR later this week. Bilateral ischial tuberosity osteomyelitis CTAP showed large decubitus ulcers with osteomyelitis of the bilateral ischial tuberosities. Debrided 07/05 with wound vac placement and rectal tube for fecal diversion with plan for ?return trip to the OR later this week. ECHO negative for vegetations Wound, ID, and surgery on board - appreciate recs Continue cefepime, vanc, flagyl Cultures: wound cx 07/02 - pansensitive klebsiella, gram neg bacilli (no sensitivities or speciation), and citrobacter (resistant to ceftriaxone) blood culture 07/04 - gram positive bacilli, clostridium cadaveris urine cx 07/04 - e. coli, gram + cocci blood cx 07/05 NGTD x48H wound cx 07/05 (OR) - pseudomonas +mixed anaerobes Abx: Cefepime 07/04 Vancomycin 07/04 Flagyl 07/06 AMS Patient seems to have altered mental status since having her debridement done on 07/12/2023. Could be delirium due to anesthesia or surgery in general. Will continue to check throughout the day for improvement. Frequent reorientation and discussion with patient recommended. No gross deficits noted that would indicate neurologic condition. Gram Positive Bacteremia Source likely sacral ulcer. Blood cultures grew clostridium cadaveris. Repeat blood cx NGTD x48H. ECHO without vegetations. ID on board - recs as above. Microcytic anemia Prior FOB positive with 7 cm mucosal mass - ?colon cancer on prior CTs (awaiting O/P colonoscopy). Transfused 1U PRBCs 07/07 with appropriate hemoglobin response. Iron low, ferritin wnl; consistent with anemia of chronic disease Continue to trend AM CBC. Chronic peripheral vascular disease Likely in the setting of long standing smoking with recent intervention in Apr 2023 as detailed in HPI. Continue rosuvastatin 20 mg daily, zetia 10mg daily - previously on Eliquis, but stopped at rehab Right 1st toe gangrene, Left heel ecchymosis, possible fluid collection - Left ankle xr without OM - Right foot XR concern infection without osteomyelitis, image better seen on wound care note - Podiatry consulted, no intervention warranted at this time. Colonic mass CTAP this admission re-demonstrated 7 cm mucosal mass; no prior colonoscopy. Pt will need colonoscopy for definitive diagnosis Aortic stenosis - last echo 03/2023 showed valve area of 1.1cm and EF 54%; pt currently asymptomatic and euvolemic HTN - pt unsure of what medications she takes at home - continue home regimen per med rec; carvedilol 12.5mg BID, nifedipine 30 mg HS - will hold hydralazine as pt's BP controlled Oral Thrush -continue nystatin PO -continue prn magic mouthwash Hx of type 2 DM - last A1c 6.5% 03/2023 w/o medications - no need for SSI Spinal cord infarction - resulting in bilateral LE paralysis - PT/OT consulted; suspect pt may need further rehab upon discharge Chronic indwelling wheat catheter - suspected neurogenic bladder from spinal cord infarction F/E/N/GI: Heart healthy, Carb consistent T2DM. Per nutrition will try to get caloric intake up with increased boost consumption. DVT PPx: SCDs, chemoprophylaxis contraindicated due to anemia and transfusion requirement Dispo: Med/surg Goals of Care: prognosis poor - ?metastatic colon cancer, vascular disease, malnutrition, wounds, ongoing discussion of goals of care (2) Unstageable pressure ulcer of sacral region: (3) Osteomyelitis: (4) Pulmonary nodule 1 cm or greater in diameter: (5) Spinal cord infarction: (6) Aortic dissection, abdominal: (7) Aortic stenosis: (8) Mass of colon: (9) HTN (hypertension): (10) Gangrene of toe of right foot: (11) Gram-positive bacteremia: Admission and Anticipated Discharge Date Admission Date: July 04, 2023 Supervising Physician Co-Signing Physician Notes I personally examined the patient and verified all marie points of history and exam, discussed case, and agree with decision making with Dr Saenz Laying in bed, makes eye contact but does not talk. Then rolls away as I am trying to talk with her. Vitals noted, in general she appears to be awake, answered to tell if she is disoriented or simply does not want to talk, but appears to be in no distress. HEENT normocephalic atraumatic mucous membranes moist. Breathing unlabored no accessory muscle use good effort. Skin shows no rashes, wounds not examined today given debridement yesterday and appearing comfortable today. Stage 4 sacral ulcer/OM ischemia tuberosity/Paraplegia - s/p debridement 07/06. ID following. wound care as well -IV cefepime/vancomycin/flagyl. surgery followinginfectious disease notes that unless there is a plan for a flap, prolonged treatment is unlikely to have much benefit. -rectal tube and wheat in place. - Further surgical plans would certainly be largely dictated by patient overall goals of care -except for debridement yesterday, which would be of benefit regardless of her overall plan of care. Bacteremia - culture from 07/04 - Clostridium cadaveris in both tubes. on IV Flagyl, follow-up cultures have been negative Positive Urine culture - E coli and enterococcus - contaminant/asymptomatic - no concern of infection but current abx regimen should cover. Microcytic anemia with acute blood loss anemia - - prior FOB positive with possible colon cancer on prior CTs (not proven with colonoscopy/biopsy yet, but repeated CTs are highly suspicious). iron studies with low s iron. ferritin 154. - h/h drop - transfused one unit pRBC 07/07. Right 1st toe gangrene, Left heel ecchymosis, possible fluid collection - Left ankle xr with no bony pathology. -podiatry consult - no intervention recommended. consider vascular consult for PAD. - discussed with infectious disease, and agree clinically that an MRI would be warranted to evaluate for osteomyelitisin discussion with the patient, she declined evaluation PAD - noted significant vascular history under Dr Amor. Previously discharged on Eliquis but stopped at [facility] at rehab - follow. assess the need to resume in am since h/h stable. Chronic indwelling wheat catheter - ? d/t neurogenic bladder from spinal cord infarction. with sacral decubitus - will help as well. Aortic dissection - not new Nystatin/Boost added For what appears to be fairly severe protein/calorie malnutrition. nutrition efforts will largely be dictated by goals of care VTE Proph - SCD. h/h stable on 07/08 goals of care discussion (on 07/11): -was gentle but sigrid about the severity of her illnesses - and that she essentially has 2 separate processes (malnutrition/wounds, probable colon CA) that both could be completely insurmountable, and both would likely require a long course of treatment, surgeries, and optimal nutrition to even have a chance of success. outlined general course of treatment for both major problems so that pt/family would have an understanding of what the "road map" would be. discussed overall very poor prognosis. discussed hospice/palliative goals as very reasonable options given her situation. discussed that patient herself should be the primary decision maker with her goals, supported by family. pt/family were going to discuss further - offered assistance should they have further questions (sister later called to ask minor clarifying questions like ?course of abx, ?was pt septic). Subjective Patient seen at bedside this morning. No acute events reported overnight. Patient alert but not conversive this morning. No meaningful HPI gathered at this time. She is not answering questions but does make eye contact. Review of Systems Review of Systems: Unobtainable due to cognitive status Physical Exam Physical Exam: General: Chronically ill-appearing, no acute distress HEENT: Conjunctivae non-injected, sclerae anicteric, MMM, OP clear. Cardio: RRR, well perfused. Resp: Respirations nonlabored. CTA b/l Ext: R toe with gangrenous wound. Skin: No rashes or lesions. Neuro: Alert Grossly non-focal. Psych: Alert but without vocalization Results & Data Results & Data Vital Signs (Past 12 Hours) Vital Signs Temp Pulse Resp BP Pulse Ox O2 Del Method 07/13/23 14:54 36.4 C L 55 L 16 137/57 L 96 Room Air 07/13/23 07:35 Room Air 07/13/23 07:09 37.2 C 76 16 175/62 H 95 Room Air 07/13/23 03:31 37.4 C 82 16 170/62 H 92 Room Air (3) Osteomyelitis Osteomyelitis location: multiple sites Osteomyelitis type: unspecified type Qualified Code(s): M86.9 - Osteomyelitis, unspecified (7) Aortic stenosis Cardiac valve disease etiology: nonrheumatic Qualified Code(s): I35.0 - Nonrheumatic aortic (valve) stenosis (9) HTN (hypertension) Hypertension type: resistant hypertension Qualified Code(s): I1A.0 - Resistant hypertension
--- NOTE | 2023-07-13 19:12 | Billing Data ---
Date of Service July 13, 2023 Coding Level of Care Code 39374 SUB INP/OBS CARE
[2023-07-13] MEDS: CEFEPIME 2,000 MG in SYRINGE 0 ML IV SCH (20:23)
--- NOTE | 2023-07-14 08:53 | Hospitalist Progress Note ---
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 Bilateral ischial tuberosity osteomyelitis s/p debridement + washout x2 on 07/05 and 07/12 -CTAP showed large decubitus ulcers with osteomyelitis of the bilateral ischial tuberosities -Debrided 07/05 with wound vac placement and rectal tube for fecal diversion with repeat debridement on 07/12 -TTE negative for vegetations -Cultures -Wound Cx 07/02- pansensitive klebsiella and citrobacter (resistant to ceftriaxone), gram negative bacilli -BCx 07/04 - gram positive bacilli, clostridium cadaveris. BCx 07/05 NGTD -UCx 07/04- E Coli, gram positive cocci -Wound Cx 07/05 from OR- pseudomonas + mixed anaerobes -Continue cefepime (started 07/04), vancomycin (started 07/04), Flagyl (started 07/06) per ID recommendations AMS -Noted AMS since debridement 07/12 -Likely hypoactive delirium, continue reorientation/redirection and avoid sedatives -No gross deficits on neurological assessment Gram positive bacteremia -Source likely sacral ulcer -Blood cultures grew clostridium cadaveris -Repeat blood cx NGTD x48H. TTE without vegetations -ID consulted- recommendations as above. Microcytic anemia -Prior FOB positive with 7 cm mucosal mass - possible colon cancer on prior CTs (awaiting outpatient colonoscopy) -Transfused 1U PRBCs 07/07 with appropriate hemoglobin response -Iron low, ferritin wnl; consistent with anemia of chronic disease -Monitor CBC Chronic peripheral vascular disease -Likely in the setting of long standing smoking with recent intervention in Apr 2023 as detailed in HPI -Continue rosuvastatin 20 mg daily, Zetia 10mg daily -Previously on Eliquis, but stopped at rehab Right 1st toe gangrene - Left ankle XR without osteomyelitis findings - Right foot XR concerning for infection without osteomyelitis, image better seen on wound care note - Podiatry consulted, no intervention warranted at this time - Treatment plan pending [facility] Colonic mass -CTAP this admission re-demonstrated 7 cm mucosal mass; no prior colonoscopy -Pt will need colonoscopy for definitive diagnosis. Pending [facility] Aortic stenosis - Last TTE 03/2023 showed valve area of 1.1cm and EF 54%; pt currently asymptomatic and euvolemic HTN - Pt unsure of what medications she takes at home - Continue home regimen per EMR; carvedilol 12.5 mg BID, nifedipine 30 mg HS - Hold hydralazine as pt's BP controlled Oral candidiasis - Continue nystatin PO - Continue PRN magic mouthwash Hx of type 2 DM - Last A1c 6.5% 03/2023 w/o medications - No need for SSI Spinal cord infarction - Resulting in bilateral LE paralysis - PT/OT consulted; suspect pt may need further rehab upon discharge. Pending [facility] Chronic indwelling urinary catheter - Suspected neurogenic bladder from spinal cord infarction F/E/N/GI: Heart healthy, Carb consistent T2DM. Per nutrition will try to get caloric intake up with increased boost consumption. DVT PPx: SCDs, chemoprophylaxis contraindicated due to anemia and transfusion requirement Dispo: Medical/surgical Goals of care: prognosis poor with metastatic colon cancer, vascular disease, malnutrition, wounds, ongoing discussion of goals of care with family this weekend and anticipate decision on 07/16 (2) Unstageable pressure ulcer of sacral region: (3) Osteomyelitis: (4) Pulmonary nodule 1 cm or greater in diameter: (5) Spinal cord infarction: (6) Aortic dissection, abdominal: (7) Aortic stenosis: (8) Mass of colon: (9) HTN (hypertension): (10) Gangrene of toe of right foot: (11) Gram-positive bacteremia: Admission and Anticipated Discharge Date Admission Date: July 04, 2023 Supervising Physician Co-Signing Physician Notes I personally examined the patient and verified all marie points of history and exam, discussed case, and agree with decision making with Dr Snow Whenever I saw her this morning she appeared to be in no distress, but was sleeping, had still not really been meaningfully responsive with resident physician. Revisited this afternoon with family presentshe is not really meaningfully responsive to them either, they note that she looks very cold and her lips looked bluethis is absolutely brand-new to meimmediately assessed and stabilize the situation before further conversations with familyoutlined under goals of care discussion below. No meaningful HPI review of systems obtainable from patient. Vitals notedshe looked a bit cyanotic at the lips for Scott was not able to get her to cooperate with an oral temperatureand really not able to get a great axillary reading eitherwas able to come away with a temp of 94.5 Fahrenheit that I am not sure I truly believe was accurate (but managed as though it might have been) cardio regular without rubs murmurs gallops, lungs clear without rales rhonchi or wheezes moderate spontaneous effort no accessory muscle use. No cyanosis in her fingers. Abdomen soft nondistended mild diffuse tenderness Delirium/metabolic encephalopathyappears to be due to all of the belowoutlined/discussed with family in depth and at length, continue supportive care. hypothermiauncertain how accurate the temperature reading wasbut given that I could not get an accurate oral temperature and did not entirely trust my axillary temperature, but felt that with her wounds and rectal tube I may cause problems that would be difficult to correct with a rectal temperature I opted to act as though the 94.5 degrees was accurate. My biggest differential would simply be exposurethe room was fairly cold (nursing turned up to heat) I added more warm blankets, and the exposure may also have been from room temperature IV fluids for her dehydration/azotemia. At the same time given that she is here with infectionbroadened antibiotics by re-adding vancomycin for now, checking blood cultures, repeat CBC basic metabolic panel and CRP and managing as though it was a septic hypothermia. Stage 4 sacral ulcer/OM ischemia tuberosity/Paraplegia - s/p debridement 07/06. ID following. wound care as well -IV cefepime/vancomycin/flagyl. surgery followinginfectious disease notes that unless there is a plan for a flap, prolonged treatment is unlikely to have much benefit. -rectal tube and wheat in place. - Further surgical plans would certainly be largely dictated by patient overall goals of care -except for debridement yesterday, which would be of benefit regardless of her overall plan of care. Bacteremia - culture from 07/04 - Clostridium cadaveris in both tubes. on IV Flagyl, follow-up cultures have been negative Positive Urine culture - E coli and enterococcus - contaminant/asymptomatic - no concern of infection but current abx regimen should cover. Microcytic anemia with acute blood loss anemia - - prior FOB positive with possible colon cancer on prior CTs (not proven with colonoscopy/biopsy yet, but repeated CTs are highly suspicious). iron studies with low s iron. ferritin 154. - h/h drop - transfused one unit pRBC 07/07. Right 1st toe gangrene, Left heel ecchymosis, possible fluid collection - Left ankle xr with no bony pathology. -podiatry consult - no intervention recommended. consider vascular consult for PAD. - discussed with infectious disease, and agree clinically that an MRI would be warranted to evaluate for osteomyelitisin discussion with the patient, she declined evaluation PAD - noted significant vascular history under Dr Amor. Previously discharged on Eliquis but stopped at [facility] at rehab - follow. assess the need to resume in am since h/h stable. Chronic indwelling wheat catheter - ? d/t neurogenic bladder from spinal cord infarction. with sacral decubitus - will help as well. Aortic dissection - not new Nystatin/Boost added For what appears to be fairly severe protein/calorie malnutrition. nutrition efforts will largely be dictated by goals of care. We discussed that at this point if we were to continuing an aggressive mode of care given her delirium is now also precluding meaningful p.o. intake, we would need to consider NG tube placement and tube feeds VTE Proph - SCD. goals of care discussion (on 07/11): -was gentle but sigrid about the severity of her illnesses - and that she essentially has 2 separate processes (malnutrition/wounds, probable colon CA) that both could be completely insurmountable, and both would likely require a long course of treatment, surgeries, and optimal nutrition to even have a chance of success. outlined general course of treatment for both major problems so that pt/family would have an understanding of what the "road map" would be. discussed overall very poor prognosis. discussed hospice/palliative goals as very reasonable options given her situation. discussed that patient herself should be the primary decision maker with her goals, supported by family. pt/family were going to discuss further - offered assistance should they have further questions (sister later called to ask minor clarifying questions like ?course of abx, ?was pt septic). discussion 07/14: After stabilizing the hypothermia And discussing delirium, we then had further discussions about her overall situationall children present, answered all questions to the best my ability and to their satisfaction. Reiterated discussions from 07/11, discussed further the now escalating nutrition problem and what we would need to do should we continue to choose an aggressive route of care. They all separately noted in their own ways that they felt that mom probably would not want all of this done, and that she was expressing that by refusal to eat/etc.I reiterated there pointnoting that while obviously I did not know their mother very well having only assumed her care on Sunday, I was wondering if she would want a withdrawal of care and less aggressive course of care given her refusal to eat despite being lucid, and refusal of foot MRI. We are all largely reaching the conclusion that comfort is probably the best route; understandably her children wanted to talk with each other and with their aunt (patient's sister) before reaching true conclusions about this. I did discuss how comfort care can play outboth as far as goals and location. Will discuss further tomorrow. Subjective Acute events overnight- none. Pt examined at bedside. She is not conversational at present, does not answer questions or commands but alert and able to make eye contact. Review of Systems Review of Systems: As per above Physical Exam Physical Exam: General: Chronically ill-appearing, no acute distress HEENT: Conjunctivae non-injected, sclerae anicteric, MMM, OP clear. Cardio: RRR, well perfused. Resp: Respirations nonlabored. CTA b/l Ext: R toe with gangrenous wound Skin: No rashes or lesions. Neuro: Alert Grossly non-focal. Psych: Alert but without vocalization Results & Data Results & Data Vital Signs (Past 12 Hours) Vital Signs Temp Pulse Resp BP Pulse Ox O2 Del Method 07/14/23 07:26 36.4 C L 57 L 16 157/63 H 96 Room Air 07/13/23 20:59 36.6 C 51 L 14 125/55 L 98 Room Air Resident Activity Tracking Resident Involvement: Resident Care Provided Care Provided: Adult Hospital Medicine (3) Osteomyelitis Osteomyelitis location: multiple sites Osteomyelitis type: unspecified type Qualified Code(s): M86.9 - Osteomyelitis, unspecified (7) Aortic stenosis Cardiac valve disease etiology: nonrheumatic Qualified Code(s): I35.0 - Nonrheumatic aortic (valve) stenosis (9) HTN (hypertension) Hypertension type: resistant hypertension Qualified Code(s): I1A.0 - Resistant hypertension
[2023-07-14 09:49] LABS: Basophils # (auto) 0.05 K/uL (0.00-0.20); Basophils % (auto) 0.3 %; Eosinophils # (auto) 0.02 K/uL (0.00-0.50); Eosinophils % (auto) 0.1 %; Hemoglobin 10.2 g/dl (12.0-16.0); Immature Granulocytes # (auto) 0.41 K/uL (0.01-0.20); Immature Granulocytes % (auto) 2.4 %; Lymphocytes # (auto) 1.52 K/uL (1.20-3.40); Lymphocytes % (auto) 8.9 %; Mean Corpuscular Hemoglobin 24.5 pg (25.0-34.0); Mean Corpuscular Hgb Conc 30.9 g/dL (32.0-36.0); Mean Corpuscular Volume 79.1 fL (80.0-100.0); Mean Platelet Volume 9.8 fL (9.4-12.4); Monocytes # (auto) 1.51 K/uL (0.11-0.59); Monocytes % (auto) 8.8 %; Neutrophils # (auto) 13.59 K/uL (1.40-6.50); Neutrophils % (auto) 79.5 %; Platelet Count 300 K/uL (130-400); RDW Coefficient of Variation 20.7 % (11.5-14.5); RDW Standard Deviation 56.4 fL (36.4-46.3); Red Blood Count 4.17 M/uL (4.20-5.40)
[2023-07-14 10:05] LABS: Albumin Globulin Ratio 0.6 (0.9-2); Albumin Level 2.1 gm/dl (3.4-5.0); BUN Creatinine Ratio 32.8 (10-20); Bilirubin,Total 0.3 mg/dl (0.2-1.0); Calcium 7.7 mg/dl (8.6-10.3); Creatinine Clr Calc Pharmacy 31.7 ml/min; Est GFR (African American) 49.4 ml/min; Est GFR (Non-African American) 42.6 ml/min; Globulin 3.3 gm/dl (2.5-4.0); Potassium 3.5 mmol/L (3.5-5.1); Total Protein 5.4 gm/dl (6.0-8.3)
[2023-07-14 10:10] LABS: Acanthocytes 1+; Anisocytosis Present; Echinocytes 3+; Polychromasia 2+
[2023-07-14] MEDS: LACTATED RINGER'S 1,000 ML IV SCH (11:22)
[2023-07-14] MEDS ORDERED: VANCOMYCIN CONSULT ACTIVE PRN (14:56)
--- NOTE | 2023-07-14 15:50 | Pharmacy Report ---
Pharmacy PK ABX Note - Date of Service July 14, 2023 - Assessment and Plan Assessment 07/14: Vancomycin was discontinued 07/10, restarting today. WBC increasing. SCr also increasing, 1.31 this morning- will give reload and obtain random level in AM to assist with further dosing 07/09: * Antibiotic regimen per ID, likely to treat as SSTI not osteomyelitis. * Renal function stable. Patient remains afebrile. * No change to culture data, latest blood cultures (07/05 and 07/06) are negative at 48 hours. * No plan for intervention by podiatry. 07/07: * Continues on vanc/cefepime/metronidazole- day # 3 vancomycin. Renal function stable. ID following. 07/06: * Ms Rodriguez is a 67 year old F receiving vanc/cefepime for treatment of gram positive bacteremia, decubitus ulcers w/ osteomyelitis. * Pertinent microbiologic data includes: 07/04 blood culture (+) gram (+) bacilli in 07/01, buttock culture (+) E.coli, Klebsiella pneumonia, and pseudomonas, 07/05 decubitus (+) pseudomonas aeruginosa. * Pt is POD #1 s/p debridement of sacral wounds in OR. * ID consult in place Plan Vancomycin * Redose: 1250 mg IV x1 * Random level for 07/15 AM Cefepime * 2 g IV q12h - no change Metronidazole * 500 mg IV q8h - no change Pharmacy will continue to follow and will adjust dose/frequency as necessary. Thank you. Pharmacy has transitioned to AUC monitoring for vancomycin. AUC/TERESO is the preferred PK/PD target and is associated with decreased risk of nephrotoxicity compared to traditional trough targets.
--- NOTE | 2023-07-14 16:23 | Billing Data ---
Date of Service July 14, 2023 Coding Level of Care Code 05931 SUB INP/OBS CARE MIN
[2023-07-14] MEDS: VANCOMYCIN HCL 1,250 MG in SODIUM CHLORIDE 0.9% 250 ML IV ONE (16:27)
[2023-07-14 16:37] LABS: Base Excess VBG -10.4 mEq/L; HCO3 VBG 16 mmol/L; Oxygen Saturation VBG 80.1 %; PCO2 VBG 35 mmHg (38-50); PO2 VBG 52 mmHg; pH VBG 7.26 (7.36-7.41)
[2023-07-14 17:00] LABS: Calcium 7.5 mg/dl (8.6-10.3); Potassium 3.3 mmol/L (3.5-5.1)
[2023-07-14 17:05] LABS: BUN Creatinine Ratio 32.6 (10-20); C Reactive Protein 4.9 mg/dl (0-0.5); Creatinine Clr Calc Pharmacy 30.1 ml/min; Est GFR (African American) 46.4 ml/min
[2023-07-14 17:52] LABS: Basophils # (auto) 0.06 K/uL (0.00-0.20); Basophils % (auto) 0.3 %; Eosinophils # (auto) 0.03 K/uL (0.00-0.50); Eosinophils % (auto) 0.2 %; Hematocrit (blood only) 26.9 % (37.0-47.0); Hemoglobin 8.3 g/dl (12.0-16.0); Immature Granulocytes % (auto) 2.3 %; Lymphocytes # (auto) 1.42 K/uL (1.20-3.40); Lymphocytes % (auto) 8.3 %; Mean Corpuscular Hgb Conc 30.9 g/dL (32.0-36.0); Mean Platelet Volume 9.8 fL (9.4-12.4); Monocytes # (auto) 1.51 K/uL (0.11-0.59); Monocytes % (auto) 8.8 %; Neutrophils # (auto) 13.79 K/uL (1.40-6.50); Neutrophils % (auto) 80.1 %; Platelet Count 255 K/uL (130-400); RDW Coefficient of Variation 20.7 % (11.5-14.5); RDW Standard Deviation 58.4 fL (36.4-46.3); Red Blood Count 3.32 M/uL (4.20-5.40); White Blood Count 17.21 K/ul (4.8-10.8)
[2023-07-14 18:18] LABS: Acanthocytes 3+; Anisocytosis Present; Echinocytes 2+
[2023-07-14] MEDS: POTASSIUM CHLORIDE / WTR 10 MEQ/100 ML PLCT IV SCH (19:58)
[2023-07-15 06:17] LABS: Hemoglobin 8.2 g/dl (12.0-16.0); Mean Corpuscular Hemoglobin 24.4 pg (25.0-34.0); Mean Corpuscular Hgb Conc 30.4 g/dL (32.0-36.0); Mean Corpuscular Volume 80.4 fL (80.0-100.0); Platelet Count 261 K/uL (130-400); RDW Coefficient of Variation 20.4 % (11.5-14.5); RDW Standard Deviation 56.9 fL (36.4-46.3); Red Blood Count 3.36 M/uL (4.20-5.40); White Blood Count 14.38 K/ul (4.8-10.8)
[2023-07-15 06:45] LABS: Calcium 7.3 mg/dl (8.6-10.3); Creatinine Clr Calc Pharmacy 25.7 ml/min; Est GFR (African American) 38.2 ml/min; Potassium 3.6 mmol/L (3.5-5.1)
[2023-07-15] MEDS: DEXTROSE 50% 50 ML SYRINGE IV STA (06:58)
[2023-07-15] MEDS ORDERED: LACTATED RINGER'S 500 ML IV ONE (08:32)
--- NOTE | 2023-07-15 09:35 | Hospitalist Progress Note ---
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 Altered mental status -Noted AMS since debridement 07/12 -Initially considered to be hypoactive delirium but this now appears driven more by metabolic encephalopathy from sepsis with progressive multisystem organ failure -Pt's prognosis is worsening and she is likely approaching end-of-life. Goals of care discussion to be held with family today to determine treatment plan Sepsis 2/ bilateral ischial tuberosity osteomyelitis s/p debridement + washout x2 on 07/05 and 07/12 -CTAP showed large decubitus ulcers with osteomyelitis of the bilateral ischial tuberosities -Debrided 07/05 with wound vac placement and rectal tube for fecal diversion with repeat debridement on 07/12 -TTE negative for vegetations -Cultures -Wound Cx 07/02- pansensitive klebsiella and citrobacter (resistant to ceftriaxone), gram negative bacilli -BCx 07/04 - gram positive bacilli, clostridium cadaveris. BCx 07/05 NGTD -UCx 07/04- E Coli, gram positive cocci -Wound Cx 07/05 from OR- pseudomonas + mixed anaerobes -Noted incident of hypothermia < 95 F (though questionable accuracy) + associated cyanosis of lips on 07/14 -Supportive care provided with improvement in temperature -Suspected septic hypothermia- repeat labs demonstrated unchanged WBC ~17, CRP 5, metabolic acidosis -Vancomycin re-initiated -Continue cefepime (started 07/04), vancomycin (07/04-07/10, restarted 07/14), Flagyl (started 07/06) per ID recommendations Gram positive bacteremia -Source likely sacral ulcer -Blood cultures grew clostridium cadaveris -Repeat blood cx NGTD x48H. TTE without vegetations -ID consulted- antibiotics as above Acute kidney injury -Cr increase from 1 -> 1.3 -> 1.6 over past 48 hours -Likely indicates acute renal failure in setting of septic illness -Continue mIVF -Monitor BMP Microcytic anemia -Prior FOB positive with 7 cm mucosal mass - possible colon cancer on prior CTs (awaiting outpatient colonoscopy) -Transfused 1U PRBCs 07/07 with appropriate hemoglobin response -Iron low, ferritin wnl; consistent with anemia of chronic disease -Monitor CBC Chronic peripheral vascular disease -Likely in the setting of long standing smoking with recent intervention in Apr 2023 as detailed in HPI -Continue rosuvastatin 20 mg daily, Zetia 10mg daily -Previously on Eliquis, but stopped at rehab Right 1st toe gangrene - Left ankle XR without osteomyelitis findings - Right foot XR concerning for infection without osteomyelitis, image better see n on wound care note - Podiatry consulted, no intervention warranted at this time - Treatment plan pending [facility] Colonic mass -CTAP this admission re-demonstrated 7 cm mucosal mass; no prior colonoscopy -Pt will need colonoscopy for definitive diagnosis. Pending [facility] Aortic stenosis - Last TTE 03/2023 showed valve area of 1.1cm and EF 54%; pt currently asymptomatic and euvolemic HTN - Pt unsure of what medications she takes at home - Continue home regimen per EMR; carvedilol 12.5 mg BID, nifedipine 30 mg HS - Hold hydralazine as pt's BP controlled Oral candidiasis - Continue nystatin PO - Continue PRN magic mouthwash Hx of type 2 DM - Last A1c 6.5% 03/2023 w/o medications - No need for SSI Spinal cord infarction - Resulting in bilateral LE paralysis - PT/OT consulted; suspect pt may need further rehab upon discharge. Pending [facility] Chronic indwelling urinary catheter - Suspected neurogenic bladder from spinal cord infarction F/E/N/GI: Heart healthy, Carb consistent T2DM. Per nutrition will try to get caloric intake up with increased boost consumption. DVT PPx: SCDs, chemoprophylaxis contraindicated due to anemia and transfusion requirement Dispo: Medical/surgical Goals of care: prognosis poor with metastatic colon cancer, vascular disease, malnutrition, wounds, ongoing discussion of goals of care with family this weekend and anticipate decision on 07/16 (2) Unstageable pressure ulcer of sacral region: (3) Osteomyelitis: (4) Pulmonary nodule 1 cm or greater in diameter: (5) Spinal cord infarction: (6) Aortic dissection, abdominal: (7) Aortic stenosis: (8) Mass of colon: (9) HTN (hypertension): (10) Gangrene of toe of right foot: (11) Gram-positive bacteremia: Admission and Anticipated Discharge Date Admission Date: July 04, 2023 Supervising Physician Co-Signing Physician Notes I personally examined the patient and verified all marie points of history and exam, discussed case, and agree with decision making with Dr Snow no hpi or ros obtainable. vitals noted, lips cyanotic. does not appear in pain/respiratory distress last "medically aggressive a/p" for documentation purposes; see "goals of care discussion" below for today's meaningful input. Delirium/metabolic encephalopathyappears to be due to all of the belowoutlined/discussed with family in depth and at length, continue supportive care. hypothermiauncertain how accurate the temperature reading wasbut given that I could not get an accurate oral temperature and did not entirely trust my axillary temperature, but felt that with her wounds and rectal tube I may cause problems that would be difficult to correct with a rectal temperature I opted to act as though the 94.5 degrees was accurate. My biggest differential would simply be exposurethe room was fairly cold (nursing turned up to heat) I added more warm blankets, and the exposure may also have been from room temperature IV fluids for her dehydration/azotemia. At the same time given that she is here with infectionbroadened antibiotics by re-adding vancomycin for now, checking blood cultures, repeat CBC basic metabolic panel and CRP and managing as though it was a septic hypothermia. Stage 4 sacral ulcer/OM ischemia tuberosity/Paraplegia - s/p debridement 07/06. I D following. wound care as well -IV cefepime/vancomycin/flagyl. surgery followinginfectious disease notes that unless there is a plan for a flap, prolonged treatment is unlikely to have much benefit. -rectal tube and wheat in place. - Further surgical plans would certainly be largely dictated by patient overall goals of care -except for debridement yesterday, which would be of benefit regardless of her overall plan of care. Bacteremia - culture from 07/04 - Clostridium cadaveris in both tubes. on IV Flagyl, follow-up cultures have been negative Positive Urine culture - E coli and enterococcus - contaminant/asymptomatic - no concern of infection but current abx regimen should cover. Microcytic anemia with acute blood loss anemia - - prior FOB positive with possible colon cancer on prior CTs (not proven with colonoscopy/biopsy yet, but repeated CTs are highly suspicious). iron studies with low s iron. ferritin 154. - h/h drop - transfused one unit pRBC 07/07. Right 1st toe gangrene, Left heel ecchymosis, possible fluid collection - Left ankle xr with no bony pathology. -podiatry consult - no intervention recommended. consider vascular consult for PAD. - discussed with infectious disease, and agree clinically that an MRI would be warranted to evaluate for osteomyelitisin discussion with the patient, she declined evaluation PAD - noted significant vascular history under Dr Amor. Previously discharged on Eliquis but stopped at [facility] at rehab - follow. assess the need to resume in am since h/h stable. Chronic indwelling wehat catheter - ? d/t neurogenic bladder from spinal cord infarction. with sacral decubitus - will help as well. Aortic dissection - not new Nystatin/Boost added For what appears to be fairly severe protein/calorie malnutrition. nutrition efforts will largely be dictated by goals of care. We discussed that at this point if we were to continuing an aggressive mode of care given her delirium is now also precluding meaningful p.o. intake, we would need to consider NG tube placement and tube feeds VTE Proph - SCD. goals of care discussion (on 07/11): -was gentle but sigrid about the severity of her illnesses - and that she essentially has 2 separate processes (malnutrition/wounds, probable colon CA) that both could be completely insurmountable, and both would likely require a long course of treatment, surgeries, and optimal nutrition to even have a chance of success. outlined general course of treatment for both major problems so that pt/family would have an understanding of what the "road map" would be. discussed overall very poor prognosis. discussed hospice/palliative goals as very reasonable options given her situation. discussed that patient herself should be the primary decision maker with her goals, supported by family. pt/family were going to discuss further - offered assistance should they have further questions (sister later called to ask minor clarifying questions like ?course of abx, ?was pt septic). discussion 07/14: After stabilizing the hypothermia And discussing delirium, we then had further discussions about her overall situationall children present, answered all questions to the best my ability and to their satisfaction. Reiterated discussions from 07/11, discussed further the now escalating nutrition problem and what we would need to do should we continue to choose an aggressive route of care. They all separately noted in their own ways that they felt that mom probably would not want all of this done, and that she was expressing that by refusal to eat/etc.I reiterated there pointnoting that while obviously I did not know their mother very well having only assumed her care on Sunday, I was wondering if she would want a withdrawal of care and less aggressive course of care given her refusal to eat despite being lucid, and refusal of foot MRI. We are all largely reaching the conclusion that comfort is probably the best route; understandably her children wanted to talk with each other and with their aunt (patient's sister) before reaching true conclusions about this. I did discuss how comfort care can play outboth as far as goals and location. Will discuss further tomorrow. Discussion 07/15: Medically I was quite concerned given the patient appearing more lethargicobviously no HPI review of systems obtainable, and her labs worsening. I was able to discuss her situation with her sister at the bedside this morning, and then revisited and was able to discuss with all of her children later in the morning/early afternoon. family in agreement that comfort measures are in the patient's best interest. Offered empathy/condolences/supportnoted that I felt that this was unfortunately the best decision as well. Discussed the patient's rather rapid turn for the worstand noted that for now given that she may be moving into actively dying, it makes the most sense to start a palliative approach to care while still in the hospital, as I suspect she may pass sooner rather than later. Stopped aggressive medication/lab draws/vital signs/etc. Added scopolamine and atropine for respiratory secretions (and discussed with family that oftentimes respiratory secretions will create a rattling sounding breathing, but oftentimes the patient himself has no dyspnea with this), morphine as needed pain or dyspnea, Ativan as needed agitation/restlessness. Continue to follow inhouse. I suspect she will probably pass fairly quickly given her decline over the last 2 days, and she certainly is showing a very high level of need that would probably be difficult for the family to keep up with at home. Subjective Acute events overnight- none. Pt examined at bedside. She is not conversational at present, does not answer questions or commands. Review of Systems Review of Systems: As per above Physical Exam Physical Exam: General: Chronically ill-appearing, uncomfortable, no acute distress HEENT: Conjunctivae non-injected, dry mucous membranes Cardio: RRR, well perfused. Resp: Respirations nonlabored. CTA b/l Ext: R toe with gangrenous wound Skin: No rashes or lesions aside from surgical sites at b/l hips Neuro: Unresponsive Results & Data Results & Data Vital Signs (Past 12 Hours) Vital Signs Temp Pulse Resp BP Pulse Ox O2 Del Method 07/15/23 07:13 37 C 69 16 140/57 L 94 Room Air 07/15/23 05:46 37.1 C 07/15/23 01:32 37.1 C 07/14/23 23:47 37.3 C 58 L 16 115/47 L 94 Room Air Resident Activity Tracking Resident Involvement: Resident Care Provided Care Provided: Adult Hospital Medicine (3) Osteomyelitis Osteomyelitis location: multiple sites Osteomyelitis type: unspecified type Qualified Code(s): M86.9 - Osteomyelitis, unspecified (7) Aortic stenosis Cardiac valve disease etiology: nonrheumatic Qualified Code(s): I35.0 - Nonrheumatic aortic (valve) stenosis (9) HTN (hypertension) Hypertension type: resistant hypertension Qualified Code(s): I1A.0 - Resistant hypertension
[2023-07-15] MEDS: LACTATED RINGER'S 500 ML IV SCH (10:00)
--- NOTE | 2023-07-15 11:22 | Pharmacy Report ---
Pharmacy PK ABX Note - Date of Service July 15, 2023 - Assessment and Plan Assessment 07/15: SCr continues to increase, 1.62 this morning- continue to dose by levels. Redose with 500 mg x 1 this morning and get random level in the AM. Cefepime will also be adjusted for renal function 07/14: Vancomycin was discontinued 07/10, restarting today. WBC increasing. SCr also increasing, 1.31 this morning- will give reload and obtain random level in AM to assist with further dosing 07/09: * Antibiotic regimen per ID, likely to treat as SSTI not osteomyelitis. * Renal function stable. Patient remains afebrile. * No change to culture data, latest blood cultures (07/05 and 07/06) are negative at 48 hours. * No plan for intervention by podiatry. 07/07: * Continues on vanc/cefepime/metronidazole- day # 3 vancomycin. Renal function stable. ID following. 07/06: * Ms Rodriguez is a 67 year old F receiving vanc/cefepime for treatment of gram positive bacteremia, decubitus ulcers w/ osteomyelitis. * Pertinent microbiologic data includes: 07/04 blood culture (+) gram (+) bacilli in 07/01, buttock culture (+) E.coli, Klebsiella pneumonia, and pseudomonas, 07/05 decubitus (+) pseudomonas aeruginosa. * Pt is POD #1 s/p debridement of sacral wounds in OR. * ID consult in place Plan Vancomycin * Redose: 500 mg IV x1 * Random level for 07/16 AM Cefepime * 1 g IV q12h - reduced for crcl Metronidazole * 500 mg IV q8h - no change Pharmacy will continue to follow and will adjust dose/frequency as necessary. Thank you. Pharmacy has transitioned to AUC monitoring for vancomycin. AUC/TERESO is the preferred PK/PD target and is associated with decreased risk of nephrotoxicity compared to traditional trough targets.
[2023-07-15] MEDS ORDERED: LORazepam 0.5 MG in SYRINGE 0.25 ML IV PRN (12:10)
[2023-07-15] MEDS: SCOPOLAMINE 1 MG TDSY TD SCH (13:07)
[2023-07-15] MEDS: ATROPINE SULFATE 1% OP SOLN 5 ML BTL PO PRN (13:07)
[2023-07-15] MEDS ORDERED: VANCOMYCIN HCL 500 MG in NSS 100mL IV ONE (16:00)
--- NOTE | 2023-07-15 16:01 | Billing Data ---
Date of Service July 15, 2023 Coding Level of Care Code 58436 SUB INP/OBS CARE MIN
[2023-07-15] MEDS: CHECK SCOPOLAMINE PATCH PLACEMENT SCH (16:09)
[2023-07-15] MEDS: MoRPHine SULFATE 2 MG/ML CARP IV PRN (18:25)
[2023-07-15] MEDS ORDERED: CEFEPIME 1,000 MG in SYRINGE 0 ML IV SCH (20:00)
--- NOTE | 2023-07-16 11:24 | Hospitalist Progress Note ---
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 Most likely metabolic encephalopathy from sepsis with progressive multisystem organ failure. Pt's prognosis is worsening and she is likely approaching end-of-life. Proceeding with comfort measures only - discontinue IVF, abx, daily labs etc. Morphine 2 mg Q30 min PRN, mouthwash, scopolamine patch, zofran PRN, ativan PRN Sepsis 06/29 bilateral ischial tuberosity osteomyelitis s/p debridement + washout x2 on 07/05 and 07/12 CTAP showed large decubitus ulcers with osteomyelitis of the bilateral ischial tuberosities. Debrided 07/05 with wound vac placement and rectal tube for fecal diversion with repeat debridement on 07/12. TTE negative for vegetations. As proceeding with [employer] will d/c antibiotics Acute kidney injury Cr rise likely in the setting of end organ failure in the setting of end of life. Microcytic anemia Prior FOB positive with 7 cm mucosal mass - possible colon cancer on prior CTs (awaiting outpatient colonoscopy). Transfused 1U PRBCs 07/07 with appropriate hemoglobin response. Iron low, ferritin wnl; consistent with anemia of chronic disease Chronic peripheral vascular disease Likely in the setting of long standing smoking with recent intervention in Apr 2023 as detailed in HPI. Will discontinue lipid lowering medications as patient [employer]. Right 1st toe gangrene Left ankle XR without osteomyelitis finding. Right foot XR concerning for infection without osteomyelitis, image better seen on wound care note. Podiatry consulted, no intervention warranted at this time Colonic mass CTAP this admission re-demonstrated 7 cm mucosal mass; no prior colonoscopy Aortic stenosis Last TTE 03/2023 showed valve area of 1.1cm and EF 54%; pt currently asymptomatic and euvolemic HTN Discontinuing home antihypertensives as patient [employer]. 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 Pending C Chronic indwelling urinary catheter - Suspected neurogenic bladder from spinal cord infarction F/E/N/GI: Regular DVT ppx: not indicated Dispo: Medical/surgical Goals of care: [employer] (2) Unstageable pressure ulcer of sacral region: (3) Osteomyelitis: (4) Pulmonary nodule 1 cm or greater in diameter: (5) Spinal cord infarction: (6) Aortic dissection, abdominal: (7) Aortic stenosis: (8) Mass of colon: (9) HTN (hypertension): (10) Gangrene of toe of right foot: (11) Gram-positive bacteremia: Admission and Anticipated Discharge Date Admission Date: July 04, 2023 Supervising Physician Co-Signing Physician Notes I personally examined the patient and verified marie points of history and exam, discussed case, and agree with decision making and plan documented by Dr. Ramos. Patient remains altered, resting comfortably in bed, on comfort care measures per primary team's discussion with family on 07/15/2023. Subjective Patient seen at bedside. Having wound dressing changed. Review of Systems 2 Review of Systems: As per above Physical Exam 2 Physical Exam: Gen: frail appearing patient in NAD HEENT: AT NC MMM Resp: no increased work of breathing CV: clinically well perfused Abd: non-distended MSK: no obvious deformities Skin: no rashes or bruising Neuro: alert and oriented Psych: appropriate mood and affect Results & Data Results & Data Vital Signs (Past 12 Hours) Vital Signs O2 Del Method 07/16/23 08:00 Room Air Laboratory Results 07/15/23 05:53 07/15/23 05:53 Resident Activity Tracking Resident Involvement: Resident Care Provided Care Provided: Adult Hospital Medicine (3) Osteomyelitis Osteomyelitis location: multiple sites Osteomyelitis type: unspecified type Qualified Code(s): M86.9 - Osteomyelitis, unspecified (7) Aortic stenosis Cardiac valve disease etiology: nonrheumatic Qualified Code(s): I35.0 - Nonrheumatic aortic (valve) stenosis (9) HTN (hypertension) Hypertension type: resistant hypertension Qualified Code(s): I1A.0 - Resistant hypertension
--- NOTE | 2023-07-17 06:50 | Hospitalist Progress Note ---
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 Most likely metabolic encephalopathy from sepsis with progressive multisystem organ failure. Pt's prognosis is worsening and she is likely approaching end-of-life. Proceeding with comfort measures only - discontinue IVF, abx, daily labs etc. Morphine 2 mg Q30 min PRN, mouthwash, scopolamine patch, zofran PRN, ativan PRN Sepsis 06/29 bilateral ischial tuberosity osteomyelitis s/p debridement + washout x2 on 07/05 and 07/12 CTAP showed large decubitus ulcers with osteomyelitis of the bilateral ischial tuberosities. Debrided 07/05 with wound vac placement and rectal tube for fecal diversion with repeat debridement on 07/12. TTE negative for vegetations. As proceeding with CONGRESSIONAL AIDE will d/c antibiotics Acute kidney injury Cr rise likely in the setting of end organ failure in the setting of end of life. Microcytic anemia Prior FOB positive with 7 cm mucosal mass - possible colon cancer on prior CTs (awaiting outpatient colonoscopy). Transfused 1U PRBCs 07/07 with appropriate hemoglobin response. Iron low, ferritin wnl; consistent with anemia of chronic disease Chronic peripheral vascular disease Likely in the setting of long standing smoking with recent intervention in Apr 2023 as detailed in HPI. Will discontinue lipid lowering medications as patient CONGRESSIONAL AIDE. Right 1st toe gangrene Left ankle XR without osteomyelitis finding. Right foot XR concerning for infection without osteomyelitis, image better seen on wound care note. Podiatry consulted, no intervention warranted at this time Colonic mass CTAP this admission re-demonstrated 7 cm mucosal mass; no prior colonoscopy Aortic stenosis Last TTE 03/2023 showed valve area of 1.1cm and EF 54%; pt currently asymptomatic and euvolemic HTN Discontinuing home antihypertensives as patient CONGRESSIONAL AIDE. 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 Pending C Chronic indwelling urinary catheter - Suspected neurogenic bladder from spinal cord infarction F/E/N/GI: Regular DVT ppx: not indicated Dispo: Medical/surgical Goals of care: CONGRESSIONAL AIDE (2) Unstageable pressure ulcer of sacral region: (3) Osteomyelitis: (4) Pulmonary nodule 1 cm or greater in diameter: (5) Spinal cord infarction: (6) Aortic dissection, abdominal: (7) Aortic stenosis: (8) Mass of colon: (9) HTN (hypertension): (10) Gangrene of toe of right foot: (11) Gram-positive bacteremia: Admission and Anticipated Discharge Date Admission Date: July 04, 2023 Supervising Physician Co-Signing Physician Notes I personally examined the patient and verified marie points of history and exam, discussed case, and agree with decision making and plan documented by Dr. Ramos. Patient remains on comfort care measures per primary team's discussion with family on 07/15/2023, scheduled morphine IV 2 mg every 4 hours, discussed care with family. Subjective Seen at bedside this AM. Sleeping comfortably. Allowed to rest. Review of Systems Review of Systems: As per above Physical Exam Physical Exam: Gen: frail appearing patient in NAD HEENT: AT NC MMM Resp: no increased work of breathing CV: clinically well perfused Abd: non-distended MSK: no obvious deformities Skin: no rashes or bruising Neuro: alert and oriented Psych: appropriate mood and affect Results & Data Results & Data Vital Signs (Past 12 Hours) Vital Signs Temp Pulse Resp BP Pulse Ox O2 Del Method 07/16/23 20:21 36.8 C 67 14 142/55 H 69 L Room Air 07/16/23 19:59 Room Air Resident Activity Tracking Resident Involvement: Resident Care Provided Care Provided: Adult Hospital Medicine (3) Osteomyelitis Osteomyelitis location: multiple sites Osteomyelitis type: unspecified type Qualified Code(s): M86.9 - Osteomyelitis, unspecified (7) Aortic stenosis Cardiac valve disease etiology: nonrheumatic Qualified Code(s): I35.0 - Nonrheumatic aortic (valve) stenosis (9) HTN (hypertension) Hypertension type: resistant hypertension Qualified Code(s): I1A.0 - Resistant hypertension
[2023-07-17] MEDS: MoRPHine SULFATE 2 MG/ML CARP IV SCH (16:44)
--- NOTE | 2023-07-18 08:18 | Hospitalist Progress Note ---
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 With patient's tenuous status would anticipate that she is in the end-of-life stage. Will continue with comfort measures. Altered mental status Noted AMS since debridement 07/12. Most likely metabolic encephalopathy from sepsis with progressive multisystem organ failure. Pt's prognosis is worsening and she is likely approaching end-of-life. Proceeding with comfort measures only - discontinue IVF, abx, daily labs etc. Morphine 2 mg Q30 min PRN, mouthwash, scopolamine patch, zofran PRN, ativan PRN Sepsis 06/29 bilateral ischial tuberosity osteomyelitis s/p debridement + washout x2 on 07/05 and 07/12 CTAP showed large decubitus ulcers with osteomyelitis of the bilateral ischial tuberosities. Debrided 07/05 with wound vac placement and rectal tube for fecal diversion with repeat debridement on 07/12. TTE negative for vegetations. As proceeding with CATHODE MAKER will d/c antibiotics Acute kidney injury Cr rise likely in the setting of end organ failure in the setting of end of life. Microcytic anemia Prior FOB positive with 7 cm mucosal mass - possible colon cancer on prior CTs (awaiting outpatient colonoscopy). Transfused 1U PRBCs 07/07 with appropriate hemoglobin response. Iron low, ferritin wnl; consistent with anemia of chronic disease Chronic peripheral vascular disease Likely in the setting of long standing smoking with recent intervention in Apr 2023 as detailed in HPI. Will discontinue lipid lowering medications as patient CATHODE MAKER. Right 1st toe gangrene Left ankle XR without osteomyelitis finding. Right foot XR concerning for infection without osteomyelitis, image better seen on wound care note. Podiatry consulted, no intervention warranted at this time Colonic mass CTAP this admission re-demonstrated 7 cm mucosal mass; no prior colonoscopy Aortic stenosis Last TTE 03/2023 showed valve area of 1.1 cm and EF 54%; pt currently asymptomatic and euvolemic HTN Discontinuing home antihypertensives as patient CATHODE MAKER. 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 Pending C Chronic indwelling urinary catheter - Suspected neurogenic bladder from spinal cord infarction F/E/N/GI: Regular DVT ppx: not indicated Dispo: Medical/surgical Goals of care: CATHODE MAKER Family updated: 07/18 Sister Tiki Cline [phone] - POA (2) Unstageable pressure ulcer of sacral region: (3) Osteomyelitis: (4) Pulmonary nodule 1 cm or greater in diameter: (5) Spinal cord infarction: (6) Aortic dissection, abdominal: (7) Aortic stenosis: (8) Mass of colon: (9) HTN (hypertension): (10) Gangrene of toe of right foot: (11) Gram-positive bacteremia: (12) End of life care: (13) Comfort measures only status: Admission and Anticipated Discharge Date Admission Date: July 04, 2023 Supervising Physician Co-Signing Physician Notes I personally examined the patient and verified marie points of history and exam, discussed case, and agree with decision making and plan documented by Dr. Ramos. Patient remains on comfort care measures. Subjective Seen at bedside this AM. Sleeping comfortably. Allowed to rest. Review of Systems Review of Systems: As per above Physical Exam Physical Exam: Gen: frail appearing patient in NAD HEENT: AT NC MMM Resp: no increased work of breathing CV: clinically well perfused Abd: non-distended MSK: no obvious deformities Skin: no rashes or bruising Neuro: alert and oriented Psych: appropriate mood and affect Results & Data Results & Data Vital Signs (Past 12 Hours) Vital Signs O2 Del Method 07/18/23 07:00 Room Air Resident Activity Tracking Resident Involvement: Resident Care Provided Care Provided: Adult Hospital Medicine (3) Osteomyelitis Osteomyelitis location: multiple sites Osteomyelitis type: unspecified type Qualified Code(s): M86.9 - Osteomyelitis, unspecified (7) Aortic stenosis Cardiac valve disease etiology: nonrheumatic Qualified Code(s): I35.0 - Nonrheumatic aortic (valve) stenosis (9) HTN (hypertension) Hypertension type: resistant hypertension Qualified Code(s): I1A.0 - Resistant hypertension
--- NOTE | 2023-07-19 07:43 | Hospitalist Progress Note ---
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 With patient's tenuous status would anticipate that she is in the end-of-life stage. Will continue with comfort measures. Altered mental status Noted AMS since debridement 07/12. Most likely metabolic encephalopathy from sepsis with progressive multisystem organ failure. Pt's prognosis is worsening and she is likely approaching end-of-life. Proceeding with comfort measures only - discontinue IVF, abx, daily labs etc. Morphine 2 mg Q30 min PRN, mouthwash, scopolamine patch, zofran PRN, ativan PRN Sepsis 06/29 bilateral ischial tuberosity osteomyelitis s/p debridement + washout x2 on 07/05 and 07/12 CTAP showed large decubitus ulcers with osteomyelitis of the bilateral ischial tuberosities. Debrided 07/05 with wound vac placement and rectal tube for fecal diversion with repeat debridement on 07/12. TTE negative for vegetations. As proceeding with FISHER LINE will d/c antibiotics Acute kidney injury Cr rise likely in the setting of end organ failure in the setting of end of life. Microcytic anemia Prior FOB positive with 7 cm mucosal mass - possible colon cancer on prior CTs (awaiting outpatient colonoscopy). Transfused 1U PRBCs 07/07 with appropriate hemoglobin response. Iron low, ferritin wnl; consistent with anemia of chronic disease Chronic peripheral vascular disease Likely in the setting of long standing smoking with recent intervention in Apr 2023 as detailed in HPI. Will discontinue lipid lowering medications as patient FISHER LINE. Right 1st toe gangrene Left ankle XR without osteomyelitis finding. Right foot XR concerning for infection without osteomyelitis, image better seen on wound care note. Podiatry consulted, no intervention warranted at this time Colonic mass CTAP this admission re-demonstrated 7 cm mucosal mass; no prior colonoscopy Aortic stenosis Last TTE 03/2023 showed valve area of 1.1 cm and EF 54%; pt currently asymptomatic and euvolemic HTN Discontinuing home antihypertensives as patient FISHER LINE. Oral candidiasis - Continue nystatin PO - Continue PRN magic mouthwash Hx of type 2 DM - Last A1c 6.5% 03/2023 w/o medications - No need for SSI Spinal cord infarction - Resulting in bilateral LE paralysis. Proceeding with comfort measures only Chronic indwelling urinary catheter - Suspected neurogenic bladder from spinal cord infarction F/E/N/GI: Regular DVT ppx: not indicated Dispo: Medical/surgical Goals of care: FISHER LINE Family updated: 07/18 Sister Tiki Cline [phone] - POA CM: working on placement (2) Unstageable pressure ulcer of sacral region: (3) Osteomyelitis: (4) Pulmonary nodule 1 cm or greater in diameter: (5) Spinal cord infarction: (6) Aortic dissection, abdominal: (7) Aortic stenosis: (8) Mass of colon: (9) HTN (hypertension): (10) Gangrene of toe of right foot: (11) Gram-positive bacteremia: (12) End of life care: (13) Comfort measures only status: Admission and Anticipated Discharge Date Admission Date: July 04, 2023 Supervising Physician Co-Signing Physician Notes I personally examined the patient and verified marie points of history and exam, discussed case, and agree with decision making and plan documented by Dr. Ramos. On comfort measures, unresponsive to vocal stimuli, no evidence of pain. Subjective Seen at bedside this AM. Sleeping comfortably. Allowed to rest. Review of Systems Review of Systems: As per above Physical Exam Physical Exam: Gen: frail appearing patient in NAD HEENT: AT NC MMM Resp: no increased work of breathing CV: clinically well perfused Abd: non-distended MSK: no obvious deformities Skin: no rashes or bruising Neuro: alert and oriented Psych: appropriate mood and affect Results & Data Results & Data Vital Signs (Past 12 Hours) Vital Signs Pulse Pulse Ox O2 Del Method 07/19/23 04:10 90 99 Room Air Resident Activity Tracking Resident Involvement: Resident Care Provided Care Provided: Adult Hospital Medicine (3) Osteomyelitis Osteomyelitis location: multiple sites Osteomyelitis type: unspecified type Qualified Code(s): M86.9 - Osteomyelitis, unspecified (7) Aortic stenosis Cardiac valve disease etiology: nonrheumatic Qualified Code(s): I35.0 - Nonrheumatic aortic (valve) stenosis (9) HTN (hypertension) Hypertension type: resistant hypertension Qualified Code(s): I1A.0 - Resistant hypertension
--- NOTE | 2023-07-20 15:18 | Hospitalist Progress Note ---
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 With patient's tenuous status would anticipate that she is in the end-of-life stage. Will continue with comfort measures. Altered mental status Noted AMS since debridement 07/12. Most likely metabolic encephalopathy from sepsis with progressive multisystem organ failure. Pt's prognosis is worsening and she is likely approaching end-of-life. Proceeding with comfort measures only - discontinue IVF, abx, daily labs etc. Morphine 2 mg Q30 min PRN, mouthwash, scopolamine patch, zofran PRN, ativan PRN Sepsis 06/29 bilateral ischial tuberosity osteomyelitis s/p debridement + washout x2 on 07/05 and 07/12 CTAP showed large decubitus ulcers with osteomyelitis of the bilateral ischial tuberosities. Debrided 07/05 with wound vac placement and rectal tube for fecal diversion with repeat debridement on 07/12. TTE negative for vegetations. As proceeding with TRACK MACHINE OPERATOR REPAIRER will d/c antibiotics Acute kidney injury Cr rise likely in the setting of end organ failure in the setting of end of life. Microcytic anemia Prior FOB positive with 7 cm mucosal mass - possible colon cancer on prior CTs (awaiting outpatient colonoscopy). Transfused 1U PRBCs 07/07 with appropriate hemoglobin response. Iron low, ferritin wnl; consistent with anemia of chronic disease Chronic peripheral vascular disease Likely in the setting of long standing smoking with recent intervention in Apr 2023 as detailed in HPI. Will discontinue lipid lowering medications as patient TRACK MACHINE OPERATOR REPAIRER. Right 1st toe gangrene Left ankle XR without osteomyelitis finding. Right foot XR concerning for infection without osteomyelitis, image better seen on wound care note. Podiatry consulted, no intervention warranted at this time Colonic mass CTAP this admission re-demonstrated 7 cm mucosal mass; no prior colonoscopy Aortic stenosis Last TTE 03/2023 showed valve area of 1.1 cm and EF 54%; pt currently asymptomatic and euvolemic HTN Discontinuing home antihypertensives as patient TRACK MACHINE OPERATOR REPAIRER. Oral candidiasis - Continue nystatin PO - Continue PRN magic mouthwash Hx of type 2 DM - Last A1c 6.5% 03/2023 w/o medications - No need for SSI Spinal cord infarction - Resulting in bilateral LE paralysis. Proceeding with comfort measures only Chronic indwelling urinary catheter - Suspected neurogenic bladder from spinal cord infarction F/E/N/GI: Regular DVT ppx: not indicated Dispo: Medical/surgical Goals of care: TRACK MACHINE OPERATOR REPAIRER Family updated: 07/18 Sister Tiki Cline [phone] - POA CM: working on placement (2) Unstageable pressure ulcer of sacral region: (3) Osteomyelitis: (4) Pulmonary nodule 1 cm or greater in diameter: (5) Spinal cord infarction: (6) Aortic dissection, abdominal: (7) Aortic stenosis: (8) Mass of colon: (9) HTN (hypertension): (10) Gangrene of toe of right foot: (11) Gram-positive bacteremia: (12) End of life care: (13) Comfort measures only status: Admission and Anticipated Discharge Date Admission Date: July 04, 2023 Supervising Physician Co-Signing Physician Notes Attending attestation Pt seen and examined in concert with Dr. Saenz. In agreement with the documented findings as noted in the resident documentation with any exceptions or additions as noted here. Comfort measures without apparent agitation or discomfort. Else see resident documentation as noted. Subjective Patient seen at bedside this morning. Patient resting comfortably no immediate complaints or discomfort noted. Review of Systems Review of Systems: Unobtainable due to cognitive status Physical Exam Constitutional: no acute distress Results & Data Results & Data Vital Signs (Past 12 Hours) Vital Signs O2 Del Method 07/20/23 07:45 Room Air (3) Osteomyelitis Osteomyelitis location: multiple sites Osteomyelitis type: unspecified type Qualified Code(s): M86.9 - Osteomyelitis, unspecified (7) Aortic stenosis Cardiac valve disease etiology: nonrheumatic Qualified Code(s): I35.0 - Nonrheumatic aortic (valve) stenosis (9) HTN (hypertension) Hypertension type: resistant hypertension Qualified Code(s): I1A.0 - Resistant hypertension
[2023-07-20] MEDS ORDERED: MoRPHine SULFATE 2 MG/ML CARP IV STA (20:34)
[2023-07-20] MEDS ORDERED: MoRPHine SULFATE 2 MG/ML CARP IV PRN (20:51)
[2023-07-20] MEDS ORDERED: LORazepam 0.5 MG in SYRINGE 0.25 ML IV PRN (20:51)
[2023-07-20] MEDS ORDERED: ATROPINE SULFATE 1% OP SOLN 5 ML BTL OP PRN (20:55)
[2023-07-20] MEDS ORDERED: ONDANSETRON INJ 2 MG/ML 2 ML VIAL IV PRN (20:56)
[2023-07-20] MEDS ORDERED: FIRST - Mouthwash BLM 119 ML PO SCH (21:00)
[2023-07-20] MEDS ORDERED: MoRPHine SULFATE 2 MG/ML CARP IV SCH (21:00)
[2023-07-21] MEDS ORDERED: CHECK SCOPOLAMINE PATCH PLACEMENT SCH
== END 2023-07-20 19:19 | disposition hospice, inpatient (51) | DRG 579 ==
LOC: ED 11:52 → EDINP 19:55 → SUATTDRO 19:55 → 3W 22:00

== ENCOUNTER 2023-07-20 18:41 | Inpatient (IN) ==
[2023-07-20] MEDS ORDERED: LORazepam 0.5 MG in SYRINGE 0.25 ML IV PRN (21:23)
[2023-07-20] MEDS ORDERED: ONDANSETRON INJ 2 MG/ML 2 ML VIAL IV PRN (21:24)
[2023-07-20] MEDS ORDERED: ATROPINE SULFATE 1% OP SOLN 5 ML BTL OP PRN (21:24)
[2023-07-20] MEDS: MoRPHine SULFATE 2 MG/ML CARP IV SCH (23:46)
[2023-07-21] MEDS: CHECK SCOPOLAMINE PATCH PLACEMENT SCH (02:03)
[2023-07-21] MEDS: FIRST - Mouthwash BLM 119 ML PO SCH (08:46)
--- NOTE | 2023-07-21 10:22 | Hospitalist Progress Note ---
Date of Service July 21, 2023 Assessment & Plan Admission and Anticipated Discharge Date Admission Date: July 20, 2023
--- NOTE | 2023-07-21 11:17 | Discharge Summary ---
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 Pt explains that she saw the wound clinic on Sunday due to a worsening sacral wound. She explains that between then and now pt was waiting for her [id number]. Pt endorses that there was brown colored discharge coming from her wound. Pt currently endorses minimal pain around her buttocks. She denies any associated symptoms including fever, chills, SOB, and chest pain. Pt was recently admitted 04/2023 for acute ischemia of RLE requiring surgical intervention (right femoral artery endarterectomy, RLE open thrombectomy). At this visit, a pulmonary nodule and colon mass were discovered on scans. Prior to pt's hospital admission in , pt had not seen a doctor since 2005. She has never had a colonoscopy. She was discharged to a SNF for rehab. She was discharged on eliquis. Pt endorses she has smoked for the last 30 years. At the height of her smoking, she was smoking 2.5 ppd (she is unclear about how long this duration was). More recently, she has cut down to 1/2 ppd. She also notes that she has had a terrible year in terms of loss- she lost a son in August 2022 d/t fentanyl, her ex- in November 2022 d/t by suicide, and another family member in December. Pt was seen by her PCP 06/06/2023. At this visit, her statin was reduced to 20 mg daily d/t low cholesterol levels and risks outweighing the benefits. Her anticoagulation was also on hold d/t anemia and heme + stools. In the ER, the pt was hemodynamically stable. She was given cefepime x1, dapto x1, tylenol 1000mg, and morphine 4 mg. Admission Exam Per Admitting Provider Constitutional: ill appearing, no acute distress HEENT: normocephalic, no conjunctival injection CV: regular rhythm, regular rate, 2/6 systolic murmur, 2+ bilateral pitting LE edema Respiratory: CTA bilaterally. No rhonchi, wheezes, or crackles. No increased work of breathing GI: soft, minimally distended, minimally tender in bilateral lower quadrants, + bowel sounds MSK: no gross deformities noted Skin: warm, dry; pictures of sacral wound in ER and wound care notes; ~1x2cm blister on back of left heel in addition to black/purple discoloration underneath heel callous; black discoloration noted of left great toe Neuro: alert, oriented; sensation intact in bilateral LE; unable to move left LE, pt able to flex/extend right foot Psych: mood and affect congruent Principal Diagnosis Multisystem organ failure from sepsis secondary to osteomyelitis Discharge Exam Constitutional: no acute distress Discharge Data Allergies Allergy/AdvReac Type Severity Reaction Status Date / Time No Known Allergies Allergy Verified 07/04/23 15:47 Hospital Course (1) Comfort measures only status: (2) End of life care: Plan (1) Peripheral arterial disease: Plan: Pt is a 67 y/o female with PMH of JUAN MIGUEL, neurogenic bladder, multiple vessel atherosclerotic disease/stenosis, aortic stenosis, 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 Altered mental status Noted AMS since debridement 07/12. Most likely metabolic encephalopathy from sepsis with progressive multisystem organ failure. Pt's prognosis is worsening and she is likely approaching end-of-life. Proceeding with comfort measures only - discontinued IVF, abx, daily labs etc. Morphine 2 mg Q30 min PRN, mouthwash, scopolamine patch, zofran PRN, ativan PRN provided as above for comfort Discharged 07/20 to inpatient hospice within same facility Sepsis 2/2 bilateral ischial tuberosity osteomyelitis s/p debridement + washout x2 on 07/05 and 07/12 CTAP showed large decubitus ulcers with osteomyelitis of the bilateral ischial tuberosities. Debrided 07/05 with wound vac placement and rectal tube for fecal diversion with repeat debridement on 07/12. TTE negative for vegetations. As proceeding with BUSINESS SOLUTIONS ARCHITECT, discontinued antibiotics Acute kidney injury Cr rise likely in the setting of end organ failure in the setting of end of life Microcytic anemia Prior FOB positive with 7 cm mucosal mass - possible colon cancer on prior CTs (awaiting outpatient colonoscopy). Transfused 1U PRBCs 07/07 with appropriate hemoglobin response. Iron low, ferritin wnl; consistent with anemia of chronic disease Chronic peripheral vascular disease Likely in the setting of long standing smoking with recent intervention in Apr 2023 as detailed in HPI. Discontinued lipid lowering medications as patient 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 Right 1st toe gangrene Left ankle XR without osteomyelitis finding. Right foot XR concerning for infection without osteomyelitis, image better seen on wound care note. Podiatry consulted, no intervention during hospitalization Colonic mass CTAP this admission re-demonstrated 7 cm mucosal mass; no prior colonoscopy Aortic stenosis Last TTE 03/2023 showed valve area of 1.1 cm and EF 54%; pt currently asymptomatic and euvolemic HTN Discontinued home antihypertensives as patient 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 Oral candidiasis - Continued nystatin PO - Continued PRN magic mouthwash Hx of type 2 DM - Last A1c 6.5% 03/2023 w/o medications - No need for SSI Spinal cord infarction - Resulting in bilateral LE paralysis. Proceeding with comfort measures only Chronic indwelling urinary catheter - Suspected neurogenic bladder from spinal cord infarction F/E/N/GI: Regular DVT ppx: not indicated Dispo: Medical/surgical Goals of care: BUSINESS SOLUTIONS ARCHITECT Family updated: 07/18 Sister Tiki Cline [phone] - POA CM: working on placement (2) Unstageable pressure ulcer of sacral region: (3) Osteomyelitis: (4) Pulmonary nodule 1 cm or greater in diameter: (5) Spinal cord infarction: (6) Aortic dissection, abdominal: (7) Aortic stenosis: (8) Mass of colon: (9) HTN (hypertension): (10) Gangrene of toe of right foot: (11) Gram-positive bacteremia: (12) End of life care: (13) Comfort measures only status: Total Time Total Time Spent Total Time Spent (In Minutes): 40 Discharge Plan Discharge Items Patient Disposition: Hospice - Medical Facility Reason For Visit: HOSPICE Discharge Diagnosis: Sepsis from osteomyelitis Activity: Per Instructions section Non-emergency contact: Primary Care Provider Call non-emergency contact if: your symptoms worsen Follow-up/Referrals: Lisa Fair CRNP [Primary Care Provider] - Diet: Regular Addtl Attending Provider Instructions: Inpatient hospice - comfort measures only Pending Studies at Discharge: No Stand-Alone Forms: [employer] Skilled Items Patient informed of condition?: Yes DNR: Yes Discharge Level of Care: Other Communicable Disease: No Discharge Prognosis: Stable Lines: Peripheral IV Urinary Catheter: No Medications and DC Order Discharge Orders: Discharge Order (Routine); Ordered 07/21/23 Ordered By: Yesenia Snow Admission Data Admit Date/Time: 07/20/23 19:27 Attending Provider: Hakeem Pérez Admit Provider: Jackelyn Ascencio Primary Care Provider: Lisa Fair Supervising Physician Co-Signing Physician Notes Attending attestation Pt seen and examined in concert with Dr. Snow. In agreement with the documented findings as noted in the resident documentation with any exceptions or additions as noted here. Resting comfortably in bed without apparent complaint or agitation. On examination, even, mildly agonal breathing, no agitation. Transitioning to inpatient hospice care for terminal sepsis 2/2 osteomyelitis and multiorgan failure Else see resident documentation as noted. Total attending physician time spent with this patient's care on the day of discharge: 35 minutes. Resident Activity Tracking Resident Involvement: Resident Care Provided Care Provided: Adult Hospital Medicine
[2023-07-21] MEDS: MoRPHine SULFATE 2 MG/ML CARP IV PRN (11:19)
--- NOTE | 2023-07-21 11:28 | History & Physical Report ---
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 Most likely metabolic encephalopathy from sepsis with progressive multisystem organ failure. Pt's prognosis is worsening and she is likely approaching end-of-life -Comfort measures initiated 07/16 Morphine 2 mg Q30 min PRN, mouthwash, scopolamine patch, Zofran PRN, Ativan PRN -Discharged 07/20 to inpatient hospice within same facility, admitted for inpatient hospice 07/21 -Transitioned to morphine continuous infusion today Sepsis 06/29 bilateral ischial tuberosity osteomyelitis s/p debridement + washout x2 on 07/05 and 07/12 -CTAP showed large decubitus ulcers with osteomyelitis of the bilateral ischial tuberosities. Debrided 07/05 with wound vac placement and rectal tube for fecal diversion with repeat debridement on 07/12. TTE negative for vegetations -Discontinued antibiotics as DIRECTOR OF CARDIOPULMONARY SERVICES Acute kidney injury -Cr rise likely in the setting of end organ failure in the setting of end of life -No longer monitoring BMP Microcytic anemia -Prior FOB positive with 7 cm mucosal mass - possible colon cancer on prior CTs (awaiting outpatient colonoscopy). Transfused 1U PRBCs 07/07 with appropriate hemoglobin response. Iron low, ferritin wnl; consistent with anemia of chronic disease -No longer monitoring CBC Chronic peripheral vascular disease -Likely in the setting of long standing smoking with recent intervention in Apr 2023 as detailed in HPI -Discontinued statin as DIRECTOR OF CARDIOPULMONARY SERVICES Right 1st toe gangrene -Left ankle XR without osteomyelitis finding. Right foot XR concerning for infection without osteomyelitis, image better seen on wound care note. Podiatry consulted, no intervention during earlier hospitalization Colonic mass -CTAP this admission re-demonstrated 7 cm mucosal mass; no prior colonoscopy -No further evaluation as DIRECTOR OF CARDIOPULMONARY SERVICES HTN -No monitoring of VSS with comfort measures status -Discontinued home medications as DIRECTOR OF CARDIOPULMONARY SERVICES Oral candidiasis -No longer treating -Comfort measures only Hx of type 2 DM - Last A1c 6.5% 03/2023 w/o medications - No need for SSI Spinal cord infarction - Resulting in bilateral LE paralysis. Continue comfort measures only F/E/N/GI: Regular DVT ppx: not indicated Dispo: Medical/surgical Goals of care: DIRECTOR OF CARDIOPULMONARY SERVICES Family updated: 07/18 Sister Tiki Cline [phone] - POA (2) Unstageable pressure ulcer of sacral region: (3) Osteomyelitis: (4) Pulmonary nodule 1 cm or greater in diameter: (5) Spinal cord infarction: (6) Aortic dissection, abdominal: (7) Aortic stenosis: (8) Mass of colon: (9) HTN (hypertension): (10) Gangrene of toe of right foot: (11) Gram-positive bacteremia: (12) End of life care: (13) Comfort measures only status: Admission and Anticipated Discharge Date Admission Date: July 20, 2023 History of Present Illness Chief Complaint: Hospice care Primary Care Provider: JINA Garcia 67 yo F admitted from 07/04-07/20 for sepsis secondary to b/l ischial tuberosity osteomyelitis. Transitioned to DIRECTOR OF CARDIOPULMONARY SERVICES on 07/16 due to worsening metabolic encephalopathy with multisystem organ failure. Discharged on 07/20 and readmitted on 07/21 for inpatient hospice. Please see discharge summary for further detail about previous hospital course. Allergies Allergy/AdvReac Type Severity Reaction Status Date / Time No Known Allergies Allergy Verified 07/04/23 15:47 Past Med/Surg History Medical History Iron deficiency anemia Neurogenic bladder Mesenteric artery stenosis Renal artery stenosis Aortic dissection, abdominal Aortic stenosis 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 Type II diabetes mellitus with peripheral artery disease Tobacco abuse HTN (hypertension) Surgical History S/P debridement (07/05/23) Debridement of sacral and bilateral gluteal folds. - Aurelia Jung DO Family History Other Diabetes Social History Smoking Status: Current every day smoker Tobacco Type: Cigarettes Cigarettes Per Day: 10; Second Hand Exposure: No; Do You Dip or Chew Tobacco: No; Hx Alcohol Use: No Hx Substance Use: No Preferred Language: Bahraini Communication Ability: Effective Hearing Ability: Normal Technology Auditor Required: No Beliefs That Will Affect Care: None Current Living Situation: Family Current Living Situation Comment: Pt lives alone but currently her son and daughter in law live with her Feels Safe at Home: Yes Diet: regular caffeine: Yes Assistive Devices: Cane, Oxygen - Continuous, Walker and Wheelchair Review of Systems Review of Systems: Per HPI/Subjective Physical Exam Physical Exam: General: appears comfortable, no acute distress, unresponsive Supervising Physician Co-Signing Physician Notes Attending attestation Pt seen and examined in concert with Dr. Snow. In agreement with the documented findings as noted in the resident documentation with any exceptions or additions as noted here. Resting comfortably in bed without apparent complaint or agitation. On examination, even, mildly agonal breathing, no agitation. Acute inpatient hospice care with goal of comfort measures only - initiated IV morphine drip for comfort with PRN lorazepam and atropine as noted For underlying medical issues, please refer to resident documentation as noted above. Resident Activity Tracking Resident Involvement: Resident Care Provided Care Provided: Adult Hospital Medicine
[2023-07-21] MEDS ORDERED: STAT IV Infusion **Titration per Protocol STA (11:37)
[2023-07-21] MEDS: MoRPHine SULF/NSS 100 MG/100 ML BAG IV SCH (12:56)
--- NOTE | 2023-07-22 09:37 | Hospitalist Progress Note ---
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 Most likely metabolic encephalopathy from sepsis with progressive multisystem organ failure. Pt's prognosis is worsening and she is likely approaching end-of-life -Comfort measures initiated 07/16 Morphine 2 mg Q30 min PRN, mouthwash, scopolamine patch, Zofran PRN, Ativan PRN -Discharged 07/20 to inpatient hospice within same facility, admitted for inpatient hospice 07/21 -Continue morphine infusion Sepsis 06/29 bilateral ischial tuberosity osteomyelitis s/p debridement + washout x2 on 07/05 and 07/12 -CTAP showed large decubitus ulcers with osteomyelitis of the bilateral ischial tuberosities. Debrided 07/05 with wound vac placement and rectal tube for fecal diversion with repeat debridement on 07/12. TTE negative for vegetations -Discontinued antibiotics as INSPECTOR BRAKE LINING Acute kidney injury -Cr rise likely in the setting of end organ failure in the setting of end of life -No longer monitoring BMP Microcytic anemia -Prior FOB positive with 7 cm mucosal mass - possible colon cancer on prior CTs (awaiting outpatient colonoscopy). Transfused 1U PRBCs 07/07 with appropriate hemoglobin response. Iron low, ferritin wnl; consistent with anemia of chronic disease -No longer monitoring CBC Chronic peripheral vascular disease -Likely in the setting of long standing smoking with recent intervention in Apr 2023 as detailed in HPI -Discontinued statin as INSPECTOR BRAKE LINING Right 1st toe gangrene -Left ankle XR without osteomyelitis finding. Right foot XR concerning for infection without osteomyelitis, image better seen on wound care note. Podiatry consulted, no intervention during earlier hospitalization Colonic mass -CTAP this admission re-demonstrated 7 cm mucosal mass; no prior colonoscopy -No further evaluation as INSPECTOR BRAKE LINING HTN -No monitoring of VSS with comfort measures status -Discontinued home medications as INSPECTOR BRAKE LINING Oral candidiasis -No longer treating -Comfort measures only Hx of type 2 DM - Last A1c 6.5% 03/2023 w/o medications - No need for SSI Spinal cord infarction - Resulting in bilateral LE paralysis. Continue comfort measures only F/E/N/GI: Regular DVT ppx: not indicated Dispo: Medical/surgical Goals of care: INSPECTOR BRAKE LINING Family updated: 07/18 Sister Tiki Cline [phone] - POA (2) Unstageable pressure ulcer of sacral region: (3) Osteomyelitis: (4) Pulmonary nodule 1 cm or greater in diameter: (5) Spinal cord infarction: (6) Aortic dissection, abdominal: (7) Aortic stenosis: (8) Mass of colon: (9) HTN (hypertension): (10) Gangrene of toe of right foot: (11) Gram-positive bacteremia: (12) End of life care: (13) Comfort measures only status: Admission and Anticipated Discharge Date Admission Date: July 20, 2023 Supervising Physician Co-Signing Physician Notes Attending attestation Pt seen and examined in concert with Dr. Snow. In agreement with the documented findings as noted in the resident documentation with any exceptions or additions as noted here. Resting comfortably in bed without apparent complaint or agitation. On examination, mildly agonal breathing, no agitation. Acute inpatient hospice care with goal of comfort measures only - continue IV morphine drip for comfort with PRN lorazepam and atropine as noted For underlying medical issues, please refer to resident documentation as noted above. Subjective Acute events overnight- none. Pt examined at bedside. Appears comfortable, mild agonal breathing at times. Review of Systems Review of Systems: Per HPI/Subjective Physical Exam Physical Exam: General: appears comfortable, no acute distress, unresponsive Resp: mild agonal breathing at times Results & Data Results & Data Vital Signs (Past 12 Hours) Vital Signs O2 Del Method 07/22/23 07:23 Room Air Resident Activity Tracking Resident Involvement: Resident Care Provided Care Provided: Adult Hospital Medicine
--- NOTE | 2023-07-22 22:56 | Death Pronouncement Note ---
Date of Service July 22, 2023 Pronouncement Note Admission Date Admission Date: July 20, 2023 Contributing Factors (1) Comfort measures only status: (2) End of life care: Summary Additional details: I was called to pronounce the of Alexandra Rodriguez ( 1955) by Joycelyn Eduardo on 07/22/2023. Upon entering the room, patient was found to be in a terminal state. They were unresponsive to, and did not withdrawal from, verbal or tactile stimuli. They were unresponsive to corneal, pupillary, and oculocephalic reflexes. On cardiopulmonary exam, they were found to be without detectable carotid pulses, and without spontaneous heart tones or respirations. Time of was pronounced by me on 07/22/2023 at 22:51. Attending physician was notified. Next of kin was notified by Joycelyn Eduardo. Signed: Meliza Lucero DO Additional Data Attending physician: Hakeem Pérez MD Resident Activity Tracking Resident Involvement: Resident Care Provided Care Provided: Adult Hospital Medicine
--- NOTE | 2023-07-23 09:12 | Discharge Summary ---
Date of Service July 23, 2023 Admission HPI Per Admitting Provider 67 yo F admitted from 07/04-07/20 for sepsis secondary to b/l ischial tuberosity osteomyelitis. Transitioned to UTILITY OPERATOR on 07/16 due to worsening metabolic encephalopathy with multisystem organ failure. Discharged on 07/20 and readmitted on 07/21 for inpatient hospice. Please see discharge summary for further detail about previous hospital course. 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 UTILITY OPERATOR as of 07/16. on 07/22/25. TOD [id number]. Altered mental status -Noted AMS since debridement 07/12. Most likely metabolic encephalopathy from sepsis with progressive multisystem organ failure. Pt's prognosis is worsening and she is likely approaching end-of-life -Comfort measures initiated 07/16 - Morphine 2 mg Q30 min PRN, mouthwash, scopolamine patch, Zofran PRN, Ativan PRN Sepsis 06/29 bilateral ischial tuberosity osteomyelitis s/p debridement + washout x2 on 07/05 and 07/12 -CTAP showed large decubitus ulcers with osteomyelitis of the bilateral ischial tuberosities. Debrided 07/05 with wound vac placement and rectal tube for fecal diversion with repeat debridement on 07/12. TTE negative for vegetations -Discontinued antibiotics Acute kidney injury -Cr rise likely in the setting of end organ failure in the setting of end of life Microcytic anemia -Prior FOB positive with 7 cm mucosal mass - possible colon cancer on prior CTs (awaiting outpatient colonoscopy). Transfused 1U PRBCs 07/07 with appropriate hemoglobin response. Iron low, ferritin wnl; consistent with anemia of chronic disease Chronic peripheral vascular disease -Likely in the setting of long standing smoking with recent intervention in Apr 2023 as detailed in HPI -Discontinued statin Right 1st toe gangrene -Left ankle XR without osteomyelitis finding. Right foot XR concerning for infection without osteomyelitis, image better seen on wound care note. Podiatry consulted, no intervention during earlier hospitalization Colonic mass -CTAP this admission re-demonstrated 7 cm mucosal mass; no prior colonoscopy HTN -No monitoring of VSS with comfort measures status Oral candidiasis -No longer treating Hx of type 2 DM - Last A1c 6.5% 03/2023 w/o medications Spinal cord infarction - Resulting in bilateral LE paralysis (2) Unstageable pressure ulcer of sacral region: (3) Osteomyelitis: (4) Pulmonary nodule 1 cm or greater in diameter: (5) Spinal cord infarction: (6) Aortic dissection, abdominal: (7) Aortic stenosis: (8) Mass of colon: (9) HTN (hypertension): (10) Gangrene of toe of right foot: (11) Gram-positive bacteremia: (12) End of life care: (13) Comfort measures only status: Total Time Total Time Spent Total Time Spent (In Minutes): 30 Discharge Plan Discharge Items Patient Disposition: Discharge Diagnosis: Sepsis from osteomyelitis Addtl Attending Provider Instructions: Inpatient hospice - comfort measures only Other Date/Time: 07/22/23 22:51 Resident Activity Tracking Resident Involvement: Resident Care Provided Care Provided: Adult Hospital Medicine
== END 2023-07-23 02:24 | disposition expired | DRG 871 ==
LOC: 3W 19:27